=== PATIENT | female | born 1950 | race Caucasian/White ===

== ENCOUNTER → 2016-07-15 | Outpatient (CLI) | payer OTHER ==
[~2016-07-15] MED LIST: ATV1 PO; AZIT250T PO; BMX1 PO; CALCTAB7 PO; CRD200 PO; DLTCD/240 PO; FLUT1INH INH; IPRA1AER2 INH; IPRASOL4 INH; LEVO150T9 PO; LVQ500 PO; METO50TA17 PO; MOME200A INH; NTRSLP4 SL; OXGN; POTA20TA13 PO; PRED10TA PO; SPIR25TA PO; SPR25 PO; VTMD1000 PO; XRL20 PO
--- NOTE | 2016-07-15 15:50 | DIAGNOSTIC IMAGING REPORT ---
CHEST 2 VIEWS ROUTINE CLINICAL HISTORY: SOB COMPARISON STUDY: 06/19/2016 FINDINGS: The chest has an emphysematous configuration. There is no focal pulmonary consolidation. There is no failure. There are no pleural effusions.[ IMPRESSION: No active disease in the chest. Electronically signed by: Yimi Robins M.D. 07/15/2016 3:48 PM Dictated Date/Time: 07/15/2016 3:48 PM
== END | disposition home or self-care (01) ==
LOC: C.RAD1850 15:18
PROVIDERS: ATTEND Allergy & Immunology Allergy
DX: R06.02 Shortness of breath (principal)

== ENCOUNTER → 2016-07-18 | Outpatient (CLI) | payer OTHER ==
[2016-07-18 16:55] LABS: BLOOD UREA NITROGEN 13 mg/dl (7-18); CALCIUM 9.3 mg/dl (8.5-10.1); CARBON DIOXIDE 30 mmol/L (21-32); CHLORIDE 98 mmol/L (98-107); CREATININE 0.92 mg/dl (0.60-1.20); GLUCOSE 136 mg/dl (70-99); POTASSIUM 4.2 mmol/L (3.5-5.1); SODIUM 136 mmol/L (136-145)
== END | disposition home or self-care (01) ==
LOC: C.LAB1850 15:37
PROVIDERS: ATTEND Internal Medicine Pulmonary Disease
DX: R60.9 Edema, unspecified (principal)

== ENCOUNTER 2016-07-26 04:34 | Inpatient (IN) | payer OTHER ==
[2016-07-26] VITALS (8 sets, daily range): BP systolic 102–186; BP diastolic 64–99; PULSE 83–110; TEMP 36.4–37.1; O2SAT 91–98; Ht 172.7 cm; Wt 141.3 kg
[~2016-07-26] VITALS: Ht 172.7 cm; Wt 141.3 kg
[~2016-07-26 04:34] MED LIST changes: -AZIT250T PO; -CALCTAB7 PO; -CRD200 PO; -FLUT1INH INH; -METO50TA17 PO; -NTRSLP4 SL; -PRED10TA PO; -SPR25 PO; -VTMD1000 PO
[2016-07-26] MEDS ORDERED: SODIUM CHLORIDE 0.9% 1000ML 1,000 ML IV STA (04:51)
[2016-07-26] MEDS ORDERED: DILTIAZEM HCL 5 MG/ML 5 ML VIAL IV STA (04:51)
--- NOTE | 2016-07-26 04:57 | EMERGENCY ROOM VISIT NOTE ---
History Report prepared by Chicho: Marilyn Dickerson Under the Supervision of: Dr. Omar Rodriguez M.D. First contact with patient: 04:44 Chief Complaint: RAPID HEART RATE Stated Complaint: RAPID HEART RATE History of Present Illness The patient is a 65 year old female who presents to the Emergency Room with complaints of a persistent rapid heart rate that began two days ago. She currently rates her discomfort as a 2/10 in severity. The patient states that she has a history of atrial fibrillation and COPD. She states that she recently had a COPD exacerbation one month ago. The patient states that she is short of breath for several days as well, noting that she feels that she is not getting enough air. She states that she has noticed some central chest discomfort, but states that her pain has subsided since her arrival at the emergency department. The patient denies any fever or loss of consciousness. She states that she has a history of blood clots in the past, and denies being in atrial fibrillation chronically. The patient states that she is on Xarelto, but states that she is also given Cardizem when she goes into atrial fibrillation. She states that she has a history of three different cardioversions in the past. The patient states that she was recently on Prednisone and took her last dose last week. She states that she uses 2 liters of supplemental nasal cannula oxygen chronically at home and uses a C-pap at night. The patient additionally notes that she increases her oxygen usage with exertion. Source of History: patient Onset: two days ago Position: other (global) Symptom Intensity: 2/10 Quality: other (rapid heart rate) Timing: other (persistent) Associated Symptoms: + SOB, + chest pain, No LOC, No fevers Review of Systems See HPI for pertinent positives & negatives. A total of 10 systems reviewed and were otherwise negative. Past Medical & Surgical Medical Problems: (1) Acute and chronic respiratory failure with hypoxia (2) Asthma, Unspecified (3) Atrial Fibrillation (4) CHOLELITH W AC CHOLECYST (5) COPD (chronic obstructive pulmonary disease) (6) Deep venous thrombosis (7) GASTROPARESIS (8) HYPERLIPIDEMIA NEC/NOS (9) Hypothyroidism Nos (10) MORBID OBESITY (11) TYESHA on CPAP (12) Rapid atrial fibrillation Surgical Problems: (1) BARIATRIC SURGERY STATUS (2) Cholecystectomy (3) Tubal ligation status Family History Cancer FH: heart disease FHx: gallbladder disease Social History Smoking Status: Former Smoker Alcohol Use: none Marital Status: Housing Status: lives with family Occupation Status: retired Current/Historical Medications Scheduled Bumetanide (Bumetanide), 1 MG PO DAILY Ipratropium-Albuterol (Combivent Respimat), 1 PUFF INH QID Levothyroxine Sodium (Levothyroxine Sodium), 150 MCG PO DAILY Lorazepam (Lorazepam), 1 MG PO HS Mometasone Furoate-Formoterol (Dulera 200/5 Mcg), 2 PUFFS INH BID Oxygen (Oxygen), 2.5 LITERS NA UD Potassium Chloride Microencaps (Potassium Chloride Er), 20 MEQ PO DAILY Rivaroxaban (Xarelto), 20 MG PO DAILY Scheduled PRN Diltiazem Hcl (Diltiazem Cd), 240 MG PO DAILY PRN for Afib Symptoms Ipratropium-Albuterol (Duoneb), 1 TREATMENT INH QID PRN for SOB/Wheezing Spironolactone (Aldactone), 25 MG PO DAILY PRN for Fluid Retention Allergies Coded Allergies: Hydrocodone (Verified Adverse Reaction, Severe, GI SYMPTOMS, 07/26/16) Tramadol (Verified Adverse Reaction, Severe, GI SYMPTOMS, 07/26/16) Physical Exam Vital Signs Date Time Temp Pulse Resp B/P Pulse Ox O2 Delivery O2 Flow Rate FiO2 07/26/16 06:17 68 18 122/76 96 Nasal Cannula 3.0 07/26/16 04:52 98 Nasal Cannula 3.0 07/26/16 04:39 36.6 128 28 171/96 96 Nasal Cannula Physical Exam GENERAL: Patient is in moderate distress, anxious appearing. HEENT: No acute trauma, normocephalic atraumatic, mucous membranes moist, no nasal congestion, no scleral icterus. NECK: No stridor, no adenopathy, no meningismus, trachea is midline. LUNGS: Mildly dyspneic. Mild diffuse wheezing. No rhonchi. HEART:Irregular tachycardia. No murmurs, rubs, gallops appreciated. ABDOMEN: Soft, nontender, bowel sounds positive, no masses appreciated, no peritonitis. BACK: No midline tenderness, no CVA tenderness EXTREMITIES: Normal motion all extremities, no cyanosis, no edema. NEUROLOGIC: Alert and oriented, no acute motor or sensory deficits, no focal weakness, cranial nerves grossly intact. SKIN: No rash, no jaundice, no diaphoresis. Medical Decision & Procedures ER Provider Diagnostic Interpretation: X ray results are stated below per my interpretation: Chest: 1 view: No infiltrate, no effusion, normal cardiac border. Similar to recent chest x-ray. Laboratory Results 07/26/16 04:55 Red Blood Count 4.63, Mean Corpuscular Volume 87.9, Mean Corpuscular Hemoglobin 30.0, Mean Corpuscular Hemoglobin Concent 34.2, Mean Platelet Volume 10.2, Neutrophils (%) (Auto) 67.2, Lymphocytes (%) (Auto) 24.4, Monocytes (%) (Auto) 6.5, Eosinophils (%) (Auto) 1.2, Basophils (%) (Auto) 0.3, Neutrophils # (Auto) 8.70, Lymphocytes # (Auto) 3.16, Monocytes # (Auto) 0.84, Eosinophils # (Auto) 0.16, Basophils # (Auto) 0.04 07/26/16 04:55 Test 07/26/16 04:55 White Blood Count 12.95 K/uL (4.8-10.8) Red Blood Count 4.63 M/uL (4.2-5.4) Hemoglobin 13.9 g/dL (12.0-16.0) Hematocrit 40.7 % (37-47) Mean Corpuscular Volume 87.9 fL (80-100) Mean Corpuscular Hemoglobin 30.0 pg (25-34) Mean Corpuscular Hemoglobin Concent 34.2 g/dl (32-36) Platelet Count 218 K/uL (130-400) Mean Platelet Volume 10.2 fL (7.4-10.4) Neutrophils (%) (Auto) 67.2 % Lymphocytes (%) (Auto) 24.4 % Monocytes (%) (Auto) 6.5 % Eosinophils (%) (Auto) 1.2 % Basophils (%) (Auto) 0.3 % Neutrophils # (Auto) 8.70 K/uL (1.4-6.5) Lymphocytes # (Auto) 3.16 K/uL (1.2-3.4) Monocytes # (Auto) 0.84 K/uL (0.11-0.59) Eosinophils # (Auto) 0.16 K/uL (0-0.5) Basophils # (Auto) 0.04 K/uL (0-0.2) RDW Standard Deviation 43.3 fL (36.4-46.3) RDW Coefficient of Variation 13.6 % (11.5-14.5) Immature Granulocyte % (Auto) 0.4 % Immature Granulocyte # (Auto) 0.05 K/uL (0.00-0.02) Anion Gap 11.0 mmol/L (3-11) Est Creatinine Clear Calc Drug Dose 82.5 ml/min Estimated GFR () 68.3 Estimated GFR (Non- 59.0 BUN/Creatinine Ratio 13.1 (10-20) Calcium Level 8.6 mg/dl (8.5-10.1) Magnesium Level 1.9 mg/dl (1.8-2.4) Total Creatine Kinase 210 U/L (26-192) Creatine Kinase MB 3.9 ng/ml (0.5-3.6) Creatine Kinase MB Ratio 1.9 (0-3.0) Troponin I 0.023 ng/ml (0-0.045) Chemistry Specimen Hemolysis Laboratory results as reviewed by me. Medications Administered Medications (Trade) Dose Ordered Sig/Keri Route Start Time Stop Time Status Last Admin Dose Admin Diltiazem HCl 20 mg 20 mg NOW STAT IV 07/26/16 04:51 07/26/16 04:52 DC 07/26/16 04:58 20 MG Sodium Chloride (Nss 1000ml) 1,000 ml @ 75 mls/hr [id number] STAT IV 07/26/16 04:51 07/26/16 18:10 07/26/16 05:07 75 MLS/HR ECG Indication: tachycardia Rate (beats per minute): 117 Rhythm: atrial flutter Findings: nonspecific-ST abn (throuhgout), other (variable rate) Change: Repeat EKG: Atrial flutter with variable AV block 71 beats per minute. No acute ischemia. When compared to previous, rate his improved, but still in Atrial flutter. ED Course 0445: The patient was evaluated in room B2. A complete history and physical exam was performed. 0451: Ordered Sodium Chloride 1000 ml @ 75 mls/hr IV, Cardizem Inj 20 mg IV. 0457: I reevaluated the patient and she states that this feels like her previous rapid heart rate episodes. She does note that the shortness of breath does not feel like her COPD. She states that she has been short of breath with exertion for the past day and denies any shortness of breath at rest. The patient denies any fever or chills. She denies any history of heart failure. The patient notes intermittent edema in her legs. The patient states that she took 1 Cardizem prior to arrival. 0526: I reevaluated the patient and her heart rate is now in the 80s, but still in atrial flutter with a variable rate. 0600: I reevaluated the patient and she is feeling okay, but feels short of breath with sitting up. 0625: I discussed the patients case with Dr. Beck, Cardiology. He is going to call the patients music library assistant and will get back to us with the plan. 0638: I reevaluated the patient and she is feeling better. She notes taht she cannot sit up without becoming short of breath. She states that she is okay with waiting for Dr. Crowley, Cardiology's input. 0730: The patient was signed out to Dr. Agosto at change of shift. Medical Decision Differential: NSR, SVT, PACs, PVCs, Cardiac Dysrhythmia, Endocrine Dysfunction, Eletrolyte/Metabolic Abnormality, Pulmonary Embolism, Infectious, GI, amonst other pathologies entertained. 65 yr old female with history of paroxysmal aflutter resulting in symptomatic issues to point of multiple previous cardioversions. She is too symptomatic to head home. She has RVR on arrival though after single dose Cardizem doing well but after sitting up already gets SHOB. States this is not her normal COPD SOB and she has essentially clear lungs here. She is already on Xarelto thus unlikely to be PE. She notes this is identical to previous Aflutter issues. She has unremarkable labs with WBC mildly elevated likely secondary to recent steroid use. She has no fevers, no chills, and no productive cough thus I feel not infectious. Trop wnl. EKG much improved though still aflutter after cardizem. Discussed with Cards who will discuss with her primary music library assistant for further evaluation. Signed out to Dr Agosto awaiting music library assistant input/ plan. Consults Time Called: [phone] Consulting Physician: Dr. Beck, Cardiology Returned Call: [phone] I discussed the patients case with Dr. Beck, Cardiology. He is going to call the patients music library assistant and will get back to us with the plan. Impression Primary Impression: Atrial flutter with rapid ventricular response Additional Impressions: Symptomatic atrial flutter Shortness of breath on exertion Scribe Attestation The scribe's documentation has been prepared under my direction and personally reviewed by me in its entirety. I confirm that the note above accurately reflects all work, treatment, procedures, and medical decision making performed by me. Departure Information Dispostion Still a Patient Referrals Kiel Garcia M.D. (PCP) Problem Qualifiers
[2016-07-26 05:29] LABS: BASO % 0.3 %; BASO ABS # 0.04 K/uL (0-0.2); COMPLETE YES; EOS % 1.2 %; HEMATOCRIT 40.7 % (37-47); IG% 0.4 %; LYMPH % 24.4 %; LYMPH ABS # 3.16 K/uL (1.2-3.4); MEAN CELL VOLUME 87.9 fL (80-100); MEAN CORPUSCULAR HGB CONC 34.2 g/dl (32-36); MEAN PLATELET VOLUME 10.2 fL (7.4-10.4); MONO % 6.5 %; NEUT % 67.2 %; PLATELET COUNT 218 K/uL (130-400); RED BLOOD COUNT 4.63 M/uL (4.2-5.4); WHITE BLOOD COUNT 12.95 K/uL (4.8-10.8)
[2016-07-26 06:15] LABS: BUN/CREATININE RATIO 13.1 (10-20); CALCIUM 8.6 mg/dl (8.5-10.1); CKMB/CK RATIO 1.9 (0-3.0); CREATININE 0.99 mg/dl (0.60-1.20); MAGNESIUM 1.9 mg/dl (1.8-2.4); POTASSIUM 3.6 mmol/L (3.5-5.1)
--- NOTE | 2016-07-26 06:54 | DIAGNOSTIC IMAGING REPORT ---
CHEST ONE VIEW PORTABLE CLINICAL HISTORY: Atypical chest pain, shortness of breath. COMPARISON STUDY: 07/15/2016, 06/19/2016 FINDINGS: The cardiac and mediastinal contours are normal. There is no evidence of focal pulmonary consolidation. There is no evidence of failure. No pleural effusions are visualized.[ IMPRESSION: No active disease in the chest. Electronically signed by: Yimi Robins M.D. 07/26/2016 6:52 AM Dictated Date/Time: 07/26/2016 6:52 AM
[2016-07-26] MEDS ORDERED: METHYLPREDNISOLONE 125 MG VIAL IV STA (08:50)
[2016-07-26] MEDS ORDERED: ALBUT/IPRATROP 3MG/0.5MG NEB 3 ML VIAL INH STA (08:50)
[2016-07-26] MEDS ORDERED: ALUMINUM/MAGNESIUM/SIMETH (MAALOX MAX) 30 ML UDC PO PRN (10:15)
[2016-07-26] MEDS ORDERED: NITROGLYCERIN 0.4 MG SL PER TAB CHARGE SL PRN (10:15)
[2016-07-26] MEDS ORDERED: DILTIAZEM HCL 240 MG CAPCR PO PRN (10:15)
[2016-07-26] MEDS ORDERED: MAGNESIUM HYDROXIDE SUSP 30 ML UDC PO PRN (10:15)
[2016-07-26] MEDS ORDERED: ACETAMINOPHEN 325 MG TAB PO PRN (10:15)
[2016-07-26] MEDS ORDERED: ONDANSETRON INJ 2 MG/ML 2 ML VIAL IV PRN (10:15)
[2016-07-26] MEDS ORDERED: SPIRONOLACTONE 25 MG TAB PO PRN (10:15)
--- NOTE | 2016-07-26 10:45 | History and Physical ---
History & Physical Date & Time of Service: Jul 26, 2016 at 10:17 Chief Complaint: Rapid Heart Rate Primary Care Physician: Kiel Garcia M.D. History of Present Illness Source: patient, family Patient is a pleasant 65 y/o female, with PMHx of COPD, a.fib, CHF, TYESHA, HTN, hypothyroidism, GERD, who presented to the ED because of tachycardia and SOB. Patient was admitted approximately ~5 weeks ago for COPD exacerbation. Since that time, patient has been battling with SOB. She finished a Prednisone fabian ~1 week ago. She was placed on IV Levaquin during her last admission, but was not discharge/given any antibiotics since that time. She follows closely with Dr. Francis. Since that time, she has been getting progressively worsening SOB. On 07/25, her SOB worsening terribly. She was unable to ambulation. She took her pulse ox at home and noticed her pulse was in the 140s. She took her Diltiazem and went to sleep. Around 0330 she woke her daughter up because of severe SOB and tachycardia. At arrival to ED, patient noticed chest pressure that has since subsided. Patient wears 2-3L O2 supplement at home. +SOB, wheezing, cough - nonproductive. +chronic lower extremity edema. Patient denies any fever, chills, sweats, lightheadedness, dizziness, vision changes, palpitations, abdominal pain, nausea, vomiting, diarrhea, urinary symptoms, melena, numbness/ tingling, weakness, muscle/joint pain, anxiety/depression, active bleeding, or new skin discoloration/changes. Past Medical/Surgical History Medical Problems: 1. A.fib 2. Diastolic CHF 3. TYESHA 4. COPD 5. GERD 6. Hypothyroidism Surgical: 1. Tubal ligation 2. Cholecystectomy 3. Laparoscopic band surgery Family History Cancer FH: heart disease FHx: gallbladder disease Social History Smoking Status: Former Smoker Marital Status: Occupational Status: retired Immunizations History of Influenza Vaccine: Yes Influenza Vaccine Date: Apr 08, 2012 History of Tetanus Vaccine?: Yes Tetanus Immunization Date: Jun 08, 2005 History of Pneumococcal: Yes Pneumococcal Date: Apr 08, 2012 History of Hepatitis B Vaccine: No Multi-Drug Resistant Organisms History of MDRO: No Allergies Coded Allergies: Hydrocodone (Verified Adverse Reaction, Severe, GI SYMPTOMS, 07/26/16) Tramadol (Verified Adverse Reaction, Severe, GI SYMPTOMS, 07/26/16) Home Medications Scheduled Bumetanide (Bumetanide), 1 MG PO DAILY Ipratropium-Albuterol (Combivent Respimat), 1 PUFF INH QID Levothyroxine Sodium (Levothyroxine Sodium), 150 MCG PO DAILY Lorazepam (Lorazepam), 1 MG PO HS Mometasone Furoate-Formoterol (Dulera 200/5 Mcg), 2 PUFFS INH BID Oxygen (Oxygen), 2.5 LITERS NA UD Potassium Chloride Microencaps (Potassium Chloride Er), 20 MEQ PO DAILY Rivaroxaban (Xarelto), 20 MG PO DAILY Scheduled PRN Diltiazem Hcl (Diltiazem Cd), 240 MG PO DAILY PRN for Afib Symptoms Ipratropium-Albuterol (Duoneb), 1 TREATMENT INH QID PRN for SOB/Wheezing Spironolactone (Aldactone), 25 MG PO DAILY PRN for Fluid Retention Physical Exam Vital Signs Date Time Temp Pulse Resp B/P Pulse Ox O2 Delivery O2 Flow Rate FiO2 07/26/16 08:49 87 07/26/16 08:02 72 106/69 94 07/26/16 06:17 68 18 122/76 96 Nasal Cannula 3.0 07/26/16 04:52 98 Nasal Cannula 3.0 07/26/16 04:39 36.6 128 28 171/96 96 Nasal Cannula General Appearance: no apparent distress, + obese, + pertinent finding (O2 supplement on- mild SOB with speaking sentences ) Head: normocephalic, atraumatic Eyes: normal inspection, PERRL ENT: hearing grossly normal Neck: supple Respiratory/Chest: no respiratory distress, no accessory muscle use, + decreased breath sounds, + wheezing (throughout all lung suero ) Cardiovascular: regular rate, rhythm Abdomen/GI: normal bowel sounds, non tender, soft Back: normal inspection Extremities/Musculoskelatal: no calf tenderness, + swelling (+1 pitting edema of bilateral lower extremities starting at distal elizabeth region ) Neurologic/Psych: alert, normal mood/affect, oriented x 3 Skin: normal color, warm/dry, no rash Diagnostics Laboratory Results Results Past 24 Hours Test 07/26/16 04:55 Range/Units White Blood Count 12.95 4.8-10.8 K/uL Red Blood Count 4.63 4.2-5.4 M/uL Hemoglobin 13.9 12.0-16.0 g/dL Hematocrit 40.7 37-47 % Mean Corpuscular Volume 87.9 80-100 fL Mean Corpuscular Hemoglobin 30.0 25-34 pg Mean Corpuscular Hemoglobin Concent 34.2 32-36 g/dl Platelet Count 218 130-400 K/uL Mean Platelet Volume 10.2 7.4-10.4 fL Neutrophils (%) (Auto) 67.2 % Lymphocytes (%) (Auto) 24.4 % Monocytes (%) (Auto) 6.5 % Eosinophils (%) (Auto) 1.2 % Basophils (%) (Auto) 0.3 % Neutrophils # (Auto) 8.70 1.4-6.5 K/uL Lymphocytes # (Auto) 3.16 1.2-3.4 K/uL Monocytes # (Auto) 0.84 0.11-0.59 K/uL Eosinophils # (Auto) 0.16 0-0.5 K/uL Basophils # (Auto) 0.04 0-0.2 K/uL RDW Standard Deviation 43.3 36.4-46.3 fL RDW Coefficient of Variation 13.6 11.5-14.5 % Immature Granulocyte % (Auto) 0.4 % Immature Granulocyte # (Auto) 0.05 0.00-0.02 K/uL Sodium Level 139 136-145 mmol/L Potassium Level 3.6 3.5-5.1 mmol/L Chloride Level 101 98-107 mmol/L Carbon Dioxide Level 27 21-32 mmol/L Anion Gap 11.0 3-11 mmol/L Blood Urea Nitrogen 13 7-18 mg/dl Creatinine 0.99 0.60-1.20 mg/dl Est Creatinine Clear Calc Drug Dose 82.5 ml/min Estimated GFR () 68.3 Estimated GFR (Non- 59.0 BUN/Creatinine Ratio 13.1 10-20 Random Glucose 187 70-99 mg/dl Calcium Level 8.6 8.5-10.1 mg/dl Magnesium Level 1.9 1.8-2.4 mg/dl Total Creatine Kinase 210 26-192 U/L Creatine Kinase MB 3.9 0.5-3.6 ng/ml Creatine Kinase MB Ratio 1.9 0-3.0 Troponin I 0.023 0-0.045 ng/ml Chemistry Specimen Hemolysis Diagnostic Radiology CHEST ONE VIEW PORTABLE CLINICAL HISTORY: Atypical chest pain, shortness of breath. COMPARISON STUDY: 07/15/2016, 06/19/2016 FINDINGS: The cardiac and mediastinal contours are normal. There is no evidence of focal pulmonary consolidation. There is no evidence of failure. No pleural effusions are visualized.[ IMPRESSION: No active disease in the chest. Electronically signed by: Yimi Robins M.D. 07/26/2016 6:52 AM Dictated Date/Time: 07/26/2016 6:52 AM The status of this report is Signed. Draft = Not yet reviewed or approved by Radiologist. Signed = Reviewed and approved by Radiologist. 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 25mm/s 10mm/mV 150Hz 8.0 SP2 12SL 241 KRISTEN: 9 Referred by: Referred Self Confirmed By: IGOR Ledesma. 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 25mm/s 10mm/mV 150Hz 8.0 SP2 12SL 241 KRISTEN: 9 Referred by: Referred Self Confirmed By: IGOR ANA Vent. rate 117 BPM DE interval * ms QRS duration 74 ms QT/QTc 300/418 ms P-R-T axes 180 -70 86 1950 (65 yr) Female 1lb Room:B2 Loc:15 Taper And Floater:ENOCH Velazquez ind: Impression Assessment and Plan 65 y/o female, with PMHx of COPD, a.fib, CHF, TYESHA, HTN, hypothyroidism, GERD, who presented to the ED because of tachycardia and SOB. 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 Follows with Dr. Penny Sharma with RVR: - Patient given IV Diltiazem 20 mg in ED with rate improvement- at admission rate of 87bpm - Continue Xarelto 20 mg PO daily - Continue Diltiazem 240 mg PO daily PRN - Consult cardiology, appreciate recommendations. Patient follows with Dr. Crolwey. Has been converted x3 in past. Diastolic CHF/bilateral lower extremity edema: - Continue Bumex 1 mg PO daily, Spironolactone 25 mg PO PRN, and potassium supplement - ECHO in Jun 2015- EF 60-65%. No regional wall abnormalities. Diastolic dysfunction. Left ventricular size, thickness, and function normal - Daily weights and I&Os. Patient takes weight daily, baseline 311lbs. Hypothyroidism: - Continue Synthroid 150 mcg PO daily - Check TSH TYESHA: - CPAP GERD: - Pantoprazole 40 mg GI Prophylaxis: - Maalox PRN - IV Zofran PRN - Colace and/or Milk of Mag PRN DVT prophylaxis: - Xarelto - KOBY and SCDs Code Status: - LEVEL I, FULL Dispo: - From home, lives with daughter and grandson Level of Care Telemetry Resuscitation Status FULL RESUSCITATION VTE Prophylaxis VTE Risk Assessment Done? Y/N: Yes Risk Level: High Given or contraindicated: Other Anticoagulation, T.E.D. Stockings, SCD's
--- NOTE | 2016-07-26 12:33 | CARDIOLOGY CONSULTATION ---
DATE OF CONSULTATION: 07/26/2016 PRIMARY PHYSICIAN: Kiel Garcia MD ATTENDING AND REFERRING PHYSICIAN: Shruti Tam MD CONSULTATION: Yossi Crowley MD HISTORY OF PRESENT ILLNESS: The patient is a 65-year-old female with a history of pulmonary and heart disease. Longstanding history of chronic obstructive lung disease as well as sleep apnea. She uses CPAP at night. She is on nasal cannula oxygen throughout the rest of the day. Flow rate 2-1/2 liters per minute. She does increase the flow rate when she has increased dyspnea with exertion. She also has a history of atrial arrhythmias. On admission in May 2014, she was noted to have atrial flutter. Echocardiogram at that time revealed normal biventricular systolic function. Her TSH, magnesium, and potassium levels were normal. She was started on antiarrhythmic therapy. She was given medications for ventricular rate control. She underwent successful cardioversion on 07/22/2014 for atrial flutter. Since then, she has undergone 2 further cardioversion procedures. These were in February of 2016 and in September of 2015. The rhythm was atrial fibrillation. The cardioversion procedures were successful in converting the rhythm to sinus rhythm. She has been maintained on anticoagulation therapy since May of 2014. The patient was admitted on 06/19/2016 to [facility] with acute on chronic respiratory insufficiency. It was felt that she had an acute bronchitis. During the admission, she was in sinus rhythm. She was discharged home on 06/22/2016. During admission, she received intravenous steroids. Since discharge, she has had at least 3 followup visits to pulmonary clinic at [facility]. These were on 07/05/2016, 07/15/2016, and 07/18/2016. During that timeframe, she was treated with 2 courses of oral steroids. She also had complained of weight gain and fluid retention. She had an increase in her Bumex dose from 1 mg daily to 1 mg b.i.d. for 3 days. Between her July 15 and July 18 appointments, she reported a weight loss of 5 pounds. She also complained of decreased dyspnea and coughing. None of the visits were she noted to have an elevated heart rate. The patient presented to the Emergency Department early this morning with a 3-day history of worsening dyspnea. This has been accompanied by a nonproductive cough and increased wheezing. She does use a nebulizer at home. She denies any palpitations. No lightheadedness or syncope. Last night, she did have a sensation of tightness in her chest lasting approximately 1 hour. This has since resolved. She normally sleeps at approximately 45-degree angle. Over the past few days, she feels that she needs to sit more upright to sleep. She complains of mild edema of her legs. No pain in her legs. She denies any bleeding complaints. No symptoms suggestive of thromboembolic event. Over the past few days, she has dyspnea with minimal activity. This is after walking only a few steps. Normally, she can walk approximately 30 feet with only mild dyspnea. She is complaining of dyspnea at rest on my evaluation of her in the Emergency Department. She denies any fevers or chills. No GI complaints other than 3 episodes of loose stools earlier today. No symptoms of GI bleeding. She denies any urinary complaints. PAST MEDICAL HISTORY: 1. Chronic obstructive pulmonary disease. 2. Chronic respiratory failure. 3. Paroxysmal atrial arrhythmias. These include both atrial fibrillation and atrial flutter. 4. Hyperglycemia. 5. Hypothyroidism. 6. Obstructive sleep apnea. 7. Pulmonary nodules. 8. Polyneuropathy. 9. Gastroesophageal reflux disease. 10. History of mediastinal lymphadenopathy. 11. History of thrombophlebitis of the upper extremities. 12. History of iron deficiency anemia. 13. History of bronchitis. 14. History of depression. 15. History of vaginal candidiasis. 16. No history of CVA. 17. Prior to the development of her atrial arrhythmias in 2013, she had no prior history of heart disease. 18. Morbid obesity. 19. Status post bariatric surgery with placement of a lap band. 20. Status post cholecystectomy. 21. Status post tubal ligation. 22. History of gastroparesis. SOCIAL HISTORY: The patient smoked cigarettes from age 13 through age 55. She is a . Her daughter lives with her. No significant use of alcohol. FAMILY HISTORY: History of atrial fibrillation in both her mother and her sister. MEDICATIONS: At the time of admission were Bumex 1 mg daily, Combivent 1 puff q.i.d., diltiazem 240 mg daily as needed, Dulera 2 puffs b.i.d., ipratropium/albuterol nebulizer q.i.d., levothyroxine 150 mcg daily, lorazepam 1 mg at bedtime, potassium chloride 20 mEq daily, spironolactone 25 mg daily, and Xarelto 20 mg daily. ALLERGIES AND ADVERSE DRUG REACTIONS: CODEINE, TRAMADOL, AND FLECAINIDE. REVIEW OF SYSTEMS: 1. As above. 2. No cerebrovascular complaints suggestive of a thromboembolic event. 3. No current bleeding complaints. 4. No cerebrovascular or peripheral vascular complaints. 5. No urinary complaints. PHYSICAL EXAMINATION: GENERAL: The patient is sitting up in her bed in the Emergency Department. She was evaluated by me in the Emergency Department this morning. She had audible wheezing just standing at her bedside. She appears to be in mild respiratory distress. She is using accessory muscles. HEAD: Normal. EYES: Pupils equal and round. Anicteric. NECK: Thick neck. Unable to evaluate jugular venous pressure. Carotids 2/2 bilaterally. Normal upstroke. No bruits. LUNGS: Diminished breath sounds and air movement in all lung suero. No rales. Scattered inspiratory and expiratory wheezes. Rhonchi are also present. HEART: Distant heart sounds. PMI not palpable. No lifts or heaves. Irregular rhythm. No murmur, gallop, or rub heard. ABDOMEN: Obese. Soft. Nontender. No palpable masses or organomegaly. No bruits. Normal bowel sounds. EXTREMITIES: 2+ pretibial edema bilaterally. No calf tenderness. No erythema or increased warmth of the legs. No cyanosis or clubbing. PULSES: Distal pulses in all extremities palpable. NEUROLOGICAL: Alert and oriented x3. Motor grossly intact. PSYCHIATRIC: Affect is normal. DATA: Electrocardiogram today and reviewed by me shows atrial flutter. Variable AV block. 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 Compared to prior electrocardiograms since at least 2013, she has had poor R-wave progression. The poor R-wave progression has been noted since at least 2002. Chest x-ray performed this morning and reviewed by me shows no evidence of congestive heart failure. No infiltrate. Her most recent echocardiogram was on 07/17/2015. It revealed normal left ventricular size, wall thickness, and systolic function. Grade-2 LV diastolic dysfunction. No regional wall motion abnormalities of the left ventricle. LV ejection fraction 65%-70%. Mild right ventricular dilatation with intact systolic function. No significant valvular regurgitation was noted. LABORATORY DATA: Today with WBC 12.95, hemoglobin 13.9, hematocrit 40.7, and platelet count 218. Sodium 139, potassium 3.6, chloride 101, carbon dioxide 27, BUN 13, creatinine 0.99, random glucose 187, and magnesium 1.9. Troponin I is 0.023. CK total 210 with MB of 3.9. CK-MB ratio normal at 1.9. ASSESSMENT: 1. Acute on chronic respiratory failure. At the time of my exam, she was complaining of dyspnea. She had audible wheezing standing at her bedside. Diminished breath sounds in all lung suero. Poor air movement in all lung suero. Despite this, her oxygen saturation was in the 90s. She is on supplemental nasal cannula oxygen. 2. Recurrent atrial arrhythmias. Overnight, she noted when she checked her pulse ox that she had heart rates in the 140s. In the Emergency Department, she received intravenous diltiazem, which helped decrease her ventricular response. At the time of my exam, her ventricular response was controlled. She remained in atrial flutter. 3. Chronic anticoagulation with Xarelto. 4. Status post 3 electrical cardioversions since 2014. These were all for atrial fibrillation or flutter. 5. Complaint of 1 hour of chest tightness last night. Cardiac enzymes negative for evidence of myocardial injury. Electrocardiogram without any acute changes. The poor R-wave progression from V1-V3 on electrocardiogram has been present for at least 13 years. It is likely secondary to her body habitus and lead placement. On echocardiography, she has normal LV wall motion. There is no evidence of any anterior myocardial infarction on her echo. The chest tightness last night could have been secondary to her bronchospasm. Certainly, cannot exclude myocardial ischemia as an etiology. 6. She is hemodynamically stable with her atrial arrhythmia. RECOMMENDATIONS: 1. It was recommended to the Emergency Department physician that the patient be admitted to the medical service for treatment of her acute on chronic respiratory failure. Nebulizer treatments and intravenous steroids would be indicated. 2. Continue Xarelto. 3. We will start her on amiodarone 400 mg b.i.d. After she is as loaded with amiodarone, we will decrease the dose to 200 mg once daily. 4. If she remains in atrial flutter despite initiation of amiodarone therapy, we will then proceed to elective electrical cardioversion. This will not be performed until her respiratory status is at baseline. She would be at extremely high risk for deep sedation at this time. This is in light of her respiratory insufficiency and active bronchospasm. 5. Serial cardiac enzymes. 6. Repeat echocardiogram. Reassess right and left ventricular function and assess intracardiac pressures. 7. Check a ProBNP. 8. Do not suspect congestive heart failure is an etiology for dyspnea. No evidence of heart failure on her chest x-ray. She does have chronic peripheral edema, which may be related to primary venous insufficiency. This can be exacerbated by diltiazem therapy. Thank you for asking me to see this patient in cardiology consultation. FLORENCIA
[2016-07-26] MEDS ORDERED: IPRATROPIUM BROMIDE INH SCH (13:00)
[2016-07-26] MEDS ORDERED: ALBUTEROL INH SCH (13:00)
[2016-07-26] MEDS: IPRATROPIUM BROMIDE NEB SOLN 0.02% 2.5 ML VIAL INH SCH ×2 (15:00→19:17)
[2016-07-26] MEDS: LEVALBUTEROL 1.25MG/0.5ML NEB INH SCH ×2 (15:00→19:18)
[2016-07-26] MEDS ORDERED: LEVALBUTEROL/IPRATROPIUM NEB INH SCH (15:00)
[2016-07-26] MEDS ORDERED: PERFLUTREN LIPID MICROSPHERE (DEFINITY) IV ONE (15:12)
--- NOTE | 2016-07-26 15:38 | EMERGENCY ROOM VISIT NOTE ---
ED Visit Note This patient was signed out to me by Dr. Rodriguez at shift change. At that point ,the patient was awaiting doctors noted to see her for possible cardioversion. She does have paroxysmal A. fib and had rapid A. fib and was initially seen by Dr. Rodriguez who did extensive workup. She was given Cardizem and this helped the A. fib. Drs. Crowley saw her and her rate was controlled. He was concerned that this is more respiratory failure issue at she 's wheezing. She appears comfortable at rest but with any exertion. She is very short of breath. I did give her Solu-Medrol 125 mg IV and a DuoNeb. I do think she needs to be admitted to internal medicine which Dr. Crowley who feels as well. At this point, he does not feel that she is stable for cardioversion and it does not need to be done emergently. I have consulted the [facility] hospitalist group and they saw her for these measures.
[2016-07-26] MEDS: RIVAROXABAN 20 MG TAB PO SCH (16:48)
[2016-07-26] MEDS: METHYLPREDNISOLONE IV 80 MG in SYRINGE 0 ML IV SCH (16:48)
--- NOTE | 2016-07-26 18:05 | ECHOCARDIOGRAM REPORT ---
*NOTICE TO RECEIVING REPUBLICAN AGENCY This information is strictly Confidential and protected under [place] law. [place] law prohibits you from making any further disclosure of this information unless further disclosure is expressly permitted by the written consent of the person to whom it pertains or is authorized by law. A general authorization for the release of medical or other information is not sufficient for this purpose. Hospital accepts no responsibility if the information is made available to any other person, INCLUDING THE PATIENT. Interpretation Summary * Name: YOVANY CARTAGENA Study Date: 07/26/2016 02:43 PM BP: 127/79 mmHg * Patient Location: C.2T\S\S229\S\2 HR: 110 * : 1950 (M/d/yyy) Gender: Female Height: 67 in * Age: 65 yrs Ethnicity: [place] Weight: 310 lb * Ordering Physician: Yossi Crowley * Referring Physician: Self, Referred * Performed By: Vanessa Leavitt RCS * * Reason For Study: A-Flutter * BSA: 2.4 m2 * Hyperdynamic biventricular systolic function. * Normal chamber dimensions. * Mild aortic stenosis. * No evidence of significant valvular regurgitation. * No evidence of elevated right heart or central venous pressures. * The study was technically difficult. Procedure Details * A complete two-dimensional transthoracic echocardiogram was performed (2D, M-mode, Doppler and color flow Doppler). * The study was technically difficult. * The study was technically limited. * There were technical limitations due to patient'sPoor acoustic windows secondary to severe lung disease. * A contrast injection of Definity was performed to improve assessment of LV function. * One vial of Definity ultrasound contrast was diluted in normal saline to a total volume of 10 ml. A total of '2' ml of solution was administered during imaging. * Lot # [id number] of Definity utilized for procedure. * Expiration date . * The attending nurse who injected the contrast agent was PARIS Alexander. Left Ventricle * The left ventricle is normal in size. * There is mild concentric left ventricular hypertrophy. * Ejection Fraction = >70 %. * The left ventricle is hyperdynamic. * No regional wall motion abnormalities noted. Right Ventricle * The right ventricle is normal size. * The right ventricle is hyperdynamic. Atria * The left atrial size is normal. * Right atrial size is normal. Mitral Valve * The mitral valve is grossly normal. * There is no mitral valve stenosis. * Significant mitral regurgitation is absent. Tricuspid Valve * The tricuspid valve is not well visualized. * Significant tricuspid regurgitation is absent. Aortic Valve * The aortic valve is not well visualized. * Mild valvular aortic stenosis. * Aortic valve area was calculated at 1.5 cm\S\2 using the continuity equation. * There is no significant aortic regurgitation. Pulmonic Valve * The pulmonic valve is not well visualized. * There is no significant pulmonary regurgitation. Great Vessels * The aortic root is normal size. Pericardium/Pleural * There is no pericardial effusion. Great Vessels * Normal inferior vena cava diameter and respiratory variation suggests normal central venous pressure. MMode 2D Measurements and Calculations IVSd 1.2 cm IVSs 1.6 cm LVIDd 3.8 cm LVIDs 2.7 cm LVPWd 1.2 cm LVPWs 1.4 cm IVS/LVPW 1.0 FS 30.6 % EDV(Teich) 63.6 ml ESV(Teich) 26.2 ml EF(Teich) 58.9 % EDV(cubed) 56.7 ml ESV(cubed) 18.9 ml EF(cubed) 66.6 % % IVS thick 37.1 % % LVPW thick 20.4 % LV mass(C)d 150.4 grams LV mass(C)dI 61.7 grams/m\S\2 LV mass(C)s 137.6 grams LV mass(C)sI 56.5 grams/m\S\2 CO(Teich) 3.4 l/min CI(Teich) 1.4 l/min/m\S\2 SV(Teich) 37.4 ml SI(Teich) 15.4 ml/m\S\2 CO(cubed) 3.4 l/min CI(cubed) 1.4 l/min/m\S\2 SV(cubed) 37.8 ml SI(cubed) 15.5 ml/m\S\2 Ao root diam 2.7 cm Ao root area 5.8 cm\S\2 ACS 1.4 cm LA dimension 3.6 cm LA/Ao 1.3 LVOT diam 2.0 cm LVOT area 3.0 cm\S\2 LVAd ap4 39.8 cm\S\2 LVLd ap4 9.3 cm EDV(MOD-sp4) 139.0 ml LVAs ap4 21.4 cm\S\2 LVLs ap4 7.5 cm ESV(MOD-sp4) 50.0 ml EF(MOD-sp4) 64.0 % LVAd ap2 25.1 cm\S\2 LVLd ap2 8.5 cm EDV(MOD-sp2) 61.0 ml LVAs ap2 16.5 cm\S\2 LVLs ap2 7.5 cm ESV(MOD-sp2) 29.0 ml EF(MOD-sp2) 52.5 % CO(MOD-sp4) 8.1 l/min CI(MOD-sp4) 3.3 l/min/m\S\2 SV(MOD-sp4) 89.0 ml SI(MOD-sp4) 36.5 ml/m\S\2 CO(MOD-sp2) 2.9 l/min CI(MOD-sp2) 1.2 l/min/m\S\2 SV(MOD-sp2) 32.0 ml SI(MOD-sp2) 13.1 ml/m\S\2 Doppler Measurements and Calculations MV E max marc 151.8 cm/sec MV A max marc 98.1 cm/sec MV E/A 1.5 MV P1/2t max marc 156.8 cm/sec MV P1/2t 63.8 msec MVA(P1/2t) 3.4 cm\S\2 MV dec slope 719.6 cm/sec\S\2 MV dec time 0.14 sec Ao V2 max 203.4 cm/sec Ao max PG 16.6 mmHg Ao max PG (full) 12.2 mmHg Ao V2 mean 141.0 cm/sec Ao mean PG 9.2 mmHg Ao V2 VTI 40.2 cm KSENIA(V,A) 1.5 cm\S\2 KSENIA(V,D) 1.5 cm\S\2 LV V1 max PG 4.5 mmHg LV V1 max 104.9 cm/sec SV(Ao) 232.5 ml SI(Ao) 95.4 ml/m\S\2 PA V2 max 101.4 cm/sec PA max PG 4.1 mmHg
[2016-07-26] MEDS: LEVOTHYROXINE 150 MCG TAB PO SCH (18:24)
[2016-07-26] MEDS: MOMETASONE FUROATE FORMOTEROL INH SCH (19:41)
[2016-07-26] MEDS: AMIODARONE 200 MG TAB PO SCH (21:49)
[2016-07-26] MEDS: LORAZEPAM 1 MG TAB PO SCH (23:10)
[2016-07-27] VITALS (16 sets, daily range): BP systolic 123–173; BP diastolic 64–98; PULSE 74–122; TEMP 36.4–36.7; O2SAT 94–98
[2016-07-27] MEDS: METHYLPREDNISOLONE IV 80 MG in SYRINGE 0 ML IV SCH ×2 (02:00→08:41)
[2016-07-27] MEDS: LEVALBUTEROL 1.25MG/0.5ML NEB INH SCH ×4 (02:12→19:00)
[2016-07-27] MEDS: IPRATROPIUM BROMIDE NEB SOLN 0.02% 2.5 ML VIAL INH SCH ×4 (02:12→19:00)
[2016-07-27] MEDS ORDERED: LEVOTHYROXINE 150 MCG TAB PO SCH (06:00)
[2016-07-27 06:11] LABS: HEMATOCRIT 40.2 % (37-47); MEAN CELL VOLUME 85.5 fL (80-100); MEAN CORPUSCULAR HEMOGLOBIN 29.1 pg (25-34); MEAN CORPUSCULAR HGB CONC 34.1 g/dl (32-36); PLATELET COUNT 229 K/uL (130-400); WHITE BLOOD COUNT 9.41 K/uL (4.8-10.8)
[2016-07-27 06:40] LABS: BUN/CREATININE RATIO 15.5 (10-20); CALCIUM 9.2 mg/dl (8.5-10.1); CREATININE 0.77 mg/dl (0.60-1.20); MAGNESIUM 2.2 mg/dl (1.8-2.4); POTASSIUM 3.9 mmol/L (3.5-5.1)
[2016-07-27 06:48] LABS: THYROID STIMULATING HORMONE 0.408 uIu/ml (0.300-4.500)
[2016-07-27] MEDS: BUMETANIDE 1 MG TAB PO SCH (08:40)
[2016-07-27] MEDS: POTASSIUM CHLORIDE 20 MEQ TABCR PO SCH (08:42)
[2016-07-27] MEDS: PANTOprazole SOD 40 MG TAB PO SCH (08:42)
[2016-07-27] MEDS: AMIODARONE 200 MG TAB PO SCH ×2 (08:43→20:59)
[2016-07-27] MEDS ORDERED: NURSING VERBAL MED ORDER ONE (08:45)
[2016-07-27] MEDS: MOMETASONE FUROATE FORMOTEROL INH SCH ×2 (08:46→20:59)
--- NOTE | 2016-07-27 08:52 | Pulmonary Consultation ---
History General Date of Service: Jul 27, 2016. Stated Complaint: Acute And Chronic Respiratory Failure With Hypoxia HPI The patient is a 65 year old female who presents to [facility] with complaints of Acute And Chronic Respiratory Failure With Hypoxia. The patient's primary care provider is Kiel Garcia M.D.. 65 y/o female, with PMHx of Sever COPD(FEV1: 48), A-fib with RVR (s/p multiple- cardioversions), CHF, TYESHA, HTN, hypothyroidism, GERD, who presented to the ED because of tachycardia and 5 weeks of SOB/MANZANARES since her previous admission for a COPD exacerbation. She has being seeing Jeffrey Francis as an outpatient. During their last visit the patient had finished a course of prednisone with minimal relief. It was noted she had gained 3Lbs but her PE and CXR() showed no acute changes. She also noted choking during that interview and a swallow evaluation was ordered but not yet performed. 24 hours prior to admission the patients SOB became unbearable with her home Pulse Ox showing a HR in the 140 s. In the ED the patient initially noted chest pressure which subsided with treatment. Over the last year the patient is described increasing dyspnea on exertion/ fatigue where this has progressed greatly over the last 5 weeks. She is also noted tremendous waking last 5 years as should also note intermittent GERD especially over the last 5 weeks. Denies: Chest pain, pleurisy, productive cough, hemoptysis, lightheadedness, dizziness, palpitations, rhinorrhea Work-up: 1)CXR: hilar fullness, cephalization, kristopher-brocnhial cuffing but no acute changes from 07/15/16 2)EKG: A-flutter, A-V block with PVC 3)Cardiac Echo: a.LV: LVH, EF=70%, b.RV: WNL 4)WBC: 13K-9K 5)Pro-BNP: 2133 (normal range: 0-900) 6)BUN/Cr: 11.0/0.99 Treatment: 1)Diltiazem 2)Amiodarone 3)Dulera puffs BID (need 200/5) 4)Methylprednisolone 80mg Q8 ---drop dose 5)Xopenex/Atrovent Nebs Q6 Historian: patient, EMS Review of Systems Constitutional: reports: weakness Eyes: reports: no symptoms ENT: reports: no symptoms Cardiovascular: reports: chest tightness Respiratory: reports: MANZANARES, orthopnea, other (thoracic ultrasound shows B-lines associated apices but greatest at the bases bilaterally with auscultation noted to have crackles at the bases) Gastrointestinal: reports: as stated in HPI Genitourinary - Female: reports: no symptoms Musculoskeletal: reports: no symptoms Integumentary: reports: no symptoms Neurologic: reports: no symptoms Psychiatric: reports: no symptoms Endocrine: no symptoms Hematologic / Lymphatic: no symptoms Allergic / Immunologic: no symptoms Past Medical History Past Medical History: (1) Acute and chronic respiratory failure with hypoxia (2) Asthma, Unspecified (3) Atrial Fibrillation (4) CHOLELITH W AC CHOLECYST (5) Sever COPD (FEV1: 48%---DLCO:48%--DLCO/VA:68%) (6) Deep venous thrombosis (7) GASTROPARESIS/GERD (8) HYPERLIPIDEMIA NEC/NOS (9) Hypothyroidism (10) MORBID OBESITY (11) TYESHA on CPAP (15mmHg: Optimal [id number]: The patient intolerant) (12) Rapid atrial fibrillation/Flutter a. Multiple Cardioversion x3 since 2015 (13) Diastolic CHF: (14) O2 Dependent Past Surgical History: 1. Tubal ligation 2. Cholecystectomy 3. Laparoscopic band surgery/Bariatric Family History Cancer FH: heart disease FHx: gallbladder disease Social History Hx Tobacco Use In Past Year?: No Smoking Status: Former Smoker Marital status: Occupational Status: retired Immunizations History of Influenza Vaccine: Yes Influenza Vaccine Date: Apr 08, 2012 History of Tetanus Vaccine?: Yes Tetanus Immunization Date: Jun 08, 2005 History of Pneumococcal: Yes Pneumococcal Date: Apr 08, 2012 History of Hepatitis B Vaccine: No History of MDRO History of MDRO: No Allergies Coded Allergies: Hydrocodone (Verified Adverse Reaction, Severe, GI SYMPTOMS, 07/26/16) Tramadol (Verified Adverse Reaction, Severe, GI SYMPTOMS, 07/26/16) Current Medications Reported Home Medications Medications Dose Route/Sig Max Daily Dose Days Date Category Dose Instructions Duoneb (Ipratropium-Albuterol) 3 Ml Nebu 1 Treatment INH QID PRN 30 06/22/16 Rx Oxygen Gas 2.5 Liters NA UD 06/19/16 Reported ADMINISTER THROUGH CPAP DURING HOURS OF SLEEP AND THROUGHOUT THE DAY WHEN SHORT OF BREATH Bumetanide 1 Mg Tab 1 Mg PO DAILY 06/19/16 Reported Diltiazem Cd (Diltiazem Hcl) 240 Mg Capcr 240 Mg PO DAILY PRN 06/19/16 Reported Lorazepam 1 Mg Tab 1 Mg PO HS 06/19/16 Reported Xarelto (Rivaroxaban) 20 Mg Tab 20 Mg PO DAILY 06/19/16 Reported TAKE THIS MEDICATION ONCE DAILY WITH EVENING MEAL Potassium Chloride Er (Potassium Chloride Microencaps) 20 Meq Tab 20 Meq PO DAILY 06/19/16 Reported Levothyroxine Sodium 150 Mcg Tab 150 Mcg PO DAILY 03/12/16 Reported Dulera 200/5 Mcg (Mometasone Furoate-Formoterol) 1 Aer Aer 2 Puffs INH BID 01/30/16 Reported Aldactone (Spironolactone) 25 Mg Tab 25 Mg PO DAILY PRN 09/21/15 Reported Combivent Respimat (Ipratropium-Albuterol) 1 Aer Aer 1 Puff INH QID 06/09/14 Reported SKIP SCHEDULED DOSE IF DUONEB IS ADMINISTER Physical Physical Exam Vital Signs: Date Time Temp Pulse Resp B/P Pulse Ox O2 Delivery O2 Flow Rate FiO2 07/27/16 07:17 36.4 122 22 123/74 96 Nasal Cannula 2.0 07/27/16 07:04 116 16 98 Nasal Cannula 2.0 07/27/16 04:09 36.7 105 20 158/83 94 CPAP 07/27/16 04:00 94 CPAP 2.0 07/27/16 02:12 74 16 98 Nasal Cannula 2.0 07/27/16 00:00 96 Nasal Cannula 2.0 07/26/16 23:43 36.6 96 20 165/92 96 Nasal Cannula 2.0 07/26/16 20:00 91 Nasal Cannula 2.0 07/26/16 19:23 37.1 103 20 102/64 91 Room Air 07/26/16 19:18 102 18 95 Nasal Cannula 2.0 07/26/16 16:00 Nasal Cannula 2.0 07/26/16 15:49 110 20 98 Nasal Cannula 2.0 07/26/16 15:33 36.5 86 22 127/79 94 Nasal Cannula 4.0 07/26/16 13:59 36.4 83 20 186/99 Nasal Cannula 3.0 2/3/17 11:48 36.4 83 20 186/99 93 Nasal Cannula 3.0 07/26/16 09:31 90 128/83 92 Nasal Cannula 2.0 07/26/16 08:49 87 Diagnostics Labs Results Past 24 Hours Test 07/26/16 12:48 07/26/16 21:00 07/26/16 21:23 07/27/16 05:31 Range/Units Creatine Kinase MB 4.2 3.6 0.5-3.6 ng/ml Creatine Kinase MB Ratio 0-3.0 Troponin I < 0.015 < 0.015 0-0.045 ng/ml White Blood Count 9.41 4.8-10.8 K/uL Red Blood Count 4.70 4.2-5.4 M/uL Hemoglobin 13.7 12.0-16.0 g/dL Hematocrit 40.2 37-47 % Mean Corpuscular Volume 85.5 80-100 fL Mean Corpuscular Hemoglobin 29.1 25-34 pg Mean Corpuscular Hemoglobin Concent 34.1 32-36 g/dl RDW Standard Deviation 41.3 36.4-46.3 fL RDW Coefficient of Variation 13.2 11.5-14.5 % Platelet Count 229 130-400 K/uL Mean Platelet Volume 10.0 7.4-10.4 fL Sodium Level 137 136-145 mmol/L Potassium Level 3.9 3.5-5.1 mmol/L Chloride Level 101 98-107 mmol/L Carbon Dioxide Level 24 21-32 mmol/L Anion Gap 12.0 3-11 mmol/L Blood Urea Nitrogen 12 7-18 mg/dl Creatinine 0.77 0.60-1.20 mg/dl Est Creatinine Clear Calc Drug Dose 106.7 ml/min Estimated GFR () 92.6 Estimated GFR (Non- 79.9 BUN/Creatinine Ratio 15.5 10-20 Random Glucose 228 70-99 mg/dl Calcium Level 9.2 8.5-10.1 mg/dl Magnesium Level 2.2 1.8-2.4 mg/dl 25-Hydroxy Vitamin D Total 9.2 30-100 ng/ml Thyroid Stimulating Hormone (TSH) 0.408 0.300-4.500 uIu/ml Diagnostic Radiology CXR: hilar fullness, cephalization, kristopher-brocnhial cuffing but no acute changes from 07/15/16 EKG EKG: A-flutter, A-V block with PVC Impression Assessment and Plan 65-year-old female admitted for acute on chronic respiratory insufficiency: #1 COPD: Patient is noted to have severe COPD with an FEV1 of 48%. - Currently treated: Dulera 100 over 5 per patient and Combivent MDI as well as duo nebs when necessary - Gold standard patient should be on Inhaled Corticosteroids/LABA, LAMA - IV steroids: We will decrease to 60 mg 3 times a day at this time as they will increased fluid retention #2 diastolic heart failure: - Thoracic ultrasound and physical exam as well as admission with A. fib with RVR suggest patient does have a component of diastolic heart failure and proper diuresis with proper INR monitoring should be very beneficial to her patient. #3 TYESHA: -Patient is gained a tremendous amount of weight over the last 5 years. We should continue her CPAP at this time but as an outpatient should be titrated for evaluation of possible BiPAP necessity #4 A. fib/DVT -Patient currently on Xarelto secondary to atrial fibrillation as well as history of DVT
--- NOTE | 2016-07-27 08:52 | Cardiology Follow-Up ---
Subjective Date of Service: Jul 27, 2016. Pt evaluation today including: conversation w/ patient, physical exam, lab review, review of studies, review of inpatient medication list History of Present Illness 65-year-old woman who presented with shortness of breath and tachycardia. She has a history of COPD, atrial fibrillation, congestive heart failure, hypertension as well. She was observed to be in congestive heart failure in atrial flutter with a rapid ventricular response in the emergency room. She was administered intravenous diltiazem with improvement in her heart rate, she has been anticoagulated with Xarelto. She was started on oral amiodarone for her arrhythmia and Xarelto was continued. An echocardiogram shows normal left ventricular function. Today she is still very short of breath, but she was just in the bathroom. She notes that her heart rate is fast but she did not have much of an awareness that she was in her arrhythmia. Social History Smoking Status: Former Smoker History of Alcohol Use: No Review of Systems Respiratory: No shortness of breath Cardiac: No chest pain Objective Vital Signs Past 12 Hours Date Time Temp Pulse Resp B/P Pulse Ox O2 Delivery O2 Flow Rate FiO2 07/27/16 07:17 36.4 122 22 123/74 96 Nasal Cannula 2.0 07/27/16 07:04 116 16 98 Nasal Cannula 2.0 07/27/16 04:09 36.7 105 20 158/83 94 CPAP 07/27/16 04:00 94 CPAP 2.0 07/27/16 02:12 74 16 98 Nasal Cannula 2.0 07/27/16 00:00 96 Nasal Cannula 2.0 07/26/16 23:43 36.6 96 20 165/92 96 Nasal Cannula 2.0 Last Recorded Weight-Kilograms: 142.600 Intake & Output 8-Hour Column 07/26/16 07/27/16 07/27/16 16:00 00:00 08:00 Intake Total 120 ml 800 ml 300 ml Balance 120 ml 800 ml 300 ml 24-Hour Column 07/27/16 08:00 Intake Total 1220 ml Balance 1220 ml Physical Exam Constitutional: Level of Distress: moderate distress Lungs: Auscultation: breath sounds normal, no wheezing Cardiovascular: Heart Auscultation: tachycardia, irregular rate rhythm Data Laboratory Results: Last 24 Hours Test 07/26/16 12:48 07/26/16 21:00 07/26/16 21:23 07/27/16 05:31 Creatine Kinase MB 4.2 ng/ml 3.6 ng/ml Creatine Kinase MB Ratio Troponin I < 0.015 ng/ml < 0.015 ng/ml White Blood Count 9.41 K/uL Red Blood Count 4.70 M/uL Hemoglobin 13.7 g/dL Hematocrit 40.2 % Mean Corpuscular Volume 85.5 fL Mean Corpuscular Hemoglobin 29.1 pg Mean Corpuscular Hemoglobin Concent 34.1 g/dl RDW Standard Deviation 41.3 fL RDW Coefficient of Variation 13.2 % Platelet Count 229 K/uL Mean Platelet Volume 10.0 fL Sodium Level 137 mmol/L Potassium Level 3.9 mmol/L Chloride Level 101 mmol/L Carbon Dioxide Level 24 mmol/L Anion Gap 12.0 mmol/L Blood Urea Nitrogen 12 mg/dl Creatinine 0.77 mg/dl Est Creatinine Clear Calc Drug Dose 106.7 ml/min Estimated GFR () 92.6 Estimated GFR (Non- 79.9 BUN/Creatinine Ratio 15.5 Random Glucose 228 mg/dl Calcium Level 9.2 mg/dl Magnesium Level 2.2 mg/dl 25-Hydroxy Vitamin D Total 9.2 ng/ml Thyroid Stimulating Hormone (TSH) 0.408 uIu/ml EKG: Atrial flutter with a heart rate of 92 bpm Telemetry reviewed: During the night her heart rate was reasonably well controlled, this morning he was very elevated, especially when she is walking. Assessment and Plan #1. Shortness of breath: I'm not sure exactly why she short of breath, she is complaining of shortness of breath today, he is wearing oxygen and is sitting in bed but was just the bathroom. Her lungs are clear and she is moving air normally as near as I can tell and has no wheezing. Perhaps she has more of a component of diastolic dysfunction from her rapid heart rate and we realized. #2. Atrial flutter with a rapid heart rate: I think we need to get her heart rate under control. She feels that diltiazem causes fluid retention and gets her in trouble with her breathing. She evidently has not been on a beta tino from her recollection, perhaps because of her lung disease. Very often people with lung disease can't tolerate at least lower doses of a cardioselective beta tino and I think we should try that, that would be best for her cardiac situation. I would like to try her on a short acting beta tino this morning ( metoprolol tartrate 50 mg). If her lung situation worsens we can discontinue it and I doubt we will have much difficulty, I would rather try here than at home. If that doesn't work we will have to use diltiazem and probably a diuretic to control her fluid retention. I will continue her amiodarone, however that will take some time to be effective due to its very long half-life.. Thank you for allowing me to participate in her care.
[2016-07-27] MEDS ORDERED: METOPROLOL TARTRATE 50 MG TAB PO ONE (09:30)
[2016-07-27] MEDS: LEVOTHYROXINE 150 MCG TAB PO SCH (11:34)
[2016-07-27] MEDS: POLYETHYLENE (MIRALAX) 17 GM PACK PO PRN (12:15)
--- NOTE | 2016-07-27 13:07 | Progress Note ---
Subjective Date of Service: Jul 27, 2016. Subjective Pt evaluation today including: conversation w/ patient, physical exam, chart review, lab review, review of studies, conversation w/ proposal consultant, review of inpatient medication list Sitting up in chair, eating lunch, feeling better, heart rate is better controlled Problem List Medical Problems: (1) Atrial Fibrillation Status: Chronic (2) Atrial flutter with rapid ventricular response Status: Acute (3) COPD exacerbation Status: Acute (4) Hypothyroidism Nos Status: Chronic (5) Neck pain on right side Status: Acute (6) TYESHA on CPAP Status: Chronic (7) Shortness of breath on exertion Status: Acute Review of Systems Constitutional: + fatigue, + weakness Eyes: No diplopia, No discharge, No eye pain, No redness, No worsening of vision ENT: No dental problems, No hearing loss, No nasal symptoms, No sore throat, No tinnitus, No trouble swallowing, No unusual epistaxis Respiratory: + shortness of breath Cardiac: No PND, No chest pain, No claudication, No edema, No orthopnea, No palpitations Abdomen: No constipation, No diarrhea, No nausea, No pain, No vomiting Musculoskeletal: + swelling Female : No abnormal vaginal bleeding, No dysuria, No hematuria, No incontinence, No urinary frequency, No vaginal discharge Neurologic: No balance problems, No memory loss, No numbness/tingling, No paralysis, No vertigo, No weakness Psychiatric: No anhedonism, No anxiety, No depression symptoms, No insomnia, No substance abuse Heme: No abnormal bleeding/bruising, No clotting problems, No night sweats, No swollen lymph nodes Endo: No excessive thirst, No excessive urination, No fatigue Skin: No bleeding, No color change, No itch, No new/changing skin lesions, No rash Objective Vital Signs Date Time Temp Pulse Resp B/P Pulse Ox O2 Delivery O2 Flow Rate FiO2 07/27/16 12:00 36.4 83 17 142/84 98 Room Air 07/27/16 07:17 36.4 122 22 123/74 96 Nasal Cannula 2.0 07/27/16 07:04 116 16 98 Nasal Cannula 2.0 07/27/16 04:09 36.7 105 20 158/83 94 CPAP 07/27/16 04:00 94 CPAP 2.0 07/27/16 02:12 74 16 98 Nasal Cannula 2.0 07/27/16 00:00 96 Nasal Cannula 2.0 07/26/16 23:43 36.6 96 20 165/92 96 Nasal Cannula 2.0 07/26/16 20:00 91 Nasal Cannula 2.0 07/26/16 19:23 37.1 103 20 102/64 91 Room Air 07/26/16 19:18 102 18 95 Nasal Cannula 2.0 07/26/16 16:00 Nasal Cannula 2.0 07/26/16 15:49 110 20 98 Nasal Cannula 2.0 07/26/16 15:33 36.5 86 22 127/79 94 Nasal Cannula 4.0 07/26/16 13:59 36.4 83 20 186/99 Nasal Cannula 3.0 Physical Exam General Appearance: WD/WN, no apparent distress, + obese Eyes: normal inspection, PERRL, EOMI, sclerae normal ENT: normal ENT inspection, hearing grossly normal, pharynx normal Neck: supple, no adenopathy, thyroid normal, no JVD, no carotid bruits, trachea midline Respiratory/Chest: chest non-tender, normal breath sounds, no respiratory distress, no accessory muscle use, + decreased breath sounds Cardiovascular: no edema, no gallop, no JVD, no murmur, + irregularly irregular Abdomen: normal bowel sounds, non tender, soft, no organomegaly, no pulsatile mass Extremities: normal range of motion, non-tender, normal inspection, no pedal edema, no calf tenderness, normal capillary refill, pelvis stable, + swelling (1 + bilateral lower extremity) Neurologic/Psychiatric: roll bucker II-XII nml as tested, no motor/sensory deficits, alert, normal mood/affect, oriented x 3 Skin: normal color, warm/dry, no rash Lymphatic: no adenopathy Laboratory Results Last 24 Hours Test 07/26/16 21:00 07/26/16 21:23 07/27/16 05:31 Creatine Kinase MB Ratio Creatine Kinase MB 3.6 ng/ml Troponin I < 0.015 ng/ml White Blood Count 9.41 K/uL Red Blood Count 4.70 M/uL Hemoglobin 13.7 g/dL Hematocrit 40.2 % Mean Corpuscular Volume 85.5 fL Mean Corpuscular Hemoglobin 29.1 pg Mean Corpuscular Hemoglobin Concent 34.1 g/dl RDW Standard Deviation 41.3 fL RDW Coefficient of Variation 13.2 % Platelet Count 229 K/uL Mean Platelet Volume 10.0 fL Sodium Level 137 mmol/L Potassium Level 3.9 mmol/L Chloride Level 101 mmol/L Carbon Dioxide Level 24 mmol/L Anion Gap 12.0 mmol/L Blood Urea Nitrogen 12 mg/dl Creatinine 0.77 mg/dl Est Creatinine Clear Calc Drug Dose 106.7 ml/min Estimated GFR () 92.6 Estimated GFR (Non- 79.9 BUN/Creatinine Ratio 15.5 Random Glucose 228 mg/dl Calcium Level 9.2 mg/dl Magnesium Level 2.2 mg/dl 25-Hydroxy Vitamin D Total 9.2 ng/ml Thyroid Stimulating Hormone (TSH) 0.408 uIu/ml Assessment and Plan 65 y/o female, mid on 07/26/2016 because of tachycardia, SOB, A. fib with rapid responds PMHx of COPD, a.fib, CHF, TYESHA, HTN, hypothyroidism, GERD, who presented to the ED because of tachycardia and SOB. Acute on chronic COPD exacerbation, stable improving Continue IV Solu-Medrol 80 mg q8 hrs, DuoNebs , Continue home inhalers [employer] input appreciated A.fib with RVR: Stable improving Was on on Xarelto 20 mg PO daily prior to admission Was on on Diltiazem 240 mg PO daily PRN prior to admission Consulted cardiology, appreciate recommendations, continue amiodarone, add metoprolol Diastolic CHF/bilateral lower extremity edema, continue Bumex and Aldactone, stable and improving, follow-up lytes Hypothyroidism TYESHA: GERD: Stable Vitamin D deficiency, with the 25-hydroxy vitamin D level is 9.2 started replacement of vitamin D 6000 units by mouth daily for 8 weeks Discussed with patient about the risks and benefits of the beta tino when she has COPD exacerbation, in the physical exam today she sounds okay for now, we will watch very closely DVT prophylaxis is covered because she is on Xarelto Continued [facility] stay due to: home environment unsafe for pt Discharge planning: home
[2016-07-27] MEDS ORDERED: GLUCOSE 10 TABS/TUBE PO PRN (16:45)
[2016-07-27] MEDS ORDERED: DEXTROSE 50% 50 ML SYR IV PRN (16:45)
[2016-07-27] MEDS ORDERED: GLUCOSE 40% GEL 15 GM TUBE PO PRN (16:45)
[2016-07-27] MEDS ORDERED: GLUCAGON FOR INJ 1 MG VIAL SQ PRN (16:45)
[2016-07-27] MEDS: METHYLPREDNISOLONE IV 60 MG in SYRINGE 0 ML IV SCH ×2 (16:47→23:58)
[2016-07-27] MEDS: RIVAROXABAN 20 MG TAB PO SCH (16:48)
[2016-07-27] MEDS: CALCIUM 600MG + VIT D 400 IU TAB PO SCH (20:59)
[2016-07-27] MEDS: LORAZEPAM 1 MG TAB PO SCH (20:59)
[2016-07-27] MEDS: METOPROLOL TARTRATE 50 MG TAB PO SCH (21:00)
[2016-07-27] MEDS: INSULIN ASPART 100 UNITS/ML 3 ML PEN SC SCH (22:00)
[2016-07-28] VITALS (15 sets, daily range): BP systolic 121–165; BP diastolic 65–89; PULSE 78–127; TEMP 36.3–36.4; O2SAT 93–98
[2016-07-28] MEDS: IPRATROPIUM BROMIDE NEB SOLN 0.02% 2.5 ML VIAL INH SCH ×3 (02:05→12:53)
[2016-07-28] MEDS: LEVALBUTEROL 1.25MG/0.5ML NEB INH SCH ×3 (02:05→12:53)
[2016-07-28 05:39] LABS: HEMATOCRIT 39.5 % (37-47); MEAN CELL VOLUME 87.8 fL (80-100); MEAN CORPUSCULAR HEMOGLOBIN 29.8 pg (25-34); MEAN CORPUSCULAR HGB CONC 33.9 g/dl (32-36); MEAN PLATELET VOLUME 10.4 fL (7.4-10.4); PLATELET COUNT 235 K/uL (130-400)
[2016-07-28 06:12] LABS: BUN/CREATININE RATIO 18.8 (10-20); CALCIUM 9.4 mg/dl (8.5-10.1); CREATININE 0.85 mg/dl (0.60-1.20); MAGNESIUM 2.4 mg/dl (1.8-2.4); POTASSIUM 4.3 mmol/L (3.5-5.1)
[2016-07-28] MEDS: METHYLPREDNISOLONE IV 60 MG in SYRINGE 0 ML IV SCH ×3 (07:56→23:28)
[2016-07-28] MEDS: INSULIN ASPART 100 UNITS/ML 3 ML PEN SC SCH ×4 (07:56→21:01)
[2016-07-28] MEDS: MOMETASONE FUROATE FORMOTEROL INH SCH ×2 (07:57→20:59)
[2016-07-28] MEDS: BUMETANIDE 1 MG TAB PO SCH (07:58)
[2016-07-28] MEDS: CALCIUM 600MG + VIT D 400 IU TAB PO SCH ×2 (07:58→20:59)
[2016-07-28] MEDS: AMIODARONE 200 MG TAB PO SCH ×2 (08:00→20:59)
[2016-07-28] MEDS: PANTOprazole SOD 40 MG TAB PO SCH (08:01)
[2016-07-28] MEDS: POTASSIUM CHLORIDE 20 MEQ TABCR PO SCH (08:01)
[2016-07-28] MEDS: CHOLECALCIFEROL 1000 INTER.UNIT TAB PO SCH (08:02)
[2016-07-28] MEDS: METOPROLOL TARTRATE 50 MG TAB PO SCH (08:03)
--- NOTE | 2016-07-28 08:56 | Cardiology Follow-Up ---
Subjective Date of Service: Jul 28, 2016. Pt evaluation today including: conversation w/ patient, physical exam, chart review, review of studies, review of inpatient medication list History of Present Illness 65-year-old woman who presented with shortness of breath and tachycardia. She has a history of COPD, atrial fibrillation, congestive heart failure, hypertension as well. She was observed to be in congestive heart failure in atrial flutter with a rapid ventricular response in the emergency room. She was administered intravenous diltiazem with improvement in her heart rate, she has been anticoagulated with Xarelto. She was started on oral amiodarone for her arrhythmia and Xarelto was continued. An echocardiogram shows normal left ventricular function. She is very reluctant to start diltiazem due to her peripheral edema which she feels it worsens (attic certainly can do that), I therefore started her on a cardioselective beta tino (metoprolol tartrate) yesterday. Today she is still very short of breath, but she was just in the bathroom. It is not clear whether her situation is worsened by the beta tino or not based on her symptoms. She notes that her heart rate is fast but she did not have much of an awareness that she was in her arrhythmia. Social History Smoking Status: Former Smoker History of Alcohol Use: No Review of Systems Respiratory: + shortness of breath Cardiac: No PND, No chest pain, No claudication, No edema, No orthopnea, No palpitations Medications Cardiovascular: Item Value Date Time Metoprolol 50 mg 07/27/16 2100 Tartrate BID/PO 07/28/16 0803 (Lopressor Tab) Potassium Chloride 20 meq 07/27/16 0900 (Klor-Con Tab) DAILY/PO 07/28/16 0801 Amiodarone HCl 400 mg 07/26/16 2100 (Cordarone Tab) BID/PO 07/28/16 0800 Rivaroxaban 20 mg 07/26/16 1645 (Xarelto Tab) QDD/PO 07/27/16 1648 Diltiazem HCl 240 mg 07/26/16 1015 (Cardizem Cd Cap) DAILY PRN/PO Objective Vital Signs Past 12 Hours Date Time Temp Pulse Resp B/P Pulse Ox O2 Delivery O2 Flow Rate FiO2 07/28/16 07:16 36.4 86 16 138/81 97 2.0 07/28/16 07:04 78 18 98 Nasal Cannula 2.0 07/28/16 04:09 36.3 91 16 121/71 93 CPAP 2.0 07/28/16 04:09 CPAP 2.0 07/28/16 02:05 86 18 93 BiPAP/CPAP 2.0 07/28/16 01:08 136/83 07/28/16 00:02 Nasal Cannula 2.0 07/27/16 23:54 36.5 89 20 160/64 95 Nasal Cannula 2.0 Last Recorded Weight-Kilograms: 143.400 Intake & Output 8-Hour Column 07/27/16 07/28/16 07/28/16 16:00 00:00 08:00 Intake Total 720 ml 400 ml 400 ml Output Total 600 ml Balance 720 ml 400 ml -200 ml 24-Hour Column 07/28/16 08:00 Intake Total 1520 ml Output Total 600 ml Balance 920 ml Physical Exam Constitutional: Level of Distress: moderate distress Lungs: Respiratory effort: good air movement, dyspneic Auscultation: expiratory wheezing (today she has end expiratory wheezing) Cardiovascular: Heart Auscultation: tachycardia, irregular rate rhythm Extremities: edema (+2 bilateral) Data Laboratory Results: Last 24 Hours Test 07/27/16 16:33 07/27/16 21:55 07/28/16 05:07 07/28/16 06:42 Bedside Glucose 220 mg/dl 228 mg/dl 203 mg/dl White Blood Count 15.40 K/uL Red Blood Count 4.50 M/uL Hemoglobin 13.4 g/dL Hematocrit 39.5 % Mean Corpuscular Volume 87.8 fL Mean Corpuscular Hemoglobin 29.8 pg Mean Corpuscular Hemoglobin Concent 33.9 g/dl RDW Standard Deviation 43.3 fL RDW Coefficient of Variation 13.5 % Platelet Count 235 K/uL Mean Platelet Volume 10.4 fL Sodium Level 137 mmol/L Potassium Level 4.3 mmol/L Chloride Level 101 mmol/L Carbon Dioxide Level 27 mmol/L Anion Gap 9.0 mmol/L Blood Urea Nitrogen 16 mg/dl Creatinine 0.85 mg/dl Est Creatinine Clear Calc Drug Dose 97.0 ml/min Estimated GFR () 82.2 Estimated GFR (Non- 70.9 BUN/Creatinine Ratio 18.8 Random Glucose 214 mg/dl Calcium Level 9.4 mg/dl Magnesium Level 2.4 mg/dl Electrocardiogram: This morning atrial flutter with variable AV conduction and a ventricular response of 95 bpm. Telemetry reviewed: For the most part she remains in a well-controlled atrial flutter, when she is active (such as going to the bathroom this morning) the heart rate increases. Assessment and Plan #1. Shortness of breath: She remains very short of breath today, but she was just in the bathroom. Minimal activity exacerbates her shortness of breath. She does have some end expiratory wheezing but seems to moving air quite well today. I don't know if the wheezing is a component of the beta tino but has controlled her heart rate better. Perhaps she has more of a component of diastolic dysfunction from her rapid heart rate, which still increases significantly with activity. I will defer to pulmonary as to whether they feel the beta tino is contraindicated, if so we can discontinue it. #2. Atrial flutter with a rapid heart rate: I think we need to get her heart rate under control. She feels that diltiazem causes fluid retention and gets her in trouble with her breathing. She evidently has not been on a beta tino from her recollection, perhaps because of her lung disease. Very often people with lung disease can tolerate at least lower doses of a cardioselective beta tino. Metoprolol tartrate 50 mg twice a day has helped control her heart rate , except with activity when it still goes fast and that is when she has most of her symptoms. If we can't use beta blockade (and I would defer to pulmonary on that) then our only options are cardioversion with hopes that amiodarone will maintain the rhythm in sinus or going back to diltiazem which she does not want to do. We could try digoxin, that might be reasonable option as well. I will add that to her regimen today. Thank you for allowing me to participate in her care.
[2016-07-28] MEDS ORDERED: DIGOXIN 0.25 MG TAB PO ONE ×3 (09:00→13:30)
[2016-07-28] MEDS: POLYETHYLENE (MIRALAX) 17 GM PACK PO PRN (10:55)
[2016-07-28] MEDS: LEVOTHYROXINE 150 MCG TAB PO SCH (10:55)
[2016-07-28] MEDS ORDERED: BUMETANIDE 1 MG TAB PO ONE (14:00)
[2016-07-28] MEDS ORDERED: SPIRONOLACTONE 25 MG TAB PO ONE (14:00)
--- NOTE | 2016-07-28 16:01 | Progress Note ---
Subjective Date of Service: Jul 28, 2016. Subjective Pt evaluation today including: conversation w/ patient, conversation w/ family , physical exam, chart review, lab review, review of studies, conversation w/ senior solutions workflow consultant, review of inpatient medication list Reported lower extremity most warning, chest tight, generalized fatigue, and some wheezing heart rate still at high 90 with a flutter Problem List Medical Problems: (1) Atrial Fibrillation Status: Chronic (2) Atrial flutter with rapid ventricular response Status: Acute (3) COPD exacerbation Status: Acute (4) Hypothyroidism Nos Status: Chronic (5) Neck pain on right side Status: Acute (6) TYESHA on CPAP Status: Chronic (7) Shortness of breath on exertion Status: Acute Review of Systems Constitutional: + fatigue, + weakness Eyes: No diplopia, No discharge, No eye pain, No redness, No worsening of vision ENT: No dental problems, No hearing loss, No nasal symptoms, No sore throat, No tinnitus, No trouble swallowing, No unusual epistaxis Respiratory: + cough, + shortness of breath, + wheezing Cardiac: + edema Abdomen: No constipation, No diarrhea, No nausea, No pain, No vomiting Musculoskeletal: No calf pain, No joint pain, No muscle pain, No swelling Female : No abnormal vaginal bleeding, No dysuria, No hematuria, No incontinence, No urinary frequency, No vaginal discharge Neurologic: No balance problems, No memory loss, No numbness/tingling, No paralysis, No vertigo, No weakness Psychiatric: No anhedonism, No anxiety, No depression symptoms, No insomnia, No substance abuse Heme: No abnormal bleeding/bruising, No clotting problems, No night sweats, No swollen lymph nodes Endo: No excessive thirst, No excessive urination, No fatigue Skin: No bleeding, No color change, No itch, No new/changing skin lesions, No rash Objective Vital Signs Date Time Temp Pulse Resp B/P Pulse Ox O2 Delivery O2 Flow Rate FiO2 07/28/16 12:57 99 07/28/16 12:53 94 18 98 Nasal Cannula 3.0 07/28/16 12:00 95 Nasal Cannula 2.0 07/28/16 11:27 36.4 80 18 136/77 94 3.0 07/28/16 09:56 98 07/28/16 08:00 97 Nasal Cannula 2.0 07/28/16 07:16 36.4 86 16 138/81 97 2.0 07/28/16 07:04 78 18 98 Nasal Cannula 2.0 07/28/16 04:09 36.3 91 16 121/71 93 CPAP 2.0 07/28/16 04:09 CPAP 2.0 07/28/16 02:05 86 18 93 BiPAP/CPAP 2.0 07/28/16 01:08 136/83 07/28/16 00:02 Nasal Cannula 2.0 07/27/16 23:54 36.5 89 20 160/64 95 Nasal Cannula 2.0 07/27/16 20:00 Nasal Cannula 2.0 07/27/16 19:32 36.7 90 20 135/78 95 07/27/16 19:00 100 16 98 Nasal Cannula 2.0 07/27/16 16:39 139/78 07/27/16 16:00 96 Nasal Cannula 2.0 Physical Exam General Appearance: WD/WN, no apparent distress, + obese Eyes: normal inspection, PERRL, EOMI, sclerae normal ENT: normal ENT inspection, hearing grossly normal, pharynx normal Neck: supple, no adenopathy, thyroid normal, no JVD, no carotid bruits, trachea midline Respiratory/Chest: chest non-tender, normal breath sounds, no respiratory distress, no accessory muscle use, + decreased breath sounds, + wheezing Cardiovascular: no gallop, no JVD, no murmur, + irregularly irregular Abdomen: normal bowel sounds, non tender, soft, no organomegaly, no pulsatile mass Extremities: normal range of motion, non-tender, normal inspection, no pedal edema, no calf tenderness, normal capillary refill, pelvis stable, + swelling (1 -2+) Neurologic/Psychiatric: 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 II-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 nml as tested, no motor/sensory deficits, alert, normal mood/affect, oriented x 3 Skin: normal color, warm/dry, no rash Lymphatic: no adenopathy Laboratory Results Last 24 Hours Test 07/27/16 16:33 07/27/16 21:55 07/28/16 05:07 07/28/16 06:42 Bedside Glucose 220 mg/dl 228 mg/dl 203 mg/dl White Blood Count 15.40 K/uL Red Blood Count 4.50 M/uL Hemoglobin 13.4 g/dL Hematocrit 39.5 % Mean Corpuscular Volume 87.8 fL Mean Corpuscular Hemoglobin 29.8 pg Mean Corpuscular Hemoglobin Concent 33.9 g/dl RDW Standard Deviation 43.3 fL RDW Coefficient of Variation 13.5 % Platelet Count 235 K/uL Mean Platelet Volume 10.4 fL Sodium Level 137 mmol/L Potassium Level 4.3 mmol/L Chloride Level 101 mmol/L Carbon Dioxide Level 27 mmol/L Anion Gap 9.0 mmol/L Blood Urea Nitrogen 16 mg/dl Creatinine 0.85 mg/dl Est Creatinine Clear Calc Drug Dose 97.0 ml/min Estimated GFR () 82.2 Estimated GFR (Non- 70.9 BUN/Creatinine Ratio 18.8 Random Glucose 214 mg/dl Calcium Level 9.4 mg/dl Magnesium Level 2.4 mg/dl Test 07/28/16 11:07 Bedside Glucose 316 mg/dl Assessment and Plan 65 y/o female, mid on 07/26/2016 because of tachycardia, SOB, A. fib with rapid responds PMHx of COPD, a.fib, CHF, TYESHA, HTN, hypothyroidism, GERD, who presented to the ED because of tachycardia and SOB. Acute on chronic COPD exacerbation, possible not getting better yet Continue IV Solu-Medrol dose change from 80 q8 to 60 q 8, DuoNebs will be every 6 scheduled and q2 to as needed Sales Administration Specialist input appreciated, discontinue beta tino A.fib with RVR: Stable improving Was on on Xarelto 20 mg PO daily prior to admission Was on on Diltiazem 240 mg PO daily PRN prior to admission Consulted cardiology, appreciate recommendations, continue amiodarone, after discussing, discontinue metoprolol which have caused the worsening COPD exacerbation. Cardiology on the case, If we can't use beta blockade (and I would defer to pulmonary on that) then our only options are cardioversion with hopes that amiodarone will maintain the rhythm in sinus or going back to diltiazem which patient does not want to do. We are using digoxin by mouth daily Diastolic CHF/bilateral lower extremity edema, possible getting worse Doppler dose of Bumex to 2 mg by mouth every Doppler dose of Aldactone 50mg po qdaily Hypothyroidism TYESHA: GERD: Stable Vitamin D deficiency, with the 25-hydroxy vitamin D level is 9.2 started replacement of vitamin D 6000 units by mouth daily for 8 weeks Discussed with patient and family, answered on questions DVT prophylaxis is covered because she is on Xarelto Continued [facility] stay due to: home environment unsafe for pt Discharge planning: home
[2016-07-28] MEDS ORDERED: IPRATROPIUM BROMIDE/ALBUTEROL respimat INH INH PRN (17:00)
[2016-07-28] MEDS: RIVAROXABAN 20 MG TAB PO SCH (17:47)
[2016-07-28] MEDS: ALBUT/IPRATROP 3MG/0.5MG NEB 3 ML VIAL INH PRN ×2 (19:05→22:22)
[2016-07-28] MEDS: LORAZEPAM 1 MG TAB PO SCH (22:28)
[2016-07-29] VITALS (13 sets, daily range): BP systolic 136–185; BP diastolic 79–114; PULSE 74–130; TEMP 36.2–36.7; O2SAT 95–98
[2016-07-29 05:43] LABS: HEMATOCRIT 39.2 % (37-47); MEAN CELL VOLUME 87.7 fL (80-100); MEAN CORPUSCULAR HEMOGLOBIN 30.4 pg (25-34); MEAN CORPUSCULAR HGB CONC 34.7 g/dl (32-36); MEAN PLATELET VOLUME 10.2 fL (7.4-10.4); PLATELET COUNT 224 K/uL (130-400); RED BLOOD COUNT 4.47 M/uL (4.2-5.4); WHITE BLOOD COUNT 12.46 K/uL (4.8-10.8)
[2016-07-29 06:11] LABS: BUN/CREATININE RATIO 21.6 (10-20); MAGNESIUM 2.4 mg/dl (1.8-2.4); POTASSIUM 4.2 mmol/L (3.5-5.1)
[2016-07-29] MEDS: ALBUT/IPRATROP 3MG/0.5MG NEB 3 ML VIAL INH PRN ×4 (07:15→18:32)
[2016-07-29] MEDS: METHYLPREDNISOLONE IV 60 MG in SYRINGE 0 ML IV SCH ×2 (08:22→17:05)
[2016-07-29] MEDS: MOMETASONE FUROATE FORMOTEROL INH SCH ×2 (08:23→20:57)
[2016-07-29] MEDS: CALCIUM 600MG + VIT D 400 IU TAB PO SCH ×2 (08:23→20:57)
[2016-07-29] MEDS: AMIODARONE 200 MG TAB PO SCH ×2 (08:23→20:56)
[2016-07-29] MEDS: SPIRONOLACTONE 25 MG TAB PO SCH (08:25)
[2016-07-29] MEDS: BUMETANIDE 1 MG TAB PO SCH (08:25)
[2016-07-29] MEDS: PANTOprazole SOD 40 MG TAB PO SCH (08:26)
[2016-07-29] MEDS: POTASSIUM CHLORIDE 20 MEQ TABCR PO SCH (08:26)
[2016-07-29] MEDS: CHOLECALCIFEROL 1000 INTER.UNIT TAB PO SCH (08:27)
[2016-07-29] MEDS: INSULIN ASPART 100 UNITS/ML 3 ML PEN SC SCH ×4 (08:31→21:05)
--- NOTE | 2016-07-29 08:43 | PROGRESS NOTE ---
DATE: 07/29/2016 The patient is comfortable, eating breakfast this morning. She states she is slowly getting better. She had been on Dulera at home 200/5 two puffs b.i.d. Since her insurance company will not cover that, we will be transitioning over to Breo 100 dose 1 inhalation every morning. We discussed the use that medication at great length. She continues to have high heart rate at 130 beats per minute when I examined her today, although at 0718, it appeared to be 82. She denies fevers or night sweats or cough. The atrial flutter has persisted. PHYSICAL EXAMINATION: VITAL SIGNS: Her oxygen saturation is 96% on 2 liters. Her weight is 142.5 kilograms. According to nurses' notes, she had a fairly good night last night and had a bit of rib pain from coughing. The atrial fibrillation flutter persists. HEENT: Unremarkable. No thrush noted. NECK: There is no neck vein distention or HJR. HEART: Has a regular rate and rhythm at about 140 beats per minute. No gallops or murmurs auscultated. LUNGS: With decreased breath sounds, otherwise are clear. ABDOMEN: Soft and massively obese. EXTREMITIES: She has +2 edema in the pretibial area. LABORATORY DATA: White count is 12.46, hematocrit 39.2%, platelet count 224,000. PRP is unremarkable. CO2 of 26. TSH was normal. Vitamin D level was low. BNP was 2133. Chest x-ray was unremarkable. IMPRESSION: 1. Chronic obstructive lung disease with respiratory failure, improved. 2. Chronic obstructive pulmonary disease with exacerbation. 3. Obstructive sleep apnea, on CPAP. 4. Atrial fibrillation flutter, generally followed by Dr. Crowley. She was seen by Dr. Hyde over the weekend. I believe the diastolic heart failure and arrhythmia could be the etiology for her respiratory insufficiency at this point. RECOMMENDATIONS: 1. Continue with her present anticoagulants. She has not missed any doses of Xarelto at home. 2. Continue with her present medications for chronic obstructive pulmonary disease. I think the methylprednisolone could be decreased to 60 mg IV q. 12 hours or 30 mg IV q. 8 hours. She should be continued on Dulera 200/5 two puffs b.i.d. and sent home with that inhaler and I would use Xopenex 4 times a day p.r.n. She is having replacement with vitamin D as well. 1500 mg sodium diet would be helpful and perhaps further diuresis with Lasix would be helpful since her BUN and creatinine were normal at 13 and 0.9 at the time of admission, now are 22 and 1.0. Overall, from a pulmonary standpoint, she is stable. [facility]
[2016-07-29] MEDS ORDERED: SPIRONOLACTONE 25 MG TAB PO SCH (09:00)
--- NOTE | 2016-07-29 09:55 | PROGRESS NOTE ---
DATE: 07/29/2016 SUBJECTIVE: The patient was seen by me in her room on the telemetry unit this morning. This was at approximately 08:20 a.m. She states that earlier in the morning, she was breathing better. When she was seen by Dr. Francis, she states she was not having any wheezing. After his visit, she began to feel chest tightness and associated wheezing. At the time of my exam, she complains of dyspnea at rest. However, her respiratory effort is normal. She is not using any accessory muscles. Overall, she does feel better than she did at the time of admission. She has occasional nonproductive cough. No fevers or chills. No anginal type chest discomfort. Her chest tightness is with deep inspiration. No palpitations. Mild postural lightheadedness when she first arises from bed. This lasted only several seconds. No syncope. No abdominal pain or nausea. No leg pain. She does complain of swelling of her lower legs. No urinary complaints. No bleeding complaints. No symptoms suggestive of a thromboembolic event. CURRENT MEDICATIONS: Digoxin 0.125 mg daily, Bumex 2 mg p.o. daily, spironolactone 50 mg daily, DuoNeb 3 mL q. 2 hours as needed while awake, vitamin D 6000 units q.a.m., calcium with vitamin D 1 tab b.i.d., NovoLog sliding scale insulin, methylprednisolone 60 mg IV q. 8 hours, potassium 20 mEq every day, pantoprazole 40 mg daily, lorazepam 1 mg at bedtime, amiodarone 400 mg p.o. b.i.d., Dulera inhaler b.i.d., levothyroxine 150 mcg daily, Xarelto 20 mg daily, and several p.r.n. medications. ALLERGIES AND ADVERSE DRUG REACTIONS: HYDROCODONE AND TRAMADOL. Monitor history reviewed by me. Currently in atrial flutter with 2:1 AV conduction. When she is sleeping or at rest, she has ventricular rates in the 50s-70s. PHYSICAL EXAMINATION: VITAL SIGNS: At 07:18 a.m. this morning with pulse 82, blood pressure 158/89, and pulse oximetry on 2 liters per minute nasal cannula oxygen 96%. Axillary temperature earlier this morning was 36.2. Current heart rate 130 beats per minute. GENERAL APPEARANCE: Shows her to be in no distress. She is breathing ____ at the time of admission. No accessory muscle use. NECK: Thick neck. Difficult to evaluate jugular venous pressure. LUNGS: At the time of my exam, she had an end-expiratory wheezing in all lung suero. She is moving more air today than compared to my exam at the time of admission. No rales or rhonchi heard. HEART: Distant heart sounds. Increased rate. Regular rhythm. No murmur, S3, or rub heard. ABDOMEN: Obese. Soft. Nontender. No palpable masses or organomegaly. No bruits. EXTREMITIES: 1+ pretibial edema bilaterally. No calf tenderness. NEUROLOGIC: Alert and oriented x3. Motor grossly intact. PSYCHIATRIC: Affect is normal. LABORATORY DATA: Labs today with WBC 12.46, hemoglobin 13.6, hematocrit 39.2, and platelet count 224. Metabolic profile -- sodium 138, potassium 4.2, chloride 99, carbon dioxide 26, BUN 22, creatinine 1.0, random glucose 266, and magnesium 2.4. Troponin I's on this admission were 0.033, less than 0.015, and less than 0.015. Pro-B natriuretic peptide was 2133. Echocardiogram on July 26 with hyperdynamic biventricular systolic function. Normal chamber dimensions. Mild aortic stenosis. Calculated aortic valve area of 1.5 square cm. No significant valvular regurgitation. Normal estimated central venous pressure. No evidence of elevated right heart pressures. ASSESSMENT: 1. Severe chronic obstructive pulmonary disease. Acute on chronic respiratory failure. Earlier this morning, she had no significant wheezing on exam by Dr. Francis. At the time of my exam, she has had reoccurrence of wheezing. She herself noted change in her condition. 2. Paroxysmal atrial fibrillation and flutter. She has been in atrial flutter since at least the time of admission on July 26. Ventricular rate difficult control when she goes into 2:1 atrioventricular conduction. When she is at rest, she does have a controlled rate. She declines to receive diltiazem. Diltiazem in the past has helped to control her rate. Her case was discussed with Dr. Francis. He feels that it is safe for her to receive oral beta tino. 3. Hyperdynamic biventricular systolic function on echocardiogram. 4. Cardiac enzymes negative for myocardial injury. PLAN: 1. Restart metoprolol tartrate 50 mg b.i.d. 2. Continue amiodarone. 3. She was started on digoxin over the weekend. We will check level in a.m. 4. N.p.o. after 12:00 midnight. Elective cardioversion on 07/30/2016. Tentatively scheduled for 07:30 a.m. 5. Continue Xarelto. 6. If she is successfully cardioverted, we will continue her on amiodarone. The beta tino and digoxin could then be discontinued.
[2016-07-29] MEDS ORDERED: METOPROLOL TARTRATE 50 MG TAB PO ONE (10:00)
[2016-07-29] MEDS: LEVOTHYROXINE 150 MCG TAB PO SCH (10:49)
[2016-07-29] MEDS ORDERED: COUGH DROP (SUGAR FREE) LOZ 24 LOZ/1 BOX PO PRN (11:45)
[2016-07-29] MEDS ORDERED: NURSING VERBAL MED ORDER ONE (14:00)
[2016-07-29] MEDS ORDERED: DIGOXIN 0.125 MG TAB PO SCH (16:00)
[2016-07-29] MEDS: RIVAROXABAN 20 MG TAB PO SCH (17:05)
--- NOTE | 2016-07-29 18:47 | Progress Note ---
Subjective Date of Service: Jul 29, 2016. Subjective Pt evaluation today including: conversation w/ patient, physical exam, chart review, lab review, review of inpatient medication list feeling better now, notes sob is up and down - seems to relate mostly with HR. discussed cardiology planning, discussed cardioversion, discussed meds. notes that she's willing to try metoprolol again - understands rationale - but wonders if it will make her wheeze more Problem List Medical Problems: (1) Atrial Fibrillation Status: Chronic (2) Atrial flutter with rapid ventricular response Status: Acute (3) COPD exacerbation Status: Acute (4) Hypothyroidism Nos Status: Chronic (5) Neck pain on right side Status: Acute (6) TYESHA on CPAP Status: Chronic (7) Shortness of breath on exertion Status: Acute Review of Systems Respiratory: + see HPI, + shortness of breath ros otherwise negative except for as above Objective Vital Signs Date Time Temp Pulse Resp B/P Pulse Ox O2 Delivery O2 Flow Rate FiO2 07/29/16 18:20 90 16 98 Nasal Cannula 2.0 07/29/16 16:00 96 Nasal Cannula 2.0 07/29/16 15:41 36.6 82 22 145/83 96 Nasal Cannula 2.0 07/29/16 15:04 90 16 98 Nasal Cannula 2.0 07/29/16 12:00 95 Nasal Cannula 2.0 07/29/16 11:35 36.7 94 20 185/97 97 Nasal Cannula 2.0 07/29/16 11:08 94 16 97 Nasal Cannula 2.0 07/29/16 08:00 96 Nasal Cannula 2.0 07/29/16 07:18 82 20 158/89 96 Nasal Cannula 2.0 07/29/16 07:15 90 16 98 Nasal Cannula 2.0 07/29/16 04:00 CPAP 2.0 07/29/16 03:05 36.2 130 20 169/114 96 CPAP 07/29/16 00:15 CPAP 2.0 07/28/16 23:01 36.3 127 18 165/89 97 Nasal Cannula 2.0 07/28/16 22:22 114 16 96 Nasal Cannula 2.0 07/28/16 20:00 Nasal Cannula 2.0 07/28/16 19:19 36.4 91 18 153/89 95 Nasal Cannula 2.0 07/28/16 19:06 95 16 97 Nasal Cannula 2.0 Physical Exam General Appearance: no apparent distress Eyes: EOMI ENT: hearing grossly normal Neck: trachea midline Respiratory/Chest: no respiratory distress, no accessory muscle use, + decreased breath sounds Cardiovascular: + irregularly irregular (rate currently controlled) Extremities: normal range of motion Neurologic/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: 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-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 as tested, alert, normal mood/affect Skin: normal color, warm/dry Laboratory Results Last 24 Hours Test 07/28/16 20:07 07/29/16 05:08 07/29/16 07:14 07/29/16 16:03 Bedside Glucose 190 mg/dl 251 mg/dl 198 mg/dl White Blood Count 12.46 K/uL Red Blood Count 4.47 M/uL Hemoglobin 13.6 g/dL Hematocrit 39.2 % Mean Corpuscular Volume 87.7 fL Mean Corpuscular Hemoglobin 30.4 pg Mean Corpuscular Hemoglobin Concent 34.7 g/dl RDW Standard Deviation 43.1 fL RDW Coefficient of Variation 13.5 % Platelet Count 224 K/uL Mean Platelet Volume 10.2 fL Sodium Level 138 mmol/L Potassium Level 4.2 mmol/L Chloride Level 99 mmol/L Carbon Dioxide Level 26 mmol/L Anion Gap 13.0 mmol/L Blood Urea Nitrogen 22 mg/dl Creatinine 1.00 mg/dl Est Creatinine Clear Calc Drug Dose 82.2 ml/min Estimated GFR () 67.5 Estimated GFR (Non- 58.3 BUN/Creatinine Ratio 21.6 Random Glucose 266 mg/dl Calcium Level 9.0 mg/dl Magnesium Level 2.4 mg/dl Assessment and Plan PMHx of COPD, a.fib, CHF, TYESHA, HTN, hypothyroidism, GERD, who presented to the ED because of tachycardia and SOB. Acute on chronic COPD exacerbation, seems improving - most of dyspnea now seems rate related from poor forward flow and diastolic CHF Continue IV Solu-Medrol dose change from 80 q8 to 60 q 8, DuoNebs will be every 6 scheduled and q2 to as needed follow closely w resumption of metoprolol A.fib with RVR: erratic - plan is for cardioversion for better rate control Was on on Xarelto 20 mg PO daily prior to admission Was on on Diltiazem 240 mg PO daily PRN prior to admission but notes that this caused edema that was intolerable on amio, digoxin. metoprolol resumed - pt understands risks/benefits and rationale. if doesn't tolerate metoprolol, possibly verapamil (even after cardioversion - as brittle as she's been i harbor concerns that she will be tough to control on amio and dig alone) Diastolic CHF/bilateral lower extremity edema, likely mostly rate related Bumex, aldactone Hypothyroidism - continue current dosing TYESHA - ongoing current treatment GERD: Stable Vitamin D deficiency, with the 25-hydroxy vitamin D level is 9.2 replacement w vitamin D 6000 units by mouth daily for 8 weeks DVT prophylaxis is covered because she is on Xarelto Continued [facility] stay due to: home environment unsafe for pt Discharge planning: home
[2016-07-29] MEDS: METOPROLOL TARTRATE 50 MG TAB PO SCH (20:56)
[2016-07-29] MEDS: LORAZEPAM 1 MG TAB PO SCH (21:01)
[2016-07-30] VITALS (10 sets, daily range): BP systolic 125–151; BP diastolic 71–83; PULSE 65–83; TEMP 36.2–36.6; O2SAT 91–98
[2016-07-30] MEDS: METHYLPREDNISOLONE IV 60 MG in SYRINGE 0 ML IV SCH ×4 (00:01→23:52)
[2016-07-30] MEDS: ALBUT/IPRATROP 3MG/0.5MG NEB 3 ML VIAL INH PRN ×3 (07:30→15:16)
[2016-07-30] MEDS: MOMETASONE FUROATE FORMOTEROL INH SCH ×2 (08:00→21:15)
[2016-07-30] MEDS: CALCIUM 600MG + VIT D 400 IU TAB PO SCH ×2 (08:00→21:15)
[2016-07-30] MEDS: AMIODARONE 200 MG TAB PO SCH ×2 (08:01→21:16)
[2016-07-30] MEDS: CHOLECALCIFEROL 1000 INTER.UNIT TAB PO SCH (08:01)
[2016-07-30] MEDS: BUMETANIDE 1 MG TAB PO SCH (08:01)
[2016-07-30] MEDS: SPIRONOLACTONE 25 MG TAB PO SCH (08:02)
[2016-07-30] MEDS: PANTOprazole SOD 40 MG TAB PO SCH (08:02)
[2016-07-30] MEDS: METOPROLOL TARTRATE 50 MG TAB PO SCH ×2 (08:03→21:18)
[2016-07-30] MEDS: POTASSIUM CHLORIDE 20 MEQ TABCR PO SCH (08:03)
[2016-07-30] MEDS: INSULIN ASPART 100 UNITS/ML 3 ML PEN SC SCH ×4 (08:06→21:19)
[2016-07-30] MEDS: LEVOTHYROXINE 150 MCG TAB PO SCH (11:23)
--- NOTE | 2016-07-30 12:14 | PULMONARY PROGRESS NOTE ---
DATE: 07/30/2016 The patient is comfortable right now. She is eating lunch and is comfortable. Her rhythm has converted. I spoke with Dr. Crowley and Dr. Lindsey in the hallway. I discussed the medications with the patient as well today. She is tolerating the Lopressor well without difficulty. She uses DuoNeb at home and I think she should be sent home when she is ready to go home on DuoNeb 1 treatment 4 times a day, and then q. 4 hours p.r.n. or Combivent Respimat 2 puffs daily in the morning. The steroids could be tapered to prednisone, perhaps 15 mg daily, with a taper over about 2 weeks. I do not believe she needs Spiriva at this point. She should also be on Brio 100, one inhalation every morning. PHYSICAL EXAMINATION: VITAL SIGNS: Stable. Presently she feels great. Oxygen saturation 93% on room air, blood pressure 138/80, pulse is 70 and regular. According to nurses' note she had a fairly good night last night with sinus rhythm with first degree AV block on the monitor. HEENT: Unremarkable. NECK: No neck vein distention or HJR. HEART: Regular rate and rhythm. No murmurs are heard. LUNGS: Reveal very minimal wheezing right at the end of expiration in the mid lung suero. ABDOMEN: Soft, nontender. She is obese. EXTREMITIES: She has no cyanosis, clubbing or edema. Sugars have been in the 196 to 258 range. CO2 is 26 on the electrolytes. Chest film from the 3rd looked good. IMPRESSION: 1. Chronic obstructive pulmonary disease. 2. Obstructive sleep apnea on CPAP. 3. Atrial fibrillation, converted. RECOMMENDATIONS: 1. Follow the instructions as noted in the first paragraph for her medications. 2. Follow up with me in about 3-4 weeks as an outpatient. She could probably see Dr. Crowley at the same time.
--- NOTE | 2016-07-30 12:57 | CARDIOLOGY PROGRESS NOTE ---
DATE: 07/30/2016 DATE OF CONSULTATION: 07/30/2016. HISTORY OF PRESENT ILLNESS: The patient was seen by me this morning in her telemetry unit room. She converted to sinus rhythm early yesterday afternoon. Since then she has maintained sinus rhythm. She states that she feels better than yesterday. She feels like she is moving more air today than yesterday. She still has wheezing although she feels it has improved since yesterday. No cough today. No fevers or chills. No chest pain. No palpitations. She does have postural lightheadedness. This resolves within several seconds. No abdominal pain or nausea. Her leg edema has improved. She states it is greater in the left leg compared to the right. Monitor history reviewed by me. Yesterday afternoon 07/05/2016 p.m. she was noted to be in sinus rhythm. Sinus rhythm since then. PHYSICAL EXAMINATION: VITAL SIGNS: 11:53 a.m. today with oral temperature 36.4, pulse 73, blood pressure 147/83, pulse oximetry on supplemental nasal cannula oxygen at slow rate 2 liters per minute is 95%. GENERAL APPEARANCE: Shows her to be in no distress. HEAD: Normal. NECK: No obvious jugular venous distention. Difficult to evaluate jugular venous pressure secondary to neck size. LUNGS: She is moving more air today compared to yesterday. She is able to take a deeper breath. Slight end expiratory wheezing in the mid and lower lung suero. HEART: Distant heart sounds. Regular rate and rhythm. S1, S2 normal. No S3 or S4. ABDOMEN: Obese. Soft. Nontender. No palpable masses or organomegaly. No bruits. EXTREMITIES: Trace right pretibial and 1+ left pretibial edema. NEUROLOGIC: Alert and oriented x3. Motor grossly intact. PSYCHIATRIC: Affect is normal. CURRENT MEDICATIONS: Metoprolol tartrate 50 mg b.i.d., Bumex 2 mg daily, spironolactone 50 mg daily, DuoNeb 3 mL q. 2 hours while awake as needed, vitamin D 6000 units daily p.o., calcium with vitamin D 1 tab b.i.d., NovoLog sliding scale insulin, methylprednisolone 60 mg IV q. 8 hours, potassium 20 mEq daily, pantoprazole 40 mg daily, lorazepam 1 mg at bedtime, amiodarone 400 mg b.i.d., Dulera inhaler b.i.d., levothyroxine 150 mcg daily, Xarelto 20 mg daily, and several p.r.n. medications. ALLERGIES AND ADVERSE DRUG REACTIONS: HYDROCODONE AND TRAMADOL. ASSESSMENT: 1. Paroxysmal atrial fibrillation and flutter. She converted to sinus rhythm yesterday afternoon. She has maintained sinus rhythm since then. In the past, she never converted to sinus rhythm from her atrial fibrillation or flutter without an electrical shock. This current conversion is consistent with chemical cardioversion from the amiodarone. 2. Acute on chronic respiratory failure. Severe chronic obstructive pulmonary disease. She is moving more air today. She feels more comfortable breathing. Her wheezing has improved compared to yesterday. 3. Mild systolic hypertension. 4. Postural lightheadedness. Cannot exclude that this is an effect of the amiodarone. 5. No bleeding complaints. Anticoagulation therapy with Xarelto. 6. No symptoms suggestive of thromboembolic event. PLAN: 1. The digoxin was discontinued yesterday. 2. Continue metoprolol and amiodarone. At the time of discharge, we will decrease the amiodarone to a maintenance dose of 200 mg daily. Will continue current dose of 400 mg b.i.d. to continue loading her. 3. Continue Xarelto. 4. Continue Bumex and spironolactone. 5. Increase activity as tolerated.
[2016-07-30] MEDS: RIVAROXABAN 20 MG TAB PO SCH (16:24)
--- NOTE | 2016-07-30 20:00 | Progress Note ---
Subjective Date of Service: Jul 30, 2016. Subjective Pt evaluation today including: conversation w/ patient, physical exam, chart review, lab review, review of inpatient medication list feeling better - breathing still not great but definitely improving. notes wheezing persists - but going away quickly with nebs - notes normally when she wheezes it's not that quick to respond to breathing treatments later asked to revisit due to facial flushing - came on suddenly - no other rash no itching no trunk rash not right after a med administration Problem List Medical Problems: (1) Atrial Fibrillation Status: Chronic (2) Atrial flutter with rapid ventricular response Status: Acute (3) COPD exacerbation Status: Acute (4) Hypothyroidism Nos Status: Chronic (5) Neck pain on right side Status: Acute (6) TYESHA on CPAP Status: Chronic (7) Shortness of breath on exertion Status: Acute Review of Systems Respiratory: + dyspnea on exertion, + see HPI, + shortness of breath, + wheezing Skin: + see HPI ros otherwise negative except for as above Objective Vital Signs Date Time Temp Pulse Resp B/P Pulse Ox O2 Delivery O2 Flow Rate FiO2 07/30/16 16:24 36.4 78 18 125/71 91 Nasal Cannula 2.0 07/30/16 16:00 Nasal Cannula 2.0 07/30/16 15:15 83 18 96 Nasal Cannula 2.0 07/30/16 12:00 Nasal Cannula 2.0 07/30/16 11:53 36.4 73 18 147/83 95 Nasal Cannula 2.0 07/30/16 11:31 75 16 93 Nasal Cannula 2.0 07/30/16 11:24 73 94 07/30/16 08:00 Nasal Cannula 2.0 07/30/16 07:54 36.4 77 18 138/80 93 Nasal Cannula 07/30/16 07:30 74 16 96 BiPAP/CPAP 2.0 07/30/16 04:00 Nasal Cannula 2.0 07/30/16 03:35 36.2 73 19 149/75 97 CPAP 2.0 07/30/16 00:01 Nasal Cannula 2.0 07/29/16 23:12 36.4 74 20 141/96 96 Nasal Cannula 2.0 07/29/16 20:05 Nasal Cannula 2.0 Physical Exam General Appearance: no apparent distress Eyes: EOMI ENT: hearing grossly normal Neck: trachea midline Respiratory/Chest: no respiratory distress, no accessory muscle use, + wheezing (faint diffuse - but good air entry) Extremities: normal range of motion Neurologic/Psychiatric: thoracic surgeon II-XII nml as tested, alert, normal mood/affect Skin: normal color, warm/dry Laboratory Results Last 24 Hours Test 07/30/16 05:30 07/30/16 07:02 07/30/16 11:04 07/30/16 16:07 Digoxin Level 1.0 ng/ml Bedside Glucose 196 mg/dl 172 mg/dl 206 mg/dl Assessment and Plan PMHx of COPD, a.fib, CHF, TYESHA, HTN, hypothyroidism, GERD, who presented to the ED because of tachycardia and SOB. Acute on chronic COPD exacerbation, seems improving - most of dyspnea now seems rate related from poor forward flow and diastolic CHF Continue IV Solu-Medrol, DuoNebs will be every 6 scheduled and q2 to as needed follow closely w resumption of metoprolol - but while wheezing she notes that actually it's easier to control than when she normally wheezes - so continue beta tino and follow day to day A.fib with RVR: erratic - but before cardioversion needed she converted- now rate controlled (and breathing a good deal better) Was on on Xarelto 20 mg PO daily prior to admission Was on on Diltiazem 240 mg PO daily PRN prior to admission but notes that this caused edema that was intolerable on amio, digoxin. metoprolol as above - seems to be tolerating well overall Diastolic CHF/bilateral lower extremity edema, likely mostly rate related Bumex, aldactone Hypothyroidism - continue current dosing TYESHA - ongoing current treatment GERD: Stable Vitamin D deficiency, with the 25-hydroxy vitamin D level is 9.2 replacement w vitamin D 6000 units by mouth daily for 8 weeks DVT prophylaxis is covered because she is on Xarelto Continued [facility] stay due to: home environment unsafe for pt Discharge planning: home
[2016-07-30] MEDS: LORAZEPAM 1 MG TAB PO SCH (21:15)
[2016-07-31] VITALS (10 sets, daily range): BP systolic 154–184; BP diastolic 67–98; PULSE 62–82; TEMP 36.5–36.7; O2SAT 93–98
[2016-07-31] MEDS: ALBUT/IPRATROP 3MG/0.5MG NEB 3 ML VIAL INH PRN ×3 (07:01→16:06)
[2016-07-31] MEDS: METOPROLOL TARTRATE 50 MG TAB PO SCH ×2 (07:55→20:37)
[2016-07-31] MEDS: AMIODARONE 200 MG TAB PO SCH (07:56)
[2016-07-31] MEDS: CHOLECALCIFEROL 1000 INTER.UNIT TAB PO SCH (07:56)
[2016-07-31] MEDS: PANTOprazole SOD 40 MG TAB PO SCH (07:56)
[2016-07-31] MEDS: CALCIUM 600MG + VIT D 400 IU TAB PO SCH ×2 (07:57→20:37)
[2016-07-31] MEDS: BUMETANIDE 1 MG TAB PO SCH (07:57)
[2016-07-31] MEDS: SPIRONOLACTONE 25 MG TAB PO SCH (07:57)
[2016-07-31] MEDS: POTASSIUM CHLORIDE 20 MEQ TABCR PO SCH (07:58)
[2016-07-31] MEDS: METHYLPREDNISOLONE IV 60 MG in SYRINGE 0 ML IV SCH ×3 (07:58→23:23)
[2016-07-31] MEDS: MOMETASONE FUROATE FORMOTEROL INH SCH ×2 (07:58→20:37)
[2016-07-31] MEDS: INSULIN ASPART 100 UNITS/ML 3 ML PEN SC SCH ×4 (08:00→20:39)
[2016-07-31] MEDS: LEVOTHYROXINE 150 MCG TAB PO SCH (11:46)
[2016-07-31] MEDS: RIVAROXABAN 20 MG TAB PO SCH (17:07)
--- NOTE | 2016-07-31 18:40 | Progress Note ---
Subjective Date of Service: Jul 31, 2016. Subjective Pt evaluation today including: conversation w/ patient, physical exam, chart review, lab review, review of inpatient medication list feeling better - weak and tired and MANZANARES - but improving from before wheezing less overall improved Problem List Medical Problems: (1) Atrial Fibrillation Status: Chronic (2) Atrial flutter with rapid ventricular response Status: Acute (3) COPD exacerbation Status: Acute (4) Hypothyroidism Nos Status: Chronic (5) Neck pain on right side Status: Acute (6) TYESHA on CPAP Status: Chronic (7) Shortness of breath on exertion Status: Acute Review of Systems Constitutional: + fatigue Respiratory: + dyspnea on exertion (improving), + shortness of breath ( improving), + wheezing (improving) ros otherwise negative except for as above Objective Vital Signs Date Time Temp Pulse Resp B/P Pulse Ox O2 Delivery O2 Flow Rate FiO2 07/31/16 16:06 70 18 98 Nasal Cannula 2.0 07/31/16 15:38 36.5 66 16 165/85 98 Nasal Cannula 2.0 07/31/16 12:00 36.7 71 18 154/67 94 Room Air 07/31/16 12:00 95 Nasal Cannula 2.0 07/31/16 10:42 62 18 97 Nasal Cannula 2.0 07/31/16 08:00 95 Nasal Cannula 2.0 07/31/16 08:00 36.6 68 20 167/98 96 2.0 07/31/16 07:01 68 18 95 Nasal Cannula 2.0 07/31/16 04:10 36.5 68 20 159/85 93 Nasal Cannula 2.0 07/31/16 04:00 Nasal Cannula 2.0 07/31/16 00:05 Nasal Cannula 2.0 07/30/16 22:55 36.6 65 20 144/82 98 Nasal Cannula 2.0 07/30/16 20:05 Nasal Cannula 2.0 07/30/16 19:26 36.6 79 20 151/73 93 Nasal Cannula 2.0 Physical Exam General Appearance: no apparent distress Eyes: EOMI ENT: hearing grossly normal Neck: trachea midline Respiratory/Chest: no respiratory distress, no accessory muscle use, + pertinent finding (coarse BS no r/r/w but coarse expiratory sounding most like a clearing wheeze) Extremities: normal range of motion Neurologic/Psychiatric: stone belt sander II-XII nml as tested, alert, normal mood/affect Skin: normal color, warm/dry Laboratory Results Last 24 Hours Test 07/30/16 20:22 07/31/16 10:39 07/31/16 16:08 Bedside Glucose 210 mg/dl 203 mg/dl 205 mg/dl Assessment and Plan PMHx of COPD, a.fib, CHF, TYESHA, HTN, hypothyroidism, GERD, who presented to the ED because of tachycardia and SOB. Acute on chronic COPD exacerbation, seems improving - most of dyspnea now seems rate related from poor forward flow and diastolic CHF Continue IV Solu-Medrol -- transition to PO tomorrow, DuoNebs will be every 6 scheduled and q2 to as needed follow closely w resumption of metoprolol - but while wheezing she notes that actually it's easier to control than when she normally wheezes - so continue beta tino and follow day to day A.fib with RVR: erratic - but before cardioversion needed she converted- now rate controlled (and breathing a good deal better) Was on on Xarelto 20 mg PO daily prior to admission Was on on Diltiazem 240 mg PO daily PRN prior to admission but notes that this caused edema that was intolerable on amio, digoxin. metoprolol as above - seems to be tolerating well overall Diastolic CHF/bilateral lower extremity edema, likely mostly rate related Bumex, aldactone Hypothyroidism - continue current dosing TYESHA - ongoing current treatment GERD: Stable Vitamin D deficiency, with the 25-hydroxy vitamin D level is 9.2 replacement w vitamin D 6000 units by mouth daily for 8 weeks DVT prophylaxis is covered because she is on Xarelto Continued [facility] stay due to: home environment unsafe for pt Discharge planning: home
--- NOTE | 2016-07-31 20:18 | PROGRESS NOTE ---
DATE: 07/31/2016 The patient was seen by me this evening in her telemetry unit room. She is feeling better than yesterday. She has less dyspnea at rest. She states that many times during the day she has no dyspnea. She was able to walk in the neil this evening. This was limited by dyspnea. However, she was able to walk further today than in previous days. She does have postural lightheadedness. She also complained of lightheadedness when she was walking in the neil. No palpitations. No chest pain. She states her cough is becoming productive. She feels that she is moving more air compared to the past few days. No abdominal pain or nausea. She still complains of leg edema, left greater than right. However, that has decreased from yesterday. No bleeding complaints. No cerebrovascular complaints suggestive of a thromboembolic event. CURRENT MEDICATIONS: Metoprolol tartrate 50 mg b.i.d., Bumex 2 mg p.o. daily, spironolactone 50 mg daily, DuoNeb 3 mL q. 2 hours while awake p.r.n., vitamin D 6000 units daily, calcium with vitamin D 1 tab b.i.d., NovoLog sliding scale insulin, methylprednisolone 60 mg IV q. 8 hours, potassium 20 mEq daily, pantoprazole 40 mg daily, lorazepam 1 mg at bedtime, amiodarone 400 mg p.o. b.i.d., Dulera inhaler b.i.d., levothyroxine 150 mcg daily, Xarelto 20 mg daily, and several p.r.n. medications. ALLERGIES AND ADVERSE DRUG REACTIONS: HYDROCODONE, TRAMADOL. Monitor shows sinus rhythm. PHYSICAL EXAMINATION: VITAL SIGNS: Late this afternoon with oral temperature of 36.5, pulse 66, blood pressure 165/85, pulse oximetry on supplemental nasal cannula oxygen at 2 liters per minute is 98%. GENERAL APPEARANCE: Shows her to be in no distress, sitting at her bedside. NECK: Difficult to evaluate jugular venous pressure secondary to neck size. LUNGS: Decreased breath sounds in all lung suero. No rales or wheezes heard. No rhonchi. HEART: Distant heart sounds. Regular rate and rhythm. S1, S2 normal. No S3 or S4. ABDOMEN: Soft. Nontender. No palpable masses or organomegaly. EXTREMITIES: Trace right pretibial edema. Trace to 1+ left pretibial edema. NEUROLOGIC: Alert and oriented x3. Motor grossly intact. PSYCHIATRIC: Affect is normal. ASSESSMENT: 1. She remains in sinus rhythm. 2. Improving respiratory status. No wheezing heard on exam today by me. This is the first day during this admission that I did not hear her wheezing. 3. Episodes of lightheadedness. Cannot exclude that this is a side affect from the amiodarone. 4. Mild peripheral edema. The patient states that her legs are more dependent in the hospital than they are usually at home. She usually keeps them elevated during the day when she is sitting. In the hospital, she is either sitting in a chair by her bedside or on the side of her bed with her legs dependent. 5. Mild hypertension. PLAN: 1. We will decrease amiodarone to 200 mg b.i.d. At the time of discharge, we will likely decrease the dose to 200 mg once daily. 2. Continue metoprolol. 3. I would be hesitant to increase antihypertensive medications in light of her complaints of lightheadedness. 4. Continue long-term anticoagulation with Xarelto. 5. Continue to increase activity as tolerated. 6. No further cardiac testing at this time. MTDD
[2016-07-31] MEDS: LORAZEPAM 1 MG TAB PO SCH (20:37)
[2016-07-31] MEDS ORDERED: AMIODARONE 200 MG TAB PO SCH (21:00)
[2016-08-01 04:00] VITALS: BP 153/78; PULSE 70; TEMP 36.4; O2SAT 92
[2016-08-01 07:10] VITALS: PULSE 69; O2SAT 97
[2016-08-01] MEDS: ALBUT/IPRATROP 3MG/0.5MG NEB 3 ML VIAL INH PRN ×2 (07:10→11:07)
[2016-08-01 08:33] VITALS: BP 168/72; PULSE 77; TEMP 36.6; O2SAT 97
[2016-08-01] MEDS: CALCIUM 600MG + VIT D 400 IU TAB PO SCH (08:53)
[2016-08-01] MEDS: CHOLECALCIFEROL 1000 INTER.UNIT TAB PO SCH (08:53)
[2016-08-01] MEDS: SPIRONOLACTONE 25 MG TAB PO SCH (08:54)
[2016-08-01] MEDS: BUMETANIDE 1 MG TAB PO SCH (08:54)
[2016-08-01] MEDS: METOPROLOL TARTRATE 50 MG TAB PO SCH (08:54)
[2016-08-01] MEDS: POTASSIUM CHLORIDE 20 MEQ TABCR PO SCH (08:55)
[2016-08-01] MEDS: PANTOprazole SOD 40 MG TAB PO SCH (08:55)
[2016-08-01] MEDS: MOMETASONE FUROATE FORMOTEROL INH SCH (09:20)
[2016-08-01] MEDS: INSULIN ASPART 100 UNITS/ML 3 ML PEN SC SCH (09:22)
[2016-08-01] MEDS: METHYLPREDNISOLONE IV 60 MG in SYRINGE 0 ML IV SCH (09:41)
[2016-08-01 10:47] VITALS: BP 168/72; PULSE 77; TEMP 36.6; O2SAT 97
[2016-08-01] MEDS ORDERED: AZIT250T PO (11:16)
[2016-08-01] MEDS ORDERED: PRED10TA PO (11:16)
[2016-08-01] MEDS ORDERED: IPRASOL4 INH (11:16)
[2016-08-01] MEDS ORDERED: CRD200 PO (11:16)
[2016-08-01] MEDS ORDERED: NTRSLP4 SL (11:16)
[2016-08-01] MEDS ORDERED: CALCTAB7 PO (11:16)
[2016-08-01] MEDS ORDERED: IPRA1AER2 INH ×2 (11:16)
[2016-08-01] MEDS ORDERED: BMX1 PO (11:16)
[2016-08-01] MEDS ORDERED: METO50TA17 PO (11:16)
[2016-08-01] MEDS ORDERED: VTMD1000 PO (11:16)
[2016-08-01] MEDS ORDERED: FLUT1INH INH (11:16)
[2016-08-01] MEDS ORDERED: SPR25 PO (11:16)
[2016-08-01] MEDS: LEVOTHYROXINE 150 MCG TAB PO SCH (11:30)
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
[2016-08-01 12:05] VITALS: BP 168/72; PULSE 77; TEMP 36.6; O2SAT 97
[2016-08-01] MEDS ORDERED: AZITHROMYCIN 250 MG TAB PO ONE (13:00)
[2016-08-02] MEDS ORDERED: AMIODARONE 200 MG TAB PO SCH (09:00)
--- NOTE | 2016-08-05 09:40 | Discharge Summary ---
Discharge Summary Admission Date: Jul 26, 2016 at 10:16 Discharge Date: Aug 01, 2016 Discharge Disposition: Home with services Principal Diagnosis: COPD exacerbatin, acute on chronic CHF due to afib Problems/Secondary Diagnoses: (1) Atrial Fibrillation Status: Chronic (2) Hypothyroidism Nos Status: Chronic (3) TYESHA on CPAP Status: Chronic Immunizations: Have You Had Influenza Vaccine: Yes Influenza Vaccine Date: Apr 08, 2012 History of Tetanus Vaccine?: Yes Tetanus Immunization Date: Jun 08, 2005 History of Pneumococcal: Yes Pneumococcal Date: Apr 08, 2012 History of Hepatitis B Vaccine: No Procedures: Last Resulted CBC 07/29/16 05:08 Last Resulted BMP 07/29/16 05:08 Consultations: cardiology, pulmonary Medication Reconciliation New Medications: Azithromycin (Zithromax) 250 Mg Tab 250 MG PO DAILY, #4 TAB Fluticasone Furoate-Vilanterol (Breo Ellipta) 1 Inh Inh 1 PUFF INH DAILY, #1 INHA breo 100/25 Ipratropium-Albuterol (Combivent Respimat) 1 Aer Aer 2 PUFFS INH DAILY, #1 INH Prednisone Tab (Prednisone) 10 Mg Tab 10 MG PO UD, #42 TAB 6 po x 2 days then 5 po x 2 days then 4 po x 2 days then 3 po x 2 days then 2 po x 2 days then 1 po x 2 days Amiodarone HCl (Amiodarone HCl) 200 Mg Tab 200 MG PO DAILY, #30 TAB Bumetanide (Bumetanide) 1 Mg Tab 2 MG PO DAILY, #30 TAB Calcium Carbonate-Vitamin D W/ (Caltrate 600 Plus) 1 Tab Tab 1 TAB PO BID, #60 TAB Cholecalciferol (Vitamin D3) 1,000 Inter.unit Tab 6000 INTER.UNIT PO QAM, #30 TAB Metoprolol Tartrate (Metoprolol Tartrate) 50 Mg Tab 50 MG PO BID, #60 TAB Nitroglycerin (Nitrostat) 0.4 Mg/1 Tab Subl 0.4 MG SL UD PRN for Chest Pain, #30 TAB Spironolactone (Spironolactone) 25 Mg Tab 50 MG PO DAILY, #30 TAB Changed Medications: Ipratropium-Albuterol (Combivent Respimat) 1 Aer Aer 1 PUFF INH Q4 PRN for SOB/Wheezing, #100 INH (Changed from: QID; Removed Instructions) Continued Medications: Ipratropium-Albuterol (Duoneb) 3 Ml Nebu 1 TREATMENT INH QID for 30 Days, #120 INHA 2 Refills (This prescription has been renewed) Levothyroxine Sodium (Levothyroxine Sodium) 150 Mcg Tab 150 MCG PO DAILY, TAB Lorazepam (Lorazepam) 1 Mg Tab 1 MG PO HS Oxygen (Oxygen) Gas 2.5 LITERS NA UD ADMINISTER THROUGH CPAP DURING HOURS OF SLEEP AND THROUGHOUT THE DAY WHEN SHORT OF BREATH Potassium Chloride Microencaps (Potassium Chloride Er) 20 Meq Tab 20 MEQ PO DAILY Rivaroxaban (Xarelto) 20 Mg Tab 20 MG PO DAILY TAKE THIS MEDICATION ONCE DAILY WITH EVENING MEAL Discontinued Medications: Bumetanide (Bumetanide) 1 Mg Tab 1 MG PO DAILY Diltiazem Hcl (Diltiazem Cd) 240 Mg Capcr 240 MG PO DAILY PRN for Afib Symptoms Mometasone Furoate-Formoterol (Dulera 200/5 Mcg) 1 Aer Aer 2 PUFFS INH BID, GM Spironolactone (Aldactone) 25 Mg Tab 25 MG PO DAILY PRN for Fluid Retention, TAB Discharge Exam Physical Exam: General Appearance: no apparent distress Eyes: EOMI ENT: hearing grossly normal Neck: trachea midline Respiratory/Chest: no respiratory distress, no accessory muscle use, + decreased breath sounds (but clear overall no r/r/w good effort) Neurologic/Psychiatric: direct sales representative II-XII nml as tested, alert, normal mood/affect Skin: normal color, warm/dry Hospital Course PMHx of COPD, a.fib, CHF, TYESHA, HTN, hypothyroidism, GERD, who presented to the ED because of tachycardia and SOB. Acute on chronic COPD exacerbation, seems improving - most of dyspnea now seems rate related from poor forward flow and diastolic CHF -improved enough to be safe to go home - really wants to go home, extensive discusssions -treat COPD exacerbation w zithromax, steroids as above -close f/u A.fib with RVR: erratic - but before cardioversion needed (was planned) she converted- now rate controlled (and breathing a good deal better) Was on on Xarelto 20 mg PO daily prior to admission -doing well on meds above - COPD exac flared afib flared diastolic CHF -- all slowly improving Diastolic CHF/bilateral lower extremity edema, likely mostly rate related -meds as above, close outpt f/u, serial BMP Hypothyroidism - continue current dosing TYESHA - ongoing current treatment GERD: Stable Vitamin D deficiency, with the 25-hydroxy vitamin D level is 9.2 replacement w vitamin D 6000 units by mouth daily for 8 weeks DVT prophylaxis Xarelto weakness/deconditioning - anticipate slow improvement extensive discussions w pt on expected recovery, "red flags' what to watch for etc - she felt comfortable going home and appeared stable to do so. when daughter came later, they apparently were debating about her ability to go home , case management informed me of this -- but also informed me that patient did not want me to come back to discuss further -- and in respecting her wishes and HIPAA - i did not revisit. did spend ~45mins face to face reviewing dx, expected course, treatment, and possible pitfalls Total Time Spent: Greater than 30 minutes This includes examination of the patient, discharge planning, medication reconciliation, and communication with other providers. Discharge Instructions Please refer to the electronic Patient Visit Report (Discharge Instructions) for additional information.
== END 2016-08-01 17:08 | disposition home health service (06) | DRG 190 ==
LOC: ENRESERVTM → ENRESERVDT → C.EDB 04:35 → C.2T 10:16
PROVIDERS: ADMIT Hospitalist; ATTEND Family Medicine
DX: J44.1 Chronic obstructive pulmonary disease with (acute) exacerbation (principal); J96.21 Acute and chronic respiratory failure with hypoxia; I50.33 Acute on chronic diastolic (congestive) heart failure; I48.92 Unspecified atrial flutter; I50.1 Left ventricular failure, unspecified; Z68.42 Body mass index [BMI] 45.0-49.9, adult; I48.0 Paroxysmal atrial fibrillation; G47.33 Obstructive sleep apnea (adult) (pediatric); E03.9 Hypothyroidism, unspecified; K21.9 Gastro-esophageal reflux disease without esophagitis; E78.5 Hyperlipidemia, unspecified; E55.9 Vitamin D deficiency, unspecified; G62.9 Polyneuropathy, unspecified; R42 Dizziness and giddiness; R00.0 Tachycardia, unspecified; J98.01 Acute bronchospasm; I11.0 Hypertensive heart disease with heart failure; E66.01 Morbid (severe) obesity due to excess calories; R60.9 Edema, unspecified; T46.2X5A Adverse effect of other antidysrhythmic drugs, initial encounter; Z87.19 Personal history of other diseases of the digestive system; Y92.230 Patient room in hospital as the place of occurrence of the external cause; Z98.84 Bariatric surgery status; Z86.718 Personal history of other venous thrombosis and embolism; Z87.891 Personal history of nicotine dependence; Z99.89 Dependence on other enabling machines and devices; Z99.81 Dependence on supplemental oxygen; Z79.51 Long term (current) use of inhaled steroids; Z79.01 Long term (current) use of anticoagulants; Z79.899 Other long term (current) drug therapy

== ENCOUNTER → 2016-08-02 | Outpatient (CLI) | payer OTHER ==
[~2016-08-02] MED LIST changes: +AZIT250T PO; +CALCTAB7 PO; +CRD200 PO; -DLTCD/240 PO; +FLUT1INH INH; -LVQ500 PO; +METO50TA17 PO; -MOME200A INH; +NTRSLP4 SL; +PRED10TA PO; -SPIR25TA PO; +SPR25 PO; +VTMD1000 PO
[2016-08-02 17:16] LABS: ALT/SGPT 30 U/L (12-78); BLOOD UREA NITROGEN 26 mg/dl (7-18); CALCIUM 8.9 mg/dl (8.5-10.1); CARBON DIOXIDE 32 mmol/L (21-32); CHLORIDE 90 mmol/L (98-107); GLUCOSE 172 mg/dl (70-99); POTASSIUM 3.8 mmol/L (3.5-5.1); SODIUM 133 mmol/L (136-145)
[2016-08-02 17:19] LABS: ALB/GLOB RATIO 0.9 (0.9-2); ALKALINE PHOSPHATASE 81 U/L (45-117); AST/SGOT 12 U/L (15-37)
== END | disposition home or self-care (01) ==
LOC: C.LABBC 14:24
PROVIDERS: ATTEND Internal Medicine
DX: J44.1 Chronic obstructive pulmonary disease with (acute) exacerbation (principal); K21.9 Gastro-esophageal reflux disease without esophagitis

== ENCOUNTER → 2016-08-08 | Outpatient (CLI) | payer OTHER | END | disposition home or self-care (01) | LOC: C.LABSPEC 17:43 | PROVIDERS: ATTEND Internal Medicine | DX: R19.7 Diarrhea, unspecified (principal) ==

== ENCOUNTER → 2016-08-08 | Outpatient (CLI) | payer OTHER ==
[2016-08-08 13:44] LABS: BLOOD UREA NITROGEN 24 mg/dl (7-18); BUN/CREATININE RATIO 21.7 (10-20); CALCIUM 9.2 mg/dl (8.5-10.1); CARBON DIOXIDE 27 mmol/L (21-32); CHLORIDE 95 mmol/L (98-107); GLUCOSE 114 mg/dl (70-99); POTASSIUM 3.7 mmol/L (3.5-5.1); SODIUM 134 mmol/L (136-145)
== END | disposition home or self-care (01) ==
LOC: C.LABSPEC 12:15
PROVIDERS: ATTEND Internal Medicine
DX: Z00.00 Encounter for general adult medical examination without abnormal findings (principal); Z87.09 Personal history of other diseases of the respiratory system; I10 Essential (primary) hypertension

== ENCOUNTER → 2016-08-13 | Outpatient (CLI) | payer OTHER ==
[2016-08-13 12:47] LABS: BLOOD UREA NITROGEN 16 mg/dl (7-18); BUN/CREATININE RATIO 16.8 (10-20); CALCIUM 9.2 mg/dl (8.5-10.1); CARBON DIOXIDE 27 mmol/L (21-32); CHLORIDE 99 mmol/L (98-107); CREATININE 0.94 mg/dl (0.60-1.20); GLUCOSE 124 mg/dl (70-99); MAGNESIUM 1.9 mg/dl (1.8-2.4); POTASSIUM 3.8 mmol/L (3.5-5.1); SODIUM 138 mmol/L (136-145)
== END | disposition home or self-care (01) ==
LOC: C.LABSPEC 11:50
PROVIDERS: ATTEND Internal Medicine
DX: Z00.00 Encounter for general adult medical examination without abnormal findings (principal); R25.2 Cramp and spasm

== ENCOUNTER → 2016-08-21 | Outpatient (CLI) | payer OTHER ==
[2016-08-21 13:02] LABS: ESTIMATED AVERAGE GLUCOSE 157 mg/dl; HA1C FLAG Normal (Normal)
== END | disposition home or self-care (01) ==
LOC: C.LABBFT 10:41
PROVIDERS: ATTEND Internal Medicine
DX: G62.9 Polyneuropathy, unspecified (principal); R73.9 Hyperglycemia, unspecified

== ENCOUNTER → 2016-10-30 | Outpatient (CLI) | payer OTHER ==
--- NOTE | 2016-10-31 08:16 | MAMMOGRAPHY REPORT ---
BILATERAL DIGITAL SCREENING MAMMOGRAM WITH CAD: 10/30/2016 CLINICAL HISTORY: Routine screening. Patient has no complaints. TECHNIQUE: Current study was also evaluated with a Computer Aided Detection (CAD) system. Bilatera l CC and MLO and X CCL and right cleavage views were obtained. COMPARISON: Comparison is made to exams dated: 10/11/2015 mammogram, 09/21/2014 mammogram, 09/20/2013 m ammogram, 09/18/2012 mammogram, 09/18/2011 mammogram, and 09/11/2010 mammogram - [facility]. BREAST COMPOSITION: There are scattered areas of fibroglandular density in both breasts. FINDINGS: No suspicious masses, calcifications, or areas of architectural distortion are noted in e ither breast. There has been no significant interval change compared to prior exams. Bilateral albaro gn-appearing calcifications and bilateral asymmetries are stable compared to prior exams. Nodular a symmetry in the right medial posterior breast is stable dating back to at least the 2007 and 2010 ex ams, and considered benign given long-term stability. IMPRESSION: ACR BI-RADS CATEGORY 2: BENIGN There is no mammographic evidence of malignancy. A 1 year screening mammogram is recommended. The p atient will receive written notification of the results. Approximately 10% of breast cancers are not detected with mammography. A negative mammographic repor t should not delay biopsy if a clinically suggestive mass is present. Bea Bender M.D. /:10/30/2016 15:23:42 Medical Equipment Technician: Kesha Faye RT(R)(M), [facility] letter sent: Normal 1/2 BI-RADS Code: ACR BI-RADS Category 2: Benign
== END | disposition home or self-care (01) ==
LOC: C.MAMM 14:24
PROVIDERS: ATTEND Obstetrics & Gynecology
DX: Z12.31 Encounter for screening mammogram for malignant neoplasm of breast (principal)

== ENCOUNTER → 2016-12-30 | Outpatient (CLI) | payer OTHER ==
[2016-12-30 17:40] LABS: HEMATOCRIT 41.7 % (37-47); MEAN CELL VOLUME 87.2 fL (80-100); MEAN CORPUSCULAR HEMOGLOBIN 29.1 pg (25-34); MEAN CORPUSCULAR HGB CONC 33.3 g/dl (32-36); MEAN PLATELET VOLUME 10.1 fL (7.4-10.4); PLATELET COUNT 236 K/uL (130-400); RED BLOOD COUNT 4.78 M/uL (4.2-5.4); WHITE BLOOD COUNT 9.62 K/uL (4.8-10.8)
[2016-12-30 17:48] LABS: ALT/SGPT 23 U/L (12-78); BLOOD UREA NITROGEN 16 mg/dl (7-18); BUN/CREATININE RATIO 16.2 (10-20); CALCIUM 9.7 mg/dl (8.5-10.1); CARBON DIOXIDE 27 mmol/L (21-32); CHLORIDE 99 mmol/L (98-107); GLUCOSE 94 mg/dl (70-99); MAGNESIUM 2.1 mg/dl (1.8-2.4); POTASSIUM 4.1 mmol/L (3.5-5.1); SODIUM 136 mmol/L (136-145)
[2016-12-30 17:59] LABS: ALB/GLOB RATIO 0.9 (0.9-2); ALKALINE PHOSPHATASE 92 U/L (45-117); AST/SGOT 18 U/L (15-37); THYROID STIMULATING HORMONE 0.312 uIu/ml (0.300-4.500)
== END | disposition home or self-care (01) ==
LOC: C.LABBFT 17:49
PROVIDERS: ATTEND Internal Medicine Cardiovascular Disease
DX: I48.0 Paroxysmal atrial fibrillation (principal)

== ENCOUNTER → 2017-06-25 | Outpatient (CLI) | payer OTHER ==
[~2017-06-25] MED LIST changes: -AZIT250T PO; +IPRA-64 INH; -IPRASOL4 INH; -PRED10TA PO; +SPIR25TA6 PO; -SPR25 PO
--- NOTE | 2017-06-25 11:26 | DIAGNOSTIC IMAGING REPORT ---
CHEST 2 VIEWS ROUTINE CLINICAL HISTORY: R06.02 Shortness of [id number] dyspnea COMPARISON STUDY: 07/26/2016 FINDINGS: Moderate cardiomegaly. Findings of mild components of congestive failure. Diaphragms are smooth. Slight plantar left lateral costophrenic angle. IMPRESSION: Moderate cardiomegaly with findings of mild congestive failure The above report was generated using voice recognition software. It may contain grammatical, syntax or spelling errors. Electronically signed by: Kit Crespo M.D. 06/25/2017 11:25 AM Dictated Date/Time: 06/25/2017 11:24 AM
== END | disposition home or self-care (01) ==
LOC: C.RAD1850 10:55
PROVIDERS: ATTEND Physician Assistant
DX: R06.02 Shortness of breath (principal); R05 Cough

== ENCOUNTER → 2017-07-02 | Outpatient (CLI) | payer OTHER ==
[~2017-07-02] MED LIST changes: -IPRA-64 INH; +IPRASOL4 INH; -SPIR25TA6 PO; +SPR25 PO
[2017-07-02 14:43] LABS: HEMOGLOBIN 14.3 g/dL (12.0-16.0); MEAN CELL VOLUME 90.3 fL (80-100); MEAN CORPUSCULAR HEMOGLOBIN 30.8 pg (25-34); MEAN PLATELET VOLUME 9.5 fL (7.4-10.4); PLATELET COUNT 307 K/uL (130-400); RED CELL DISTRIBUTION WIDTH CV 13.4 % (11.5-14.5); WHITE BLOOD COUNT 19.72 K/uL (4.8-10.8)
[2017-07-02 15:06] LABS: BASO % 0.2 %; BASO ABS # 0.03 K/uL (0-0.2); EOS ABS # 0.19 K/uL (0-0.5); IG# 0.36 K/uL (0.00-0.02); LYMPH % 27.6 %; LYMPH ABS # 5.44 K/uL (1.2-3.4); MONO % 5.6 %; NEUT % 63.8 %
[2017-07-02 15:56] LABS: BLOOD UREA NITROGEN 22 mg/dl (7-18); CALCIUM 9.1 mg/dl (8.5-10.1); CARBON DIOXIDE 32 mmol/L (21-32); CREATININE 1.08 mg/dl (0.60-1.20); GLUCOSE 108 mg/dl (70-99); POTASSIUM 4.2 mmol/L (3.5-5.1); SODIUM 135 mmol/L (136-145)
== END | disposition home or self-care (01) ==
LOC: C.LAB1850 12:41
PROVIDERS: ATTEND Physician Assistant
DX: R05 Cough (principal)

== ENCOUNTER → 2017-08-19 | Outpatient (CLI) | payer OTHER ==
[2017-08-19 17:48] LABS: BASO ABS # 0.08 K/uL (0-0.2); EOS ABS # 0.33 K/uL (0-0.5); HEMOGLOBIN 12.9 g/dL (12.0-16.0); IG# 0.04 K/uL (0.00-0.02); LYMPH % 32.9 %; LYMPH ABS # 2.69 K/uL (1.2-3.4); MEAN CELL VOLUME 90.5 fL (80-100); MEAN CORPUSCULAR HEMOGLOBIN 29.9 pg (25-34); MEAN CORPUSCULAR HGB CONC 33.1 g/dl (32-36); MEAN PLATELET VOLUME 10.3 fL (7.4-10.4); MONO % 7.3 %; NEUT % 54.3 %; NEUT ABS # 4.44 K/uL (1.4-6.5); PLATELET COUNT 190 K/uL (130-400); RED CELL DISTRIBUTION WIDTH CV 13.9 % (11.5-14.5); RED CELL DISTRIBUTION WIDTH SD 45.8 fL (36.4-46.3); WHITE BLOOD COUNT 8.18 K/uL (4.8-10.8)
[2017-08-19 18:37] LABS: ALBUMIN 3.3 gm/dl (3.4-5.0); ALKALINE PHOSPHATASE 93 U/L (45-117); ALT/SGPT 20 U/L (12-78); AST/SGOT 15 U/L (15-37); BLOOD UREA NITROGEN 17 mg/dl (7-18); CALCIUM 8.9 mg/dl (8.5-10.1); CARBON DIOXIDE 23 mmol/L (21-32); CREATININE 0.99 mg/dl (0.60-1.20); GLUCOSE 121 mg/dl (70-99); POTASSIUM 3.8 mmol/L (3.5-5.1); SODIUM 138 mmol/L (136-145)
[2017-08-19 18:49] LABS: CHOLESTEROL 192 mg/dl (0-200); LDL CHOLESTEROL CALCULATED 107 mg/dl; TOTAL PROTEIN 7.3 gm/dl (6.4-8.2)
== END | disposition home or self-care (01) ==
LOC: C.LABBFT 11:45
PROVIDERS: ATTEND Physician Assistant
DX: I10 Essential (primary) hypertension (principal); I48.0 Paroxysmal atrial fibrillation; R73.9 Hyperglycemia, unspecified

== ENCOUNTER → 2017-09-01 | Outpatient (CLI) | payer OTHER ==
--- NOTE | 2017-09-02 06:03 | PAP/PSG TECHNICIAN REPORT ---
[facility] Computer Programmer Chief Polysomnogram Report Study name: None Report date: 09/02/2017 Study date: 09/01/2017 Referring Physician: Lior Costa MD Name: YOVANY TAYLOR Interpreting Physician: Reagan Ignacio M.D. Date of : 1950 Computer Programmer Chief: Pop Martins RPSGT. Sex: Female Age: 66 StudyType: PSG PAP Weight: 303 lbs Height: 66 years, Height 5' 7.5" BMI: 46.75 Medications: BREO ELLIPTA 200-25 MCG, LEVALBUTEROL HCL 1.25 MG/3ML, IPRATROPIUM BROMIDE 0.02%, BUMETANIDE 2 MG, POTASSIUM CHLORIDE ER 20 MEQ, SPIRONOLACTONE 50 MG, LORAZEPAM 1 MG, LEVOTHYROXINE SODIUM 150 MCG, AMIODARONE HCL 100 MG, XARELTO 20 MG, BUDESONIDE 0.25 MG, IPRATROPIUM-ALNUTEROL 0.5-2.5 MG/ML, NITROGLYVERIN 0.6 MG, OXYGEN 25L/MIN Patient History PATIENT HAS HISTORY OF COPD, CHRONIC HYPOXIA AND TYESHA. SHE HAS HAD MANY SLEEP STUDIES DONE IN THE PAST. SHE CURRENTLY WEARS CPAP AT 15CWP AND 2L/MIN OF SUPPLEMENTAL OXYGEN. SHE WAS GIVEN A NEW MASK AND HAS BEEN HAVING TROUBLE WITH THE FIT. SHE IS HERE TODAY FOR AN UPDATE ON HER PRESSURE. ESS = 4 RM 6 Parameters Monitored NPSG: E1-M2, E2-M1, Fp1-M2, Fp2-M1, F3-M2, F4-M2, F4-M1, C3-M2, C4-M2, C4-M1, O1-M2, O2-M2, O2-M1, T3-M2, T4-M1, P3-M2, P4-M1, CHIN1, CHIN2, HR, EKG, Legs, PFLOW, SNOR, FLOW, CFLOW, Tidal Volume, THOR, ABDO, SpO2, PLTH, CPRESS, ETCO2 Wave, ETCO2, pH Sleep Architecture Sleep Stages Time at Lights Off 10:41:02 PM STAGES Time (min.) TST (%) Time at Lights On 5:36:32 AM Wake 153.0 -- Total Recording Time (TRT) 416.00 min. N1 22.0 8 Total Sleep Period (TSP) 393.0 min. N2 141.0 54 Total Sleep Time (TST) 262.5min. N3 53.0 20 Awake Time 153.5 min. REM 46.5 18 Wake after Sleep Onset 133.5 min. Sleep Efficiency (SE) 63 % Sleep Onset Latency (CLAUS) 19.5 min. Number of Stage 1 Shifts None Awakenings 35 Stage Changes 108 Number of REM periods 2 REM 46.5 18 REM Latency 241.5 min. NREM 216.0 82 Body Position Analysis Supine Right Left Side Prone Vertical Total Sleep Time (min.) 415.5 0.0 0.0 0.00 0.0 0.0 Total Sleep Time (%) 100% 0% 0% 0 0% N/A% Total Sleep Time REM (min.) 46.5 0.0 0.0 None 0.0 0.0 Total Sleep Time NREM (min.) 216.0 0.0 0.0 None 0.0 0.0 Intermittent Wake (min.) 153.0 0.0 0.0 None 0.0 0.0 Total Sleep Period (%) 100% None None None None None Arousals Myoclonus (PLM) * Events Count Index Events Count Index Spontaneous 43 10 Events Awake (PLMW) 73 28.6 Respiratory 10 2.5 Events Asleep w/ Arousal (PLMA) 2 0.5 PLM 2 0 Events Asleep w/o Arousal (PLMS) 32 7.3 Snoring 2 0 Total Asleep 34 7.8 Total 57 13 Total 107 15 Respiratory Analysis * CA OA MA CH H RERA Total Count 0 1 0 0 19 13 20 Index 0.0 0.2 0.0 0 4.3 3 7.5 Mean Duration 0.0 15.1 0.0 0.00 19.4 15.0 17.5 Longest Duration 0.0 15.1 0.0 0.00 0.0 19.9 31.3 Respiratory Event Summary Total Supine ~Supine Right Left Prone REM NREM Apneas Count 1 1 N/A N/A N/A N/A 0 1 Index 0.2 0 N/A N/A N/A N/A 0 0 Hypopneas (4% Desat) Count 19 19 N/A N/A N/A N/A 3 16 Index 4.3 4.3 N/A N/A N/A N/A 3.9 4.4 Apneas & All Hypopneas Count 20 20 N/A N/A N/A N/A 3 17 Index 4.6 5 N/A N/A N/A N/A 3.9 4.7 Respiratory Events (Commercial Manager+All Hyp+RERA) Count 20 33 N/A N/A N/A N/A 3 17 Index 7.5 8 N/A N/A N/A N/A 6.5 7.8 Respiratory Related Arousal Count 10 33 N/A N/A N/A N/A 3 8 Index 2.5 3 N/A N/A N/A N/A 4 2 Snoring Analysis Supine Right Left Prone REM NREM Total Snore duration 1.4 min Snores count 45 N/A N/A N/A 1 44 45 Snore mean duration 1.8 Sec Snores index 10 N/A N/A N/A 1.3 12.2 10.3 TST with snoring (%) 0.5% Desaturation Event Summary: Minimum %SpO2 Event Count Mean/Min/Max Duration(sec.) Desaturation Index % Time In Bed > 90 19 48.7 / 24.0 / 85.1 8.1 33.7 86 - 90 17 37.7 / 8.0 / 59.8 3.7 65.9 81 - 85 0 N/A 0.0 0.4 76 - 80 0 N/A 0.0 0.0 71 - 75 0 N/A 0.0 0.0 66 - 70 0 N/A 0.0 0.0 61 - 65 0 N/A 0.0 0.0 56 - 60 0 N/A 0.0 0.0 51 - 55 0 N/A 0.0 0.0 < 50 0 N/A 0.0 0.0 Total REM NREM Awake <50% 0.0 min. 0.0 min. 0.0 min. 0.0 min. 51 - 60% 0.0 min. 0.0 min. 0.0 min. 0.0 min. 61 - 70% 0.0 min. 0.0 min. 0.0 min. 0.0 min. 71 - 80% 0.0 min. 0.0 min. 0.0 min. 0.0 min. 81 - 90% 275.3 min. 37.0 min. 154.5 min. 83.9 min. 91 - 100% 140.1 min. 9.5 min. 61.6 min. 69.1 min. Average 90 89 90 91 Minimum SpO2 83 84 83 83 Desaturation Event Index 4.2 3.9 5.6 2.7 # Desat. Events below 89% 23 3 19 1 Time(%) with Saturation below 89% 14.7 3.1 9.0 2.7 Time(min.) with Saturation below 89% 61.2 12.7 37.3 11.2 Time (mins) REM (mins) NREM (mins) % of TST SpO2 Below 90% 22 3 N19 38.1 SpO2 Below 88% 14 0 0 6 Heart Rate Analysis Min (bpm) Max (bpm) Average (bpm) Awake 63 89 73 NREM 65 77 72 REM 66 77 71 Overall 65 77 72 Supplemental O2 Values Minimum O2 level: None Value Start Time End Time Computer Programmer Chief Comments Ms. Taylor slept in the supine positions. No cardiac arrhythmia noted. Leg movements noted. No bruxism noted. CPAP was initiated at +12 CMH2O and up-titrated to an optimal level of +19 CMH2O, which nearly eliminated all respiratory events and snoring. A [employer] and GI Track size large Simplus full face mask was used during titration Ms. Taylor awoke to use the restroom 0 times during the night. Ms. Taylor stated I slept as well as I do when I am in my own bed. At 2:37 am, Ms. Taylor qualified for supplemental oxygen. I started at 1l/min and increased to 2l/min. The patient brought in her own mask to use but during the study I discovered that the mask was too small and caused a mouth leak. She brought in a medium size full face mask and I gave her large. The large mask seemed to work better. I started on 12cwp due to patient feeling like she was suffocating at lower pressures. The final report will be interpreted and signed by a sleep physician. The completed physician report will then be placed in the patient medical record. Therapy Event: Therapy (cm H20) 12 13 15 17 18 19 Total Time at Pressure (min.) 60.2 13.8 33.9 141.1 49.4 117.1 TST at Pressure (min.) 10.7 11.8 32.9 62.6 46.9 97.6 # Periods 1 1 1 1 1 1 Sleep Onset (min.) 19.5 0.0 0.0 0.0 0.0 0.0 REM Onset (min.) N/A N/A N/A N/A 12.0 99.6 Sleep Efficiency % 17 85 97 44 94 83 Wakefulness (%) 82.2 14.5 3.0 55.6 5.1 16.6 Wakefulness (min.) 49.5 2.0 1.0 78.5 2.5 19.5 NREM 1 (%) 7.5 14.5 10.3 6.0 3.0 1.7 NREM 1 (min.) 4.5 2.0 3.5 8.5 1.5 2.0 NREM 2 (%) 10.3 71.1 78.2 29.4 27.1 37.3 NREM 2 (min.) 6.2 9.8 26.5 41.5 13.4 43.6 NREM 3 (%) 0.0 0.0 8.5 8.9 0.0 32.0 NREM 3 (min.) 0.0 0.0 2.9 12.6 0.0 37.5 REM (%) 0.0 0.0 0.0 0.0 64.8 12.4 REM (min.) 0.0 0.0 0.0 0.0 32.0 14.5 # Arousals 7 2 15 20 8 5 Arousal Index 39.3 10.1 27.4 19.2 10.2 3.1 # Snore 0 5 2 29 2 7 Snore Index 0.0 25.4 3.7 27.8 2.6 4.3 AHI 11.2 20.3 14.6 1.9 3.8 0.6 AHI Supine 11.2 20.3 14.6 1.9 3.8 0.6 AHI Non-Supine N/A N/A N/A N/A N/A N/A NREM AHI 11.2 20.3 14.6 1.9 0.0 0.7 REM AHI N/A N/A N/A N/A 5.6 0.0 RDI 16.8 20.3 21.9 6.7 6.4 1.2 # Obstructive 0 1 0 0 0 0 # Central Ap 0 0 0 0 0 0 # Mixed 0 0 0 0 0 0 # Hypopneas 2 3 8 2 3 1 RERAS 1 0 4 5 2 1 Total Respiratory Events 3 4 12 7 5 2 Time Below SpO2 89.00% (min.) 5.9 3.1 7.4 20.5 10.0 3.2 Mean NREM SpO2 (%) 89 89 90 89 91 90 Mean REM SpO2 (%) N/A N/A N/A N/A 89 89 Mean Sleep SpO2 (%) 89 89 90 89 90 90 Min NREM SpO2 (%) 86 84 83 85 89 87 Min REM SpO2 (%) N/A N/A N/A N/A 84 87 Position Supine (min.) 10.7 11.8 32.9 62.6 46.9 97.6 Position Non-supine (min.) 0.0 0.0 0.0 0.0 0.0 0.0 LM Index Sleep 5.6 5.1 0.0 13.4 6.4 8.0 LM Index NREM 5.6 5.1 0.0 13.4 0.0 7.2 LM Index REM N/A N/A N/A N/A 9.4 12.4 Mean Heart Rate (bpm) 73 72 71 71 72 73 Min Heart Rate (bpm) 70 70 68 65 66 68
--- NOTE | 2017-09-05 14:52 | POLYSOMNOGRAPH REPORT ---
CLINICAL DATA: A 66-year-old female with BMI of 46.[address] Costa with COPD, chronic hypoxia and sleep apnea. She currently has CPAP at 15 cm water pressure with 2 liters of oxygen. She is sent for an update on her pressure. SLEEP ARCHITECTURE: Total sleep period was 393 minutes. Total sleep time was 262.5 minutes divided between 216 minutes of non-REM sleep and 46.5 minutes of REM sleep. Sleep onset latency was 19.5 minutes. REM latency was 241.5 minutes. Sleep efficiency was 63%. Wake after sleep onset was elevated at 133.5 minutes. Sleep consisted of stage N1 8%, stage N2 54%, stage N3 20%, and REM 18%. AROUSAL DATA: 57 arousals were recorded for an index of 13 per hour; 43 were spontaneous. PERIODIC LIMB MOVEMENTS DATA: 34 limb movements during sleep were noted for an index of 7.8 per hour with an arousal index of 0.5 per hour. RESPIRATORY DATA: The AHI was 4.6. The RDI was 7.5. There was 1 obstructive apneic episode, 15 seconds in duration. There were 19 hypopneic episodes with a mean duration of 19.4 seconds. There were 13 RERAs. The longest RERA was 20 seconds. OXIMETRY DATA: Nocturnal hypoxemia was seen. Oxygen jillian was 83%. Mean saturation was 90%. ELECTROCARDIOGRAM: Heart rates ranged from 65-77 beats per minute. No arrhythmias were noted. CHILD CARE ASSISTANT'S COMMENTS AND TREATMENT SUMMARY: The patient slept supine. CPAP was initiated at 12 cm of water pressure and titrated up to a final pressure setting of 19 cm of water pressure. At the final pressure setting, patient had an AHI of 0.6 and slept at that pressure for 97.6 minutes. She used a [employer] large Simplus full face mask. At 2:37 a.m., she qualified for supplemental oxygen and initially 1 liter and then 2 liters per minute. IMPRESSION: Obstructive sleep apnea and nocturnal hypoxemia, corrected with CPAP at 19 cm of water pressure, oxygen 2 liters per minute using a large [employer] Simplus full face mask. RECOMMENDATIONS: The patient's CPAP should be increased to 19 cm water pressure. She should be prescribed a new face mask. Follow up in 90 days is recommended with compliance and effectiveness data. [facility]IROND[facility] MEDICAL CENTERLuzma
== END | disposition home or self-care (01) ==
LOC: C.NEUR 20:00
PROVIDERS: ATTEND Internal Medicine Critical Care Medicine
DX: I51.9 Heart disease, unspecified (principal); G47.33 Obstructive sleep apnea (adult) (pediatric)

== ENCOUNTER → 2017-10-31 | Outpatient (CLI) | payer OTHER | END | disposition home or self-care (01) | LOC: C.MAMM 15:39 | PROVIDERS: ATTEND Obstetrics & Gynecology | DX: Z12.31 Encounter for screening mammogram for malignant neoplasm of breast (principal) ==

== ENCOUNTER → 2018-02-02 | Outpatient (CLI) | payer OTHER ==
[~2018-02-02] MED LIST changes: +IPRA-64 INH; -IPRASOL4 INH; +SPIR25TA6 PO; -SPR25 PO
[2018-02-02 14:40] LABS: BASO % 0.3 %; BASO ABS # 0.03 K/uL (0-0.2); EOS % 2.2 %; HEMATOCRIT 40.2 % (37-47); HEMOGLOBIN 13.5 g/dL (12.0-16.0); IG# 0.04 K/uL (0.00-0.02); LYMPH % 26.7 %; LYMPH ABS # 2.45 K/uL (1.2-3.4); MEAN CELL VOLUME 90.1 fL (80-100); MEAN CORPUSCULAR HEMOGLOBIN 30.3 pg (25-34); MEAN CORPUSCULAR HGB CONC 33.6 g/dl (32-36); MEAN PLATELET VOLUME 10.5 fL (7.4-10.4); MONO % 7.7 %; MONO ABS # 0.71 K/uL (0.11-0.59); NEUT % 62.7 %; NEUT ABS # 5.76 K/uL (1.4-6.5); PLATELET COUNT 221 K/uL (130-400); RED CELL DISTRIBUTION WIDTH CV 13.4 % (11.5-14.5); RED CELL DISTRIBUTION WIDTH SD 44.3 fL (36.4-46.3); WHITE BLOOD COUNT 9.19 K/uL (4.8-10.8)
[2018-02-02 15:14] LABS: ALBUMIN 3.6 gm/dl (3.4-5.0); ALKALINE PHOSPHATASE 102 U/L (45-117); ALT/SGPT 25 U/L (12-78); AST/SGOT 17 U/L (15-37); BLOOD UREA NITROGEN 14 mg/dl (7-18); CALCIUM 8.8 mg/dl (8.5-10.1); CARBON DIOXIDE 26 mmol/L (21-32); CHOLESTEROL 196 mg/dl (0-200); CREATININE 1.13 mg/dl (0.60-1.20); GLUCOSE 130 mg/dl (70-99); LDL CHOLESTEROL CALCULATED 111 mg/dl; POTASSIUM 3.7 mmol/L (3.5-5.1); SODIUM 134 mmol/L (136-145); TOTAL PROTEIN 7.8 gm/dl (6.4-8.2)
== END | disposition home or self-care (01) ==
LOC: C.LAB1850 12:29
PROVIDERS: ATTEND Internal Medicine
DX: R73.9 Hyperglycemia, unspecified (principal); I10 Essential (primary) hypertension; E03.9 Hypothyroidism, unspecified

== ENCOUNTER 2018-10-15 18:24 | Inpatient (IN) ==
[2018-10-15] MEDS ORDERED: SODIUM CHLORIDE 0.9% 500 ML IV SCH (19:00)
[2018-10-15 19:25] LABS: Basophils # (auto) 0.03 K/uL (0-0.2); Basophils % (auto) 0.3 %; Eosinophils # (auto) 0.29 K/uL (0-0.5); Eosinophils % (auto) 2.9 %; Hematocrit (blood only) 37.6 % (37-47); Hemoglobin 12.9 g/dL (12.0-16.0); Immature Granulocytes # (auto) 0.05 K/uL (0.00-0.02); Immature Granulocytes % (auto) 0.5 %; Lymphocytes # (auto) 1.98 K/uL (1.2-3.4); Lymphocytes % (auto) 19.7 %; Mean Corpuscular Hgb Conc 34.3 g/dL (32-36); Mean Corpuscular Volume 89.7 fL (80-100); Mean Platelet Volume 9.9 fL (7.4-10.4); Monocytes # (auto) 0.72 K/uL (0.11-0.59); Monocytes % (auto) 7.2 %; Neutrophils # (auto) 6.98 K/uL (1.4-6.5); Neutrophils % (auto) 69.4 %; Platelet Count 200 K/uL (130-400); RDW Coefficient of Variation 13.2 % (11.5-14.5); RDW Standard Deviation 43.3 fL (36.4-46.3); Red Blood Count 4.19 M/uL (4.2-5.4); White Blood Count 10.05 K/uL (4.8-10.8)
[2018-10-15 19:36] LABS: INR 1.2 (0.9-1.1); Partial Thromboplastin Ratio 1.5; Partial Thromboplastin Time 40.4 Seconds (21.0-31.0); Prothrombin Time 12.3 Seconds (9.0-12.0)
[2018-10-15 19:41] LABS: Albumin Level 3.4 gm/dl (3.4-5.0); BUN Creatinine Ratio 9.8 (10-20); Calcium 9.5 mg/dl (8.5-10.1); Creatinine Clr Calc Pharmacy 84.1 ml/min; Est GFR (African American) 72.2; Est GFR (Non-African American) 62.3; Potassium 3.6 mmol/L (3.5-5.1)
[2018-10-15 19:44] LABS: Albumin Globulin Ratio 0.8 (0.9-2); Bilirubin,Total 0.5 mg/dl (0.2-1); Globulin 4.1 gm/dl (2.5-4.0); Total Protein 7.5 gm/dl (6.4-8.2)
--- NOTE | 2018-10-15 19:46 | XRay Report ---
XR chest 1V portable CLINICAL HISTORY: eval for chf chest pain. Dyspnea. COMPARISON STUDY: 01/01/2018 FINDINGS: Mild cardiomegaly. Prominent pulmonary vasculature. Diaphragms are smooth. IMPRESSION: Developing congestive heart failure The above report was generated using voice recognition software. It may contain grammatical, syntax or spelling errors. Electronically signed by: Kit Crespo M.D. 10/15/2018 7:44 PM
--- NOTE | 2018-10-15 20:51 | CT Scan Report ---
CT abd pelvis wo con CT DOSE: 1592.80 mGy.cm HISTORY: Pain. Nausea. eval for colitis TECHNIQUE: Multiaxial CT images of the abdomen and pelvis were performed without contrast. A dose lo wering technique was utilized adhering to the principles of ALARA. COMPARISON STUDY: 09/29/2008 FINDINGS: Right lung bases clear. Minimal atelectasis left base. Small hiatal hernia. Gastric sleeve is present. Overall configuration of liver spleen and pancreas ar e unremarkable. Kidneys negative for calcification or hydronephrosis. Bowel pattern is nonobstructive. Uterus is anteflexed. Findings of moderate chronic sigmoid diverticulosis. No evidence for acute diverticulitis. IMPRESSION: 1. Moderate chronic sigmoid diverticulosis. 2. No evidence for diverticulitis. 3. Minimal atelectasis left base. 4. Study is otherwise negative The above report was generated using voice recognition software. It may contain grammatical, syntax or spelling errors. Electronically signed by: Kit Crespo M.D. 10/15/2018 8:50 PM
--- NOTE | 2018-10-15 21:07 | History & Physical Report ---
Date of Service October 15, 2018 Assessment & Plan (1) Diarrhea: 68 y/o F Hx of COPD, PAF, CHF, TYESHA, hypothyroidism, GERD - presents 5 days of diarrhea and melena x 3 days. She is on Xarelto for AF. She denies SOB above baseline, denies CP or lightheadedness, denies fevers. She does have some lower abdominal pain. The pt was on a course of Amoxicillin for a dental infection one week prior and her diarrhea began a few days after. Initial labs are unremarkable with no significant drop in her hemoglobin. A CT of the abdomen is negative for acute abnormalities. A C-diff study was sent while she was in the ER, the results of which are pending and will take a while as it had to be sent to [facility] for further analysis. 1) Diarrhea and GI bleed - no significant colitic seen on CT. C diff is a concern as she was recently on antibiotics. As the results may take a few days, we will start her on PO Vanc. Otherwise, will hold Xarelto tomorrow, trend her Hb, plac her on clears and call GI if bleeding persists and C diff is negative. 2) PAF - cont Amio, Xarelto held 3) Diastolic CHF - cont Aldactone if she is taking clears 4) COPD - no evidence of exacerbation - cont prescribed inhalers, 02 protocol 5) TYESHA - she has brought her CPAP - states it is set to 19 6) Hypothyroid - cont Synthroid Full code - DVT prophylaxis held due to GI bleed although she did take her Xarelto prior to arrival Total time for this admit including review of labs, meds, imaging, records - discussion with pt and ER attending - 38 min Present on Admission?: Yes (2) Rectal bleed: History of Present Illness Chief Complaint: diarrhea and melena Primary Care Provider: Kiel Garcia MD 68 y/o F Hx of COPD, PAF, CHF, TYESHA, hypothyroidism, GERD - presents 5 days of diarrhea and melena x 3 days. She is on Xarelto for AF. She denies SOB above baseline, denies CP or lightheadedness, denies fevers. She does have some lower abdominal pain. The pt was on a course of Amoxicillin for a dental infection one week prior and her diarrhea began a few days after. Initial labs are unremarkable with no significant drop in her hemoglobin. A CT of the abdomen is negative for acute abnormalities. A C-diff study was sent while she was in the ER, the results of which are pending and will take a while as they had to be sent to [facility] for further analysis. PMH: 1) Paroxysmal AF 2) Diastolic CHF 3) TYESHA 4) COPD - 2-3L 02 continuous at home 5) GERD 6) Hypothyroidism 7) Morbid obesity Surgical: 1. Tubal ligation 2. Cholecystectomy 3. Laparoscopic band surgery Social: Quit smoking 2004 Family: Mother - breast CA Father - prostate CA Allergies Allergy/AdvReac Type Severity Reaction Status Date / Time hydrocodone AdvReac Severe GI SYMPTOMS Verified 10/15/18 19:50 tramadol AdvReac Severe GI SYMPTOMS Verified 10/15/18 19:50 Home Medications Home Medications Medication Instructions Recorded Confirmed Type amiodarone 100 mg PO DAILY 10/15/18 10/15/18 History budesonide 0.25 mg INHALATION BID 10/15/18 10/15/18 History bumetanide 2 mg PO DAILY 10/15/18 10/15/18 History calcium carbonate-vitamin D3 2 tab PO DAILY 10/15/18 10/15/18 History [Calcium 600 + D(3)] fluticasone furoate-vilanterol 1 puff INHALATION QAM 10/15/18 10/15/18 History [Breo Ellipta] ipratropium bromide 1 unit INHALATION Q4H PRN 10/15/18 10/15/18 History levalbuterol tartrate 1 unit INHALATION Q4H 10/15/18 10/15/18 History levothyroxine 137 mg PO DAILY 10/15/18 10/15/18 History lorazepam 1 mg PO HS 10/15/18 10/15/18 History nitroglycerin 0.4 mg SUBLINGUAL DIRECTED 10/15/18 10/15/18 History potassium chloride 2 tabs PO DAILY 10/15/18 10/15/18 History rivaroxaban [Xarelto] 20 mg PO DAILY 10/15/18 10/15/18 History spironolactone 50 mg PO DAILY 10/15/18 10/15/18 History umeclidinium [Incruse Ellipta] 1 inh INHALATION DAILY 10/15/18 10/15/18 History umeclidinium [Incruse Ellipta] 1 puff INHALATION DAILY 10/15/18 10/15/18 History Past Med/Surg History Medical History A-fib COPD (chronic obstructive pulmonary disease) (Chronic) Social History Current Living Situation: Family Feels Safe at Home: Yes Smoking Status: Former smoker Review of Systems Review of Systems: Gen: Denies fevers, night sweats, rigors, fatigue, malaise, weight loss/gain ENT: Denies congestion, throat pain, hearing loss Eyes: Denies acute visual changes CV: Denies CP, palpitations Pulmonary: Denies SOB, cough, wheezing GI: Diarrhea, melena, abdominal pain as above Neuro: Denies acute or unilateral weakness, acute gait impairment, headache or acute visual changes Musculoskeletal: Denies joint pain, inflammation Endocrine: Denies polydipsia, polyuria Skin: Denies acute rashes or ulcers Physical Exam Physical Exam: General: Obese, elderly F, AAO x 3, no distress ENT: No erythema or exudates, no thrush Eyes: LISSETTE, EOMI Head and neck: Normocephalic, atraumatic, No JVD, neck is supple. Chest/heart: Nontender, S1,2, RRR, no murmurs, no gallops Lungs: CTAB, no wheezing or crackles Abdomen: Minimal LQ tenderness Neuro: AAO x 3, speech is clear, no unilateral weakness or loss of sensation, coordination intact Musculoskeletal: No joint inflammation, muscle tenderness, FROM Skin: No acute rashes or ulcers Extremities: No clubbing, cyanosis, + mild edema Results & Data Vital Signs (Past 12 Hours) Vital Signs Temp Pulse Pulse Resp BP BP Pulse Ox 10/15/18 20:26 65 20 155/85 H 99 10/15/18 18:30 97.7 F 70 20 162/82 H 95 (1) Diarrhea Diarrhea type: unspecified type Qualified Code(s): R19.7 - Diarrhea, unspecified
[2018-10-15] MEDS ORDERED: ACETAMINOPHEN 325 MG TAB PO STA ×2 (21:16→21:20)
[2018-10-15] MEDS ORDERED: IPRATROPIUM BROMIDE NEB SOLN 0.02% 2.5 ML VIAL INH PRN (22:28)
--- NOTE | 2018-10-16 00:15 | Emergency Department Note ---
Entered by Laila Celestin acting as a scribe for Jovon Agosto MD History of Present Illness General Chief complaint: Rectal Pain Stated complaint: rectal bleeding, diarrhea, fluid retention Time Seen by Provider: 10/15/18 18:48 Source: patient Mode of arrival: ambulatory Limitations: no limitations History of Present Illness Provider complaint: diarrhea Onset (ago): day(s) 6 Location: abdomen Pain Consistency: + other (persistent) Maximum Pain Intensity: 7 Quality: + other (diarrhea) Exacerbated By: + eating Associated symptoms: + headaches and + other (abd pain, hematochezia); no fever/chills and no nausea/vomiting The patient is a 68 year old female who presents to the ER with complaints of a persistent diarrhea that began on Friday. The patient reports that she was evaluated by her PCP prior to arrival and was referred to the ER secondary to he r C. Diff test being inconclusive. She states that she has been unable to eat or drink because it just goes right through me. She denies any episodes of nausea or vomiting. The patient notes that she was recently on a course of Amoxicillin secondary to a bladder infection and reports this course ended the day her symptoms began. The patient states that she has had abdominal pain and episode of hematochezia as well. She also notes that she is currently on Xarelto for her history of a-fib. She denies any GI bleeds or history of intestinal surgery. She also denies any fevers but notes she has had a headache. Home Medications Home Medications Medication Instructions Recorded Confirmed Type amiodarone 100 mg PO DAILY 10/15/18 10/15/18 History budesonide 0.25 mg INHALATION BID 10/15/18 10/15/18 History bumetanide 2 mg PO DAILY 10/15/18 10/15/18 History calcium carbonate-vitamin D3 2 tab PO DAILY 10/15/18 10/15/18 History [Calcium 600 + D(3)] fluticasone furoate-vilanterol 1 puff INHALATION QAM 10/15/18 10/15/18 History [Breo Ellipta] ipratropium bromide 1 unit INHALATION Q4H PRN 10/15/18 10/15/18 History levalbuterol tartrate 1 unit INHALATION Q4H 10/15/18 10/15/18 History levothyroxine 137 mg PO DAILY 10/15/18 10/15/18 History lorazepam 1 mg PO HS 10/15/18 10/15/18 History nitroglycerin 0.4 mg SUBLINGUAL DIRECTED 10/15/18 10/15/18 History potassium chloride 2 tabs PO DAILY 10/15/18 10/15/18 History rivaroxaban [Xarelto] 20 mg PO DAILY 10/15/18 10/15/18 History spironolactone 50 mg PO DAILY 10/15/18 10/15/18 History umeclidinium [Incruse Ellipta] 1 inh INHALATION DAILY 10/15/18 10/15/18 History umeclidinium [Incruse Ellipta] 1 puff INHALATION DAILY 10/15/18 10/15/18 History Allergies Allergy/AdvReac Type Severity Reaction Status Date / Time hydrocodone AdvReac Severe GI SYMPTOMS Verified 10/15/18 19:50 tramadol AdvReac Severe GI SYMPTOMS Verified 10/15/18 19:50 adhesive AdvReac Unknown Verified 10/15/18 22:55 latex AdvReac Unknown Verified 10/15/18 22:55 nickel AdvReac Hives Verified 10/15/18 22:55 Past Med/Surg History Medical History A-fib COPD (chronic obstructive pulmonary disease) (Chronic) Social History Preferred Language: Georgian Communication Ability: Effective [employer] Required: No Beliefs That Will Affect Care: None Current Living Situation: Family Feels Safe at Home: Yes Safety Concerns: Feels Safe At This Time Smoking Status: Former smoker Hx Alcohol Use: Yes Alcohol type: wine Hx Substance Use: No Review of Systems See HPI for pertinent positives & negatives. and A total of 10 systems reviewed and were otherwise negative Physical Exam Vital Signs Vital Signs - 24 hr 10/15/18 18:30 10/15/18 20:26 10/15/18 22:22 Temperature 36.5 C Temperature Source Oral Sepsis Recent Fever Within 48 Hours No Sepsis Action Taken by Nursing No Action Required Pulse Rate 70 Pulse Rate [Apical] 65 70 Pulse Rate [Finger] Respiratory Rate 20 20 18 Respiratory Effort / Characteristics Respiratory Depth Respiratory Pattern Blood Pressure 162/82 H Blood Pressure [Left Arm] 155/85 H 145/74 H Blood Pressure Mean 108 Blood Pressure Mean [Left Arm] 108 97 Blood Pressure Position Sitting Blood Pressure Position [Left Arm] Pulse Oximetry 95 99 100 Oxygen Delivery Method Nasal Cannula Nasal Cannula Nasal Cannula Oxygen Flow Rate 2.5 3 3 10/15/18 22:36 Temperature 36.5 C Temperature Source Oral Sepsis Recent Fever Within 48 Hours Sepsis Action Taken by Nursing Pulse Rate Pulse Rate [Apical] Pulse Rate [Finger] 65 Respiratory Rate 20 Respiratory Effort / Characteristics Non-Labored Spontaneous Respiratory Depth Normal Respiratory Pattern Regular Blood Pressure Blood Pressure [Left Arm] 143/84 H Blood Pressure Mean Blood Pressure Mean [Left Arm] 103 Blood Pressure Position Blood Pressure Position [Left Arm] Lying Pulse Oximetry 96 Oxygen Delivery Method Nasal Cannula Oxygen Flow Rate 2.5 General: Mildly-ill appearing older female in no acute distress. HEENT: Normal cephalic atraumatic. Pupils are equal round and reactive to light. Extraocular movements are intact. Oropharynx is pink with moist mucous membranes. No swelling of the mouth lips or tongue. Neck: Supple with a midline trachea. No meningeal signs or stiffness, no JVD or bruits. No Stridor. Chest: Clear to auscultation bilaterally. No wheezes or rhonchi. No increased work of breathing. No respiratory distress. Heart: regular rate and rhythm. Abdomen: Soft nontender, nondistended without rebound guarding or rigidity. Extremities: No cyanosis or clubbing. Trace to 1+ bilateral lower extremity edema. No calf tenderness or asymmetry Spine/Back. Non tender to palpation. No CVA tenderness Skin: Good turgor without rashes. Neurologic exam: Cranial nerves two through 12 are intact. Motor and sensation are intact and symmetrical throughout. Course 1853: The patient was evaluated in room C7 and a complete history and physical examination were performed. 2046: I discussed the patient's case with Dr. Hare - [facility] Hospitalist. He will evaluate the patient for further management. Administered Medications Discontinued Medications Acetaminophen (Tylenol) 650 mg PO NOW STA Stop: 10/15/18 21:17 Last Admin: 10/15/18 21:21 Dose: Not Given Documented by: [id number] Acetaminophen (Tylenol) 650 mg PO ONCE STA Stop: 10/15/18 21:21 Last Admin: 10/15/18 21:21 Dose: 650 mg Documented by: [id number] Sodium Chloride (Nss) 500 mls @ 999 mls/hr IV .Q31M [facility] Stop: 10/15/18 19:30 Last Infusion: 10/15/18 20:30 Dose: 0 mls/hr Documented by: [id number] Admin: 10/15/18 19:22 Dose: 999 mls/hr Documented by: [id number] Medical Decision Making Differential Diagnosis Differential diagnosis includes: C. Diff., dehydration, GI bleed, colitis, ischemic colitis, elecotrolyte and metabolic abnormality. Medical Records Attestation: I reviewed the patient's medical records. Home Medications Current Medication List: was personally reviewed by me Laboratory Data Attestation: I reviewed the patient's lab results. Result diagrams: 10/15/18 23:09 10/15/18 19:14 Lab Results 10/15/18 10/15/18 10/15/18 Range/Units 19:14 19:14 19:14 WBC 10.05 (4.8-10.8) K/uL RBC 4.19 L (4.2-5.4) M/uL Hgb 12.9 (12.0-16.0) g/dL Hct 37.6 (37-47) % MCV 89.7 (80-100) fL MCH 30.8 (25-34) pg MCHC 34.3 (32-36) g/dL RDW Std Deviation 43.3 (36.4-46.3) fL RDW Coeff of Susannah 13.2 (11.5-14.5) % Plt Count 200 (130-400) K/uL MPV 9.9 (7.4-10.4) fL Immature Gran % (Auto) 0.5 % Neut % (Auto) 69.4 % Lymph % (Auto) 19.7 % Stone % (Auto) 7.2 % Eos % (Auto) 2.9 % Baso % (Auto) 0.3 % Immature Gran # (Auto) 0.05 H (0.00-0.02) K/uL Neut # (Auto) 6.98 H (1.4-6.5) K/uL Lymph # (Auto) 1.98 (1.2-3.4) K/uL Stone # (Auto) 0.72 H (0.11-0.59) K/uL Eos # (Auto) 0.29 (0-0.5) K/uL Baso # (Auto) 0.03 (0-0.2) K/uL PT 12.3 H (9.0-12.0) Seconds INR 1.2 H (0.9-1.1) APTT 40.4 H (21.0-31.0) Seconds PTT Ratio 1.5 Sodium 139 (136-145) mmol/L Potassium 3.6 (3.5-5.1) mmol/L Chloride 103 (98-107) mmol/L Carbon Dioxide 29 (21-32) mmol/L Anion Gap 7.0 (3-11) BUN 9 (7-18) mg/dl Creatinine 0.93 (0.6-1.2) mg/dl Est Cr Clr Drug Dosing 84.1 ml/min Est GFR ( Amer) 72.2 Est GFR (Non-Af Amer) 62.3 BUN/Creatinine Ratio 9.8 L (10-20) Glucose 113 H (70-99) mg/dl POC Lactic Acid Konstantin (0.90-1.70) mmol/L Calcium 9.5 (8.5-10.1) mg/dl Total Bilirubin 0.5 (0.2-1) mg/dl AST 16 (15-37) U/L ALT 22 (12-78) U/L Alkaline Phosphatase 109 (45-117) U/L Total Protein 7.5 (6.4-8.2) gm/dl Albumin 3.4 (3.4-5.0) gm/dl Globulin 4.1 H (2.5-4.0) gm/dl Albumin/Globulin Ratio 0.8 L (0.9-2) Lipase 110 (73-393) U/L Blood Type Antibody Screen 10/15/18 10/15/18 10/15/18 Range/Units 19:19 19:20 23:09 WBC (4.8-10.8) K/uL RBC (4.2-5.4) M/uL Hgb 13.0 (12.0-16.0) g/dL Hct (37-47) % MCV (80-100) fL MCH (25-34) pg MCHC (32-36) g/dL RDW Std Deviation (36.4-46.3) fL RDW Coeff of Susannah (11.5-14.5) % Plt Count (130-400) K/uL MPV (7.4-10.4) fL Immature Gran % (Auto) % Neut % (Auto) % Lymph % (Auto) % Stone % (Auto) % Eos % (Auto) % Baso % (Auto) % Immature Gran # (Auto) (0.00-0.02) K/uL Neut # (Auto) (1.4-6.5) K/uL Lymph # (Auto) (1.2-3.4) K/uL Stone # (Auto) (0.11-0.59) K/uL Eos # (Auto) (0-0.5) K/uL Baso # (Auto) (0-0.2) K/uL PT (9.0-12.0) Seconds INR (0.9-1.1) APTT (21.0-31.0) Seconds PTT Ratio Sodium (136-145) mmol/L Potassium (3.5-5.1) mmol/L Chloride (98-107) mmol/L Carbon Dioxide (21-32) mmol/L Anion Gap (3-11) BUN (7-18) mg/dl Creatinine (0.6-1.2) mg/dl Est Cr Clr Drug Dosing ml/min Est GFR ( Amer) Est GFR (Non-Af Amer) BUN/Creatinine Ratio (10-20) Glucose (70-99) mg/dl POC Lactic Acid Konstantin 1.34 (0.90-1.70) mmol/L Calcium (8.5-10.1) mg/dl Total Bilirubin (0.2-1) mg/dl AST (15-37) U/L ALT (12-78) U/L Alkaline Phosphatase (45-117) U/L Total Protein (6.4-8.2) gm/dl Albumin (3.4-5.0) gm/dl Globulin (2.5-4.0) gm/dl Albumin/Globulin Ratio (0.9-2) Lipase (73-393) U/L Blood Type A Positive Antibody Screen NEGATIVE Blood Pressure Blood Pressure Findings: Elevated blood pressure Blood Pressure Disposition: further management by hospitalist [facility] Narrative This patient comes in as described above she had diarrhea for several days that her doctor was concerned about C. difficile however her C. difficile test here was equivocal and was sent out due to interfering substance. I did order repeat C. difficile here she has not been able to take her medications she says and is starting to retain fluid in her legs. She does wear oxygen at home. She also is on a blood thinner and has had some blood in her stool intermittently. IV access established was gently given a 500 cc IV NS bolus. chest x-ray shows some congestive heart failure type changes. Her hemoglobin is within normal limits. she has no significant electrolyte or metabolic abnormalities. CAT scan of her abdomen shows no acute findings. Her lactic acid was within normal limi ts and therefore sepsis and ischemic colitis are less likely. Given her dehydration as well as CHF and bloody stool and the fact that she is on a blood thinner, I do think she needs to be admitted/observed. I have consulted the [facility] hospitalist for this. Impression & Plan Rectal bleed, Diarrhea, CHF (congestive heart failure), Dehydration Discharge Plan Visit Data *Final* Discharge Date/Time: 10/15/18 22:22 Chief Complaint: Rectal Pain Stated Complaint: rectal bleeding, diarrhea, fluid retention ED Provider: Jovon Agosto Discharge Problem: Rectal bleed, Diarrhea, CHF (congestive heart failure), Dehydration Patient Disposition: Admitted As Inpatient Discharge Instructions Interventions: ED Discharge Assessment Last Done: 10/15/18 22:22 Discharge Problem: Diarrhea Qualifiers: Diarrhea type: unspecified type Qualified Code(s): R19.7 - Diarrhea, unspecified CHF (congestive heart failure) Qualifiers: Heart failure type: unspecified Heart failure chronicity: chronic Qualified Code(s): I50.9 - Heart failure, unspecified The scribe's documentation has been prepared under my direction and personally reviewed by me in its entirety. I confirm that the note above accurately reflects all work, treatment, procedures, and medical decision making performed by me.
[2018-10-16] MEDS: LEVALBUTEROL TARTRATE 15 GM HFA.AER.AD INH SCH ×6 (01:17→21:03)
[2018-10-16] MEDS ORDERED: LORazepam 1 MG TAB PO ONE (01:30)
[2018-10-16] MEDS: VANCOMYCIN HCL 125 MG/2.5ML SOLN PO SCH ×2 (05:41→11:53)
[2018-10-16] MEDS: RASPBERRY SYRUP 5 ML UDP PO SCH ×2 (05:41→11:53)
[2018-10-16] MEDS: LEVOTHYROXINE SODIUM 137 MCG TABLET PO SCH (05:41)
[2018-10-16] MEDS ORDERED: BUDESONIDE 0.25 MG/2 ML VIAL (PULMICORT) INH SCH (08:00)
[2018-10-16] MEDS: ACETAMINOPHEN 325 MG TAB PO PRN ×2 (08:42→23:23)
[2018-10-16] MEDS: BREO ELLIPTA INH SCH (08:43)
[2018-10-16] MEDS: INCRUSE ELLIPTA INH SCH (08:44)
[2018-10-16] MEDS ORDERED: Nursing to Pharmacy Communication ONE (08:50)
[2018-10-16] MEDS ORDERED: AMIODARONE 200 MG TAB PO SCH (09:00)
[2018-10-16] MEDS: BUMETANIDE 1 MG TAB PO SCH (09:24)
[2018-10-16] MEDS: POTASSIUM CHLORIDE 10 MEQ TABCR PO SCH (09:25)
[2018-10-16] MEDS: SPIRONOLACTONE 25 MG TAB PO SCH (09:25)
[2018-10-16 10:24] LABS: Basophils # (auto) 0.04 K/uL (0-0.2); Basophils % (auto) 0.4 %; Eosinophils # (auto) 0.36 K/uL (0-0.5); Hematocrit (blood only) 35.9 % (37-47); Hemoglobin 12.3 g/dL (12.0-16.0); Immature Granulocytes # (auto) 0.06 K/uL (0.00-0.02); Immature Granulocytes % (auto) 0.7 %; Lymphocytes # (auto) 2.26 K/uL (1.2-3.4); Lymphocytes % (auto) 24.9 %; Mean Corpuscular Hgb Conc 34.3 g/dL (32-36); Mean Corpuscular Volume 90.4 fL (80-100); Mean Platelet Volume 9.9 fL (7.4-10.4); Monocytes # (auto) 0.65 K/uL (0.11-0.59); Monocytes % (auto) 7.2 %; Neutrophils # (auto) 5.69 K/uL (1.4-6.5); Neutrophils % (auto) 62.8 %; Platelet Count 186 K/uL (130-400); RDW Coefficient of Variation 13.3 % (11.5-14.5); RDW Standard Deviation 44.1 fL (36.4-46.3); Red Blood Count 3.97 M/uL (4.2-5.4); White Blood Count 9.06 K/uL (4.8-10.8)
[2018-10-16 11:07] LABS: BUN Creatinine Ratio 9.5 (10-20); Calcium 8.5 mg/dl (8.5-10.1); Creatinine Clr Calc Pharmacy 81.3 ml/min; Est GFR (African American) 69.4; Est GFR (Non-African American) 59.9; Magnesium 1.8 mg/dl (1.8-2.4); Potassium 3.4 mmol/L (3.5-5.1)
[2018-10-16] MEDS: AMIODARONE 200 MG TAB PO SCH (11:53)
[2018-10-16] MEDS ORDERED: LOPERAMIDE HCL 2 MG CAP PO PRN (13:19)
[2018-10-16] MEDS ORDERED: POTASSIUM CHLORIDE 20 MEQ TABCR PO ONE (13:45)
[2018-10-16 13:51] LABS: Hematocrit (blood only) 36.9 % (37-47); Hemoglobin 12.9 g/dL (12.0-16.0); Mean Corpuscular Volume 89.6 fL (80-100); Mean Platelet Volume 9.8 fL (7.4-10.4); Platelet Count 204 K/uL (130-400); RDW Coefficient of Variation 13.3 % (11.5-14.5); RDW Standard Deviation 43.3 fL (36.4-46.3); Red Blood Count 4.12 M/uL (4.2-5.4); White Blood Count 8.76 K/uL (4.8-10.8)
[2018-10-16] MEDS: RIVAROXABAN 20 MG TAB PO SCH (16:55)
--- NOTE | 2018-10-16 16:58 | Hospitalist Progress Note ---
Date of Service October 16, 2018 Assessment & Plan (1) Diarrhea: This patient is a 68 y/o F Hx of COPD, PAF, CHF, TYESHA, hypothyroidism, GERD who presented with 1 week of copious watery diarrhea that had some dark red blood streaks in it but was not black.. She is on Xarelto for AF. Also with so me lower abdominal pain. The pt was on a course of Amoxicillin for a dental infection one week prior and her diarrhea began a few days after. A CT of the abdomen is negative for acute abnormalities. A C-diff study was sent while she was in the ER, the results of which are pending and will take a while as it had to be sent to [facility] for further analysis. Diarrhea - no significant colitis seen on CT. C diff is now resulted and is negative. Can discontinue empiric p.o. vancomycin Likely antibiotic associated diarrhea from recent amoxicillin -Start Florastor probiotic twice daily -Start loperamide as needed -No need for IV fluids at this point Continue to encourage p.o. fluid intake and observe for improvement of diarrhea Bleeding is likely from internal hemorrhoids although if persists, consider GI consultation for colonoscopy Hemoglobin remains fairly stable -Okay to restart Xarelto tomorrow unless develops major bleeding -Check stool culture (2) Rectal bleed: Hemoglobin with only minor drop since admission, no gross bleeding except some pink tinge in the watery stool today -Follow CBC again in the morning (3) A-fib: Currently in a regular rhythm on examination - cont Amio, Xarelto to restart tomorrow as above -Not on any other rate control medications (4) COPD (chronic obstructive pulmonary disease): Stable -Continue home O2, inhalers/nebulizers (5) Chronic respiratory failure with hypoxia: Continue home supplemental O2 (6) TYESHA (obstructive sleep apnea): Continue home CPAP set at 19 cm H2O (7) Hypothyroidism: Continue home levothyroxine (8) GERD (gastroesophageal reflux disease): Is not on any medication for this, does have a history of gastric sleeve surgery (9) Obesity: BMI 49.7 -Needs to encourage weight loss (10) CHF (congestive heart failure): Chronic diastolic CHF-not volume overloaded at this time although does have trace pitting edema of the lower extremities as she reports not taking her diuretics at home because of the profuse watery diarrhea -Watch volume status -Okay to continue bumetanide 2 mg daily and spironolactone 50 mg daily Continue potassium as well With extra replacement today of potassium (11) Knee pain: New in the last day, no trauma or injury, no effusion or erythema on examination -Continue to follow -Apply Voltaren gel (12) DVT prophylaxis: Restarting Xarelto tomorrow, SCDs for now Disposition-remain overnight and possibly discharged home tomorrow if diarrhea improved Subjective Patient still having watery diarrhea today that possibly had some pink tinge blood in it. C. difficile was negative. She has some lower abdominal pain but thinks it is muscular from straining from all her bowel movements. Her pain is worse when she uses her abdominal muscles to sit up. She is also complaining of left medial knee pain that started yesterday that is throbbing and achy in nature. No recent injury to the knee. No chest pain or shortness of breath. Reports her last colonoscopy was perhaps in 2011 or 2012 and was told she had some polyps. Denies any recent travel. No recent sick contacts with diarrhea. She did eat out to dinner at [employer] the week before her diarrhea started. She is having bowel movements multiple times daily at home for the last week Review of Systems Review of Systems: All systems reviewed & are unremarkable except as noted in HPI & below Physical Exam Constitutional: WD/WN, vitals as above + morbidly obese Eyes: PERRL, conjunctivae normal, anicteric sclerae ENMT: external ear and nose normal, oropharynx normal Neck: trachea midline, no thyromegaly Respiratory: normal respiratory effort, lungs clear to auscultation Cardiovascular: Rate/Rhythm: regular rate and regular rhythm Heart Sounds: no murmur Extremities: + edema (Trace pitting edema in the legs bilaterally) Gastrointestinal (Abdomen): Inspection/Auscultation: abdomen normal to inspection and normal bowel sounds; abdomen not distended Percussion/Palpation: + abdomen tender (Minimally tender in the lower abdominal region without guarding or rebound) and abdomen soft Musculoskeletal: Extremities: extremities normal to inspection; no cyanosis and no clubbing Knee: + joint line tenderness (Positive tenderness to palpation of the medial joint line, range of motion is 0 to 100 degrees, no laxity); knee normal to inspection, no effusion and no skin erythema Skin: no rashes, warm and dry Neurologic: moves all extremities and awake; no focal motor deficits Psychiatric: A+Ox3, euthymic affect Results & Data Vital Signs (Past 12 Hours) Vital Signs Temp Pulse Pulse Resp BP Pulse Ox 10/16/18 15:13 36.7 C 70 17 139/71 95 10/16/18 12:00 64 157/84 H 10/16/18 07:52 36.6 C 62 14 126/84 97 Laboratory Results 10/16/18 10/16/18 10/16/18 Range/Units 13:34 12:00 10:00 WBC 8.76 (4.8-10.8) K/uL RBC 4.12 L (4.2-5.4) M/uL Hgb 12.9 (12.0-16.0) g/dL Hct 36.9 L (37-47) % MCV 89.6 (80-100) fL MCH 31.3 (25-34) pg MCHC 35.0 (32-36) g/dL RDW Std Deviation 43.3 (36.4-46.3) fL RDW Coeff of Susannah 13.3 (11.5-14.5) % Plt Count 204 (130-400) K/uL MPV 9.8 (7.4-10.4) fL Immature Gran % (Auto) % Neut % (Auto) % Lymph % (Auto) % Dickenson % (Auto) % Eos % (Auto) % Baso % (Auto) % Immature Gran # (Auto) (0.00-0.02) K/uL Neut # (Auto) (1.4-6.5) K/uL Lymph # (Auto) (1.2-3.4) K/uL Dickenson # (Auto) (0.11-0.59) K/uL Eos # (Auto) (0-0.5) K/uL Baso # (Auto) (0-0.2) K/uL Sodium 136 (136-145) mmol/L Potassium 3.4 L (3.5-5.1) mmol/L Chloride 102 (98-107) mmol/L Carbon Dioxide 28 (21-32) mmol/L Anion Gap 6.0 (3-11) BUN 9 (7-18) mg/dl Creatinine 0.96 (0.6-1.2) mg/dl Est Cr Clr Drug Dosing 81.3 ml/min Est GFR ( Amer) 69.4 Est GFR (Non-Af Amer) 59.9 BUN/Creatinine Ratio 9.5 L (10-20) Glucose 166 H (70-99) mg/dl Calcium 8.5 (8.5-10.1) mg/dl Magnesium 1.8 (1.8-2.4) mg/dl Stl C. diff Tox B Gene Negative Cdiff Gene 10/16/18 10/16/18 Range/Units 10:00 06:00 WBC 9.06 (4.8-10.8) K/uL RBC 3.97 L (4.2-5.4) M/uL Hgb 12.3 (12.0-16.0) g/dL Hct 35.9 L (37-47) % MCV 90.4 (80-100) fL MCH 31.0 (25-34) pg MCHC 34.3 (32-36) g/dL RDW Std Deviation 44.1 (36.4-46.3) fL RDW Coeff of Susannah 13.3 (11.5-14.5) % Plt Count 186 (130-400) K/uL MPV 9.9 (7.4-10.4) fL Immature Gran % (Auto) 0.7 % Neut % (Auto) 62.8 % Lymph % (Auto) 24.9 % Dickenson % (Auto) 7.2 % Eos % (Auto) 4.0 % Baso % (Auto) 0.4 % Immature Gran # (Auto) 0.06 H (0.00-0.02) K/uL Neut # (Auto) 5.69 (1.4-6.5) K/uL Lymph # (Auto) 2.26 (1.2-3.4) K/uL Dickenson # (Auto) 0.65 H (0.11-0.59) K/uL Eos # (Auto) 0.36 (0-0.5) K/uL Baso # (Auto) 0.04 (0-0.2) K/uL Sodium (136-145) mmol/L Potassium (3.5-5.1) mmol/L Chloride (98-107) mmol/L Carbon Dioxide (21-32) mmol/L Anion Gap (3-11) BUN (7-18) mg/dl Creatinine (0.6-1.2) mg/dl Est Cr Clr Drug Dosing ml/min Est GFR ( Amer) Est GFR (Non-Af Amer) BUN/Creatinine Ratio (10-20) Glucose (70-99) mg/dl Calcium (8.5-10.1) mg/dl Magnesium (1.8-2.4) mg/dl Stl C. diff Tox B Gene TNP (1) Diarrhea Diarrhea type: unspecified type Qualified Code(s): R19.7 - Diarrhea, unspecified (2) CHF (congestive heart failure) Heart failure chronicity: chronic Heart failure type: unspecified Qualified Code(s): I50.9 - Heart failure, unspecified
[2018-10-16] MEDS ORDERED: LIDOCAINE 5% 1 PATCH TD SCH (17:00)
[2018-10-16] MEDS: DICLOFENAC SOD 1% GEL 100 GM TUBE EXT SCH (18:55)
[2018-10-16] MEDS ORDERED: LORazepam 1 MG TAB PO SCH (21:00)
[2018-10-16] MEDS: SACCHAROMYCES BOULARDII 250 MG CAP PO SCH (21:10)
[2018-10-17] MEDS: LEVALBUTEROL TARTRATE 15 GM HFA.AER.AD INH SCH ×5 (00:34→15:33)
[2018-10-17] MEDS ORDERED: DICLOFENAC SOD 1% GEL 100 GM TUBE EXT ONE (01:00)
[2018-10-17] MEDS: LEVOTHYROXINE SODIUM 137 MCG TABLET PO SCH (06:06)
[2018-10-17 07:25] LABS: Basophils # (auto) 0.03 K/uL (0-0.2); Basophils % (auto) 0.3 %; Eosinophils # (auto) 0.34 K/uL (0-0.5); Eosinophils % (auto) 3.7 %; Hematocrit (blood only) 36.3 % (37-47); Hemoglobin 12.7 g/dL (12.0-16.0); Immature Granulocytes # (auto) 0.07 K/uL (0.00-0.02); Immature Granulocytes % (auto) 0.8 %; Lymphocytes # (auto) 2.35 K/uL (1.2-3.4); Lymphocytes % (auto) 25.9 %; Mean Corpuscular Volume 89.2 fL (80-100); Mean Platelet Volume 9.8 fL (7.4-10.4); Monocytes # (auto) 0.82 K/uL (0.11-0.59); Neutrophils # (auto) 5.46 K/uL (1.4-6.5); Neutrophils % (auto) 60.3 %; Platelet Count 202 K/uL (130-400); RDW Coefficient of Variation 13.2 % (11.5-14.5); RDW Standard Deviation 43.3 fL (36.4-46.3); Red Blood Count 4.07 M/uL (4.2-5.4); White Blood Count 9.07 K/uL (4.8-10.8)
[2018-10-17] MEDS: DICLOFENAC SOD 1% GEL 100 GM TUBE EXT SCH ×3 (07:36→16:42)
[2018-10-17 08:04] LABS: BUN Creatinine Ratio 13.4 (10-20); Creatinine Clr Calc Pharmacy 82.2 ml/min; Est GFR (African American) 70.3; Est GFR (Non-African American) 60.7; Magnesium 1.9 mg/dl (1.8-2.4); Potassium 3.5 mmol/L (3.5-5.1)
[2018-10-17] MEDS: BREO ELLIPTA INH SCH (08:30)
[2018-10-17] MEDS: SPIRONOLACTONE 25 MG TAB PO SCH (08:31)
[2018-10-17] MEDS: BUMETANIDE 1 MG TAB PO SCH (08:31)
[2018-10-17] MEDS: SACCHAROMYCES BOULARDII 250 MG CAP PO SCH (08:31)
[2018-10-17] MEDS: INCRUSE ELLIPTA INH SCH (08:32)
[2018-10-17] MEDS: POTASSIUM CHLORIDE 10 MEQ TABCR PO SCH (08:32)
[2018-10-17] MEDS: AMIODARONE 200 MG TAB PO SCH (11:59)
--- NOTE | 2018-10-17 14:20 | Discharge Summary ---
Date of Service October 17, 2018 Admission HPI Per Admitting Provider 68 y/o F Hx of COPD, PAF, CHF, TYESHA, hypothyroidism, GERD - presents 5 days of diarrhea and melena x 3 days. She is on Xarelto for AF. She denies SOB above baseline, denies CP or lightheadedness, denies fevers. She does have some lower abdominal pain. The pt was on a course of Amoxicillin for a dental infection one week prior and her diarrhea began a few days after. Initial labs are unremarkable with no significant drop in her hemoglobin. A CT of the abdomen is negative for acute abnormalities. A C-diff study was sent while she was in the ER, the results of which are pending and will take a while as they had to be sent to [facility] for further analysis. PMH: 1) Paroxysmal AF 2) Diastolic CHF 3) TYESHA 4) COPD - 2-3L 02 continuous at home 5) GERD 6) Hypothyroidism 7) Morbid obesity Surgical: 1. Tubal ligation 2. Cholecystectomy 3. Laparoscopic band surgery Social: Quit smoking 2004 Family: Mother - breast CA Father - prostate CA Principal Diagnosis Diarrhea, GI Bleeding Discharge Exam Constitutional WD/WN, vitals as above + morbidly obese Eyes PERRL, conjunctivae normal, anicteric sclerae Neck trachea midline, no thyromegaly Respiratory normal respiratory effort, lungs clear to auscultation Cardiovascular RRR, no murmur, no edema Rate/Rhythm: regular rate and regular rhythm Heart Sounds: no murmur Extremities: + edema (Trace pitting edema in the legs bilaterally) Gastrointestinal (Abdomen) Inspection/Auscultation: abdomen normal to inspection and normal bowel sounds; abdomen not distended Percussion/Palpation: + abdomen tender (Minimally tender in the lower abdominal region without guarding or rebound) and abdomen soft Musculoskeletal Extremities: extremities normal to inspection; no cyanosis and no clubbing Knee: knee normal to inspection, no effusion and no skin erythema Skin no rashes, warm and dry Neurologic moves all extremities and awake; no focal motor deficits Psychiatric A+Ox3, euthymic affect Discharge Data Allergies Allergy/AdvReac Type Severity Reaction Status Date / Time hydrocodone AdvReac Severe GI SYMPTOMS Verified 10/15/18 19:50 tramadol AdvReac Severe GI SYMPTOMS Verified 10/15/18 19:50 adhesive AdvReac Unknown Verified 10/15/18 22:55 latex AdvReac Unknown Verified 10/15/18 22:55 nickel AdvReac Hives Verified 10/15/18 22:55 Consultations None Ordered Studies 10/15/18 20:25 CT abd pelvis wo con Stat CXR Hospital Course (1) Diarrhea: This patient is a 68 y/o F Hx of COPD, PAF, CHF, TYESHA, hypothyroidism, GERD who presented with 1 week of copious watery diarrhea that had some dark red blood streaks in it but was not black.. She is on Xarelto for AF. Also with some lower abdominal pain. The pt was on a course of Amoxicillin for a dental infection one week prior and her diarrhea began a few days after. A CT of the abdomen is negative for acute abnormalities. Diarrhea - no significant colitis seen on CT. C diff is negative. She was started on empiric p.o. vancomycin on admission which was then discontinued after result was negative Likely antibiotic associated diarrhea from recent amoxicillin Diarrhea was resolved after one dose of loperamide and starting probiotic -continue Florastor probiotic twice daily -cont loperamide as needed Bleeding is resolved and was likely from internal hemorrhoids although if persists, consider GI consultation for colonoscopy as an outpt Hemoglobin remains stable -Okay to restart Xarelto upon discharge - stool culture was pending at time of discharge--> PCP should follow up on this (2) Rectal bleed: Hemoglobin with only minor drop since admission, no gross bleeding during admission (3) A-fib: Currently in a regular rhythm on examination - cont Amio, Xarelto -Not on any other rate control medications (4) COPD (chronic obstructive pulmonary disease): Stable -Continue home O2, inhalers/nebulizers (5) Chronic respiratory failure with hypoxia: Continue home supplemental O2 (6) TYESHA (obstructive sleep apnea): Continue home CPAP set at 19 cm H2O (7) Hypothyroidism: Continue home levothyroxine (8) GERD (gastroesophageal reflux disease): Is not on any medication for this, does have a history of gastric sleeve surgery (9) Obesity: BMI 49.7 -Needs weight loss (10) CHF (congestive heart failure): Chronic diastolic CHF-not volume overloaded at this time although does have trace pitting edema of the lower extremities as she reports not taking her diuretics at home because of the profuse watery diarrhea -Okay to continue bumetanide 2 mg daily and spironolactone 50 mg daily Continue potassium as well -she will elevate legs at home (11) Knee pain: New in the last 1-2 days, no trauma or injury, no effusion or erythema on examination improved with Voltaren gel -Continue to follow -continue Voltaren gel -follow up with PCP or Ortho as outpt if persists (12) DVT prophylaxis: SCDs were provided Disposition-stable for dc to home Total Time Total Time Spent Total Time Spent (In Minutes): >30 min Total Time Includes: Examination of the Patient, Discharge Planning and Medication Reconciliation Discharge Plan Discharge Items Patient Disposition: Home - Self-Care Reason For Visit: GI BLEED,DIARRHEA Discharge Diagnosis: Diarrhea, GI bleeding Condition: Good Discharge Goals: Decrease discomfort, Diagnostic testing, Improve disease control, Learn about illness and Therapeutic intervention Activity: As commented below Lifting: Gradually increase as tolerated Bathing: No limitations Exercise/Sports: Gradually increase as tolerated Non-emergency contact: Primary Care Provider Call non-emergency contact if: you have any medication questions and your symptoms worsen Follow-up/Referrals: Kiel Garcia MD [Primary Care Provider] - (Call for follow up appointment within 1 week ) Diet: Heart Healthy Addtl Provider Instructions: You were admitted with diarrhea with blood in it. Your test for Clostridium difficile diarrhea came back as NEGATIVE. You were treated with Imodium and probiotics and can continue this after discharge. Your diarrhea resolved while here. Your blood count did not drop significantly and it is likely that the blood in your stool was from internal hemorrhoids. Please follow up with your PCP within 1 week after discharge. If you have continued bleeding, please let your doctor know as you may need a referral to a Hearing Consultant. It is safe for you to restart your Xarelto at home. You can continue to use the Voltaren gel as needed for knee pain and follow up with your Orthopedist or PCP if knee pain persists. Prescriptions: New diclofenac sodium [Voltaren] 1 % Gel 1 % EXT QID Qty: 100 RF: 0 loperamide 2 mg Capsule 2 mg PO Q3H PRN (Reason: loose stool) Qty: 10 RF: 0 Florastor 250 mg Capsule 250 mg PO BID Qty: 60 RF: 0 Continued Xarelto 20 mg tablet 20 mg PO DAILY RF: 0 Breo Ellipta 200-25 mcg/dose blister with device 1 puff inhalation QAM RF: 0 levothyroxine 137 mcg tablet 137 mg PO DAILY RF: 0 bumetanide 2 mg Tablet 2 mg PO DAILY RF: 0 amiodarone 200 mg tablet 100 mg PO DAILY RF: 0 potassium chloride 10 mEq tablet extended release 2 tabs PO DAILY RF: 0 nitroglycerin 0.4 mg Tablet, Sublingual 0.4 mg sublingual DIRECTED RF: 0 lorazepam 1 mg tablet 1 mg PO HS RF: 0 ipratropium bromide 0.02 % Solution 1 unit INHALATION Q4H PRN (Reason: Shortness Of Breath) RF: 0 spironolactone 50 mg tablet 50 mg PO DAILY RF: 0 levalbuterol tartrate 45 mcg/actuation HFA aerosol inhaler 1 unit inhalation Q4H RF: 0 calcium carbonate-vitamin D3 [Calcium 600 + D(3)] 600 mg(1,500mg) -400 unit Tablet 2 tab PO DAILY RF: 0 Incruse Ellipta 62.5 mcg/actuation blister with device 1 puff inhalation DAILY RF: 0 Discontinued Incruse Ellipta 62.5 mcg/actuation Blister With Device 1 inh INHALATION DAILY RF: 0 Stand-Alone Forms: [facility] Orders: Discharge Order (Routine); Ordered 10/17/18 Ordered By: Shruti Tam Admission Data Admit Date/Time: 10/15/18 21:50 Attending Provider: Shruti Tam Admit Provider: Jonas Hare Primary Care Provider: Kiel Garcia Other Providers: Jonas Hare Service: Surgical Services Other Pending Studies at Discharge: Yes Studies:: Stool culture
[2018-10-17] MEDS: RIVAROXABAN 20 MG TAB PO SCH (16:41)
--- OUTSIDE RECORDS SUMMARY | 2018-10-19 21:46 | External Medical Summary | Continuity of Care Document ---
:1950 Author Name Trung Chahal, Provider Address Unavailable Unavailable , Care Team Providers Name Role Phone Radha Chahal, Kiel Unavailable [email or web address] Yossi Crowley M.D. Unavailable [email or web address] MISTRY Unavailable [email or web address] Radha COLEY Unavailable [email or web address] Radha Chahal Unavailable Unavailable Julissa Chahal Unavailable [email or web address] ASHLEE MISTRY, Eloy Unavailable Unavailable Dami MISTRY Unavailable [email or web address] Unavailable Unavailable Unavailable Problems Gout (274.9) (M10.9) Low back pain (724.2) (M54.5) Polyneuropathy (356.9) (G62.9) Fatigue (780.79) (R53.83) GERD without esophagitis (530.81) (K21.9) Hiatal hernia (553.3) (K44.9) Pain of left thumb (729.5) (M79.645) Pulmonary nodules (793.19) (R91.8) Dyspnea on exertion (786.09) (R06.09) Cervicalgia (723.1) (M54.2) Muscle cramps (729.82) (R25.2) Cough (786.2) (R05) Acute on chronic diastolic congestive heart failure (428.33) (I50.33) Obstructive sleep apnea (327.23) (G47.33) Left leg swelling (729.81) (M79.89) Acute pain of left lower extremity (729.5) (M79.605) COPD exacerbation (491.21) (J44.1) Shortness of breath (786.05) (R06.02) Hypothyroidism (244.9) (E03.9) Paroxysmal atrial fibrillation (427.31) (I48.0) Diastolic dysfunction (429.9) (I51.89) (HFpEF) heart failure with preserved ejection fraction (428. 9) (I50.30) Anticoagulant long-term use (V58.61) (Z79.01) BMI 45.0-49.9, adult (V85.42) (Z68.42) Chronic obstructive pulmonary disease (496) (J44.9) Chronic respiratory failure (518.83) (J96.10) Edema (782.3) (R60.9) Hypertension (401.9) (I10) Hyperglycemia (790.29) (R73.9) Diarrhea (787.91) (R19.7) Allergies and Adverse Reactions Codeine Derivatives (Allergy) Reaction: Nausea, Vomiting traMADol HCl TABS (Allergy) Reaction: Na usea, Vomiting Medications Breo Ellipta 200-25 MCG/INH Inhalation A erosol Powder Breath Activated; INHALE ONE PUFF EVERY MORNING Tirso Garcia Start: 14-Sep-2018 Quantity: 1 28 Inhaler Pack Refills: 5 Levothyroxine Sodium 137 MCG Oral Tablet; TAKE 1 TABLE T DAILY DIRECTED. Tirso Crowley Start: 01-Oct-2012 Quantity: 90 Refills: 3 Xarelto 20 MG Oral Tablet; Take 1 tablet daily Tirso Crowley Start: 20-Jun-2014 Quantity: 90 Refills: 3 Potassium Chloride ER 10 MEQ Oral Tablet Extended Release; TAKE 2 TABLETS TWICE DAILY BRIJESH Garcia Quantity: 180 Refills: 0 Nitroglycerin 0.6 MG Sublingual Tablet S ublingual; TAKE DIRECTED FOR CHEST PAIN. Tirso Crowley Start: 02-Aug-2016 Quantity: 15 Refills: 0 Calcium 600/Vitamin D 600-400 MG-UNIT Or al Tablet Chewable; Take 1 tablet twice daily Start: 22-Aug-2016 Refills: 0 Oxygen; 2.5 liters nasally, as directed administer through cpap during hours of sleep and throughout the day when short of breath. Sta rt: 02-Aug-2016 Refills: 0 Incruse Ellipta 62.5 MCG/INH Inhalation Aerosol Powder Breath Activated; USE 1 INHALATION ONCE DAILY. FEDE Goff Start: 04-May-2018 Quantity: 1 30 Inhaler Pack Refills: 5 Budesonide 0.25 MG/2ML Inhalation Suspen gallito; USE 1 UNIT DOSE VIA NEBULIZER TWO TIMES A DAY FEDE Goff Start: 02-Jul-2017 Quantity: 1 30 x 2 ML Plas Cont Refills: 3 Spironolactone 50 MG Oral Tablet; Take 1 tablet daily Tirso Motta rd Start: 26-Mar-2018 Quantity: 90 Refills: 3 Ipratropium [place] 0.02 % Inhalation So lution; 1 unit dose in nebulizer mixed with levalbuterol inhaled every 4-hours as needed for shortness of breath FEDE Goff Start: 25-Jun-2017 Quantity: 1 25 x 2.5 ML Plas Con t Refills: 3 Levalbuterol HCl - 1.25 MG/3ML Inhalatio n Nebulization Solution; Inhale 1 unit does mixed with ipratropium every 4-hours as needed for shortness of breath or wheeze FEDE Goff Start: 25-Jun-2017 Quantity: 1 25 x 3 ML Box Refills: 6 Bumetanide 2 MG Oral Tablet; TAKE 2 TABLETS DAILY. Tirso Garcia Start: 09-Aug-2016 Quantity: 90 Refills: 3 Vitamin D3 1000 UNIT Oral Capsule; TAKE 4000 UNIT Daily Start: 02-Aug-2016 Refills: 0 Probiotic 250 MG Oral Capsule; TAKE 1 CAPSULE TWICE DAILY. Start: 19-Oct-2018 Refills: 0 Loperamide HCl - 2 MG Oral Tablet; TAKE 1 TABLET Every 3 rom rs PRN Start: 19-Oct-2018 Refills: 0 Voltaren 1 % Transdermal Gel; apply 4 times daily as needed to affected joints Start: 19-Oct-2018 Quantity: 1 100 GM Tube Refills: 0 LORazepam 1 MG Oral Tablet; TAKE ONE TABLET BY MOUTH A T BEDTIME Tirso Garcia Start: 23-Sep-2018 Quantity: 30 Refills: 0 Amiodarone HCl - 100 MG Oral Tablet; TAKE 1 TABLET CHAVA LY DIRECTED. Tirso Crowley Start: 02-Aug-2016 Quantity: 90 Refills: 3 Procedures Hemoglobin A1C Date: 22-Sep-2018 Ultra TSH Date: 21-Sep-2018 C Diff Complete - 2YR OR GRTR Date: 13-Oct-2018 History of Tubal Ligation Status: Comple lv History of Complete Colonoscopy Status: Completed History of Cholecystectomy Laparoscopic Status: Completed Immunizations Fluzone INJ On: 13-Apr-2012 12:07 Lot #: [id number], [employer] Tdap (Adacel) On: 13-Apr-2012 12:07 Lot #: [id number], [employer] Influenza On: 02-Jun-2013 Lot #: [id number], [employer] Pneumococcal polysaccharide vaccine, 23 valent On: 02-Jun-20 13 Lot #: [id number], [employer] Influenza On: 08-Apr-2016 Influenza On: 26-Mar-2017 Prevnar 13 Intramuscular Suspension On: 12-Aug-2017 12:01 Lot #: [id number], [employer] [place] Fluarix Quadrivalent 0.5 ML Intramuscular Suspension P refilled Syringe On: 24-Mar-2018 Family History Mother Family history of malignant neoplasm of breast (V16.3) (Z80. 3) Status: Active Family history of myocardial infarction (V17.3) (Z82.49) Sta tus: Active Father Family history of malignant neoplasm of prostate (V16. 42) (Z80.42) Status: Active Social History - Smoking Status Former smoker Plan of Treatment Planned Encounters Appointment; Kiel Garcia M.D. Start: 27-Jan-2019 13:00 Re [facility] Planned Observations Planned Goals not documented Results Cdiff Toxin B Gene Laboratory: [facility] Laboratory 1800 Commen ts: PATIENT AWARE OF (2yr or >) Jeremy Marrero Ada PA STAT STATU S;WANTS TO DROP OFF [id number] tel: AT [facility] urce of Specimen: Stool 14-Oct-2018 12:45 Cdiff Toxin B Gene (2yr or >) Range: Ne g Uninterpretable Comments: Unable to process sample using current method. Specimenbeing sent to [facility] for testing.--- 10/14/182033 ---Cdif Tox B PCR* previously reported as: Uninterpretable X-Ray Chest 1 View Laboratory: [facility] Diagnostic Portable (Pending) Imaging [address] Piper [place] 15-Oct-2018 19:43 X-Ray Chest 1 VW Portable (CXR1P) [facility], [place] [phone] XRay Report Patient: YOVANY CARTAGENA Admit Date: 9 MR#: [id number] Address1: [address] [facility] Acct ID:[id number] Address2: [address] Date: 1950 [facility] Zip: [place] [address] Age: 68 Location: ED Sex: F Room/Bed: Att Phy: Diagnosis: rectal bleeding, diarrh ea, fluid retention Radha Phy: Kiel Garcia MD Service Date: Fam Phy: Interpreting Phy: Kit Crespo MD Admit Phy: Ordering Phy: Jovon Agosto M.D. cc: XR chest 1V portable CLINICAL HISTORY: eval for chf chest pain. Dyspnea. COMPARISON STUDY: 01/01/2018 FINDINGS: Mild cardiomegaly. Prominent pulmonary vasculature. Diaphragms are smooth. IMPRESSION: Developing congestive heart failure The above report was generated using voice recognition software. It may contain grammatical, syntax or spelling errors. Electronically signed by: Kit Crespo M.D. 10/15/2018 7:44 PM Dictated: 10/15/181942 Transcribed: 10/15/181942 CT Abd/Pelvis w/o Laboratory: [facility] Diagnostic Contrast (No IV, No Imaging [address] [facility] Oral) (Pending) [facility] 15-Oct-2018 20:46 CT ABD/PELVIS NO IV OR ORAL CN [facility], [place] [phone] CT Scan Report Patient: YOVANY CARTAGENA Admit Date: 9 MR#: [id number] Address1: [address] [facility] Acct ID:[id number] Address2: [address] Date: 1950 [facility] Zip: [place] [address] Age: 68 Location: ED Sex: F Room/Bed: Att Phy: Diagnosis: rectal bleeding, diarrh ea, fluid retention Radha Phy: Kiel Garcia MD Service Date: Fam Phy: Interpreting Phy: Kit Crespo MD Admit Phy: Ordering Phy: Jovon Agosto M.D. cc: CT abd pelvis wo con CT DOSE: 1592.80 mGy.cm HISTORY: Pain. Nausea. eval for colitis TECHNIQUE: Multiaxial CT images of the abdomen and pelvis were performed without contrast. A dose lowering technique was utilized adhering to the principles of ALARA. COMPARISON STUDY: 09/29/2008 FINDINGS: Right lung bases clear. Minimal atelectasis left base. Small hiatal hernia. Gastric sleeve is present. Overall configuration of liver spleen and pancreas are unremarkable. Kidneys negative for calcification or hydronephrosis. Bowel pattern is nonobstructive. Uterus is anteflexed. Findings of moderate chronic sigmoid diverticulosis. No evidence for acute diverticulitis. IMPRESSION: 1. Moderate chronic sigmoid diverticulosis. 2. No evidence for diverticulitis. 3. Minimal atelectasis left base. 4. Study is otherwise negative The above report was generated using voice recognition software. It may contain grammatical, syntax or spelling errors. Electronically signed by: Kit Crespo M.D. 10/15/2018 8:50 PM Dictated: 10/15/182045 Transcribed: 10/15/182045 CDiff Toxin B Gene Laboratory: [facility], Comments : [facility] ACCESSION Less than 2 YRS (No INC NUMBER: [id number] Swab) 14-Oct-2018 12:45 C.DIFF TOXIN B QUAL RT-PCR NOT Range: N OT DETECTED DETECTED Comments: This assay was performed by [employer] GeneXpert(R) PCR. Thistest is for use only with liquid or soft stools;performance characteristics of other clinical specimentypes have not been established. Performan cecharacteristics we re not established for patients <2 yearsof age.THIS TEST WAS PERFORMED AT:[facility] [address] [place], [place] [address]DEBBIE SALGUERO MD C.DIFF [id number] DNR Vital Signs 15-Oct-2018 18:00 Systolic 130 mm[Hg] Diastolic 78 mm[Hg] O2 Saturation 98 % Respiration 20 /min Heart Rate 66 /min Temperature 98 f 23-Sep-2018 11:46 Systolic 134 mm[Hg] Comments: Location: LUE; Position: Sitting Diastolic 84 mm[Hg] Comments: Location: LUE; Position: Sitting Heart Rate 70 /min 23-Sep-2018 11:12 O2 Saturation 97 % Comments: Source: Na sam Cannula Respiration 22 /min Heart Rate 70 /min Temperature 98 f Comments: Method: Or al BMI Calculated 50.2 kg/m2 Weight 320.5 lb Height 67 in BSA Calculated 2.47 m2 FiO2 2.5 L/min 21-Sep-2018 13:51 Systolic 146 mm[Hg] Comments: Position: Sitting Diastolic 80 mm[Hg] Comments: Position: Sitting Heart Rate 68 /min BMI Calculated 49.68 kg/m2 Weight 317.2 lb BSA Calculated 2.46 m2 Encounters Appointment; Lexie Powell PA-C 15-Oct-2018 18:00 Encounter Diagnosis: Problem not documented Appointment; Kiel Garcia M.D. 23-Sep-2018 11:15 Encounter Diagnosis: Problem not documented Appointment; Yossi Crowley M.D. 21-Sep-2018 13:45 Encounter Diagnosis: Problem not documented Appointment; Yossi Crowley M.D. 21-Aug-2018 15:30 Encounter Diagnosis: Problem not documented Appointment; Fina Garcia CRNP 02-Jul-2018 13:00 Encounter Diagnosis: Problem not documented Appointment; Amari Parrish PA-C 02-Jun-2018 11:00 Encounter Diagnosis: Problem not documented Appointment; Margoth Goff PA-C 28-May-2018 11:15 Encounter Diagnosis: Problem not documented Appointment; Amari Parrish PA-C 19-May-2018 13:30 Encounter Diagnosis: Problem not documented Appointment; Margoth Goff PA-C 04-May-2018 11:15 Encounter Diagnosis: Problem not documented Appointment; Kiel Garcia M.D. 18-Feb-2018 11:30 Encounter Diagnosis: Problem not documented Appointment; Yossi Crowley M.D. 02-Feb-2018 11:30 Encounter Diagnosis: Problem not documented Appointment; Lior Costa M.D. 24-Oct-2017 10:45 Encounter Diagnosis: Problem not documented Appointment; Kiel Garcia M.D. 12-Aug-2017 11:00 Encounter Diagnosis: Problem not documented Appointment; Fina Lomax PA-C 04-Aug-2017 13:00 Encounter Diagnosis: Problem not documented Appointment; Lior Costa M.D. 21-Jul-2017 13:00 Encounter Diagnosis: Problem not documented Appointment; Margoth Goff PA-C 02-Jul-2017 11:45 Encounter Diagnosis: Problem not documented Appointment; Margoth Goff PA-C 25-Jun-2017 10:00 Encounter Diagnosis: Problem not documented Appointment; Lior Costa M.D. 21-May-2017 13:00 Encounter Diagnosis: Problem not documented Appointment; Lior Costa M.D. 04-Feb-2017 15:00 Encounter Diagnosis: Problem not documented Appointment; Kiel Garcia M.D. 09-Jan-2017 14:30 Encounter Diagnosis: Problem not documented Appointment; Fina Lomax PA-C 01-Jan-2017 13:30 Encounter Diagnosis: Problem not documented Appointment; Margoth Taylor PA-C 04-Dec-2016 13:00 Encounter Diagnosis: Problem not documented Appointment; Kiel Garcia M.D. 27-Jan-2019 13:00 Encounter Diagnosis: Problem not documented
== END 2018-10-17 17:18 | disposition home or self-care (01) | DRG 394 ==
LOC: ED 18:24 → SUATTDRO 21:50 → 3W 21:50

== ENCOUNTER 2021-01-20 13:35 | Inpatient (IN) ==
--- NOTE | 2021-01-20 14:02 | Emergency Department Note ---
History of Present Illness General Chief complaint: Shortness of Breath/Dyspnea Stated complaint: COPD FLARE,PULSE OX LOW Time Seen by Provider: 01/20/21 13:48 History of Present Illness Maximum Pain Intensity: 0 This 70-year-old female presents today to the ED, for increased shortness of breath since yesterday. She has a history of COPD and diabetes. Patient states she was doing well with her COPD earlier this month. 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 She states yesterday she began having increased shortness of breath. She has been using her nebulizer treatment every 4 hours without improvement. She does wear oxygen at 3 L by nasal cannula. She also uses CPAP at night. She states when she is sitting, her saturations are in the 90s. As soon as she begins to ambulate, her sats drop significantly. She states they were in the high 60s this morning. She could not get it above 88 when ambulating. Patient denies any fevers, sweats, or chills. She has had chronic postnasal drip since the spring. She has been using a nasal spray over the past few days, but believes it may have exacerbated her COPD by drying her lungs out too much. Patient states she usually requires nebulizer treatments as well as prednisone when her symptoms become this bad. She has required hospitalization for her symptoms several years ago. Her daughter accompanies her today. Patient denies any known Covid exposure. She has been vaccinated. No nausea or vomiting. She does have pets. Home Medications Medication Instructions Recorded Confirmed Type cholecalciferol (vitamin D3) 25 4,000 units PO DAILY cap 01/16/19 01/20/21 History mcg (1,000 unit) capsule calcium carbonate 600 mg (1,500 2 tab PO DAILY 01/21/19 01/20/21 History mg)-vitamin D3 400 unit tablet (Calcium 600 + D(3)) nitroglycerin 0.4 mg sublingual 0.4 mg SUBLINGUAL DIRECTED 01/21/19 01/20/21 History tablet diclofenac sodium 1 % topical gel 1 % EXT QID PRN gm 02/08/19 01/20/21 History (Voltaren) lancets (OneTouch UltraSoft #100 ea 12/16/19 01/05/21 Rx Lancets) potassium chloride 10 mEq 20 meq PO DAILY tab 12/16/19 01/20/21 History tablet,extended release Saccharomyces boulardii 250 mg 250 mg PO DAILY cap 12/20/19 01/20/21 History capsule (Florastor) ipratropium bromide 0.02 % 2.5 ml INHALATION Q6H PRN #300 ml 09/01/20 01/20/21 Rx solution for inhalation bumetanide 2 mg tablet 2 - 4 mg PO DAILY #60 tab 10/30/20 01/20/21 Rx fluticasone furoate 200 1 inh INHALATION QAM #60 ea 10/30/20 01/20/21 Rx mcg-vilanterol 25 mcg/dose inhalation powder (Breo Ellipta) blood sugar diagnostic (OneTouch #100 ea 11/06/20 01/05/21 Rx Verio test strips) dulaglutide 0.75 mg/0.5 mL 0.75 mg SQ WEEKLY #2 ml 12/18/20 01/20/21 Rx subcutaneous pen injector (Trulicity) spironolactone 50 mg tablet 50 mg PO DAILY #90 tab 12/26/20 01/20/21 Rx acetaminophen 500 mg tablet 1,000 mg PO Q6H PRN 01/20/21 01/20/21 History (Tylenol Extra Strength) amiodarone 200 mg tablet 200 mg PO QAM 01/20/21 01/20/21 History levalbuterol HCl 1.25 mg/3 mL 1.25 mg INHALATION Q6H PRN 01/20/21 01/20/21 History solution for nebulization levalbuterol tartrate 45 2 puff INHALATION Q6H PRN 01/20/21 01/20/21 History mcg/actuation aerosol inhaler levothyroxine 137 mcg tablet 137 mcg PO QAM 01/20/21 01/20/21 History lorazepam 1 mg tablet 1 mg PO PM PRN 01/20/21 01/20/21 History rivaroxaban 20 mg tablet (Xarelto) 20 mg PO QDD 01/20/21 01/20/21 History umeclidinium 62.5 mcg/actuation 1 inh INHALATION QAM 01/20/21 01/20/21 History blister powder for inhalation (Incruse Ellipta) Allergies Allergy/AdvReac Type Severity Reaction Status Date / Time codeine Allergy nausea, Verified 01/20/21 14:52 vomiting hydrocodone AdvReac Severe GI SYMPTOMS Verified 01/20/21 14:52 tramadol AdvReac Severe GI SYMPTOMS Verified 01/20/21 14:52 metformin AdvReac Intermediate back pain Verified 01/20/21 14:52 adhesive AdvReac Unknown Verified 01/20/21 14:52 latex AdvReac Unknown Verified 01/20/21 14:52 nickel AdvReac Hives Verified 01/20/21 14:52 Past Med/Surg History Medical History (HFpEF) heart failure with preserved ejection fraction A-fib cardioverted x 4 Anticoagulant long-term use Arthritis BMI 45.0-49.9, adult Cervicalgia Chronic respiratory failure COPD (chronic obstructive pulmonary disease) Diarrhea DVT (deep venous thrombosis) R arm Dyspnea on exertion Edema Fatigue GERD without esophagitis Gout Hiatal hernia Hyperglycemia Hypothyroidism Low back pain TYESHA (obstructive sleep apnea) Polyneuropathy Pulmonary nodules Shortness of breath Type 2 diabetes mellitus Surgical History H/O colonoscopy H/O tubal ligation History of cholecystectomy Hx of laparoscopic gastric banding S/P breast biopsy 03/2020 Tubal ligation status Family History Mother Breast cancer, Onset Age: 67 Myocardial infarction Father Prostate cancer Denies family history of Ovarian cancer Colorectal cancer Uterine cancer Social History Smoking Status: Former smoker Tobacco Type: Cigarettes Age Started Using Tobacco: 15; Age Quit Using Tobacco: 58; packs per day: 0.5; Cigarettes Per Day: UP TO 15; Second Hand Exposure: No; Hx Alcohol Use: No Hx Substance Use: Yes Last Used Substance: Days (ago) Substance Use Type Other:: Ativan Preferred Language: Danish Communication Ability: Effective Visual Impairment: No Limitations Hearing Ability: Normal [place] Required: No Beliefs That Will Affect Care: None marital status: / Current Living Situation: Family current occupational status: retired Other Information That Helps Us Care for You: No Feels Safe at Home: Yes Safety Concerns: Feels Safe At This Time Childhood Exposure to Second-Hand Smoke: Yes caffeine: Yes Dental Care, Regularly: Yes Assistive Devices: Oxygen - Continuous Review of Systems A total of 10 systems reviewed and were otherwise negative Physical Exam Vital Signs Vital Signs - 24 hr 01/21/21 08:59 01/21/21 09:00 01/21/21 11:12 Temperature 36.7 C Temperature Source Oral Pulse Rate [Apical] Pulse Rate [Finger] 84 83 Respiratory Rate 22 18 Respiratory Effort / Characteristics SOB on Exertion Spontaneous Short of Breath Respiratory Depth Blood Pressure [Left Arm] 110/65 Blood Pressure Mean [Left Arm] 80 Blood Pressure Position [Left Arm] Sitting Pulse Oximetry 94 94 Pulse Oximetry [Right Middle Finger] 94 Oxygen Delivery Method Nasal Cannula Nasal Cannula Nasal Cannula Oxygen Delivery Method [Right Middle Finger] Nasal Cannula Oxygen Flow Rate 3 3 3 Oxygen Flow Rate [Right Middle Finger] 3 01/21/21 14:34 01/21/21 14:39 01/21/21 15:23 Temperature 36.5 C Temperature Source Oral Pulse Rate [Apical] 80 Pulse Rate [Finger] 95 H Respiratory Rate 26 H 20 Respiratory Effort / Characteristics Non-Labored Labored Non-Labored Spontaneous Respiratory Depth Normal Blood Pressure [Left Arm] 125/85 Blood Pressure Mean [Left Arm] 98 Blood Pressure Position [Left Arm] Pulse Oximetry 96 Pulse Oximetry [Right Middle Finger] 97 Oxygen Delivery Method Nasal Cannula Nasal Cannula Nasal Cannula Oxygen Delivery Method [Right Middle Finger] Nasal Cannula Oxygen Flow Rate 4 4 3 Oxygen Flow Rate [Right Middle Finger] 4 General: Well-developed, well-nourished, obese elderly white female, having obvious difficulty breathing. She exhibits retractions and accessory muscle use. Sitting on the bed. Alert and oriented. Conversive. Skin: Warm and dry with good turgor. No rashes or lesions. No ecchymosis or erythema. The patient is not diaphoretic. No abrasions. HEENT: Normocephalic atraumatic. Eyes PERRLA, EOMI. No conjunctiva or scleral injection. Ears TMs intact bilaterally with good light reflexes. No erythema or bulging. No hemotympanum. Canals are patent. Nares patent bilaterally without turbinate enlargement. No significant drainage. No epistaxis. Oropharynx without erythema or exudate. Uvula midline, oral mucosa moist. No lesions present. Lymphatics are palpated without anterior or posterior chain enlargement or tenderness. Heart: Heart RRR. No MGR. Peripheral pulses are 2+. Lungs: Lungs have prolonged exhalation. Wheezing present in the left lobes. No crackles or rhonchi. Fair air movement. The patient is unable to take a deep breath. Abdomen: Abdomen was inspected, auscultated, and palpated. Obese. Bowel sounds present x 4. Soft, nontender to palpation. No hepato-splenomegaly. No masses noted. No rebound. Musculoskeletal: Gross motor function of the upper and lower extremities is intact and unremarkable. Trace edema present in both lower extremities. Neurologic: Gross sensation is intact across the upper and lower extremities by soft touch. Peripheral pulses are 1+. Course Administered Medications Acetaminophen (Acetaminophen 325 Mg Tab) 650 mg PO Q6H PRN PRN Reason: Pain Stop: 02/20/21 03:27 Last Admin: 01/22/21 01:15 Dose: 650 mg Documented by: [id number] Admin: 01/21/21 16:05 Dose: 650 mg Documented by: [id number] Admin: 01/21/21 03:42 Dose: 650 mg Documented by: [id number] Amiodarone HCl ([facility] 200 Mg Tab) [facility] Stop: 02/20/21 08:59 Last Admin: 01/21/21 09:08 Dose: 200 mg Documented by: [id number] Budesonide (Budesonide 0.5 Mg/2 Ml Vial (Pulmicort)) 0.5 mg NEB BIDR [facility] Stop: 02/20/21 18:59 Last Admin: 01/22/21 06:57 Dose: 0.5 mg Documented by: [id number] Admin: 01/21/21 19:24 Dose: 0.5 mg Documented by: [id number] Bumetanide (Bumetanide 1 Mg Tab) 2 mg PO QAM [facility] Stop: 02/20/21 08:59 Last Admin: 01/21/21 09:08 Dose: 2 mg Documented by: [id number] Formoterol Fumarate (Formoterol 20 Mcg/2 Ml Vial) 20 mcg INH BIDR [facility] Stop: 02/20/21 18:59 Last Admin: 01/22/21 06:57 Dose: 20 mcg Documented by: [id number] Admin: 01/21/21 19:24 Dose: 20 mcg Documented by: [id number] Methylprednisolone 60 mg/ (Syringe) 0.96 mls @ 1.5 mls/min IV Q8H [facility] Stop: 02/20/21 19:59 Last Admin: 01/22/21 04:13 Dose: 1.5 mls/min Documented by: [id number] Admin: 01/21/21 20:26 Dose: 1.5 mls/min Documented by: [id number] Insulin Glargine (Insulin Glargine Solostar 100 Units/Ml 3 Ml Pen) 10 units SC BID [facility] Stop: 02/20/21 20:59 Last Admin: 01/21/21 20:24 Dose: 10 units Documented by: [id number] Cosigned by: [id number] Levalbuterol HCl (Levalbuterol Hcl 1.25 Mg/3 Ml Neb) 1.25 mg NEB Q6R [facility] Stop: 02/20/21 18:59 Last Admin: 01/22/21 06:57 Dose: Not Given Documented by: [id number] Admin: 01/22/21 00:02 Dose: Not Given Documented by: [id number] Admin: 01/21/21 19:24 Dose: Not Given Documented by: [id number] Levothyroxine Sodium (Levothyroxine Sodium 137 Mcg Tablet) 137 mcg PO DAILYBB [facility] Stop: 02/20/21 06:29 Last Admin: 01/22/21 06:41 Dose: 137 mcg Documented by: [id number] Admin: 01/21/21 05:37 Dose: 137 mcg Documented by: [id number] Lorazepam (Lorazepam 1 Mg Tab) 1 mg PO PM PRN PRN Reason: Anxiety Stop: 02/19/21 21:16 Last Admin: 01/21/21 23:44 Dose: 1 mg Documented by: [id number] Admin: 01/20/21 22:42 Dose: 1 mg Documented by: [id number] Multivitamins/Minerals (Calcium 600mg + Vit D 400 Iu Tab) 2 tab PO DAILY [facility] Stop: 02/20/21 08:59 Last Admin: 01/21/21 09:08 Dose: 2 tab Documented by: [id number] Trulicity~Non- Formulary Patient's Own Med 1 ea SQ Sa@0900 [facility] Stop: 02/19/21 21:29 Last Admin: 01/20/21 22:20 Dose: Not Given Documented by: [id number] Potassium Chloride (Potassium Chloride Crtab 20 Meq Tabcr) 20 meq PO DAILY [facility] Stop: 02/20/21 08:59 Last Admin: 01/21/21 09:09 Dose: 20 meq Documented by: [id number] Rivaroxaban (Rivaroxaban 20 Mg Tab) 20 mg PO QDD [facility] Stop: 02/20/21 16:29 Last Admin: 01/21/21 18:12 Dose: 20 mg Documented by: [id number] Saccharomyces Boulardii (Saccharomyces Boulardii 250 Mg Cap) 250 mg PO DAILY [facility] Stop: 02/20/21 08:59 Last Admin: 01/21/21 09:09 Dose: 250 mg Documented by: [id number] Spironolactone (Spironolactone 25 Mg Tab) 50 mg PO DAILY [facility] Stop: 02/20/21 08:59 Last Admin: 01/21/21 09:09 Dose: 50 mg Documented by: [id number] Umeclidinium [place] (Umeclidinium [place] 62.5mcg/Blister 7 Puffs/Inhaler) 1 puffs INH QAM [facility] Stop: 02/20/21 08:59 Last Admin: 01/21/21 09:09 Dose: 1 puffs Documented by: [id number] Vitamin D (Cholecalciferol 1,000 Units 25 Mcg Tab) 4,000 units PO DAILY [facility] Stop: 02/20/21 08:59 Last Admin: 01/21/21 09:09 Dose: 4,000 units Documented by: [id number] Discontinued Medications Albuterol (Albut/Ipratrop 3mg/0.5mg Neb 3 Ml Vial) 3 ml INH NOW STA Stop: 01/20/21 14:04 Last Admin: 01/20/21 14:15 Dose: 3 ml Documented by: [id number] Albuterol (Albut/Ipratrop 3mg/0.5mg Neb 3 Ml Vial) 3 ml NEB Q4R [facility] Stop: 02/19/21 21:01 Last Admin: 01/21/21 15:21 Dose: 3 ml Documented by: [id number] Admin: 01/21/21 11:11 Dose: 3 ml Documented by: [id number] Admin: 01/21/21 07:33 Dose: 3 ml Documented by: [id number] Admin: 01/21/21 03:02 Dose: 3 ml Documented by: [id number] Admin: 01/20/21 22:21 Dose: Not Given Documented by: [id number] Admin: 01/20/21 21:51 Dose: 3 ml Documented by: [id number] Azithromycin (Azithromycin 250 Mg Tab) 500 mg PO NOW ONE Stop: 01/21/21 10:08 Last Admin: 01/21/21 13:14 Dose: 500 mg Documented by: [id number] Bumetanide (Bumetanide 1 Mg Tab) 2 mg PO ONE STA Stop: 01/20/21 18:37 Last Admin: 01/20/21 19:14 Dose: 2 mg Documented by: [id number] Fluticasone/Vilanterol (Fluticasone/Vilanterol 200/25mcg 14 Puffs/Inhaler) 1 puffs INH QAM [facility] Stop: 02/20/21 08:59 Last Admin: 01/21/21 09:10 Dose: 1 puffs Documented by: [id number] Hydralazine HCl (Hydralazine Hcl 20 Mg/Ml Vial) 10 mg IV NOW STA Stop: 01/20/21 16:25 Last Admin: 01/20/21 16:45 Dose: 10 mg Documented by: [id number] Methylprednisolone 40 mg/ (Syringe) 0.64 mls @ 1.5 mls/min IV Q12H [facility] Stop: 02/19/21 21:59 Last Admin: 01/20/21 22:19 Dose: 1.5 mls/min Documented by: [id number] Methylprednisolone 40 mg/ (Syringe) 0.64 mls @ 1.5 mls/min IV Q8H [facility] Stop: 02/20/21 05:59 Last Admin: 01/21/21 15:03 Dose: 1.5 mls/min Documented by: [id number] Admin: 01/21/21 05:37 Dose: 1.5 mls/min Documented by: [id number] Insulin Aspart (Insulin Aspart 100 Units/Ml 3 Ml Pen) 0 units SC ACHS [facility] Stop: 02/19/21 21:01 Last Admin: 01/21/21 20:25 Dose: 5 units Documented by: [id number] Cosigned by: [id number] Admin: 01/21/21 17:23 Dose: 2 units Documented by: [id number] Cosigned by: [id number] Admin: 01/21/21 13:03 Dose: 4 units Documented by: [id number] Cosigned by: [id number] Admin: 01/21/21 09:16 Dose: 3 units Documented by: [id number] Cosigned by: [id number] Admin: 01/20/21 22:20 Dose: 4 units Documented by: [id number] Cosigned by: [id number] Methylprednisolone (Methylprednisolone 125 Mg/2 Ml Vial) 125 mg IV NOW ONE Stop: 01/20/21 14:10 Last Admin: 01/20/21 14:24 Dose: 125 mg Documented by: [id number] Methylprednisolone (Methylprednisolone 40 Mg/Ml Vial) 40 mg IV BID STA Stop: 01/20/21 17:54 Last Admin: 01/20/21 21:13 Dose: Not Given Documented by: [id number] Miscellaneous Information (Pharmacy Glycemic Mgmt Consult) 1 ea N/A NOW STA Stop: 01/20/21 17:54 Last Admin: 01/20/21 21:14 Dose: Not Given Documented by: [id number] Medical Decision Making Differential Diagnosis COPD exacerbation, asthma flare, pneumonia, PE, bronchitis Medical Records Attestation: I reviewed the patient's medical records. Home Medications Current Medication List: was personally reviewed by me Laboratory Data CBC, complete metabolic panel, troponin, BNP, UA, and Covid test were obtained today. CBC is unremarkable. Metabolic panel shows a sodium of 135, normal BUN and creatinine, calcium of 8.4, normal LFTs, normal troponin at less than 0.015, BNP of 298. Covid is negative. UA is unremarkable. Result diagrams: 01/22/21 05:30 01/22/21 05:30 Lab Results 01/20/21 01/20/21 01/20/21 Range/Units 13:55 13:55 13:55 WBC 7.47 (4.8-10.8) K/uL RBC 4.29 (4.2-5.4) M/uL Hgb 13.2 (12.0-16.0) g/dL Hct 39.7 (37-47) % MCV 92.5 (80-100) fL MCH 30.8 (25-34) pg MCHC 33.2 (32-36) g/dL RDW Std Deviation 46.4 H (36.4-46.3) fL RDW Coeff of [place] 13.7 (11.5-14.5) % Plt Count 212 (130-400) K/uL MPV 9.9 (7.4-10.4) fL Immature Gran % (Auto) 0.5 % Neut % (Auto) 73.7 % Lymph % (Auto) 14.7 % [place] % (Auto) 9.4 % Eos % (Auto) 1.2 % Baso % (Auto) 0.5 % Neut # (Auto) 5.50 (1.4-6.5) K/uL Lymph # (Auto) 1.10 L (1.2-3.4) K/uL [place] # (Auto) 0.70 H (0.11-0.59) K/uL Eos # (Auto) 0.09 (0-0.5) K/uL Baso # (Auto) 0.04 (0-0.2) K/uL Immature Gran # (Auto) 0.04 H (0.00-0.02) K/uL PT 11.1 (9.0-12.0) Seconds INR 1.1 (0.9-1.1) Sodium 135 L (136-145) mmol/L Potassium 4.0 (3.5-5.1) mmol/L Chloride 100 (98-107) mmol/L Carbon Dioxide 31 (21-32) mmol/L Anion Gap 4.0 (3-11) BUN 11 (7-18) mg/dl Creatinine 0.97 (0.6-1.2) mg/dl Est Cr Clr Drug Dosing Not Reportable Est GFR ( Amer) 67.6 ml/min Est GFR (Non-Af Amer) 58.3 ml/min BUN/Creatinine Ratio 11.7 (10-20) Glucose 123 H (70-99) mg/dl POC Glucose (70-99) mg/dl Calcium 8.4 L (8.5-10.1) mg/dl Total Bilirubin 0.4 (0.2-1) mg/dl AST 17 (15-37) U/L ALT 24 (12-78) U/L Alkaline Phosphatase 104 (45-117) U/L Troponin I < 0.015 (0-0.045) ng/ml NT-Pro-B Natriuret Pep 298 (0-900) pg/ml Total Protein 7.3 (6.4-8.2) gm/dl Albumin 3.3 L (3.4-5.0) gm/dl Globulin 4.0 (2.5-4.0) gm/dl Albumin/Globulin Ratio 0.8 L (0.9-2) Procalcitonin (0-0.5) ng/ml Specimen Hemolysis Urine Color Urine Appearance (Clear) Urine pH (4.5-7.5) Ur Specific [place] (1.000-1.030) Urine Protein (Negative) Urine Glucose (UA) (Negative) Urine Ketones (Negative) Urine Blood (Negative) Urine Nitrite (Negative) Urine Bilirubin (Negative) Urine Urobilinogen (Negative) Ur Leukocyte Esterase (Negative) COVID-19 Eval Order SARS-CoV-2 (PCR) (Negative) 01/20/21 01/20/21 01/20/21 Range/Units 13:55 16:45 16:45 WBC (4.8-10.8) K/uL RBC (4.2-5.4) M/uL Hgb (12.0-16.0) g/dL Hct (37-47) % MCV (80-100) fL MCH (25-34) pg MCHC (32-36) g/dL RDW Std Deviation (36.4-46.3) fL RDW Coeff of [place] (11.5-14.5) % Plt Count (130-400) K/uL MPV (7.4-10.4) fL Immature Gran % (Auto) % Neut % (Auto) % Lymph % (Auto) % [place] % (Auto) % Eos % (Auto) % Baso % (Auto) % Neut # (Auto) (1.4-6.5) K/uL Lymph # (Auto) (1.2-3.4) K/uL [place] # (Auto) (0.11-0.59) K/uL Eos # (Auto) (0-0.5) K/uL Baso # (Auto) (0-0.2) K/uL Immature Gran # (Auto) (0.00-0.02) K/uL PT (9.0-12.0) Seconds INR (0.9-1.1) Sodium (136-145) mmol/L Potassium (3.5-5.1) mmol/L Chloride (98-107) mmol/L Carbon Dioxide (21-32) mmol/L Anion Gap (3-11) BUN (7-18) mg/dl Creatinine (0.6-1.2) mg/dl Est Cr Clr Drug Dosing Est GFR ( Amer) ml/min Est GFR (Non-Af Amer) ml/min BUN/Creatinine Ratio (10-20) Glucose (70-99) mg/dl POC Glucose (70-99) mg/dl Calcium (8.5-10.1) mg/dl Total Bilirubin (0.2-1) mg/dl AST (15-37) U/L ALT (12-78) U/L Alkaline Phosphatase (45-117) U/L Troponin I (0-0.045) ng/ml NT-Pro-B Natriuret Pep (0-900) pg/ml Total Protein (6.4-8.2) gm/dl Albumin (3.4-5.0) gm/dl Globulin (2.5-4.0) gm/dl Albumin/Globulin Ratio (0.9-2) Procalcitonin < 0.05 (0-0.5) ng/ml Specimen Hemolysis Urine Color Urine Appearance (Clear) Urine pH (4.5-7.5) Ur Specific [place] (1.000-1.030) Urine Protein (Negative) Urine Glucose (UA) (Negative) Urine Ketones (Negative) Urine Blood (Negative) Urine Nitrite (Negative) Urine Bilirubin (Negative) Urine Urobilinogen (Negative) Ur Leukocyte Esterase (Negative) COVID-19 Eval Order Covid19 at [facility] SARS-CoV-2 (PCR) NEGATIVE (Negative) 01/20/21 01/20/21 01/21/21 Range/Units 22:06 Unknown 08:53 WBC (4.8-10.8) K/uL RBC (4.2-5.4) M/uL Hgb (12.0-16.0) g/dL Hct (37-47) % MCV (80-100) fL MCH (25-34) pg MCHC (32-36) g/dL RDW Std Deviation (36.4-46.3) fL RDW Coeff of [place] (11.5-14.5) % Plt Count (130-400) K/uL MPV (7.4-10.4) fL Immature Gran % (Auto) % Neut % (Auto) % Lymph % (Auto) % [place] % (Auto) % Eos % (Auto) % Baso % (Auto) % Neut # (Auto) (1.4-6.5) K/uL Lymph # (Auto) (1.2-3.4) K/uL [place] # (Auto) (0.11-0.59) K/uL Eos # (Auto) (0-0.5) K/uL Baso # (Auto) (0-0.2) K/uL Immature Gran # (Auto) (0.00-0.02) K/uL PT (9.0-12.0) Seconds INR (0.9-1.1) Sodium (136-145) mmol/L Potassium (3.5-5.1) mmol/L Chloride (98-107) mmol/L Carbon Dioxide (21-32) mmol/L Anion Gap (3-11) BUN (7-18) mg/dl Creatinine (0.6-1.2) mg/dl Est Cr Clr Drug Dosing Est GFR ( Amer) ml/min Est GFR (Non-Af Amer) ml/min BUN/Creatinine Ratio (10-20) Glucose (70-99) mg/dl POC Glucose 237 H 208 H (70-99) mg/dl Calcium (8.5-10.1) mg/dl Total Bilirubin (0.2-1) mg/dl AST (15-37) U/L ALT (12-78) U/L Alkaline Phosphatase (45-117) U/L Troponin I (0-0.045) ng/ml NT-Pro-B Natriuret Pep (0-900) pg/ml Total Protein (6.4-8.2) gm/dl Albumin (3.4-5.0) gm/dl Globulin (2.5-4.0) gm/dl Albumin/Globulin Ratio (0.9-2) Procalcitonin (0-0.5) ng/ml Specimen Hemolysis Urine Color Yellow Urine Appearance Clear (Clear) Urine pH 6.0 (4.5-7.5) Ur Specific [place] 1.004 (1.000-1.030) Urine Protein Negative (Negative) Urine Glucose (UA) Negative (Negative) Urine Ketones Negative (Negative) Urine Blood Negative (Negative) Urine Nitrite Negative (Negative) Urine Bilirubin Negative (Negative) Urine Urobilinogen Negative (Negative) Ur Leukocyte Esterase Negative (Negative) COVID-19 Eval Order SARS-CoV-2 (PCR) (Negative) 01/21/21 01/21/21 01/21/21 Range/Units 12:16 12:30 12:30 WBC 7.67 (4.8-10.8) K/uL RBC 4.59 (4.2-5.4) M/uL Hgb 14.2 (12.0-16.0) g/dL Hct 41.7 (37-47) % MCV 90.8 (80-100) fL MCH 30.9 (25-34) pg MCHC 34.1 (32-36) g/dL RDW Std Deviation 44.5 (36.4-46.3) fL RDW Coeff of [place] 13.4 (11.5-14.5) % Plt Count 237 (130-400) K/uL MPV 9.9 (7.4-10.4) fL Immature Gran % (Auto) 0.5 % Neut % (Auto) 86.2 % Lymph % (Auto) 7.2 % [place] % (Auto) 6.1 % Eos % (Auto) 0.0 % Baso % (Auto) 0.0 % Neut # (Auto) 6.61 H (1.4-6.5) K/uL Lymph # (Auto) 0.55 L (1.2-3.4) K/uL [place] # (Auto) 0.47 (0.11-0.59) K/uL Eos # (Auto) 0.00 (0-0.5) K/uL Baso # (Auto) 0.00 (0-0.2) K/uL Immature Gran # (Auto) 0.04 H (0.00-0.02) K/uL PT (9.0-12.0) Seconds INR (0.9-1.1) Sodium 133 L (136-145) mmol/L Potassium 4.1 (3.5-5.1) mmol/L Chloride 98 (98-107) mmol/L Carbon Dioxide 27 (21-32) mmol/L Anion Gap 8.0 (3-11) BUN 22 H D (7-18) mg/dl Creatinine 1.09 (0.6-1.2) mg/dl Est Cr Clr Drug Dosing 66.1 Est GFR ( Amer) 58.7 ml/min Est GFR (Non-Af Amer) 50.7 ml/min BUN/Creatinine Ratio 20.3 H (10-20) Glucose 231 H (70-99) mg/dl POC Glucose 249 H (70-99) mg/dl Calcium 9.4 (8.5-10.1) mg/dl Total Bilirubin (0.2-1) mg/dl AST (15-37) U/L ALT (12-78) U/L Alkaline Phosphatase (45-117) U/L Troponin I < 0.015 (0-0.045) ng/ml NT-Pro-B Natriuret Pep (0-900) pg/ml Total Protein (6.4-8.2) gm/dl Albumin (3.4-5.0) gm/dl Globulin (2.5-4.0) gm/dl Albumin/Globulin Ratio (0.9-2) Procalcitonin (0-0.5) ng/ml Specimen Hemolysis Urine Color Urine Appearance (Clear) Urine pH (4.5-7.5) Ur Specific [place] (1.000-1.030) Urine Protein (Negative) Urine Glucose (UA) (Negative) Urine Ketones (Negative) Urine Blood (Negative) Urine Nitrite (Negative) Urine Bilirubin (Negative) Urine Urobilinogen (Negative) Ur Leukocyte Esterase (Negative) COVID-19 Eval Order SARS-CoV-2 (PCR) (Negative) 01/21/21 Range/Units 16:44 WBC (4.8-10.8) K/uL RBC (4.2-5.4) M/uL Hgb (12.0-16.0) g/dL Hct (37-47) % MCV (80-100) fL MCH (25-34) pg MCHC (32-36) g/dL RDW Std Deviation (36.4-46.3) fL RDW Coeff of [place] (11.5-14.5) % Plt Count (130-400) K/uL MPV (7.4-10.4) fL Immature Gran % (Auto) % Neut % (Auto) % Lymph % (Auto) % [place] % (Auto) % Eos % (Auto) % Baso % (Auto) % Neut # (Auto) (1.4-6.5) K/uL Lymph # (Auto) (1.2-3.4) K/uL [place] # (Auto) (0.11-0.59) K/uL Eos # (Auto) (0-0.5) K/uL Baso # (Auto) (0-0.2) K/uL Immature Gran # (Auto) (0.00-0.02) K/uL PT (9.0-12.0) Seconds INR (0.9-1.1) Sodium (136-145) mmol/L Potassium (3.5-5.1) mmol/L Chloride (98-107) mmol/L Carbon Dioxide (21-32) mmol/L Anion Gap (3-11) BUN (7-18) mg/dl Creatinine (0.6-1.2) mg/dl Est Cr Clr Drug Dosing Est GFR ( Amer) ml/min Est GFR (Non-Af Amer) ml/min BUN/Creatinine Ratio (10-20) Glucose (70-99) mg/dl POC Glucose 190 H (70-99) mg/dl Calcium (8.5-10.1) mg/dl Total Bilirubin (0.2-1) mg/dl AST (15-37) U/L ALT (12-78) U/L Alkaline Phosphatase (45-117) U/L Troponin I (0-0.045) ng/ml NT-Pro-B Natriuret Pep (0-900) pg/ml Total Protein (6.4-8.2) gm/dl Albumin (3.4-5.0) gm/dl Globulin (2.5-4.0) gm/dl Albumin/Globulin Ratio (0.9-2) Procalcitonin (0-0.5) ng/ml Specimen Hemolysis Urine Color Urine Appearance (Clear) Urine pH (4.5-7.5) Ur Specific [place] (1.000-1.030) Urine Protein (Negative) Urine Glucose (UA) (Negative) Urine Ketones (Negative) Urine Blood (Negative) Urine Nitrite (Negative) Urine Bilirubin (Negative) Urine Urobilinogen (Negative) Ur Leukocyte Esterase (Negative) COVID-19 Eval Order SARS-CoV-2 (PCR) (Negative) Imaging Data My Impression: Chest x-ray obtained today shows emphysema without evidence of pneumonia. No acute changes. There is hyperinflation. No significant pulmonary edema. No pneumothorax. Films were read by radiology and reviewed by me. ECG Data Additional Comments: EKG obtained today was reviewed with Dr. Gallegos. No acute ST or T wave changes. Rate of 90. Blood Pressure Blood Pressure Findings: Elevated blood pressure MDM Narrative Patient was evaluated in room B5. IV was established. Labs were obtained. Patient was placed on a monitor and remained stable while in the ED. Initially her saturations were in the lower 90s. EKG and chest x-ray were both obtained. Patient was visibly having difficulty with respirations. She was using pursed lip breathing while sitting upright and forward. She was given a DuoNeb treatment as well as Solu-Medrol 125 mg IV. Reexamination showed the patient to be much more comfortable and breathing easier. Wheezing in the left lobe is improved. Patient saturations remained in the mid 90s. Upon ambulation to the bathroom, sats dropped into the 70s. Covid swab obtained today was negative. Due to the patient's respiratory difficulty, and possibility of rebound disease, I did recommend observation overnight. Patient and her daughter are both in agreement. Her daughter states they are attempting to go to the [facility] at the end of this week. The patient would like her respiratory status to be as good as it can be before departure. Dr. Arndt was consulted from the hospitalist team, for admission. Please see his dictation for final management. Patient was seen in conjunction with Dr. Gallegos, who also evaluated the patient and concurred with today's diagnosis and treatment plan. Impression & Plan Dyspnea on exertion, COPD exacerbation Patient will be admitted for her COPD exacerbation. She improved while in the ED. She did remain hypertensive. She was given 5 mg hydralazine IV with reduction in her pressure. This was discussed with the hospitalist service. Please see the hospitalist note for final management. Discharge Plan Visit Data Chief Complaint: Shortness of Breath/Dyspnea Stated Complaint: COPD FLARE,PULSE OX LOW ED Midlevel Provider: Davin Sidhu Discharge Problem: Dyspnea on exertion, COPD exacerbation Patient Disposition: Admitted As Inpatient Discharge Instructions Interventions: ED Discharge Assessment Last Done: 01/20/21 20:15
[2021-01-20] MEDS ORDERED: ALBUT/IPRATROP 3MG/0.5MG NEB 3 ML VIAL INH STA (14:03)
[2021-01-20] MEDS ORDERED: methylPREDNISolone 125 MG/2 ML VIAL IV ONE (14:09)
--- NOTE | 2021-01-20 14:13 | Emergency Department Note ---
ED Visit Note Patient was seen by our PA/DIRECTOR OUTPATIENT SERVICES. I was involved in the patient's care and did evaluate the patient myself. I was involved in the care throughout the ER stay. The patient presents with dyspnea and some tightness/heaviness across her chest. Her O2 saturation was recorded quite low at home in the 60 to 70s. The patient has a history of COPD and is on chronic O2. The patient is short of breath with any type of exertion. On exam, she seemed dyspneic even to talk. She is going to require a hospital stay and respiratory work-up. .
[2021-01-20 14:14] LABS: Basophils # (auto) 0.04 K/uL (0-0.2); Basophils % (auto) 0.5 %; Eosinophils # (auto) 0.09 K/uL (0-0.5); Eosinophils % (auto) 1.2 %; Hematocrit (blood only) 39.7 % (37-47); Hemoglobin 13.2 g/dL (12.0-16.0); Immature Granulocytes # (auto) 0.04 K/uL (0.00-0.02); Immature Granulocytes % (auto) 0.5 %; Lymphocytes % (auto) 14.7 %; Mean Corpuscular Hemoglobin 30.8 pg (25-34); Mean Corpuscular Hgb Conc 33.2 g/dL (32-36); Mean Corpuscular Volume 92.5 fL (80-100); Mean Platelet Volume 9.9 fL (7.4-10.4); Monocytes % (auto) 9.4 %; Neutrophils % (auto) 73.7 %; Platelet Count 212 K/uL (130-400); RDW Coefficient of Variation 13.7 % (11.5-14.5); RDW Standard Deviation 46.4 fL (36.4-46.3); Red Blood Count 4.29 M/uL (4.2-5.4); White Blood Count 7.47 K/uL (4.8-10.8)
[2021-01-20 14:25] LABS: INR 1.1 (0.9-1.1); Prothrombin Time 11.1 Seconds (9.0-12.0)
--- NOTE | 2021-01-20 14:27 | XRay Report ---
SINGLE VIEW CHEST CLINICAL HISTORY: Dyspnea. FINDINGS: 2 AP, portable, upright chest radiographs are compared to study dated 10/15/2018 and correla lv with chest CT dated 01/12/2021. The heart is enlarged noting atherosclerotic calcification of the thoracic aorta. The pulmonary vasculature is noncongested. Emphysema and chronic interstitial thicken ing is similar to previous. There is bibasilar scarring/atelectasis. No airspace consolidation or lar ge pleural effusion is identified. No pneumothorax is seen. The skeletal structures are osteopenic. T he bony thorax is grossly intact. IMPRESSION: Cardiomegaly and emphysema with no active disease in the chest. ACT 112: Negative or not required by law. Electronically signed by: Kwasi Rosenbaum M.D. 01/20/2021 2:26 PM
[2021-01-20 14:30] LABS: Alanine Aminotransferase 24 U/L (12-78); Albumin Level 3.3 gm/dl (3.4-5.0); Aspartate Aminotransferase 17 U/L (15-37); BUN Creatinine Ratio 11.7 (10-20); Blood Urea Nitrogen 11 mg/dl (7-18); Calcium 8.4 mg/dl (8.5-10.1); Carbon Dioxide 31 mmol/L (21-32); Chloride 100 mmol/L (98-107); Est GFR (African American) 67.6 ml/min; Est GFR (Non-African American) 58.3 ml/min; Glucose 123 mg/dl (70-99); Sodium 135 mmol/L (136-145)
[2021-01-20 14:37] LABS: Albumin Globulin Ratio 0.8 (0.9-2); Alkaline Phosphatase 104 U/L (45-117); Bilirubin,Total 0.4 mg/dl (0.2-1); NT Pro B Type Natriuretic Pept 298 pg/ml (0-900); Total Protein 7.3 gm/dl (6.4-8.2); Troponin I < 0.015 ng/ml (0-0.045)
[2021-01-20] MEDS ORDERED: hydrALAZINE HCL 20 MG/ML VIAL IV STA (16:24)
[2021-01-20] MEDS ORDERED: PHARMACY GLYCEMIC MGMT CONSULT STA (17:53)
--- NOTE | 2021-01-20 17:55 | History & Physical Report ---
Date of Service January 20, 2021 Assessment & Plan (1) COPD exacerbation: Plan: Continue solu-medrol 40mg TID Duonebs Q4R + Q2H PRN Suspect will need 48 hours of IV steroids then switch to prednisone but will re- evaluate tomorrow Continue her usual maintenance inhalers Given improvement out of her house I suspect exacerbations caused by her dogs or dust mites etc... Consider allergy testing as outpatient. Encourage dogs not to sleep in same bed. Better air purifiers. (2) TYESHA (obstructive sleep apnea): Plan: May use her own CPAP (3) Hypothyroidism: Plan: TSH WNL in November Continue levothyroxine (4) Type 2 diabetes mellitus: Plan: HbA1C 7.1 in November Continue her usual Trulicity - due dose today and her daughter will bring this in Novolog sliding scale to cover additional hyperglycemia secondary to steroid use (5) (HFpEF) heart failure with preserved ejection fraction: Plan: No acute exacerbation. Continue on her regular Bumex 2mg PO daily, since she missed her dose this morning will give 2mg in ER. Continue spironolactone 25mg PO daily (6) GERD (gastroesophageal reflux disease): Plan: On no routine medication for this. Monitor for now. (7) Chronic respiratory failure with hypoxia: Plan: Baseline 3LPM O2. Only slightly worse than this at rest but much worse on exertion than her basline. (8) Paroxysmal atrial fibrillation: Plan: Continue amiodarone 200mg PO daily Anticoagulation with rivaroxaban. Plan: VTE prophylaxis - Xarelto Disposition - observation on med/surg Admission and Anticipated Discharge Date Admission Date: January 20, 2021 History of Present Illness Chief Complaint: Shortness of breath Primary Care Provider: Kiel Garcia MD Sun Taylor is a 70 year old female who presents to the ER with shortness of breath and cough. She has a significant history of COPD and this feels similar to prior exacerbations. She has not yet taken any steroids prior to arriving in the ER. This exacerbation started yesterday around 5pm with chest tightness. She took a nebulizer treatment but by 11pm felt she was getting worse again and took another breathing treatment. By this morning she was much more short of breath and struggling to cough. No sinus pain, post nasal drip, palpitations, productive cough. She usually takes 3LPM O2 and uses CPAP at night but this morning went to the bathroom without wearing her oxygen as it was still hooked up to her CPAP and her O2 sats dipped down into the 60s. She reports compliance with her maintenance inhalers. She is followed by pulmonology. Only new medication is her Flonase which she started on Friday for post nasal drip and wonders whether this dried her up too much. She has not had allergy testing but has noticed her breathing is much better out of her house. She has two dogs (one new in the last month) who sleep on her bed at night. She is yet to take bumex today. In the ER CXR did not show any pneumonia, procalcitonin negative. She had significant wheezing on exam and was diagnosed with COPD exacerbation treated with duoneb and methylprednisone 125mg IV with significant improvement. However on any ambulation she significantly desaturated to the 70s therefore was referred to medicine for admission. Allergies Allergy/AdvReac Type Severity Reaction Status Date / Time codeine Allergy nausea, Verified 01/20/21 14:52 vomiting hydrocodone AdvReac Severe GI SYMPTOMS Verified 01/20/21 14:52 tramadol AdvReac Severe GI SYMPTOMS Verified 01/20/21 14:52 metformin AdvReac Intermediate back pain Verified 01/20/21 14:52 adhesive AdvReac Unknown Verified 01/20/21 14:52 latex AdvReac Unknown Verified 01/20/21 14:52 nickel AdvReac Hives Verified 01/20/21 14:52 Home Medications Medication Instructions Recorded Confirmed Type cholecalciferol (vitamin D3) 25 4,000 units PO DAILY cap 01/16/19 01/20/21 History mcg (1,000 unit) capsule calcium carbonate 600 mg (1,500 2 tab PO DAILY 01/21/19 01/20/21 History mg)-vitamin D3 400 unit tablet (Calcium 600 + D(3)) nitroglycerin 0.4 mg sublingual 0.4 mg SUBLINGUAL DIRECTED 01/21/19 01/20/21 History tablet diclofenac sodium 1 % topical gel 1 % EXT QID PRN gm 02/08/19 01/20/21 History (Voltaren) lancets (OneTouch UltraSoft #100 ea 12/16/19 01/05/21 Rx Lancets) potassium chloride 10 mEq 20 meq PO DAILY tab 12/16/19 01/20/21 History tablet,extended release Saccharomyces boulardii 250 mg 250 mg PO DAILY cap 12/20/19 01/20/21 History capsule (Florastor) ipratropium bromide 0.02 % 2.5 ml INHALATION Q6H PRN #300 ml 09/01/20 01/20/21 Rx solution for inhalation bumetanide 2 mg tablet 2 - 4 mg PO DAILY #60 tab 10/30/20 01/20/21 Rx fluticasone furoate 200 1 inh INHALATION QAM #60 ea 10/30/20 01/20/21 Rx mcg-vilanterol 25 mcg/dose inhalation powder (Breo Ellipta) blood sugar diagnostic (OneTouch #100 ea 11/06/20 01/05/21 Rx Verio test strips) dulaglutide 0.75 mg/0.5 mL 0.75 mg SQ WEEKLY #2 ml 12/18/20 01/20/21 Rx subcutaneous pen injector (Trulicity) spironolactone 50 mg tablet 50 mg PO DAILY #90 tab 12/26/20 01/20/21 Rx acetaminophen 500 mg tablet 1,000 mg PO Q6H PRN 01/20/21 01/20/21 History (Tylenol Extra Strength) amiodarone 200 mg tablet 200 mg PO QAM 01/20/21 01/20/21 History levalbuterol HCl 1.25 mg/3 mL 1.25 mg INHALATION Q6H PRN 01/20/21 01/20/21 History solution for nebulization levalbuterol tartrate 45 2 puff INHALATION Q6H PRN 01/20/21 01/20/21 History mcg/actuation aerosol inhaler levothyroxine 137 mcg tablet 137 mcg PO QAM 01/20/21 01/20/21 History lorazepam 1 mg tablet 1 mg PO PM PRN 01/20/21 01/20/21 History rivaroxaban 20 mg tablet (Xarelto) 20 mg PO QDD 01/20/21 01/20/21 History umeclidinium 62.5 mcg/actuation 1 inh INHALATION QAM 01/20/21 01/20/21 History blister powder for inhalation (Incruse Ellipta) Past Med/Surg History Medical History (HFpEF) heart failure with preserved ejection fraction A-fib cardioverted x 4 Anticoagulant long-term use Arthritis BMI 45.0-49.9, adult Cervicalgia Chronic respiratory failure COPD (chronic obstructive pulmonary disease) Diarrhea DVT (deep venous thrombosis) R arm Dyspnea on exertion Edema Fatigue GERD without esophagitis Gout Hiatal hernia Hyperglycemia Hypothyroidism Low back pain TYESHA (obstructive sleep apnea) Polyneuropathy Pulmonary nodules Shortness of breath Type 2 diabetes mellitus Surgical History H/O colonoscopy H/O tubal ligation History of cholecystectomy Hx of laparoscopic gastric banding S/P breast biopsy 03/2020 Tubal ligation status Family History Mother Breast cancer, Onset Age: 67 Myocardial infarction Father Prostate cancer Denies family history of Ovarian cancer Colorectal cancer Uterine cancer Social History Smoking Status: Former smoker Tobacco Type: Cigarettes Age Started Using Tobacco: 15; Age Quit Using Tobacco: 58; packs per day: 0.5; Cigarettes Per Day: UP TO 15; Second Hand Exposure: No; Hx Alcohol Use: No Hx Substance Use: Yes Last Used Substance: Days (ago) Substance Use Type Other:: Ativan Preferred Language: Yakut Communication Ability: Effective Visual Impairment: No Limitations Hearing Ability: Normal Deputy Program Manager Required: No Beliefs That Will Affect Care: None marital status: / Current Living Situation: Family current occupational status: retired Other Information That Helps Us Care for You: No Feels Safe at Home: Yes Safety Concerns: Feels Safe At This Time Childhood Exposure to Second-Hand Smoke: Yes caffeine: Yes Dental Care, Regularly: Yes Assistive Devices: Glasses Review of Systems Review of Systems: All systems reviewed & are unremarkable except as noted in HPI & below Physical Exam Constitutional: well developed, + acute distress (respiratory) and + morbidly obese; + not well nourished Eyes: + anicteric sclerae; normal pupil size ENMT: external ear and nose normal, oropharynx normal Neck: trachea midline, no thyromegaly Respiratory: normal respiratory effort, + retractions, + uses accessory muscles, + cough, able to speak in complete sentences and + prolonged expiratory phase; not tachypneic Auscultation: + wheezes (expiratory throughout) Cardiovascular: Rate/Rhythm: regular rate and regular rhythm Heart Sounds: no murmur Extremities: normal capillary refill and + pedal edema (trace b/l pre-tibial); no calf tenderness Gastrointestinal (Abdomen): normal bowel sounds, soft, nontender, no hepa tosplenomegaly Musculoskeletal: no cyanosis or clubbing, extremities motor strength 5/5 Skin: no rashes, warm and dry Neurologic: moves all extremities and awake; not confused Psychiatric: A+Ox3, euthymic affect Results & Data Results & Data ([facility]) Vital Signs (Past 12 Hours) Vital Signs Temp Pulse Pulse Resp BP BP Pulse Ox 01/20/21 17:30 70 19 160/81 H 98 01/20/21 17:00 69 16 155/72 H 99 01/20/21 16:42 67 16 153/75 H 100 01/20/21 16:30 67 16 100 01/20/21 16:00 93 01/20/21 15:30 66 14 100 01/20/21 15:00 67 15 99 01/20/21 14:30 73 18 100 01/20/21 14:17 20 94 01/20/21 14:01 74 17 99 01/20/21 13:50 74 21 186/97 H 100 01/20/21 13:39 36.4 C L 74 24 157/79 H 96 Diagnostic Findings SINGLE VIEW CHEST IMPRESSION: Cardiomegaly and emphysema with no active disease in the chest. Medications Administered ER Medications Given: Methylprednisolone 125mg IV Hydralazine 10mg IV Duoneb 3ml ECG Rate (beats per minute): 73 Rhythm: atrial flutter (possible vs. junctional) and junctional Findings: no acute ischemic change Comparison ECG Date: from (Jul 28, 2016) Change: the following changes noted (loss of R wave voltage) Code Status & VTE Plan Code Status Full VTE Prophylaxis Plan VTE Prophylaxis will be ordered: Yes PG Care Time/CCT Total # of Minutes Spent Total Time Spent with Patient: Total time spent is greater than 50% in coordination of care (as documented) at patient's floor/unit and/or counseling patient: Coding Level of Care Code INT OBSERVATION CARE 50M LVL 2 Diagnoses COPD exacerbation J44.1 TYESHA (obstructive sleep apnea) G47.33 Hypothyroidism E03.9 Type 2 diabetes mellitus E11.9 Diabetes mellitus complication status: without complication Diabetes mellitus intermediate manager insulin use: without intermediate manager use (HFpEF) heart failure with preserved ejection fraction I50.30 GERD (gastroesophageal reflux disease) K21.9 Chronic respiratory failure with hypoxia J96.11 Paroxysmal atrial fibrillation I48.0 (1) Type 2 diabetes mellitus Diabetes mellitus complication status: without complication Diabetes mellitus intermediate manager insulin use: without senior living use Qualified Code(s): E11.9 - Type 2 diabetes mellitus without complications
[2021-01-20] MEDS ORDERED: BUMETANIDE 1 MG TAB PO STA (18:36)
[2021-01-20] MEDS ORDERED: DEXTROSE 50% 50 ML SYRINGE IV PRN (21:02)
[2021-01-20] MEDS ORDERED: CARBOHYDRATES FOR HYPOGLYCEMIA PO PRN (21:02)
[2021-01-20] MEDS ORDERED: GLUCOSE 10 TABS/TUBE PO PRN (21:02)
[2021-01-20] MEDS ORDERED: GLUCAGON FOR INJ 1 MG VIAL SQ PRN (21:02)
[2021-01-20] MEDS ORDERED: GLUCOSE 40% GEL 15 GM TUBE PO PRN (21:02)
[2021-01-20] MEDS ORDERED: TRULICITY SQ SCH (21:30)
[2021-01-20 21:48] LABS: Appearance Urine Clear (Clear); Bilirubin Urine Negative (Negative); Blood Urine Negative (Negative); Color Urine Yellow; Glucose Urine UA Negative (Negative); Ketones Urine Negative (Negative); Leukocyte Esterase Urine Negative (Negative); Nitrite Urine Negative (Negative); Protein Urine Negative (Negative); Specific Gravity Urine 1.004 (1.000-1.030); Urobilinogen Urine Negative (Negative)
[2021-01-20] MEDS: ALBUT/IPRATROP 3MG/0.5MG NEB 3 ML VIAL NEB SCH ×2 (21:51→22:21)
[2021-01-20] MEDS ORDERED: methylPREDNISolone 40 MG in SYRINGE 0 ML IV SCH (22:00)
[2021-01-20] MEDS: INSULIN ASPART 100 UNITS/ML 3 ML PEN SC SCH (22:20)
[2021-01-20] MEDS: LORazepam 1 MG TAB PO PRN (22:42)
[2021-01-21] MEDS: ALBUT/IPRATROP 3MG/0.5MG NEB 3 ML VIAL NEB SCH ×4 (03:02→15:21)
[2021-01-21] MEDS: ACETAMINOPHEN 325 MG TAB PO PRN ×2 (03:42→16:05)
[2021-01-21] MEDS: LEVOTHYROXINE SODIUM 137 MCG TABLET PO SCH (05:37)
[2021-01-21] MEDS: methylPREDNISolone 40 MG in SYRINGE 0 ML IV SCH ×2 (05:37→15:03)
[2021-01-21] MEDS ORDERED: methylPREDNISolone 40 MG in SYRINGE 0 ML IV SCH (06:00)
[2021-01-21] MEDS ORDERED: FLUTICASONE/VILANTEROL 200/25MCG 14 PUFFS/INHALER INH SCH (09:00)
[2021-01-21] MEDS: CALCIUM 600MG + VIT D 400 IU TAB PO SCH (09:08)
[2021-01-21] MEDS: BUMETANIDE 1 MG TAB PO SCH (09:08)
[2021-01-21] MEDS: AMIODARONE 200 MG TAB PO SCH (09:08)
[2021-01-21] MEDS: SPIRONOLACTONE 25 MG TAB PO SCH (09:09)
[2021-01-21] MEDS: SACCHAROMYCES BOULARDII 250 MG CAP PO SCH (09:09)
[2021-01-21] MEDS: CHOLECALCIFEROL 1,000 UNITS 25 MCG TAB PO SCH (09:09)
[2021-01-21] MEDS: UMECLIDINIUM BROMIDE 62.5MCG/BLISTER 7 PUFFS/INHALER INH SCH (09:09)
[2021-01-21] MEDS: POTASSIUM CHLORIDE CRTAB 20 MEQ TABCR PO SCH (09:09)
[2021-01-21] MEDS: INSULIN ASPART 100 UNITS/ML 3 ML PEN SC SCH ×4 (09:16→20:25)
--- NOTE | 2021-01-21 09:31 | Electrocardiogram Report ---
Test Reason : Blood Pressure : / mmHG Vent. 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
[2021-01-21] MEDS ORDERED: AZITHROMYCIN 250 MG TAB PO ONE (10:07)
--- NOTE | 2021-01-21 10:17 | Hospitalist Progress Note ---
Date of Service January 21, 2021 Assessment & Plan (1) COPD exacerbation: Plan: Since she is acutely worsening will transfer to PCU to telemetry monitoring Continue solu-medrol -> increase from 40 ->60mg TID Duonebs -> switch to levalbuterol given palpitations/fluttering feeling possibly making tachycardia worse Q6R + Q2H PRN Switch Breo Ellipta to Brovana/Pulmicort nebs If no improvement overnight or getting worse will consult her engine watchman Other etiologies considered but given improvement on nebulizers (although short lived) her presentation is still consistent with COPD exacerbation. Troponins serially have been negative. No concern for neurological muscle weakness. Consider allergy testing as outpatient. Encourage dogs not to sleep in same bed. Better air purifiers. (2) TYESHA (obstructive sleep apnea): Plan: May use her own CPAP HS and PRN (3) Hypothyroidism: Plan: TSH WNL in November Continue levothyroxine (4) Type 2 diabetes mellitus: Plan: HbA1C 7.1 in November Continue her usual Trulicity Will tighten her Novolog correction factor and add Lantus 10 units BID (5) (HFpEF) heart failure with preserved ejection fraction: Plan: Appears euvolemic Continue Bumex 2 mg p.o. daily Continue spironolactone 25mg PO daily (6) GERD (gastroesophageal reflux disease): Plan: On no routine medication for this. Monitor for now. (7) Chronic respiratory failure with hypoxia: Plan: Baseline 3LPM O2. Only slightly worse than this at rest but much worse on exertion than her baseline. (8) Paroxysmal atrial fibrillation: Plan: Continue amiodarone 200mg PO daily Anticoagulation with rivaroxaban. Plan: VTE prophylaxis - rivaroxaban Disposition - change to full admission Admission and Anticipated Discharge Date Admission Date: January 20, 2021 Subjective Patient feels worse today than yesterday after Solu-Medrol 125mg IV given in ER. Better during the nebulizer treatments but only takes around 5 minutes off the treatment. She struggles to take a deep breath in at this time and has had sign ificant improvement when placed on CPAP. She felt some "fluttering" of her heart rate this morning and wonders whether her heart is an abnormal rhythm. No worsening cough, fever or chills. Still at her baseline oxygen requirement of 3 L/min. Review of Systems Review of Systems: All systems reviewed & are unremarkable except as noted in HPI & below Physical Exam Constitutional: well developed, + acute distress (respiratory) and + morbidly obese; + not well nourished Eyes: + anicteric sclerae; normal pupil size ENMT: external ear and nose normal, oropharynx normal Neck: trachea midline, no thyromegaly Respiratory: normal respiratory effort, + retractions, + uses accessory muscles, + cough, able to speak in complete sentences and + prolonged expiratory phase; not tachypneic Auscultation: + wheezes (expiratory throughout) Cardiovascular: Rate/Rhythm: regular rate and regular rhythm Heart Sounds: no murmur Extremities: normal capillary refill and + pedal edema (trace b/l pre-tibial); no calf tenderness Gastrointestinal (Abdomen): normal bowel sounds, soft, nontender, no hepatosplenomegaly Musculoskeletal: no cyanosis or clubbing, extremities motor strength 5/5 Skin: no rashes, warm and dry Neurologic: moves all extremities and awake; not confused Psychiatric: A+Ox3, euthymic affect Results & Data Results & Data ([facility]) Vital Signs (Past 12 Hours) Vital Signs Temp Pulse Resp BP Pulse Ox 01/21/21 08:59 36.7 C 84 22 110/65 94 01/21/21 07:33 81 20 94 01/21/21 03:03 75 20 94 PG Care Time/CCT Total # of Minutes Spent Total Time Spent with Patient: Total time spent is greater than 50% in coor dination of care (as documented) at patient's floor/unit and/or counseling patient: Coding Level of Care Code 93503 Subseq Hosp Care Lvl 3 Diagnoses COPD exacerbation J44.1 TYESHA (obstructive sleep apnea) G47.33 Hypothyroidism E03.9 Type 2 diabetes mellitus E11.9 Diabetes mellitus complication status: without complication Diabetes mellitus director long term care insulin use: without director long term care use (HFpEF) heart failure with preserved ejection fraction I50.30 GERD (gastroesophageal reflux disease) K21.9 Chronic respiratory failure with hypoxia J96.11 Paroxysmal atrial fibrillation I48.0 (1) Type 2 diabetes mellitus Diabetes mellitus complication status: without complication Diabetes mellitus longterm insulin use: without longterm use Qualified Code(s): E11.9 - Type 2 diabetes mellitus without complications
--- NOTE | 2021-01-21 12:41 | XRay Report ---
XR chest 1V portable HISTORY: 70 years-old Female shortness of breath acute shortness of breath COMPARISON: Chest radiograph 01/20/2021, chest CT 01/12/2021 TECHNIQUE: Portable AP view of the chest FINDINGS: Cardiac silhouette is upper limits of normal in size. Mild emphysema with hyperinflation. There is no pneumothorax, pleural effusion, airspace consolidation or overt pulmonary edema. Unchanged blunting of the costophrenic angles. Degenerative changes of the shoulders and spine. IMPRESSION: Emphysema without acute process. ACT 112: Negative or not required by law. The above report was generated using voice recognition software. It may contain grammatical, syntax o r spelling errors. Electronically signed by: Beck Moran M.D. 01/21/2021 12:39 PM
[2021-01-21 12:44] LABS: Hematocrit (blood only) 41.7 % (37-47); Hemoglobin 14.2 g/dL (12.0-16.0); Immature Granulocytes # (auto) 0.04 K/uL (0.00-0.02); Immature Granulocytes % (auto) 0.5 %; Lymphocytes # (auto) 0.55 K/uL (1.2-3.4); Lymphocytes % (auto) 7.2 %; Mean Corpuscular Hemoglobin 30.9 pg (25-34); Mean Corpuscular Hgb Conc 34.1 g/dL (32-36); Mean Corpuscular Volume 90.8 fL (80-100); Mean Platelet Volume 9.9 fL (7.4-10.4); Monocytes # (auto) 0.47 K/uL (0.11-0.59); Monocytes % (auto) 6.1 %; Neutrophils # (auto) 6.61 K/uL (1.4-6.5); Neutrophils % (auto) 86.2 %; Platelet Count 237 K/uL (130-400); RDW Coefficient of Variation 13.4 % (11.5-14.5); RDW Standard Deviation 44.5 fL (36.4-46.3); Red Blood Count 4.59 M/uL (4.2-5.4); White Blood Count 7.67 K/uL (4.8-10.8)
[2021-01-21 13:13] LABS: BUN Creatinine Ratio 20.3 (10-20); Blood Urea Nitrogen 22 mg/dl (7-18); Calcium 9.4 mg/dl (8.5-10.1); Carbon Dioxide 27 mmol/L (21-32); Chloride 98 mmol/L (98-107); Creatinine Clr Calc Pharmacy 66.1 ml/min; Est GFR (African American) 58.7 ml/min; Est GFR (Non-African American) 50.7 ml/min; Glucose 231 mg/dl (70-99); Potassium 4.1 mmol/L (3.5-5.1); Sodium 133 mmol/L (136-145); Troponin I < 0.015 ng/ml (0-0.045)
[2021-01-21] MEDS: RIVAROXABAN 20 MG TAB PO SCH (18:12)
[2021-01-21] MEDS ORDERED: ARFORMOTEROL TART 15MCG/2ML VIAL INH SCH (19:00)
[2021-01-21] MEDS: FORMOTEROL 20 MCG/2 ML VIAL INH SCH (19:24)
[2021-01-21] MEDS: BUDESONIDE 0.5 MG/2 ML VIAL (PULMICORT) NEB SCH (19:24)
[2021-01-21] MEDS: LEVALBUTEROL HCL 1.25 MG/3 ML NEB NEB SCH (19:24)
[2021-01-21] MEDS: INSULIN GLARGINE SOLOSTAR 100 UNITS/ML 3 ML PEN SC SCH (20:24)
[2021-01-21] MEDS: methylPREDNISolone 60 MG in SYRINGE 0 ML IV SCH (20:26)
[2021-01-21] MEDS: LORazepam 1 MG TAB PO PRN (23:44)
[2021-01-22] MEDS: LEVALBUTEROL HCL 1.25 MG/3 ML NEB NEB SCH ×4 (00:02→20:22)
[2021-01-22] MEDS: ACETAMINOPHEN 325 MG TAB PO PRN ×2 (01:15→17:10)
[2021-01-22] MEDS: methylPREDNISolone 60 MG in SYRINGE 0 ML IV SCH ×3 (04:13→20:33)
[2021-01-22 06:08] LABS: Hematocrit (blood only) 41.4 % (37-47); Hemoglobin 13.8 g/dL (12.0-16.0); Immature Granulocytes # (auto) 0.07 K/uL (0.00-0.02); Immature Granulocytes % (auto) 0.6 %; Lymphocytes # (auto) 0.65 K/uL (1.2-3.4); Lymphocytes % (auto) 5.3 %; Mean Corpuscular Hemoglobin 30.9 pg (25-34); Mean Corpuscular Hgb Conc 33.3 g/dL (32-36); Mean Corpuscular Volume 92.8 fL (80-100); Mean Platelet Volume 9.9 fL (7.4-10.4); Monocytes # (auto) 0.57 K/uL (0.11-0.59); Monocytes % (auto) 4.6 %; Neutrophils # (auto) 11.07 K/uL (1.4-6.5); Neutrophils % (auto) 89.5 %; Platelet Count 257 K/uL (130-400); RDW Coefficient of Variation 13.4 % (11.5-14.5); RDW Standard Deviation 45.5 fL (36.4-46.3); Red Blood Count 4.46 M/uL (4.2-5.4); White Blood Count 12.36 K/uL (4.8-10.8)
[2021-01-22 06:35] LABS: BUN Creatinine Ratio 24.9 (10-20); Calcium 9.4 mg/dl (8.5-10.1); Creatinine Clr Calc Pharmacy 66.7 ml/min; Est GFR (African American) 59.4 ml/min; Est GFR (Non-African American) 51.2 ml/min; Potassium 4.3 mmol/L (3.5-5.1)
[2021-01-22] MEDS: LEVOTHYROXINE SODIUM 137 MCG TABLET PO SCH (06:41)
[2021-01-22] MEDS: FORMOTEROL 20 MCG/2 ML VIAL INH SCH ×2 (06:57→20:21)
[2021-01-22] MEDS: BUDESONIDE 0.5 MG/2 ML VIAL (PULMICORT) NEB SCH ×2 (06:57→20:21)
--- NOTE | 2021-01-22 07:45 | Hospitalist Progress Note ---
Date of Service January 22, 2021 Assessment & Plan (1) COPD exacerbation: Plan: Continue on PCU, given lack of improvement with standard care and continued poor air entry will consult pulmonology Continue increased dose of Solu-Medro 60mg TID Continue levalbuterol/ipratropium Continue Brovana/Pulmicort nebs (switched from Breo Ellipta yesterday) Other etiologies considered but given improvement on nebulizers (although short lived) her presentation is still consistent with COPD exacerbation. Troponins serially have been negative. No concern for neurological muscle weakness. Consider allergy testing as outpatient. Encourage dogs not to sleep in same bed. Better air purifiers. (2) TYESHA (obstructive sleep apnea): Plan: May use her own CPAP HS and PRN (3) Hypothyroidism: Plan: TSH WNL in November Continue levothyroxine (4) Type 2 diabetes mellitus: Plan: HbA1C 7.1 in November Continue her usual Trulicity Continue on Lantus 10 units BID, add carb coverage to Novolog (5) (HFpEF) heart failure with preserved ejection fraction: Plan: Appears euvolemic Continue Bumex 2 mg p.o. daily Continue spironolactone 25mg PO daily (6) GERD (gastroesophageal reflux disease): Plan: On no routine medication for this. Monitor for now. (7) Chronic respiratory failure with hypoxia: Plan: Baseline 3LPM O2. Only slightly worse than this at rest but much worse on exertion than her baseline. (8) Paroxysmal atrial fibrillation: Plan: Continue amiodarone 200mg PO daily Anticoagulation with rivaroxaban. Plan: VTE prophylaxis - rivaroxaban Disposition - continue on PCU pending improvement in respiratory status Admission and Anticipated Discharge Date Admission Date: January 21, 2021 Subjective Mild improvement with changing to Xopenex and increasing steroid dose yesterday. Still not moving a lot of air. Not significantly hypoxic but she feels very short of breath. No further palpitations. Continued chest tightness especially after using Telemetry - no abnormal rhythms. Remains in NSR. Review of Systems Review of Systems: All systems reviewed & are unremarkable except as noted in HPI & below Physical Exam Constitutional: well developed, + acute distress (respiratory) and + morbidly obese; + not well nourished Eyes: + anicteric sclerae; normal pupil size ENMT: external ear and nose normal, oropharynx normal Neck: trachea midline, no thyromegaly Respiratory: normal respiratory effort, + retractions, + uses accessory muscles and able to speak in complete sentences; no cough, not tachypneic and expiratory phase not prolonged Auscultation: + diminished lung sounds (throughout, little air entry to bases) and + wheezes (mild expiratory); no crackles Cardiovascular: Rate/Rhythm: regular rate and regular rhythm Heart Sounds: no murmur Extremities: normal capillary refill and + pedal edema (trace b/l pre-tibial); no calf tenderness Gastrointestinal (Abdomen): normal bowel sounds, soft, nontender, no hepatosplenomegaly Musculoskeletal: no cyanosis or clubbing, extremities motor strength 5/5 Skin: no rashes, warm and dry Neurologic: moves all extremities and awake; not confused Psychiatric: A+Ox3, euthymic affect Results & Data Results & Data ([facility]) Vital Signs (Past 12 Hours) Vital Signs Temp Pulse Resp BP Pulse Ox 01/22/21 07:00 73 22 90 01/22/21 04:10 36.9 C 68 18 168/74 H 91 01/21/21 23:48 36.7 C 80 20 165/104 H 94 01/21/21 20:00 36.7 C 76 24 164/79 H 94 PG Care Time/CCT Total # of Minutes Spent Total Time Spent with Patient: Total time spent is greater than 50% in coordination of care (as documented) at patient's floor/unit and/or counseling patient: Coding Level of Care Code 38069 Subseq Hosp Care Lvl 3 Diagnoses COPD exacerbation J44.1 TYESHA (obstructive sleep apnea) G47.33 Hypothyroidism E03.9 Type 2 diabetes mellitus E11.9 Diabetes mellitus snf insulin use: without snf use Diabetes mellitus complication status: without complication (HFpEF) heart failure with preserved ejection fraction I50.30 GERD (gastroesophageal reflux disease) K21.9 Chronic respiratory failure with hypoxia J96.11 Paroxysmal atrial fibrillation I48.0 (1) Type 2 diabetes mellitus Diabetes mellitus snf insulin use: without snf use Diabetes mellitus complication status: without complication Qualified Code(s): E11.9 - Type 2 diabetes mellitus without complications
--- NOTE | 2021-01-22 09:13 | Pulmonary Consultation ---
Date of Consultation January 22, 2021 Assessment & Plan (1) COPD exacerbation: (2) TYESHA (obstructive sleep apnea): (3) COPD (chronic obstructive pulmonary disease): COPD type: unspecified COPD Qualified Code(s): J44.9 - Chronic obstructive pulmonary disease, unspecified (4) Chronic respiratory failure: Respiratory failure complication: hypercapnia Qualified Code(s): J96.12 - Chronic respiratory failure with hypercapnia Chest x-ray 01/21/2021 personally reviewed: Portable film, hyperinflated, bilateral costophrenic and cardiophrenic angles are clean, no clear lung infiltrate appreciated. PA please 05/28/2018: FVC 83% predicted, FEV1 44% predicted, FEV1/FVC 42%, RV/TLC 124%, DLCO 51% --Acute on chronic hypoxic respiratory failure Secondary to COPD exacerbation with a component of chronic bronchitis Patient is on LABA/LAMA/ICS at home Would continue with the same regimen Continue with IV steroids Consideration of adding azithromycin 250 mg Wnoumd-Ijxuvevfj-Cisbyb could be thought of For chronic bronchitis continue with jlqqy-acz-dtoxw guaifenesin with DM --TYESHA Continue with CPAP --COPD with emphysema Gold class C/D Plan: Add Mucomyst nebulized Guaifenesin-DM every 6 hours [id number] Continue with Solu-Medrol, will titrate down to every 12 hours tomorrow Consideration of adding azithromycin 250 mg Friday could be thought of prior to discharge Please note the above document was generated using voice recognition software. It may contain grammatical, syntax or spelling errors.Any formal questions or concerns about the content, text or information contained within the body of this dictation should be directly addressed to the provider for clarification. History of Present Illness Attending Physician: Leonard Arndt MD History of Present Illness 70-year-old female past medical history of COPD on 3 L oxygen at home, TYESHA on CPAP, morbid obesity resented the hospital with complaints of shortness of breath going on since last week. Pulmonary were consulted for her underlying COPD exacerbation She follows up with Dr. Lowe as an outpatient, he saw the patient last on 01/02/2021 As per the patient shortness of breath is associated with chest tightness. No chest pain Complaining of cough but not bringing up any phlegm. No fever or chills. She does have air conditioning at home and uses it No dysuria, no diarrhea. No recent travel history Patient has never been intubated for COPD Patient had 2 exacerbation so far this year Social history: [id number] smoking history, quit in 2012, has 2 dogs at home. Allergies Allergy/AdvReac Type Severity Reaction Status Date / Time codeine Allergy nausea, Verified 01/20/21 14:52 vomiting hydrocodone AdvReac Severe GI SYMPTOMS Verified 01/20/21 14:52 tramadol AdvReac Severe GI SYMPTOMS Verified 01/20/21 14:52 metformin AdvReac Intermediate back pain Verified 01/20/21 14:52 adhesive AdvReac Unknown Verified 01/20/21 14:52 latex AdvReac Unknown Verified 01/20/21 14:52 nickel AdvReac Hives Verified 01/20/21 14:52 Home Medications Medication Instructions Recorded Confirmed Type cholecalciferol (vitamin D3) 25 4,000 units PO DAILY cap 01/16/19 01/20/21 History mcg (1,000 unit) capsule calcium carbonate 600 mg (1,500 2 tab PO DAILY 01/21/19 01/20/21 History mg)-vitamin D3 400 unit tablet (Calcium 600 + D(3)) nitroglycerin 0.4 mg sublingual 0.4 mg SUBLINGUAL DIRECTED 01/21/19 01/20/21 History tablet diclofenac sodium 1 % topical gel 1 % EXT QID PRN gm 02/08/19 01/20/21 History (Voltaren) lancets (OneTouch UltraSoft #100 ea 12/16/19 01/05/21 Rx Lancets) potassium chloride 10 mEq 20 meq PO DAILY tab 12/16/19 01/20/21 History tablet,extended release Saccharomyces boulardii 250 mg 250 mg PO DAILY cap 12/20/19 01/20/21 History capsule (Florastor) ipratropium bromide 0.02 % 2.5 ml INHALATION Q6H PRN #300 ml 09/01/20 01/20/21 Rx solution for inhalation bumetanide 2 mg tablet 2 - 4 mg PO DAILY #60 tab 10/30/20 01/20/21 Rx fluticasone furoate 200 1 inh INHALATION QAM #60 ea 10/30/20 01/20/21 Rx mcg-vilanterol 25 mcg/dose inhalation powder (Breo Ellipta) blood sugar diagnostic (OneTouch #100 ea 11/06/20 01/05/21 Rx Verio test strips) dulaglutide 0.75 mg/0.5 mL 0.75 mg SQ WEEKLY #2 ml 12/18/20 01/20/21 Rx subcutaneous pen injector (Trulicity) spironolactone 50 mg tablet 50 mg PO DAILY #90 tab 12/26/20 01/20/21 Rx acetaminophen 500 mg tablet 1,000 mg PO Q6H PRN 01/20/21 01/20/21 History (Tylenol Extra Strength) amiodarone 200 mg tablet 200 mg PO QAM 01/20/21 01/20/21 History levalbuterol HCl 1.25 mg/3 mL 1.25 mg INHALATION Q6H PRN 01/20/21 01/20/21 History solution for nebulization levalbuterol tartrate 45 2 puff INHALATION Q6H PRN 01/20/21 01/20/21 History mcg/actuation aerosol inhaler levothyroxine 137 mcg tablet 137 mcg PO QAM 01/20/21 01/20/21 History lorazepam 1 mg tablet 1 mg PO PM PRN 01/20/21 01/20/21 History rivaroxaban 20 mg tablet (Xarelto) 20 mg PO QDD 01/20/21 01/20/21 History umeclidinium 62.5 mcg/actuation 1 inh INHALATION QAM 01/20/21 01/20/21 History blister powder for inhalation (Incruse Ellipta) Patient History Medical History (HFpEF) heart failure with preserved ejection fraction A-fib cardioverted x 4 Anticoagulant long-term use Arthritis BMI 45.0-49.9, adult Cervicalgia Chronic respiratory failure COPD (chronic obstructive pulmonary disease) Diarrhea DVT (deep venous thrombosis) R arm Dyspnea on exertion Edema Fatigue GERD without esophagitis Gout Hiatal hernia Hyperglycemia Hypothyroidism Low back pain TYESHA (obstructive sleep apnea) Polyneuropathy Pulmonary nodules Shortness of breath Type 2 diabetes mellitus Surgical History H/O colonoscopy H/O tubal ligation History of cholecystectomy Hx of laparoscopic gastric banding S/P breast biopsy 03/2020 Tubal ligation status Family History Mother Breast cancer, Onset Age: 67 Myocardial infarction Father Prostate cancer Denies family history of Ovarian cancer Colorectal cancer Uterine cancer Social History Smoking Status: Former smoker Tobacco Type: Cigarettes Age Started Using Tobacco: 15; Age Quit Using Tobacco: 58; packs per day: 0.5; Cigarettes Per Day: UP TO 15; Second Hand Exposure: No; Hx Alcohol Use: No Hx Substance Use: Yes Last Used Substance: Days (ago) Substance Use Type Other:: Ativan Preferred Language: Wolof Communication Ability: Effective Visual Impairment: No Limitations Hearing Ability: Normal Sign Wirer Required: No Beliefs That Will Affect Care: None marital status: / Current Living Situation: Family current occupational status: retired Other Information That Helps Us Care for You: No Feels Safe at Home: Yes Safety Concerns: Feels Safe At This Time Childhood Exposure to Second-Hand Smoke: Yes caffeine: Yes Dental Care, Regularly: Yes Assistive Devices: Oxygen - Continuous Review of Systems Review of Systems: All systems reviewed & are unremarkable except as noted in HPI & below Physical Exam Physical Exam: Constitutional: No acute distress HEENT: EOMI, PERRLA, thick neck Respiratory system: Decreased air entry bilaterally, no rhonchi, minimal expir atory wheeze bilaterally, no crackles bilateral lower lobes CVS: S1-S2 positive, positive 2 out of 6 systolic murmur appreciated best at the aorta Abdomen: Soft, nontender, nondistended, positive bowel sounds x4, obese Extremities: +2 pulses bilaterally radialis/ dorsalis pedis, no cyanosis, +2 pitting edema bilateral lower extremity Neuro: Awake alert oriented x3 Psych: Normal mood and affect G/U: No Rodriguez Skin: no rashes, warm and dry Lymphatic: no cervical or axillary lymphadenopathy Results & Data Results & Data ([facility]) Vital Signs (Past 12 Hours) Vital Signs Temp Pulse Resp BP Pulse Ox 01/22/21 07:00 73 22 90 01/22/21 04:10 36.9 C 68 18 168/74 H 91 01/21/21 23:48 36.7 C 80 20 165/104 H 94 01/22/21 05:30 01/22/21 05:30 PG Care Time/CCT Total # of Minutes Spent Total Time Spent with Patient: Total time spent is greater than 50% in coordinat ion of care (as documented) at patient's floor/unit and/or counseling patient: Coding Level of Care Code 15149 Initial Inpt Care Lvl 3 Diagnoses COPD exacerbation J44.1 TYESHA (obstructive sleep apnea) G47.33 COPD (chronic obstructive pulmonary disease) J44.9 COPD type: unspecified COPD Chronic respiratory failure J96.12 Respiratory failure complication: hypercapnia
[2021-01-22] MEDS: CHOLECALCIFEROL 1,000 UNITS 25 MCG TAB PO SCH (11:23)
[2021-01-22] MEDS: POTASSIUM CHLORIDE CRTAB 20 MEQ TABCR PO SCH (11:24)
[2021-01-22] MEDS: SPIRONOLACTONE 25 MG TAB PO SCH (11:24)
[2021-01-22] MEDS: AMIODARONE 200 MG TAB PO SCH (11:24)
[2021-01-22] MEDS: CALCIUM 600MG + VIT D 400 IU TAB PO SCH (11:24)
[2021-01-22] MEDS: guaiFENesin/DEXTROM SYRUP 100MG/10MG 5ML UDC PO SCH ×3 (11:25→20:44)
[2021-01-22] MEDS: SACCHAROMYCES BOULARDII 250 MG CAP PO SCH (11:25)
[2021-01-22] MEDS: BUMETANIDE 1 MG TAB PO SCH (11:25)
[2021-01-22] MEDS: AZITHROMYCIN 250 MG TAB PO SCH (11:25)
[2021-01-22] MEDS: UMECLIDINIUM BROMIDE 62.5MCG/BLISTER 7 PUFFS/INHALER INH SCH (11:26)
[2021-01-22] MEDS: INSULIN GLARGINE SOLOSTAR 100 UNITS/ML 3 ML PEN SC SCH (12:49)
[2021-01-22] MEDS: INSULIN ASPART 100 UNITS/ML 3 ML PEN SC SCH ×4 (12:56→20:45)
[2021-01-22] MEDS: ACETYLCYSTEINE 20% INHAL SOLN 4ML ***DISPENSED BY RESP. INH SCH ×2 (13:14→20:21)
[2021-01-22] MEDS: RIVAROXABAN 20 MG TAB PO SCH (16:50)
[2021-01-22] MEDS ORDERED: INSULIN GLARGINE SOLOSTAR 100 UNITS/ML 3 ML PEN SC SCH ×2 (21:00)
[2021-01-23] MEDS: LEVALBUTEROL HCL 1.25 MG/3 ML NEB NEB SCH ×4 (00:39→19:55)
[2021-01-23] MEDS: LORazepam 1 MG TAB PO PRN (00:41)
[2021-01-23] MEDS: guaiFENesin/DEXTROM SYRUP 100MG/10MG 5ML UDC PO SCH ×4 (03:32→20:47)
[2021-01-23] MEDS: methylPREDNISolone 60 MG in SYRINGE 0 ML IV SCH (03:32)
[2021-01-23] MEDS: LEVOTHYROXINE SODIUM 137 MCG TABLET PO SCH (05:14)
[2021-01-23] MEDS: ACETYLCYSTEINE 20% INHAL SOLN 4ML ***DISPENSED BY RESP. INH SCH ×2 (07:03→19:57)
[2021-01-23] MEDS: FORMOTEROL 20 MCG/2 ML VIAL INH SCH ×2 (07:03→19:56)
[2021-01-23] MEDS: BUDESONIDE 0.5 MG/2 ML VIAL (PULMICORT) NEB SCH ×2 (07:03→19:56)
[2021-01-23] MEDS ORDERED: PHARMACY GLYCEMIC MGMT CONSULT PRN (07:59)
[2021-01-23] MEDS: INSULIN ASPART 100 UNITS/ML 3 ML PEN SC SCH ×4 (08:58→20:48)
[2021-01-23] MEDS ORDERED: INSULIN GLARGINE SOLOSTAR 100 UNITS/ML 3 ML PEN SC ONE (09:00)
[2021-01-23] MEDS: AMIODARONE 200 MG TAB PO SCH (09:01)
[2021-01-23] MEDS: AZITHROMYCIN 250 MG TAB PO SCH (09:01)
[2021-01-23] MEDS: CHOLECALCIFEROL 1,000 UNITS 25 MCG TAB PO SCH (09:01)
[2021-01-23] MEDS: BUMETANIDE 1 MG TAB PO SCH (09:02)
[2021-01-23] MEDS: SPIRONOLACTONE 25 MG TAB PO SCH (09:02)
[2021-01-23] MEDS: CALCIUM 600MG + VIT D 400 IU TAB PO SCH (09:02)
[2021-01-23] MEDS: SACCHAROMYCES BOULARDII 250 MG CAP PO SCH (09:02)
[2021-01-23] MEDS: UMECLIDINIUM BROMIDE 62.5MCG/BLISTER 7 PUFFS/INHALER INH SCH (09:03)
--- NOTE | 2021-01-23 10:02 | Pharmacy Report ---
Pharmacy Glycemic Short Note 2 - Date of Service January 23, 2021 - Glycemic Short BSG Results (Last 24 hours): 01/22/21 01/22/21 01/22/21 11:09 16:16 20:10 POC Glucose 233 H 210 H 238 H 01/23/21 07:13 POC Glucose 212 H OUTPATIENT ANTIDIABETIC REGIMEN: * Trulicity 0.75mg SQ weekly * A1c= pending for 01/24/21 ASSESSMENT: * 70yo T2DM female with unknown degree of outpatient control - A1c pending for tomorrow with AM labs * Pt with sustained hyperglycemia secondary to RTC high dose steroids with Solu- medrol 60mg IV Q 8hrs * Will increase SQ basal bolus insulin regimen to high stress/weight (weight & stress of 3 per [facility] calculator) based dosing and titrate based on BSG trends. PLAN FOR INPATIENT GLYCEMIC CONTROL: * OK to continue Trulicity weekly per ADA recommendations. * Basal insulin * Pt received 20 units last night - will give additional 10 units to make up full dose this AM; Lantus 40units SQ x 1 dose this AM then 30 units SQ BID * This will need titrated downwards with each step down in steroid dosing * Bolus insulin * NovoLog per scale ACHS or Q6hrs while NPO * Goal Range: Low 110 mg/dL - High 140 mg/dL * Correction Factor: 15 mg/dL/unit * Nutritional / Prandial insulin per carb ratio of 1 unit per 4 grams CHO consumed PLAN FOR DISCHARGE: * Pending based on A1c
[2021-01-23] MEDS: POTASSIUM CHLORIDE CRTAB 20 MEQ TABCR PO SCH (10:57)
--- NOTE | 2021-01-23 11:21 | Pulmonology Progress Note ---
Date of Service January 23, 2021 Assessment & Plan (1) COPD exacerbation: (2) TYESHA (obstructive sleep apnea): (3) COPD (chronic obstructive pulmonary disease): COPD type: unspecified COPD Qualified Code(s): J44.9 - Chronic obstructive pulmonary disease, unspecified (4) Chronic respiratory failure: Respiratory failure complication: hypercapnia Qualified Code(s): J96.12 - Chronic respiratory failure with hypercapnia Plan: Chest x-ray 01/21/2021 personally reviewed: Portable film, hyperinflated, bilateral costophrenic and cardiophrenic angles are clean, no clear lung infiltrate appreciated. PA please 05/28/2018: FVC 83% predicted, FEV1 44% predicted, FEV1/FVC 42%, RV/TLC 124%, DLCO 51% --Acute on chronic hypoxic respiratory failure Secondary to COPD exacerbation with a component of chronic bronchitis Patient is on LABA/LAMA/ICS at home Would continue with the same regimen COVID-19 PCR negative Procalcitonin negative Continue with IV steroids Consideration of adding azithromycin 250 mg Fwxusc-Kqahtryct-Udyvca could be thought of For chronic bronchitis continue with jwlvt-tiw-btkjt guaifenesin with DM --TYESHA Continue with CPAP --COPD with emphysema Gold class C/D Plan: Continue Guaifenesin-DM every 6 hours oegubv-nuc-jnixb along with Mucomyst nebulized Go down on Solu-Medrol to 40 mg every 12 hours. Possible transition to p.o. prednisone tomorrow Patient's lower extremity edema seems to be getting worse She is on bumetanide 2 mg daily. Can think about giving an extra dose. Will defer to primary team Please note the above document was generated using voice recognition software. It may contain grammatical, syntax or spelling errors.Any formal questions or concerns about the content, text or information contained within the body of this dictation should be directly addressed to the provider for clarification. Admission and Anticipated Discharge Date Admission Date: January 21, 2021 Subjective Patient seen and examined at bedside. No acute distress, no adverse events overnight. Patient says she is feeling better compared to yesterday. She is in having less difficulty in bringing up the phlegm. Denies any chest pain Fair appetite. No nausea. Review of Systems Review of Systems: All systems reviewed & are unremarkable except as noted in Subjective Physical Exam Physical Exam: Constitutional: No acute distress HEENT: EOMI, PERRLA, thick neck Respiratory system: Decreased air entry bilaterally, no rhonchi, positive scraper hand ckles bilateral lower lobes, minimal expiratory wheeze bilaterally CVS: S1-S2 positive, positive 2 out of 6 systolic murmur appreciated best at the aorta Abdomen: Soft, nontender, nondistended, positive bowel sounds x4, obese Extremities: +2 pulses bilaterally radialis/ dorsalis pedis, no cyanosis, +3 pitting edema bilateral lower extremity Neuro: Awake alert oriented x3 Psych: Normal mood and affect G/U: No Rodriguez Skin: no rashes, warm and dry Lymphatic: no cervical or axillary lymphadenopathy Results & Data Results & Data ([facility]) Vital Signs (Past 12 Hours) Vital Signs Temp Pulse Resp BP Pulse Ox 01/23/21 07:07 36.4 C L 61 20 152/92 H 94 01/23/21 07:03 61 20 94 01/23/21 03:02 36.4 C L 64 20 155/83 H 94 01/22/21 05:30 01/22/21 05:30 PG Care Time/CCT Total # of Minutes Spent Total Time Spent with Patient: Total time spent is greater than 50% in coordination of care (as documented) at patient's floor/unit and/or counseling patient: Coding Level of Care Code 07392 Subseq Hosp Care Lvl 3 Diagnoses COPD exacerbation J44.1 TYESHA (obstructive sleep apnea) G47.33 COPD (chronic obstructive pulmonary disease) J44.9 COPD type: unspecified COPD Chronic respiratory failure J96.12 Respiratory failure complication: hypercapnia
--- NOTE | 2021-01-23 13:29 | Hospitalist Progress Note ---
Date of Service January 23, 2021 Assessment & Plan (1) COPD exacerbation: Plan: Continue on PCU, appreciate pulm consult Continue Solu-medrol decreased to 40mg IV BID Continue levalbuterol/ipratropium Continue Brovana/Pulmicort nebs (switched from Breo Ellipta) Other etiologies considered but given improvement on nebulizers (although short lived) her presentation is still consistent with COPD exacerbation. Troponins serially have been negative. No concern for neurological muscle weakness. Consider allergy testing as outpatient. Encourage dogs not to sleep in same bed. Better air purifiers. (2) TYESHA (obstructive sleep apnea): Plan: May use her own CPAP HS and PRN (3) Hypothyroidism: Plan: TSH WNL in November Continue levothyroxine (4) Type 2 diabetes mellitus: Plan: HbA1C 7.1 in November Continue her usual [facility] Consult pharmacy for glycemic control given persistent glucose > 200 (5) (HFpEF) heart failure with preserved ejection fraction: Plan: Appears euvolemic Continue Bumex 2 mg p.o. daily Continue spironolactone 25mg PO daily (6) GERD (gastroesophageal reflux disease): Plan: On no routine medication for this. Monitor for now. (7) Chronic respiratory failure with hypoxia: Plan: Baseline 3LPM O2. Only slightly worse than this at rest but much worse on exertion than her baseline. (8) Paroxysmal atrial fibrillation: Plan: Continue amiodarone 200mg PO daily Anticoagulation with rivaroxaban. Plan: VTE prophylaxis - rivaroxaban Disposition - continue on PCU pending improvement in respiratory status Admission and Anticipated Discharge Date Admission Date: January 21, 2021 Subjective Feeling mildly improved today. Still significantly short of breath on minimal exertion. Main hard time she is having is directly following nebulizer treatments Occasional dry cough. No fever or chills. Weight stable/decreasing. Leg edema improved today after she is keeping her legs up more. Review of Systems Review of Systems: All systems reviewed & are unremarkable except as noted in HPI & below Physical Exam Constitutional: well developed, + acute distress (respiratory) and + morbidly obese; + not well nourished Eyes: + anicteric sclerae; normal pupil size ENMT: external ear and nose normal, oropharynx normal Neck: trachea midline, no thyromegaly Respiratory: normal respiratory effort, + retractions, + uses accessory muscles and able to speak in complete sentences; no cough, not tachypneic and expiratory phase not prolonged Auscultation: + diminished lung sounds (improved, little air entry to bases) and + wheezes (increased expiratory today); no crackles Cardiovascular: Rate/Rhythm: regular rate and regular rhythm Heart Sounds: no murmur Extremities: normal capillary refill and + pedal edema (1+b/l pre- tibial); no calf tenderness Gastrointestinal (Abdomen): normal bowel sounds, soft, nontender, no hepatosplenomegaly Musculoskeletal: no cyanosis or clubbing, extremities motor strength 5/5 Skin: no rashes, warm and dry Neurologic: moves all extremities and awake; not confused Psychiatric: A+Ox3, euthymic affect Results & Data Results & Data ([facility]) Vital Signs (Past 12 Hours) Vital Signs Temp Pulse Resp BP Pulse Ox 01/23/21 12:44 78 20 94 01/23/21 12:02 36.6 C 73 22 132/82 96 01/23/21 07:07 36.4 C L 61 20 152/92 H 94 01/23/21 07:03 61 20 94 01/23/21 03:02 36.4 C L 64 20 155/83 H 94 PG Care Time/CCT Total # of Minutes Spent Total Time Spent with Patient: Total time spent is greater than 50% in coordination of care (as documented) at patient's floor/unit and/or counseling patient: Coding Level of Care Code 23113 Subseq Hosp Care Lvl 2 Diagnoses COPD exacerbation J44.1 TYESHA (obstructive sleep apnea) G47.33 Hypothyroidism E03.9 Type 2 diabetes mellitus E11.9 Diabetes mellitus complication status: without complication Diabetes mellitus alf insulin use: without alf use (HFpEF) heart failure with preserved ejection fraction I50.30 GERD (gastroesophageal reflux disease) K21.9 Chronic respiratory failure with hypoxia J96.11 Paroxysmal atrial fibrillation I48.0 (1) Type 2 diabetes mellitus Diabetes mellitus complication status: without complication 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
[2021-01-23] MEDS: RIVAROXABAN 20 MG TAB PO SCH (17:39)
[2021-01-23] MEDS ORDERED: SENNOSIDES 8.8 MG/5 ML UDC PO PRN (19:43)
[2021-01-23] MEDS: methylPREDNISolone 40 MG in SYRINGE 0 ML IV SCH (20:48)
[2021-01-23] MEDS ORDERED: INSULIN GLARGINE SOLOSTAR 100 UNITS/ML 3 ML PEN SC SCH ×2 (21:00)
[2021-01-24] MEDS: LEVALBUTEROL HCL 1.25 MG/3 ML NEB NEB SCH ×5 (00:08→23:51)
[2021-01-24] MEDS: ACETAMINOPHEN 325 MG TAB PO PRN ×3 (00:25→23:33)
[2021-01-24] MEDS: LORazepam 1 MG TAB PO PRN ×2 (00:25→23:33)
[2021-01-24] MEDS: guaiFENesin/DEXTROM SYRUP 100MG/10MG 5ML UDC PO SCH ×4 (03:25→22:09)
[2021-01-24] MEDS: LEVOTHYROXINE SODIUM 137 MCG TABLET PO SCH (05:54)
[2021-01-24] MEDS: BUDESONIDE 0.5 MG/2 ML VIAL (PULMICORT) NEB SCH (07:08)
[2021-01-24] MEDS: ACETYLCYSTEINE 20% INHAL SOLN 4ML ***DISPENSED BY RESP. INH SCH (07:34)
[2021-01-24] MEDS: FORMOTEROL 20 MCG/2 ML VIAL INH SCH (07:34)
[2021-01-24 08:22] LABS: Basophils # (auto) 0.01 K/uL (0-0.2); Basophils % (auto) 0.1 %; Hematocrit (blood only) 43.4 % (37-47); Hemoglobin 14.5 g/dL (12.0-16.0); Immature Granulocytes # (auto) 0.07 K/uL (0.00-0.02); Immature Granulocytes % (auto) 0.4 %; Mean Corpuscular Hemoglobin 31.1 pg (25-34); Mean Corpuscular Hgb Conc 33.4 g/dL (32-36); Mean Corpuscular Volume 93.1 fL (80-100); Mean Platelet Volume 10.1 fL (7.4-10.4); Monocytes # (auto) 1.46 K/uL (0.11-0.59); Monocytes % (auto) 8.2 %; Neutrophils # (auto) 15.44 K/uL (1.4-6.5); Neutrophils % (auto) 86.3 %; Platelet Count 270 K/uL (130-400); RDW Coefficient of Variation 13.3 % (11.5-14.5); RDW Standard Deviation 45.5 fL (36.4-46.3); Red Blood Count 4.66 M/uL (4.2-5.4); White Blood Count 17.88 K/uL (4.8-10.8)
[2021-01-24] MEDS: BUMETANIDE 1 MG TAB PO SCH (08:22)
[2021-01-24] MEDS: CHOLECALCIFEROL 1,000 UNITS 25 MCG TAB PO SCH (08:22)
[2021-01-24] MEDS: methylPREDNISolone 40 MG in SYRINGE 0 ML IV SCH (08:22)
[2021-01-24] MEDS: SACCHAROMYCES BOULARDII 250 MG CAP PO SCH (08:22)
[2021-01-24] MEDS: SPIRONOLACTONE 25 MG TAB PO SCH (08:22)
[2021-01-24] MEDS: AZITHROMYCIN 250 MG TAB PO SCH (08:22)
[2021-01-24] MEDS: CALCIUM 600MG + VIT D 400 IU TAB PO SCH (08:23)
[2021-01-24] MEDS: AMIODARONE 200 MG TAB PO SCH (08:23)
[2021-01-24] MEDS: INSULIN ASPART 100 UNITS/ML 3 ML PEN SC SCH ×4 (08:23→22:12)
[2021-01-24] MEDS: UMECLIDINIUM BROMIDE 62.5MCG/BLISTER 7 PUFFS/INHALER INH SCH (08:25)
[2021-01-24] MEDS: POTASSIUM CHLORIDE CRTAB 20 MEQ TABCR PO SCH (08:32)
[2021-01-24 08:46] LABS: Estimated Average Glucose 134 mg/dl; Hemoglobin A1C 6.3 % (4.5-5.6)
[2021-01-24 09:11] LABS: BUN Creatinine Ratio 29.5 (10-20); Est GFR (African American) 61.4 ml/min; Potassium 4.1 mmol/L (3.5-5.1)
[2021-01-24] MEDS ORDERED: INSULIN GLARGINE SOLOSTAR 100 UNITS/ML 3 ML PEN SC ONE (09:15)
[2021-01-24] MEDS: FLUTICASONE/VILANTEROL 200/25MCG 14 PUFFS/INHALER INH SCH (10:44)
--- NOTE | 2021-01-24 11:25 | Hospitalist Progress Note ---
Date of Service January 24, 2021 Assessment & Plan (1) COPD exacerbation: Plan: Continue on PCU, appreciate pulm consult Switch to prednisone 40mg PO daily, taper per pulmonology Continue levalbuterol/ipratropium Switch back to Breo Ellipta since she feels better on this. Other etiologies considered but given improvement on nebulizers (although short lived) her presentation is still consistent with COPD exacerbation. Troponins serially have been negative. No concern for neurological muscle weakness. Consider allergy testing as outpatient. Encourage dogs not to sleep in same bed. Better air purifiers. (2) TYESHA (obstructive sleep apnea): Plan: May use her own CPAP HS and PRN (3) Hypothyroidism: Plan: TSH WNL in November Continue levothyroxine (4) Type 2 diabetes mellitus: Plan: HbA1C 7.1 in November Continue her usual Trulicity Appreciate pharmacy for glycemic control. (5) (HFpEF) heart failure with preserved ejection fraction: Plan: Appears euvolemic Continue Bumex 2 mg p.o. daily Continue spironolactone 25mg PO daily (6) GERD (gastroesophageal reflux disease): Plan: On no routine medication for this. Monitor for now. (7) Chronic respiratory failure with hypoxia: Plan: Baseline 3LPM O2. Only slightly worse than this at rest but much worse on exer tion than her baseline. (8) Paroxysmal atrial fibrillation: Plan: Continue amiodarone 200mg PO daily Anticoagulation with rivaroxaban. Plan: VTE prophylaxis - rivaroxaban Disposition - transfer to med/surg, no abnormal rhythms on telemetry Admission and Anticipated Discharge Date Admission Date: January 21, 2021 Subjective Slowly improving shortness of breath. No chest pain. Cough much stronger. At baseline O2. Review of Systems Review of Systems: All systems reviewed & are unremarkable except as noted in HPI & below Physical Exam Constitutional: WD/WN, vitals as above Eyes: + anicteric sclerae; normal pupil size ENMT: external ear and nose normal, oropharynx normal Respiratory: normal respiratory effort, lungs clear to auscultation Cardiovascular: RRR, no murmur, no edema Gastrointestinal (Abdomen): normal bowel sounds, soft, nontender, no hepatosplenomegaly Musculoskeletal: no cyanosis or clubbing, extremities motor strength 5/5 Skin: no rashes, warm and dry Neurologic: moves all extremities and awake; not confused Psychiatric: A+Ox3, euthymic affect Results & Data Results & Data ([facility]) Vital Signs (Past 12 Hours) Vital Signs Temp Pulse Resp BP Pulse Ox 01/24/21 10:26 36.4 C L 71 21 174/66 H 92 01/24/21 07:09 67 19 95 01/24/21 07:05 36.5 C 65 18 171/68 H 93 01/24/21 03:04 36.8 C 62 17 157/76 H 92 01/23/21 23:32 36.7 C 65 20 149/70 H 98 PG Care Time/CCT Total # of Minutes Spent Total Time Spent with Patient: Total time spent is greater than 50% in coordination of care (as documented) at patient's floor/unit and/or counseling patient: Coding Level of Care Code 05068 Subseq Hosp Care Lvl 2 Diagnoses COPD exacerbation J44.1 TYESHA (obstructive sleep apnea) G47.33 Hypothyroidism E03.9 Type 2 diabetes mellitus E11.9 Diabetes mellitus complication status: without complication Diabetes mellitus manager terminal insulin use: without manager terminal use (HFpEF) heart failure with preserved ejection fraction I50.30 GERD (gastroesophageal reflux disease) K21.9 Chronic respiratory failure with hypoxia J96.11 Paroxysmal atrial fibrillation I48.0 (1) Type 2 diabetes mellitus Diabetes mellitus complication status: without complication Diabetes mellitus manager terminal insulin use: without manager terminal use Qualified Code(s): E11.9 - Type 2 diabetes mellitus without complications
--- NOTE | 2021-01-24 14:14 | Pulmonology Progress Note ---
Date of Service January 24, 2021 Assessment & Plan (1) COPD exacerbation: (2) TYESHA (obstructive sleep apnea): (3) COPD (chronic obstructive pulmonary disease): COPD type: unspecified COPD Qualified Code(s): J44.9 - Chronic obstructive pulmonary disease, unspecified (4) Chronic respiratory failure: Respiratory failure complication: hypercapnia Qualified Code(s): J96.12 - Chronic respiratory failure with hypercapnia Plan: Chest x-ray 01/21/2021 personally reviewed: Portable film, hyperinflated, bilateral costophrenic and cardiophrenic angles are clean, no clear lung infiltrate appreciated. PA please 05/28/2018: FVC 83% predicted, FEV1 44% predicted, FEV1/FVC 42%, RV/TLC 124%, DLCO 51% --Acute on chronic hypoxic respiratory failure Secondary to COPD exacerbation with a component of chronic bronchitis Patient is on LABA/LAMA/ICS at home Would continue with the same regimen COVID-19 PCR negative Procalcitonin negative Consideration of adding azithromycin 250 mg Bwcgsc-Vfdsadigr-Jsqzyo could be thought of For chronic bronchitis continue with kdwmr-iuz-exrsj guaifenesin with DM --TYESHA Continue with CPAP --COPD with emphysema Gold class C/D Plan: Continue Guaifenesin-DM every 6 hours [id number] along with Mucomyst nebulized Transition to p.o. prednisone as of tomorrow. Recommend 40 mg for 3 days followed by 20 mg for 3 days and then stop. Add azithromycin 250 mg Aptqod-Hdavzwhtr-Gpbuuf on discharge No further recommendation from pulmonary perspective. Call directly with questions. Please note the above document was generated using voice recognition software. It may contain grammatical, syntax or spelling errors.Any formal questions or concerns about the content, text or information contained within the body of this dictation should be directly addressed to the provider for clarification. Admission and Anticipated Discharge Date Admission Date: January 21, 2021 Subjective Patient seen and examined at bedside. No acute distress, no adverse events overnight. Patient states that she is feeling better. Denies any chest pain, shortness of breath is improved. She is bringing up clear phlegm. Denies any hemoptysis. Has been urinating well. Review of Systems Review of Systems: All systems reviewed & are unremarkable except as noted in Subjective Physical Exam Physical Exam: Constitutional: No acute distress HEENT: EOMI, PERRLA, thick neck Respiratory system: Decreased air entry bilaterally, no rhonchi, positive crac kles bilateral lower lobes, minimal expiratory wheeze bilaterally CVS: S1-S2 positive, positive 2 out of 6 systolic murmur appreciated best at the aorta Abdomen: Soft, nontender, nondistended, positive bowel sounds x4, obese Extremities: +2 pulses bilaterally radialis/ dorsalis pedis, no cyanosis, +3 pitting edema bilateral lower extremity Neuro: Awake alert oriented x3 Psych: Normal mood and affect G/U: No Rodriguez Skin: no rashes, warm and dry Lymphatic: no cervical or axillary lymphadenopathy Results & Data Results & Data ([facility]) Vital Signs (Past 12 Hours) Vital Signs Temp Pulse Resp BP Pulse Ox 01/24/21 13:15 70 18 97 01/24/21 10:26 36.4 C L 71 21 174/66 H 92 01/24/21 07:09 67 19 95 01/24/21 07:05 36.5 C 65 18 171/68 H 93 01/24/21 03:04 36.8 C 62 17 157/76 H 92 01/24/21 07:41 01/24/21 07:41 PG Care Time/CCT Total # of Minutes Spent Total Time Spent with Patient: Total time spent is greater than 50% in coordination of care (as documented) at patient's floor/unit and/or counseling patient: Coding Level of Care Code 01748 Subseq Hosp Care Lvl 2 Diagnoses COPD exacerbation J44.1 TYESHA (obstructive sleep apnea) G47.33 COPD (chronic obstructive pulmonary disease) J44.9 COPD type: unspecified COPD Chronic respiratory failure J96.12 Respiratory failure complication: hypercapnia
--- NOTE | 2021-01-24 14:29 | Pharmacy Report ---
Pharmacy Glycemic Short Note 2 - Date of Service January 24, 2021 - Glycemic Short BSG Results (Last 24 hours): 01/23/21 01/23/21 01/24/21 16:23 20:01 07:32 Glucose POC Glucose 130 H 123 H 196 H 01/24/21 01/24/21 07:41 11:15 Glucose 191 H POC Glucose 203 H OUTPATIENT ANTIDIABETIC REGIMEN: * Trulicity 0.75mg SQ weekly * HbA1c = 6.3% (01/24/21) ASSESSMENT: 01/24: * Isaura received a total of 93 units of insulin yesterday * 40 units basal + 53 units bolus * BSGs were: [phone] mg/dL * Fasting BSG improved to 196 mg/dL today * Will increase basal by 15% today * Steroids have been tapered down to Prednisone 40 mg PO daily starting tomorrow 01/23: * 70yo T2DM female with unknown degree of outpatient control - A1c pending for tomorrow with AM labs * Pt with sustained hyperglycemia secondary to RTC high dose steroids with Solu- medrol 60mg IV Q 8hrs * Will increase SQ basal bolus insulin regimen to high stress/weight (weight & stress of 3 per [facility] calculator) based dosing and titrate based on BSG trends. PLAN FOR INPATIENT GLYCEMIC CONTROL: * OK to continue Trulicity weekly per ADA recommendations. * Basal insulin * Lantus 45 units SC x 1 this AM * Bolus insulin * NovoLog per scale ACHS or Q6hrs while NPO * Goal Range: Low 110 mg/dL - High 140 mg/dL * Correction Factor: 15 mg/dL/unit * Nutritional / Prandial insulin per carb ratio of 1 unit per 4 grams CHO consumed PLAN FOR DISCHARGE: * To be determined
[2021-01-24] MEDS: RIVAROXABAN 20 MG TAB PO SCH (17:38)
[2021-01-25] MEDS: guaiFENesin/DEXTROM SYRUP 100MG/10MG 5ML UDC PO SCH ×2 (03:38→10:33)
[2021-01-25] MEDS: LEVOTHYROXINE SODIUM 137 MCG TABLET PO SCH (05:53)
[2021-01-25] MEDS: LEVALBUTEROL HCL 1.25 MG/3 ML NEB NEB SCH ×3 (06:56→13:13)
[2021-01-25] MEDS: UMECLIDINIUM BROMIDE 62.5MCG/BLISTER 7 PUFFS/INHALER INH SCH (08:35)
[2021-01-25] MEDS: CALCIUM 600MG + VIT D 400 IU TAB PO SCH (08:36)
[2021-01-25] MEDS: AMIODARONE 200 MG TAB PO SCH (08:36)
[2021-01-25] MEDS: SPIRONOLACTONE 25 MG TAB PO SCH (08:36)
[2021-01-25] MEDS: POTASSIUM CHLORIDE CRTAB 20 MEQ TABCR PO SCH (08:36)
[2021-01-25] MEDS: FLUTICASONE/VILANTEROL 200/25MCG 14 PUFFS/INHALER INH SCH (08:36)
[2021-01-25] MEDS: SACCHAROMYCES BOULARDII 250 MG CAP PO SCH (08:36)
[2021-01-25] MEDS: CHOLECALCIFEROL 1,000 UNITS 25 MCG TAB PO SCH (08:36)
[2021-01-25] MEDS: AZITHROMYCIN 250 MG TAB PO SCH (08:36)
[2021-01-25] MEDS: BUMETANIDE 1 MG TAB PO SCH (08:36)
[2021-01-25] MEDS: INSULIN ASPART 100 UNITS/ML 3 ML PEN SC SCH (08:49)
[2021-01-25] MEDS ORDERED: predniSONE 20 MG TAB PO SCH (09:00)
[2021-01-25] MEDS ORDERED: INSULIN GLARGINE SOLOSTAR 100 UNITS/ML 3 ML PEN SC SCH (09:00)
--- NOTE | 2021-01-25 12:04 | Discharge Summary ---
Date of Service January 25, 2021 Admission HPI Per Admitting Provider Sun Taylor is a 70 year old female who presents to the ER with shortness of breath and cough. She has a significant history of COPD and this feels similar to prior exacerbations. She has not yet taken any steroids prior to arriving in the ER. This exacerbation started yesterday around 5pm with chest tightness. She took a nebulizer treatment but by 11pm felt she was getting worse again and took another breathing treatment. By this morning she was much more short of breath and struggling to cough. No sinus pain, post nasal drip, palpitations, productive cough. She usually takes 3LPM O2 and uses CPAP at night but this morning went to the bathroom without wearing her oxygen as it was still hooked up to her CPAP and her O2 sats dipped down into the 60s. She reports compliance with her maintenance inhalers. She is followed by pulmonology. Only new medication is her Flonase which she started on Friday for post nasal drip and wonders whether this dried her up too much. She has not had allergy testing but has noticed her breathing is much better out of her house. She has two dogs (one new in the last month) who sleep on her bed at night. She is yet to take bumex today. In the ER CXR did not show any pneumonia, procalcitonin negative. She had significant wheezing on exam and was diagnosed with COPD exacerbation treated with duoneb and methylprednisone 125mg IV with significant improvement. However on any ambulation she significantly desaturated to the 70s therefore was referred to medicine for admission. Principal Diagnosis COPD exacerbation Discharge Exam Constitutional well developed and + morbidly obese; + not well nourished and no acute distress Eyes + anicteric sclerae; normal pupil size ENMT external ear and nose normal, oropharynx normal Neck trachea midline, no thyromegaly Respiratory normal respiratory effort and able to speak in complete sentences; no retractions, does not use accessory muscles, no cough, not tachypneic and expiratory phase not prolonged Auscultation: + diminished lung sounds (improved, little air entry to bases) and + wheezes (mild expiratory); no crackles Cardiovascular Rate/Rhythm: regular rate and regular rhythm Heart Sounds: no murmur Extremities: normal capillary refill and + pedal edema (1+b/l pre-tibial); no c gadiel tenderness Gastrointestinal (Abdomen) normal bowel sounds, soft, nontender, no hepatosplenomegaly Musculoskeletal no cyanosis or clubbing, extremities motor strength 5/5 Skin no rashes, warm and dry Neurologic moves all extremities and awake; not confused Psychiatric A+Ox3, euthymic affect Discharge Data Allergies Allergy/AdvReac Type Severity Reaction Status Date / Time codeine Allergy nausea, Verified 01/20/21 14:52 vomiting hydrocodone AdvReac Severe GI SYMPTOMS Verified 01/20/21 14:52 tramadol AdvReac Severe GI SYMPTOMS Verified 01/20/21 14:52 metformin AdvReac Intermediate back pain Verified 01/20/21 14:52 adhesive AdvReac Unknown Verified 01/20/21 14:52 latex AdvReac Unknown Verified 01/20/21 14:52 nickel AdvReac Hives Verified 01/20/21 14:52 Consultations 01/20/21 16:24 ED Decision to Admit Stat 01/22/21 07:31 Consult Pulmonology Routine Hospital Course (1) COPD exacerbation: (2) TYESHA (obstructive sleep apnea): (3) Hypothyroidism: (4) Type 2 diabetes mellitus: (5) (HFpEF) heart failure with preserved ejection fraction: (6) GERD (gastroesophageal reflux disease): (7) Chronic respiratory failure with hypoxia: (8) Paroxysmal atrial fibrillation: Lisa Taylor is a 70 year old female admitted to [facility] from January 20 - January 25, 2021 due to shortness of breath. She was diagnosed with COPD exacerbation requiring prolonged hospitalization with IV steroids and duonebs. She slowly improved with these interventions and has been transitioned to prednisone taper on discharge. Given prolonged hospilization pulmonology were consulted and aided in her care. Per pulmonology recommendations will start azithromycin 250mg PO three times a week to avoid future exacerbations. Guaifenesin-DM also prescribed every 6 hours as needed to help with her cough. Consider allergy testing as outpatient. Recommend she no longer sleeps with her dog in her bed as clearly her house is an exacerbating factor for her COPD. Total Time Total Time Spent Total Time Spent (In Minutes): 35 Discharge Plan Discharge Items Patient Disposition: Home - Self-Care Reason For Visit: COPD EXACCERBATION Discharge Diagnosis: COPD exacerbation Activity: Resume your previous activity Non-emergency contact: Primary Care Provider Call non-emergency contact if: you have any medication questions and your symptoms worsen Follow-up/Referrals: Kiel Garcia MD [Primary Care Provider] - 01/31/21 3:30 pm Diet: Carb Consistent or DM2, Heart Healthy and Low Sodium (2gm) Addtl Attending Provider Instructions: You were admitted to [facility] from January 20 - January 25, 2021 due to shortness of breath. You were diagnosed with COPD exacerbation requiring intravenous steroids and nebulizers. You slowly improved with these interventions and will be transitioned to oral prednisone on discharge. Please continue levalbuterol nebulizers regularly (every 6 hours) over the next two days then as needed. Per pulmonology recommendations will start azithromycin 250mg PO three times a week to avoid future exacerbations. Will also prescribed Guaifenesin-DM every 6 hours as needed to help with your cough. Pending Studies at Discharge: No Stand-Alone Forms: My [facility], Smoking Cessation Medications and DC Order Prescriptions: New prednisone 20 mg tablet See Rx Instructions .ROUTE .COMPLEX Qty: 9 RF: 0 azithromycin 250 mg tablet 250 mg PO .MWF Qty: 12 RF: 0 dextromethorphan-guaifenesin 10-200 mg/5 mL liquid 10 ml PO Q8H PRN (Reason: cough) Qty: 473 RF: 0 Continued (DME) lancets [OneTouch UltraSoft Lancets] Misc See Rx Instructions .ROUTE .MEDSUPPLY Qty: 100 RF: 3 ipratropium bromide 0.02 % solution 2.5 ml inhalation Q6H PRN (Reason: shortness of breath or wheezing) Qty: 300 RF: 3 bumetanide 2 mg tablet 2 - 4 mg PO DAILY Qty: 60 RF: 3 (DME) OneTouch Verio test strips Strip See Rx Instructions .ROUTE .MEDSUPPLY Qty: 100 RF: 3 Trulicity 0.75 mg/0.5 mL pen injector 0.75 mg SQ WEEKLY Qty: 2 RF: 5 spironolactone 50 mg tablet 50 mg PO DAILY Qty: 90 RF: 3 cholecalciferol (vitamin D3) 1,000 unit capsule 4,000 units PO DAILY RF: 0 diclofenac sodium [Voltaren] 1 % gel 1 % EXT QID PRN (Reason: Pain) RF: 0 potassium chloride 10 mEq tablet extended release 20 meq PO DAILY RF: 0 Florastor 250 mg capsule 250 mg PO DAILY RF: 0 calcium carbonate-vitamin D3 [Calcium 600 + D(3)] 600 mg(1,500mg) -400 unit tablet 2 tab PO DAILY RF: 0 nitroglycerin 0.4 mg tablet, sublingual 0.4 mg sublingual DIRECTED RF: 0 acetaminophen [Tylenol Extra Strength] 500 mg Tablet 1,000 mg PO Q6H PRN (Reason: Pain) RF: 0 levothyroxine 137 mcg tablet 137 mcg PO QAM RF: 0 amiodarone 200 mg tablet 200 mg PO QAM RF: 0 levalbuterol HCl 1.25 mg/3 mL solution for nebulization 1.25 mg inhalation Q6H PRN (Reason: shortness of breath or wheezing) RF: 0 lorazepam 1 mg tablet 1 mg PO PM PRN (Reason: anxiety) RF: 0 levalbuterol tartrate 45 mcg/actuation HFA aerosol inhaler 2 puff inhalation Q6H PRN (Reason: SOB/ Wheezing) RF: 0 Xarelto 20 mg tablet 20 mg PO QDD RF: 0 Incruse Ellipta 62.5 mcg/actuation blister with device 1 inh inhalation QAM RF: 0 No Action Breo Ellipta 200-25 mcg/dose blister with device 1 inh inhalation QAM Qty: 60 RF: 2 Discharge Orders: Discharge Order (Routine); Ordered 01/25/21 Ordered By: Leonard Desai/Other Patient Handouts: Asthma and COPD Admission Data Admit Date/Time: 01/21/21 18:56 Attending Provider: Leonard Arndt Admit Provider: Leonard Arndt Primary Care Provider: Kiel Garcia Other Providers: Jenni Peralta Other Interventions: Discharge Summary Assessment (RN) Last Done: 01/25/21 12:04 Coding Level of Care Code D/C DAY MANAGEMENT >30 MINS Diagnoses COPD exacerbation J44.1 TYESHA (obstructive sleep apnea) G47.33 Hypothyroidism E03.9 Type 2 diabetes mellitus E11.9 Diabetes mellitus complication status: without complication Diabetes mellitus termination clerk insulin use: without retirement use (HFpEF) heart failure with preserved ejection fraction I50.30 GERD (gastroesophageal reflux disease) K21.9 Chronic respiratory failure with hypoxia J96.11 Paroxysmal atrial fibrillation I48.0
--- NOTE | 2021-02-02 10:30 | Coding Query ---
CODING QUERY To promote full compliance with coding requirements relating to patient care, provider participation is requested in all cases of walnut dehydrator operator uncertainty. Please assist us with the question(s) below: Coding Question(s): Documentation states patient with Chronic Respiratory Failure with Hypoxia but Pulmonology documentation states Acute on Chronic Respiratory Failure with Hypoxia. Please clarify below: ( ) Acute on Chronic Respiratory Failure with Hypoxia (X) Chronic Respiratory Failure with Hypoxia ( ) Other Please Explain: Thank you Sea Cai Principal Diagnosis: "that condition established after study, to be chiefly responsible for occasioning the admission of the patient to the hospital for care." Co-Existing Principal Diagnosis: "when two or more diagnoses equally meet the criteria for principal diagnosis as determined by the circumstances of admission, diagnostic work up, and/or therapy provided, and the Alphabetic Index, Tabular List, or another coding guideline does not provide sequencing direction, any one of the diagnoses may be sequenced first." "When the physician has documented what appears to be a current diagnosis in the body of the record, but has not included the diagnosis in the final diagnostic statement, the physician should be asked whether the diagnosis should be added." (Source Coding [facility] 2 QTR90. p3-4) FLORENCIA
== END 2021-01-25 13:30 | disposition home or self-care (01) | DRG 191 ==
LOC: ED 13:35 → 3N 13:35 → 2S 01-21 12:11 → 3W 01-24 11:23
DX: Z91.048 Other nonmedicinal substance allergy status; E03.9 Hypothyroidism, unspecified; M19.90 Unspecified osteoarthritis, unspecified site; I48.0 Paroxysmal atrial fibrillation; Z91.040 Latex allergy status; Z91.09 Other allergy status, other than to drugs and biological substances; G47.33 Obstructive sleep apnea (adult) (pediatric); Z79.899 Other long term (current) drug therapy; I50.32 Chronic diastolic (congestive) heart failure; Z87.891 Personal history of nicotine dependence; Z79.890 Hormone replacement therapy; J96.11 Chronic respiratory failure with hypoxia; Z86.718 Personal history of other venous thrombosis and embolism; J44.1 Chronic obstructive pulmonary disease with (acute) exacerbation; Z88.5 Allergy status to narcotic agent; Z88.8 Allergy status to other drugs, medicaments and biological substances; E11.42 Type 2 diabetes mellitus with diabetic polyneuropathy; K21.9 Gastro-esophageal reflux disease without esophagitis; Z82.49 Family history of ischemic heart disease and other diseases of the circulatory system; Z99.81 Dependence on supplemental oxygen; Z88.6 Allergy status to analgesic agent; Z79.01 Long term (current) use of anticoagulants

== ENCOUNTER 2022-11-25 06:53 | Inpatient (IN) ==
--- NOTE | 2022-11-11 10:14 | Anesthesiology Consultation ---
Date of Service November 11, 2022 Assessment & Plan (1) Encounter for pre-operative examination: Chart Review Chart Review: Acceptable Risk for Surgery and Patient NOT seen in Pre Admission Testing - Check [facility] AM DOS -COVID screening: Per PAT nursing assessment on 11/08/22. Pt's grandson with strep throat >2 weeks ago (grandson negative for Covid with home test). Pt's daughter with allergy symptoms (congestion, cough and rhinitis- negative for Covid). No known COVID-19 positive contacts or current COVID-19 related symptoms. Travel screen negative. Patient vaccinated for Covid. At surgeon discretion if preop Covid testing being done. Right lumpectomy with helder marker and SN Bx 10/21/22= Done under GA with Grade 1 view with Glidescope #3. ETT #7.5. Atraumatic x 1 Per anesthesia progress note 10/21/22= No issues with anesthesia. "Patient c/o left eye irritation in recovery. No obvious foreign body noted when I examined her. Her left eye was red and irritated and she stated it felt like she "had a scratch." Patient denied any double/blurry vision, described it more as a constant irritation. Most likely had a corneal abrasion either from physical trauma or drying. Either way, she was instructed on treatment plan that consists of TID erythromycin ointment for three days along with ketorolac 0.5% drops (1 drop in affected eye three times a day for two days). She was also instructed to go to ER for worsening s/s to include vision changes, double vision, increased swelling/redness. Her daughter was also made aware of the situation and all questions were answered." Per anesthesia communication note 10/23/22= "Called and spoke with patient this morning. She stated her left eye pain/irritation was greatly improved. Denied vision changes or blurry vision or increased swelling/redness. Instructed to use ketorolac drops today and then discontinue them. Also instructed to use erythromycin ointment today and tomorrow and then she can discontinue this ointment. All questions answered." Patient seen by PCP 10/18/2022 (prior to right lumpectomy 10/21/22)= seen for preop exam.Experienced a syncopal episode on 10/03/2022 during preop testing with anesthesia. Evaluated in ED. Discharged home. No recurrence in symptoms since then.Risk and benefits discussed with patient of operative procedure. Patient is an acceptable risk for pursuing surgical intervention.History of severe COPD/TYESHA. On inhalers, oxygen, azithromycin 3 days a weekfollows with pulmonology. Paroxysmal atrial fib and history of recurrent heart failure with preserved EFon medications. Follows with cardiocleared for upcoming procedure. Diabetes on Trulicity. GERDon Omeprazole. Chronic insomniaon Ativan Patient seen by cardiology 10/16/2022 (prior to right lumpectomy 10/21/22)= seen for cardiology follow-up and preoperative cardiovascular examination. Paroxysmal atrial flutter and fibrillationno symptoms suggestive of recurrence. Recent EKGs reviewedprobable sinus rhythm. On amiodarone. Corrected QT interval on recent EKG normal. No chest pain. Chronic respiratory failuresevere lung disease. Patient feels pulmonary status at baseline. Episode of brief syncope 09/30/22. Episode of postural lightheadedness 10/03/2022. BP taken thereafter was goodsuspect that she had drop in her BP immediately from supine to sitting. Normalization of her blood pressure by the time of this test. Could have diabetic autonomic dysfunction. Seems euvolemic on exam. Complain of cognitive dysfunction since starting statincannot exclude adverse effect from statin. BP today mildly elevated. Chronically abnormal EKGpoor R wave progressionecho showed normal LV wall motion and systolic function. The patient is an acceptable cardiac risk to undergo her planned right breast procedure and no dissection on 10/21/2022 Last dose of Xarelto will be in the evening on 10/18/22. Restart in the evening of 11-12 if okay from bleeding and surgical standpoint.We will trial holding statinreassess whether any effect on her cognitive function and balance. If not would consider amiodarone adverse effects as possible etiology for symptoms. Continue pulmonary regimen.In light of her recent history of positional lightheadedness and syncope would raise or from a supine position very slowly. Of note is that she does not have any complaints of postural lightheadedness at home. However she sleeps with her head elevated approximately 45 degrees. Follow-up in 3 months. Patient last seen by pulmonology 03/25/2022= COPDBreo Ellipta transition to nebulized budesonide and formoterol due to poor inspiratory capacity. Continue azithromycin 3 days weekly. Recent PFTs revealed results that are just above severe obstructive lung disease. Chronic diastolic heart failureon diuretic therapy. Likely has component of pulmonary hypertension. Chronic hypoxic respiratory failurecontinue supplemental oxygen. OSAcontinue CPAP. History of nicotine dependence. Continue low-dose CT lung cancer screenings annually. History Surgery Operation Date: 11/25/22 07:00 Proposed Procedures p Bilateral Mastectomy, Left [place] Lymph Node Biopsy (Inject Only in [place] @ 0800) - Tunde Hamilton MD, FACS Height/Weight Height: 5 ft 8 in Weight: 126.099 kg Allergies Allergy/AdvReac Type Severity Reaction Status Date / Time acetaminophen [From Percocet] Allergy Severe Vomiting Verified 11/08/22 14:48 oxycodone [From Percocet] Allergy Severe Vomiting Verified 11/08/22 14:48 codeine Allergy Unknown nausea, Verified 11/08/22 14:48 vomiting metformin AdvReac Intermediate back pain Verified 11/08/22 14:48 adhesive AdvReac Unknown skin Verified 11/08/22 14:48 tearing hydrocodone AdvReac Unknown GI SYMPTOMS Verified 11/08/22 14:48 latex AdvReac Unknown rash, skin Verified 11/08/22 14:48 irritation nickel AdvReac Unknown Hives Verified 11/08/22 14:48 tramadol AdvReac Unknown GI SYMPTOMS Verified 11/08/22 14:48 Medications Home Medications Medication Instructions Recorded Confirmed Last Taken calcium carbonate 600 mg-vitamin 2 tab PO QAM 01/21/19 11/08/22 10/20/22 11:00 D3 10 mcg (400 unit) tablet (Calcium 600 + D(3)) nitroglycerin 0.4 mg sublingual 0.4 mg sublingual DIRECTED 01/21/19 11/08/22 Unknown tablet diclofenac sodium 1 % topical gel 1 % EXT QID PRN Pain 02/08/19 11/08/22 Unknown (Voltaren) lancets (PsomasFMGTouch UltraSoft #100 ea 12/16/19 11/08/22 Unknown Lancets) Saccharomyces boulardii 250 mg 250 mg PO DAILY PRN Gi Upset 12/20/19 11/08/22 01/19/21 capsule (Florastor) blood sugar diagnostic (PsomasFMGTouch #100 ea 11/06/20 11/08/22 Unknown Verio test strips) acetaminophen 500 mg tablet 1,000 mg PO Q6H PRN Pain 01/20/21 11/08/22 10/19/22 (Tylenol Extra Strength) betamethasone valerate 0.1 % 1 applic topical BID PRN skin 07/16/21 11/08/22 Unknown topical cream irritation #45 grams omeprazole 40 mg capsule,delayed 40 mg PO UD PRN gerd 07/25/21 11/08/22 Unknown release ipratropium bromide 0.02 % 2.5 ml inhalation Q6H PRN 07/29/21 11/08/22 Unknown solution for inhalation shortness of breath or wheezing #62.5 mL cholecalciferol (vitamin D3) 25 2,000 unit PO QAM 08/09/21 11/08/22 10/20/22 11:00 mcg (1,000 unit) capsule levalbuterol HCl 1.25 mg/3 mL 1.25 mg (3 mL) inhalation Q6H PRN 10/23/21 11/08/22 Unknown solution for nebulization shortness of breath or wheezing #72 mL levalbuterol tartrate 45 2 puff inhalation Q6H PRN SOB/ 02/26/22 11/08/22 Unknown mcg/actuation aerosol inhaler Wheezing #15 grams formoterol fumarate 20 mcg/2 mL 2 ml inhalation BID #120 mL 03/25/22 11/08/22 Unknown solution for nebulization CPAP Supplies #1 ea 05/08/22 11/08/22 Unknown azithromycin 250 mg tablet 250 mg PO .MWF #36 tabs 06/18/22 11/08/22 10/20/22 levothyroxine 137 mcg tablet 137 mcg PO QAM #90 tabs 06/25/22 11/08/22 10/20/22 08:00 dulaglutide 0.75 mg/0.5 mL 0.75 mg (0.5 mL) subcut WEEKLY #2 08/06/22 11/08/22 10/19/22 subcutaneous pen injector mL ([facility]) amiodarone 100 mg tablet 100 mg PO QAM 10/01/22 11/08/22 10/20/22 11:00 budesonide 0.5 mg/2 mL suspension 0.5 mg inhalation BID PRN sob 10/01/22 11/08/22 Unknown for nebulization bumetanide 2 mg tablet 2 - 4 mg PO QAM edema 10/01/22 11/08/22 10/20/22 11:00 fluticasone furoate 100 1 inh inhalation QAM 10/01/22 11/08/22 10/20/22 11:00 mcg-vilanterol 25 mcg/dose inhalation powder (Breo Ellipta) potassium chloride 10 mEq 20 meq PO QAM 10/01/22 11/08/22 10/20/22 11:00 tablet,extended release spironolactone 50 mg tablet 50 mg PO QAM 10/01/22 11/08/22 Unknown umeclidinium 62.5 mcg/actuation 1 inh inhalation QAM 10/01/22 11/08/22 Unknown blister powder for inhalation (Incruse Ellipta) lorazepam 1 mg tablet 1 mg PO PM PRN anxiety #60 tabs 10/03/22 11/08/22 10/20/22 23:00 rivaroxaban 20 mg tablet (Xarelto) 20 mg PO QDD 10/18/22 11/08/22 Unknown hydromorphone 2 mg tablet 2 mg PO Q4H PRN pain, for initial 10/21/22 11/08/22 Unknown (Dilaudid) therapy, max 6tabs/day #15 tabs ondansetron 4 mg disintegrating 4 mg PO Q6H PRN nausea and 10/22/22 11/08/22 Unknown tablet vomiting #20 tabs Past Medical History Medical History A-fib follows with Dr. Crowley. on Xarelto. Alternating constipation and diarrhea Presumed IBS- no meds needed at this time Anticoagulant long-term use Breast cancer, right Recently dx'ed - August 2022- DCIS Cardiac murmur Cataracts, bilateral Cervicalgia CHF (congestive heart failure) Stable currently per patient Chronic back pain Chronic respiratory failure 3lpm continuous oxygen COPD (chronic obstructive pulmonary disease) Stable breathing - uses oxygen last flare jul or august 2022. Dyspnea on exertion Chronic and stable GERD without esophagitis Well controlled and stable Gout HX FLARE END OF SEPTEMBER 2022 - triggers unknown - no current issues Hiatal hernia History of anesthesia reaction hard to wake up/ vomiting with most recent procedure may 1 - severe constipation following surgery. History of DVT (deep vein thrombosis) approx 5 years ago. RUE. unk etiology. treated with AC. History of syncope presumed to be due to cholesterol med/has resolved since cholesterol med was d/c'd. HLD (hyperlipidemia) HTN (hypertension) Hypothyroidism Morbid obesity with BMI of 40.0-44.9, adult On home oxygen therapy 3 lpm continuous Orthopnea Sleeps propped up Osteoporosis Polyneuropathy To hands and feet Pulmonary nodules Under observation Sleep apnea CPAP + 3 lpm O2. Slow to wake up after anesthesia Type 2 diabetes mellitus Glucose stable Past Family History Family History Mother Heart disease Myocardial infarction Breast cancer, Onset Age: 67 Hypertension Father Prostate cancer Sister Slow to wake up after anesthesia Denies family history of Ovarian cancer Colorectal cancer Uterine cancer Past Surgical History Surgical History H/O colonoscopy History of cardioversion x 3 History of cholecystectomy History of endoscopy remote hx Hx of laparoscopic gastric banding [id number]? S/P breast biopsy x 3 S/P breast lumpectomy RIGHT OCT 21 2022. Tubal ligation status 1982 Social History Smoking Status: Former smoker tobacco type: cigarettes Do You Dip or Chew Tobacco: No Smoking End Date: 14-15 YR AGO Hx Alcohol Use: No alcohol intake frequency: holidays/special occasions only Hx Substance Use: No substance use type: does not use Substance Use Type Other:: Ativan Lab Results Anesthesia Preop Results Results Anesthesia Widget: WBC 10.69 K/ul (4.8-10.8) 10/03/22 Hgb 14.3 g/dl (12.0-16.0) 10/03/22 Hct 42.0 % (37.0-47.0) 10/03/22 Plt 214 K/uL (130-400) 10/03/22 Na 136 mmol/L (136-145) 10/03/22 K 3.6 mmol/L (3.5-5.1) 10/03/22 Cl 94 mmol/L (98-107) L 10/03/22 CO2 33 mmol/L (21-32) H 10/03/22 BUN 16 mg/dl (6-23) 10/03/22 Creat 1.01 mg/dl (0.6-1.2) 10/03/22 Glucose Level 158 mg/dl (70-99(Fasting)) H 10/03/22 POC Glucose 141 mg/dl (70-99) H 10/21/22 PT 12.1 Seconds (9.0-12.0) H 10/03/22 PTT 38.0 Seconds (21.0-31.0) H 10/03/22 INR 1.1 (0.9-1.1) 10/03/22 HA1c 6.5 % (4.5-5.6) H 10/03/22 Testing Electrocardiogram Date: 10/21/22 Junctional rhythm at 62bpm Left axis deviation Low voltage QRS Inferior infarct, age undetermined Cannot rule out anteroseptal infarct (cited on or before September 10, 2032) When compared to EKG from September- no significant garcia was found Chest X-Ray Date: 10/03/22 Findings: + NAD Echocardiogram Date: 08/18/20 EF: 65-70% LV Function: normal RWMA: + none Other Findings: + LVH (Mild/concentric) and + diastolic dysfunction (Grade II ) Valvular Disease: + no significant valvular disease No evidence of elevated right heart pressures. Compared to echo of 07/17/2015, there has been no significant interval change Other Testing Neck and Head CTA 10/03/22= There is no hemorrhage, mass effect, or evidence of acute territorial ischemia by CT criteria. Unremarkable CT angiogram of the brain. Unremarkable CT angiogram of the neck. CT lung 12/05/21= Mild emphysema. No concerning pulmonary lesion is identified. There is no airspace consolidation or pleural effusion.
[~2022-11-25 06:53] MED LIST changes: -ATV1 PO; -BMX1 PO; -CALCTAB7 PO; -CRD200 PO; -FLUT1INH INH; -IPRA-64 INH; -IPRA1AER2 INH; -LEVO150T9 PO; +LR 15ML/HR IV SCH; -METO50TA17 PO; -NTRSLP4 SL; -OXGN; -POTA20TA13 PO; -SPIR25TA6 PO; -VTMD1000 PO; -XRL20 PO; +ceFAZolin 2000MG 2,000 MG/15 ML SYR IV SCH
[2022-11-25] MEDS ORDERED: MIDAZOLAM HCL 1 MG/ML 2ML VIAL ONE (07:03)
[2022-11-25] MEDS ORDERED: LIDOCAINE 2% 2 ML VIAL/AMP(20MG/ML) INFIL ONE (07:03)
[2022-11-25] MEDS ORDERED: PROPOFOL IV EMULSION 10 MG/ML 20 ML VIAL IV ONE (07:03)
[2022-11-25] MEDS ORDERED: fentaNYL citrate PF 100 MCG/2 ML VIAL ONE ×2 (07:03)
[2022-11-25] MEDS ORDERED: GLYCOPYRROLATE 0.2 MG/ML VIAL ONE (07:03)
[2022-11-25] MEDS ORDERED: ONDANSETRON INJ 2 MG/ML 2 ML VIAL ONE ×2 (07:03→10:02)
[2022-11-25] MEDS ORDERED: DEXAMETHASONE SOD INJ 4 MG/ML VIAL ONE (07:03)
[2022-11-25] MEDS ORDERED: NEOSTIGMINE METHYLSULFATE 1 MG/ML 10ML VIAL ONE (07:03)
[2022-11-25] MEDS ORDERED: ROCURONIUM BROMIDE 10 MG/ML 5 ML VIAL IV ONE (07:04)
[2022-11-25] MEDS ORDERED: LARYING-O-JET KIT (LTA) ONE (07:04)
[2022-11-25] MEDS ORDERED: ATROPINE SULFATE 0.1 MG/ML 10ML SYR IV PRN (08:13)
[2022-11-25] MEDS ORDERED: ePHEDrine sulfate 50 MG/ML AMP IV PRN (08:13)
[2022-11-25] MEDS ORDERED: ONDANSETRON INJ 2 MG/ML 2 ML VIAL IV PRN (08:13)
--- NOTE | 2022-11-25 08:17 | History & Physical Bridge Note ---
Date of Service November 25, 2022 History & Physical Bridge Note I have examined the patient, reviewed the History & Physical and in the interval since the performance of the History & Physical I have noted the following changes of clinical significance: no changes noted
--- NOTE | 2022-11-25 09:10 | Nuclear Medicine Report ---
LYMPHOSCINTIGRAPHY CLINICAL HISTORY: Left breast cancer. PROCEDURE: Using standard sterile technique, 4 intradermal and one deep injection of 502.31 uCi of Ly mphoseek was placed in the left breast. The patient tolerated the procedure well. There were no immed iate complications. The patient was subsequently transported to the surgical suite. No imaging was ob tained at the referring physician's request. IMPRESSION: Injection of Lymphoseek in the left breast. ACT 112: Negative or not required by law. Electronically signed by: Beck Moran M.D. 11/25/2022 9:08 AM
[2022-11-25] MEDS ORDERED: BUPIVACAINE 0.5 % 5 MG/1 ML MPF 30ML VIAL ONE (09:24)
[2022-11-25] MEDS ORDERED: METHYLENE BLUE 0.5% 10 ML VIAL ONE (09:24)
[2022-11-25] MEDS ORDERED: METOCLOPRAMIDE HCL INJ 5 MG/ML 2 ML VIAL ONE (09:56)
[2022-11-25] MEDS ORDERED: FAMOTIDINE/PF 20 MG/2 ML VIAL IV ONE (09:59)
[2022-11-25] MEDS ORDERED: HYDROmorphone INJ 2 MG/ML SYR/VIAL ONE (10:53)
[2022-11-25] MEDS ORDERED: ALBUTEROL HFA 8 GM INHALER INH ONE (13:17)
--- NOTE | 2022-11-25 13:17 | Post Operative Brief Note ---
PG Immediate Post Op with CF Date of Surgery November 25, 2022 Pre & Post Diagnosis Operation Date: 11/25/22 09:15 Pre-Op Diagnosis: Right breast cancer Post-Op Diagnosis: Right breast cancer I identified the patient and participated in the time-out.: Yes Procedure Operation Date: 11/25/22 09:15 Actual Procedures p Bilateral Mastectomy, Left [place] Lymph Node Biopsy (Bilateral) - Tunde Hamilton MD, FACS Surgeon Tunde Hamilton MD, FACS Marketing Consultant arabella oreilly Estimated Blood Loss 30 Findings Consistent with Post-Op Diagnosis Left sentinel lymph nodes and bilateral mastectomy with long silk suture lateral and both specimens Specimens Specimen Description: A. Left Breast [place] Lymph Node #1 (Fresh)--sent to lab at 1030 B. Left Breast (Fresh)--*Long Silk=Lateral--sent to lab at 1123 C. Right breast (fresh)--Long silk lateral--sent to lab at Drains Rodriguez Catheter (16 [place] 10mL balloon LATEX-FREE Rodriguez catheter inserted by Ava Parry RN prior to start of procedure, clear yellow urine obtained, output to be monitored by Anesthesia) and Amol-Andino Drain (15 [place] round x2, (one per side))
[2022-11-25] MEDS ORDERED: ACETAMINOPHEN 1,000 MG/100 ML VIAL IV ONE (13:30)
[2022-11-25] MEDS: fentaNYL citrate PF 100 MCG/2 ML VIAL IV PRN ×4 (13:32→14:00)
[2022-11-25] MEDS ORDERED: PROMETHAZINE HCL INJ 25 MG/ML 1 ML VIAL ONE ×2 (13:55→14:33)
[2022-11-25] MEDS ORDERED: PROMETHAZINE HCL 12.5 MG in SODIUM CHLORIDE 0.9% 50 ML IV PRN (13:56)
--- NOTE | 2022-11-25 14:04 | Hospitalist Consultation ---
Date of Consultation November 25, 2022 Assessment & Plan (1) S/P bilateral mastectomy: s/p p Bilateral Mastectomy, Left Danielson Lymph Node Biopsy (Bilateral) - Tunde Hamilton MD, FACS. EBL 30cc. LYNNETTE drain x [address] PT/OT/DVT proph per primary service Issues w/ PO pain medications/nausea/vomiting and on IV dilaudid post op for now - PO dilaudid on home med list but even that causes extreme GI upset. - Was unable to get fentanyl patch most recently, unclear why - ?prior auth. CM navigator consulted and can f/u on kang checking/prior auth in AM Antiemetics prn - extra 12.5mg phenergan provided in ASU for ongoing nausea despite 12.5mg dose - also scheduled protonix IVP daily until taking better PO for GI upset (home meds omeprazole prn gerd) Bowel regimen w/ pain control - - schedule docusate/senna BID -- monitor DVT proph w/ SCDs -Xarelto on hold for hx paroxysysmal afib -Discussed w/ Dr Hamilton and if bleeding/hgb stable on repeat in AM will likely start Heparin SQ in AM Monitor blood counts/LYNNETTE output/kidney function on repeat (2) Breast cancer, right: found on routine imaging, biopsy with grade 2 DCIS ER/TN+, FISH negative had R lumpectomy 10/21/22 -- pathology showed grade 2 DCIS at biopsy site but patient also had second site more medially -- 2-3cm separate from initial site. lymph nodes were negative. patient decided to proceed w/ bilateral mastectomy s/p mastectomy as above, post-op management/drains per primary service heme/onc f/u at discharge (3) Chronic respiratory failure with hypoxia: COPD: Group D, follows Dr Lowe, grade 2 diastolic dysfunction, TYESHA On budesonide, formoterol, albuterol/atrovent nebs, Azithromycin MWF Supplemental O2 as needed -- currently back to her baseline 3L NC CPAP ordered HS (4) TYESHA (obstructive sleep apnea): CPAP HS scheduled for tonight (5) (HFpEF) heart failure with preserved ejection fraction: diastolic heart failure w/ preserved EF on most recent ECHO. Follows Dr Crowley from [facility], Mynor from pul as outlined above continues on amiodarone for paroxysmal afib, bumex 2mg daily -- takes 4mg if not making much urine/increased edema will hold on bumex for AM until able to assess kidney function/volume status does NOT appear significantly volume overloaded at present (6) Paroxysmal atrial fibrillation: remains on amiodarone xarelto when ok w/ surgery but planning to hold off for a day or two. NSR on exam. EKG pre-op Sinus/junctional. No CP at present (aside from incisional site) Rec keeping K~4, Mag ~2 to prevent complications/flipping into afib also w/ hx hypothyroidism and continues on Synthroid 137mcg daily. Last TSH in system back from January but given in for acute surgery will defer to repeating in f/u with PCP (7) CKD (chronic kidney disease), stage III: monitor renal function on repeat renal dose meds/avoid nephrotoxins as able (8) Hyperglycemia: DM II, had been at pre-DM levels previously --> most recent a1c 6.5 On Trulicity weekly BSG AC/HS, SSI while inpatient Did get dex w/ surgery monitor BSGs (9) Obesity: BMI 42 weight loss encouraged Plan Thank you for allowing hospitalist service to participate in the care of Ms Taylor. Hospitalist service will follow along. Please call with any questions/concerns. Supervising Physician Co-Signing Physician Notes I personally saw and examined the patient. I verified all morris points and agree with Kelly Vega PA-C with the following exceptions and/or additions: 72 year old female POD#0 s/p b/l mastectomy. EBL 30ml. Pain currently controlled with current regimen. No current concerns or questions from patient O/E HS RRR, trace b/l pitting edema, Chest CTAB, Abdo SNT, surgical dressing clean/dry not removed. A/P VTE/bowel management per primary surgical team On baseline O2 Pain control with Dilaudid overnight. Consider Fentanyl patch on discharge given intolerance to oral pain medication. History of Present Illness Reason for Consultation: med management Requesting Physician: Dr Hamilton Attending Physician: Tunde Hamilton MD, FACS History of Present Illness 72yo female with PMHx significant for severe COPD (on home O2, azithro MWF), paroxsymal afib (xarelto/amiodarone), HFpEF, DM II, Hypothyroidism, GERD, insomnia presented for bilateral mastectomy with left sentinal lymph node biopsy with Dr Hamilton today. Issues with oral pain control, currently getting Dilaudid IV. Patient evaluated in ASU, complaints of nausea. Did just get 12.5mg phenergan and I discussed ordering additional dose. Intolerance to much PO pain medication causing GI upset/nausea/vomiting. Even the PO dilaudid she has at home makes her nauseated. She was to attempt fentanyl patch but appears issues w/ obtaining outpatient - will consult w/ CM to see about getting prior auth prior to dc and continue IV control for now/attempt patch tomorrow if able. She states pain ok at present, getting dose fentanyl. Last BM yesterday morning. Takes Bumex 2mg daily unless having issues making urine/output and then she states she will take a total of 4mg that day. Titrated down to her usual 3L oxygen. No lightheadedness/dizziness/fever/chills. Pain to chest at site of incisions but denies chest pain/pain w/ inspiration. Confirmed respiratory meds and will continue. No palpitations/afib at present. Per discussion w/ Dr Hamilton -- Heparin SQ for tomorrow if stable, holding off on xarelto at present. Vitals stable and planning for med/surg post op. If any issues low threshold to move to telemetry. Questions/concerns addressed at this time. Allergies Allergy/AdvReac Type Severity Reaction Status Date / Time oxycodone [From Percocet] Allergy Severe Vomiting Verified 11/25/22 07:31 codeine Allergy Unknown nausea, Verified 11/25/22 07:31 vomiting metformin AdvReac Intermediate back pain Verified 11/25/22 07:31 adhesive AdvReac Unknown skin Verified 11/25/22 07:31 tearing hydrocodone AdvReac Unknown GI SYMPTOMS Verified 11/25/22 07:31 latex AdvReac Unknown rash, skin Verified 11/25/22 07:31 irritation nickel AdvReac Unknown Hives Verified 11/25/22 07:31 tramadol AdvReac Unknown GI SYMPTOMS Verified 11/25/22 07:31 Home Medications Medication Instructions Recorded Confirmed Type calcium carbonate 600 mg-vitamin 2 tab PO QAM 01/21/19 11/25/22 History D3 10 mcg (400 unit) tablet (Calcium 600 + D(3)) nitroglycerin 0.4 mg sublingual 0.4 mg sublingual DIRECTED 01/21/19 11/25/22 History tablet diclofenac sodium 1 % topical gel 1 % EXT QID PRN Pain 02/08/19 11/25/22 History (Voltaren) lancets (OneTouch UltraSoft #100 ea 12/16/19 11/08/22 Rx Lancets) Saccharomyces boulardii 250 mg 250 mg PO DAILY PRN Gi Upset 12/20/19 11/25/22 History capsule (Florastor) blood sugar diagnostic (OneTouch #100 ea 11/06/20 11/08/22 Rx Verio test strips) acetaminophen 500 mg tablet 1,000 mg PO Q6H PRN Pain 01/20/21 11/25/22 History (Tylenol Extra Strength) betamethasone valerate 0.1 % 1 applic topical BID PRN skin 07/16/21 11/25/22 Rx topical cream irritation #45 grams omeprazole 40 mg capsule,delayed 40 mg PO UD PRN gerd 07/25/21 11/25/22 History release ipratropium bromide 0.02 % 2.5 ml inhalation Q6H PRN 07/29/21 11/25/22 Rx solution for inhalation shortness of breath or wheezing #62.5 mL cholecalciferol (vitamin D3) 25 2,000 unit PO QAM 08/09/21 11/25/22 History mcg (1,000 unit) capsule levalbuterol HCl 1.25 mg/3 mL 1.25 mg (3 mL) inhalation Q6H PRN 10/23/21 11/25/22 Rx solution for nebulization shortness of breath or wheezing #72 mL CPAP Supplies #1 ea 05/08/22 11/08/22 Rx azithromycin 250 mg tablet 250 mg PO .MWF #36 tabs 06/18/22 11/25/22 Rx levothyroxine 137 mcg tablet 137 mcg PO QAM #90 tabs 06/25/22 11/25/22 Rx dulaglutide 0.75 mg/0.5 mL 0.75 mg (0.5 mL) subcut WEEKLY #2 08/06/22 11/25/22 Rx subcutaneous pen injector mL (Trulicity) amiodarone 100 mg tablet 100 mg PO QAM 10/01/22 11/25/22 History budesonide 0.5 mg/2 mL suspension 0.5 mg inhalation BID PRN sob 10/01/22 11/25/22 History for nebulization bumetanide 2 mg tablet 2 - 4 mg PO QAM edema 10/01/22 11/25/22 History fluticasone furoate 100 1 inh inhalation QAM 10/01/22 11/25/22 History mcg-vilanterol 25 mcg/dose inhalation powder (Breo Ellipta) potassium chloride 10 mEq 20 meq PO QAM 10/01/22 11/25/22 History tablet,extended release spironolactone 50 mg tablet 50 mg PO QAM 10/01/22 11/25/22 History (Aldactone) umeclidinium 62.5 mcg/actuation 1 inh inhalation QAM 10/01/22 11/25/22 History blister powder for inhalation (Incruse Ellipta) rivaroxaban 20 mg tablet (Xarelto) 20 mg PO QDD 10/18/22 11/25/22 History hydromorphone 2 mg tablet 2 mg PO Q4H PRN pain, for initial 10/21/22 11/25/22 Rx (Dilaudid) therapy, max 6tabs/day #15 tabs ondansetron 4 mg disintegrating 4 mg PO Q6H PRN nausea and 10/22/22 11/25/22 Rx tablet vomiting #20 tabs formoterol fumarate 20 mcg/2 mL 2 ml inhalation BID PRN Shortness 11/25/22 11/25/22 History solution for nebulization Of Breath levalbuterol tartrate 45 2 puff inhalation Q6H PRN SOB/ 11/25/22 11/25/22 History mcg/actuation aerosol inhaler Wheezing (Xopenex HFA) lorazepam 1 mg tablet (Ativan) 1 mg PO PM PRN anxiety 11/25/22 11/25/22 History fentanyl 12 mcg/hr transdermal 1 patch transdermal Q72H #5 ea 11/26/22 Rx patch Patient History Medical History A-fib follows with Dr. Crowley. on Xarelto. Alternating constipation and diarrhea Presumed IBS- no meds needed at this time Anticoagulant long-term use Breast cancer, right Recently dx'ed - August 2022- DCIS Cardiac murmur Cataracts, bilateral Cervicalgia CHF (congestive heart failure) Stable currently per patient Chronic back pain Chronic respiratory failure 3lpm continuous oxygen COPD (chronic obstructive pulmonary disease) Stable breathing - uses oxygen last flare jul or august 2022. Dyspnea on exertion Chronic and stable GERD without esophagitis Well controlled and stable Gout HX FLARE END OF SEPTEMBER 2022 - triggers unknown - no current issues Hiatal hernia History of anesthesia reaction hard to wake up/ vomiting with most recent procedure october 1 - severe constipation following surgery. History of DVT (deep vein thrombosis) approx 5 years ago. RUE. unk etiology. treated with AC. History of syncope presumed to be due to cholesterol med/has resolved since cholesterol med was d/c'd. HLD (hyperlipidemia) HTN (hypertension) Hypothyroidism Morbid obesity with BMI of 40.0-44.9, adult On home oxygen therapy 3 lpm continuous Orthopnea Sleeps propped up Osteoporosis Polyneuropathy To hands and feet Pulmonary nodules Under observation Sleep apnea CPAP + 3 lpm O2. Slow to wake up after anesthesia Type 2 diabetes mellitus Glucose stable Surgical History H/O bilateral mastectomy (11/25/22) Bilateral Mastectomy, Left Danielson Lymph Node Biopsy (Bilateral) - Tunde Hamilton MD, FACS H/O colonoscopy History of cardioversion x 3 History of cholecystectomy History of endoscopy remote hx Hx of laparoscopic gastric banding [id number]? S/P breast biopsy x 3 S/P breast lumpectomy (10/21/22) Right lumpectomy with sentinel lymph node biopsy 10/21/22 Dr. Hamilton Tubal ligation status 1982 Family History Mother Heart disease Myocardial infarction Breast cancer, Onset Age: 67 Hypertension Father Prostate cancer Sister Slow to wake up after anesthesia Denies family history of Ovarian cancer Colorectal cancer Uterine cancer Social History Smoking Status: Former smoker Tobacco Type: Cigarettes Age Started Using Tobacco: 15; Age Quit Using Tobacco: 58; packs per day: 0.5; Smoking End Date: 14-15 YR AGO; Second Hand Exposure: No; Do You Dip or Chew Tobacco: No; Hx Alcohol Use: No Hx Substance Use: No Preferred Language: Grenadian Communication Ability: Effective Visual Impairment: Limited Hearing Ability: Normal Property Appraiser Required: No Beliefs That Will Affect Care: None marital status: / Current Living Situation: Family Current Living Situation Comment: DAUGHTER AND GRANDSON current occupational status: retired How many Children do You have: 3 How many Children do You have Comment: 1 2 living daughters Feels Safe at Home: Yes Childhood Exposure to Second-Hand Smoke: Yes Diet: regular Diet Comment: regular caffeine: Yes during the past year weight has: decreased > 10 lbs Dental Care, Regularly: Yes Physical Activity Frequency: Does not Exercise Seatbelt Use: always Sunscreen Use: Yes Assistive Devices: Cane, CPAP, Oxygen - Continuous and Walker Assistive Devices Comment: 3L O2, UPPER PARTIAL Physical Exam Physical Exam: General: chronically ill appearing female, obese, sitting up in bed in ASU, NAD but reporting nausea and feeling like she has to vomit, emesis bag in hand HEENT: head normocephalic, atraumatic, thick neck, JVD, mm slightly dry Chest: dressing in place w/ compression, JPx2 bilaterally scant bloody drainage present Resp: diminished in the bases, faint expiratory wheezing, no crackles, on 3L NC CV: regular rate/rhythm, no significant m/r/g, trace-1 b/l LE edema, calves nontender, SCDs in place GI: +BS, soft/NT MSK/Neuro: following commands as able, no focal deficit, no facial droop Psych: alert, sleepy postop but oriented to person/place/time Results & Data Results & Data Vital Signs (Past 12 Hours) Vital Signs Temp Pulse Pulse Resp BP BP Pulse Ox 11/25/22 13:35 59 L 12 173/68 H 100 11/25/22 13:23 36 C L 60 14 161/70 H 100 11/25/22 07:41 11/25/22 07:41 36.5 C 68 22 158/59 H 97 O2 Del Method O2 Flow Rate 11/25/22 13:35 Oxymask 6 11/25/22 13:23 Oxymask 10 11/25/22 07:41 Nasal Cannula, CPAP 11/25/22 07:41 Nasal Cannula 3 Laboratory Results 11/25/22 11/25/22 11/25/22 Range/Units Unknown 13:27 07:33 POC Glucose 149 H 152 H (70-99) mg/dl SARS-CoV-2, RNA, NAAT NEGATIVE (NEGATIVE) Diagnostic Findings Danielson Node Without Imaging Nuclear Med 11/25/22 08:00 LYMPHOSCINTIGRAPHY CLINICAL HISTORY: Left breast cancer. PROCEDURE: Using standard sterile technique, 4 intradermal and one deep injection of 502.31 uCi of Lymphoseek was placed in the left breast. The patient tolerated the procedure well. There were no immediate complications. The patient was subsequently transported to the surgical suite. No imaging was obtained at the referring physician's request. IMPRESSION: Injection of Lymphoseek in the left breast. ACT 112: Negative or not required by law. Electronically signed by: Beck Moran M.D. 11/25/2022 9:08 AM PG Care Time/CCT Total # of Minutes Spent Total Time Spent with Patient: Total time spent is greater than 50% in coordination of care (as documented) at patient's floor/unit and/or counseling patient: Coding Level of Care Code 37342 IN/OBS CONSULT LVL 3,45M Diagnoses S/P bilateral mastectomy Z90.13 Breast cancer, right C50.911 Chronic respiratory failure with hypoxia J96.11 TYESHA (obstructive sleep apnea) G47.33 (HFpEF) heart failure with preserved ejection fraction I50.30 Paroxysmal atrial fibrillation I48.0 CKD (chronic kidney disease), stage III N18.30 Hyperglycemia R73.9 Obesity E66.9
--- NOTE | 2022-11-25 14:12 | Operative Report (OR) ---
DATE OF OPERATION: 11/25/2022. NAME OF OPERATION: Bilateral mastectomy with left sentinel node biopsy. PREOPERATIVE DIAGNOSIS: Right breast cancer. POSTOPERATIVE DIAGNOSIS: Right breast cancer. STAFF SURGEON: Tunde Hamilton MD. INFORMATION SYSTEMS OPERATOR: Sandra Lester PA-C. Dr. Walker ANESTHESIA: General. DESCRIPTION OF PROCEDURE: The patient was brought in the operating room, placed on the operating tab le in supine position. After appropriate anesthetic, a Rodriguez catheter, pneumatic stockings and oroga stric tube were placed. Her chest was prepped and draped bilaterally as well as her axilla. Her arm s were extended onto an arm board. The left side was approached first. This was prophylactic mastec alec. We did make an incision in the lateral breast area, carrying dissection down using the Neoprob e to identify sentinel lymph nodes, which were sent for routine pathology. At this point, a large el liptical incision was made around the nipple areolar complex from medial to lateral and then superior and inferior chest flaps produced by dissecting the breast tissue away from the subcutaneous tissue. The breast tissue was then dissected away from the pectoralis major muscle. Vessels were ligated u sing 2-0 chromic and 0 chromic suture. Also, some 2-0 silk sutures. At this point, the specimen was marked, left breast tissue with a long silk lateral, sent for routine pathology. Wound was irrigate d. A 15 round Amol-Andino drain was placed through a separate stab incision and secured using 3-0 nylon suture. It was placed into the wound. The subcutaneous tissue was then reapproximated using 3 -0 Vicryl suture and then this incision was covered. The right side was then approached, same incisi on and then we did encounter some scar tissue and edema laterally from her previous surgery. We did notice the biopsy cavity. This was relatively high up into the axilla. The tissue was marked again with a long silk suture lateral, right breast tissue. Site irrigated, 15 round Amol-Andino drain p laced again using 3-0 nylon to secure. Subcutaneous tissue reapproximated using 3-0 Vicryl suture. T hen, the skin reapproximated using subcuticular 4-0 Monocryl. This was also then done on the left si de and then Steri-Strips applied and dressing applied. My assistants helped with prepping and drapin g the mastectomy, sentinel node biopsy and closure of the wounds. Job ID: [id number]
[2022-11-25] MEDS ORDERED: PROMETHAZINE HCL 12.5 MG in SODIUM CHLORIDE 0.9% 50 ML IV STA (14:29)
[2022-11-25] MEDS ORDERED: SODIUM CHLORIDE 0.9% 50 ML BAG ONE (14:33)
--- NOTE | 2022-11-25 14:45 | Anesthesiology Progress Note ---
Date of Service November 25, 2022 Anesthesia Post Procedure Vital Signs Vital Signs: Temp Pulse Pulse Resp BP BP Pulse Ox 11/25/22 14:35 79 16 146/88 H 96 11/25/22 14:15 61 12 157/56 H 98 11/25/22 14:05 62 14 154/63 H 95 11/25/22 14:25 63 16 157/76 H 99 11/25/22 13:55 72 16 172/67 H 92 11/25/22 13:45 60 12 178/65 H 100 11/25/22 13:35 59 L 12 173/68 H 100 11/25/22 13:23 96.8 F L 60 14 161/70 H 100 11/25/22 07:41 11/25/22 07:41 97.7 F 68 22 158/59 H 97 O2 Del Method O2 Flow Rate 11/25/22 14:35 Nasal Cannula 3 11/25/22 14:15 Nasal Cannula 3 11/25/22 14:05 Nasal Cannula 3 11/25/22 14:25 Nasal Cannula 3 11/25/22 13:55 Nasal Cannula 3 11/25/22 13:45 Oxymask 6 11/25/22 13:35 Oxymask 6 11/25/22 13:23 Oxymask 10 11/25/22 07:41 Nasal Cannula, CPAP 11/25/22 07:41 Nasal Cannula 3 Pain Intensity Right Breast: Pain Intensity: 5 Transfer of Care Handoff Completed per policy Notes Mental Status: alert / awake / arousable and participated in evaluation Patient Amnestic to Procedure: Yes Nausea / Vomiting: improving with treatment Pain: adequately controlled Airway Patency, RR, SpO2: stable & adequate BP & HR: stable & adequate Hydration State: stable & adequate Anesthetic Complications: no major complications apparent and Pt Satisfied with anesthetic care
[2022-11-25] MEDS ORDERED: BUDESONIDE 0.5 MG/2 ML VIAL (PULMICORT) INH PRN (15:24)
[2022-11-25] MEDS ORDERED: SODIUM CHLORIDE 0.9% 1000ML 1,000 ML IV SCH (15:24)
[2022-11-25] MEDS ORDERED: IPRATROPIUM BROMIDE NEB SOLN 0.02% 2.5 ML VIAL INH PRN (15:24)
[2022-11-25] MEDS ORDERED: DICLOFENAC SOD 1% GEL 100 GM TUBE EXT PRN (15:24)
[2022-11-25] MEDS ORDERED: LEVALBUTEROL TARTRATE 15 GM HFA.AER.AD INH PRN (15:24)
[2022-11-25] MEDS ORDERED: GLUCAGON FOR INJ 1 MG VIAL SQ PRN (15:24)
[2022-11-25] MEDS ORDERED: ACETAMINOPHEN 325 MG TAB PO PRN (15:24)
[2022-11-25] MEDS ORDERED: FORMOTEROL 20 MCG/2 ML VIAL INH PRN (15:24)
[2022-11-25] MEDS ORDERED: BETAMETHASONE VAL 0.1% CR 15 GM TOP PRN (15:24)
[2022-11-25] MEDS ORDERED: LEVALBUTEROL 1.25 MG/3 ML NEB INH PRN (15:24)
[2022-11-25] MEDS ORDERED: CARBOHYDRATES FOR HYPOGLYCEMIA PO PRN (15:24)
[2022-11-25] MEDS ORDERED: HYDROmorphone INJ 0.5 MG/0.5 ML SYR IV PRN (15:24)
[2022-11-25] MEDS ORDERED: SACCHAROMYCES BOULARDII 250 MG CAP PO PRN (15:24)
[2022-11-25] MEDS ORDERED: DEXTROSE 50% 50 ML SYRINGE IV PRN (15:24)
[2022-11-25] MEDS ORDERED: GLUCOSE 10 TAB/TUBE PO PRN (15:24)
[2022-11-25] MEDS ORDERED: GLUCOSE 40% GEL 15 GM TUBE PO PRN (15:24)
[2022-11-25] MEDS ORDERED: NITROGLYCERIN SL 0.4 MG/TAB TAB SL PRN (15:24)
[2022-11-25] MEDS: ONDANSETRON INJ 2 MG/ML 2 ML VIAL IV PRN ×2 (15:51→22:17)
[2022-11-25] MEDS: AZITHROMYCIN 250 MG TAB PO SCH (17:36)
[2022-11-25] MEDS: INSULIN ASPART PER UNIT CHARGE SC SCH ×2 (17:53→20:35)
[2022-11-25] MEDS: ceFAZolin 1000MG 1,000 MG/7.5 ML SYR IV SCH (17:54)
[2022-11-25] MEDS: PANTOprazole 40 MG in SYRINGE 0 ML IV SCH (18:49)
[2022-11-25] MEDS: HYDROmorphone INJ 0.5 MG/0.5 ML SYR IV PRN ×2 (18:56→22:13)
[2022-11-25] MEDS ORDERED: FORMOTEROL 20 MCG/2 ML VIAL ONE (19:28)
[2022-11-25] MEDS: BUDESONIDE 0.5 MG/2 ML VIAL (PULMICORT) INH SCH (19:31)
[2022-11-25] MEDS: FORMOTEROL 20 MCG/2 ML VIAL INH SCH (19:31)
[2022-11-25] MEDS: ERYTHROMYCIN OP OINT 1 GM PKT OPB SCH (20:23)
[2022-11-25] MEDS: DOCUSATE SODIUM/SENNA 50/8.6MG TAB PO SCH (20:23)
[2022-11-25] MEDS: POLYETHYLENE (MIRALAX) 17 GM PACK PO SCH (20:23)
[2022-11-25] MEDS: MAGNESIUM HYDROXIDE SUSP 30 ML UDC PO SCH (20:23)
[2022-11-25] MEDS: LORazepam 1 MG TAB PO PRN (22:57)
[2022-11-26] MEDS: ceFAZolin 1000MG 1,000 MG/7.5 ML SYR IV SCH ×3 (01:06→18:01)
[2022-11-26] MEDS: HYDROmorphone INJ 0.5 MG/0.5 ML SYR IV PRN ×6 (02:16→21:58)
[2022-11-26] MEDS: LEVOTHYROXINE SODIUM 137 MCG TABLET PO SCH (05:28)
[2022-11-26] MEDS: FORMOTEROL 20 MCG/2 ML VIAL INH SCH ×2 (06:58→19:24)
[2022-11-26] MEDS: BUDESONIDE 0.5 MG/2 ML VIAL (PULMICORT) INH SCH ×2 (06:58→19:24)
--- NOTE | 2022-11-26 07:10 | Surgery Progress Note ---
Date of Service November 26, 2022 Assessment & Plan (1) S/P bilateral mastectomy: Plan: Also left sentinel lymph node biopsy Patient up out of bed sitting in the chair She is having some emesis-this seems to happen after she has narcotics and anesthesia Especially with p.o. pain medication Currently on IV Dilaudid which appears to be handling the pain well Her plan is to try a fentanyl patch and I would like medical team help with this-we could start today as it may take 1 to 2 days to titrate Continue diet and ordered p.o. meds Senokot-S, milk of mag, MiraLAX ordered as the patient does have a problem with constipation after surgery Leave drains-she will go home with these Dressing change DC Rodriguez catheter Try to have her ambulate Admission and Anticipated Discharge Date Admission Date: November 25, 2022 Results & Data Vital Signs (Past 12 Hours) Vital Signs Temp Pulse Resp BP Pulse Ox O2 Del Method O2 Flow Rate 11/26/22 07:05 36.9 C 68 18 150/73 H 98 Nasal Cannula 3 11/26/22 05:36 36.5 C 64 18 123/56 L 97 Nasal Cannula 3 11/26/22 02:35 36.6 C 64 18 132/70 97 Nasal Cannula 3 11/25/22 20:00 Nasal Cannula 3 11/25/22 21:33 36.6 C 67 18 138/72 97 Nasal Cannula 3 PG Care Time/CCT Total # of Minutes Spent Total Time Spent with Patient: Total time spent is greater than 50% in coordination of care (as documented) at patient's floor/unit and/or counseling patient: Coding Level of Care Code 69748 Post Operative Follow-Up Diagnoses S/P bilateral mastectomy Z90.13
[2022-11-26] MEDS: ONDANSETRON INJ 2 MG/ML 2 ML VIAL IV PRN ×2 (07:13→17:40)
[2022-11-26 08:25] LABS: Basophils # (auto) 0.05 K/uL (0-0.2); Basophils % (auto) 0.4 %; Eosinophils # (auto) 0.28 K/uL (0-0.50); Eosinophils % (auto) 2.4 %; Hematocrit (blood only) 37.7 % (37.0-47.0); Hemoglobin 12.6 g/dl (12.0-16.0); Immature Granulocytes # (auto) 0.04 K/uL (0.01-0.20); Immature Granulocytes % (auto) 0.3 %; Lymphocytes # (auto) 1.57 K/uL (1.2-3.4); Lymphocytes % (auto) 13.6 %; Mean Corpuscular Hemoglobin 30.5 pg (25.0-34.0); Mean Corpuscular Hgb Conc 33.4 g/dL (32.0-36.0); Mean Corpuscular Volume 91.3 fL (80.0-100.0); Mean Platelet Volume 10.1 fL (9.4-12.4); Monocytes % (auto) 11.2 %; Neutrophils # (auto) 8.33 K/uL (1.40-6.50); Neutrophils % (auto) 72.1 %; Platelet Count 180 K/uL (130-400); RDW Coefficient of Variation 12.5 % (11.5-14.5); RDW Standard Deviation 41.6 fL (36.4-46.3); Red Blood Count 4.13 M/uL (4.20-5.40); White Blood Count 11.57 K/ul (4.8-10.8)
[2022-11-26 08:51] LABS: Albumin Globulin Ratio 1.3 (0.9-2); Albumin Level 3.9 gm/dl (3.4-5.0); BUN Creatinine Ratio 16.3 (10-20); Bilirubin,Total 0.9 mg/dl (0.2-1.0); Creatinine Clr Calc Pharmacy 80.2 ml/min; Est GFR (African American) 77.1 ml/min; Est GFR (Non-African American) 66.6 ml/min; Globulin 2.9 gm/dl (2.5-4.0); Magnesium 2.5 mg/dl (1.7-2.4); Potassium 4.3 mmol/L (3.5-5.1); Total Protein 6.8 gm/dl (6.0-8.3)
[2022-11-26] MEDS ORDERED: UMECLIDINIUM BROMIDE 62.5MCG/BLISTER 7 PUFFS/INHALER INH SCH (09:00)
[2022-11-26] MEDS ORDERED: FLUTICASONE/VILANTEROL 100/25MCG 14 PUFFS/INHALER INH SCH (09:00)
[2022-11-26 09:13] LABS: Albumin Globulin Ratio 1.3 (0.9-2); Albumin Level 3.9 gm/dl (3.4-5.0); BUN Creatinine Ratio 15.7 (10-20); Bilirubin,Total 0.9 mg/dl (0.2-1.0); Creatinine Clr Calc Pharmacy 77.5 ml/min; Est GFR (Non-African American) 63.8 ml/min; Globulin 2.9 gm/dl (2.5-4.0); Phosphorus 3.4 mg/dl (2.5-4.9); Potassium 4.4 mmol/L (3.5-5.1); Total Protein 6.8 gm/dl (6.0-8.3)
[2022-11-26] MEDS: INSULIN ASPART PER UNIT CHARGE SC SCH ×4 (09:36→21:14)
[2022-11-26] MEDS: SPIRONOLACTONE 25 MG TAB PO SCH (09:42)
[2022-11-26] MEDS: DOCUSATE SODIUM/SENNA 50/8.6MG TAB PO SCH ×2 (09:42→21:29)
[2022-11-26] MEDS: AMIODARONE 200 MG TAB PO SCH (09:43)
[2022-11-26] MEDS: CALCIUM 600MG + VIT D 400 IU TAB PO SCH (09:43)
[2022-11-26] MEDS: CHOLECALCIFEROL 1,000 UNITS 25 MCG TAB PO SCH (09:43)
[2022-11-26] MEDS: POLYETHYLENE (MIRALAX) 17 GM PACK PO SCH ×2 (09:47→21:29)
[2022-11-26] MEDS: MAGNESIUM HYDROXIDE SUSP 30 ML UDC PO SCH ×2 (09:47→21:29)
[2022-11-26] MEDS: HEPARIN SOD 5,000 UNIT/0.5 ML VIAL SQ SCH ×2 (09:48→21:29)
[2022-11-26] MEDS: PANTOprazole 40 MG in SYRINGE 0 ML IV SCH (09:48)
[2022-11-26] MEDS: ERYTHROMYCIN OP OINT 1 GM PKT OPB SCH ×2 (09:48→21:17)
[2022-11-26] MEDS: POTASSIUM CHLORIDE CRTAB 20 MEQ TABCR PO SCH (10:45)
[2022-11-26] MEDS: BUMETANIDE 1 MG TAB PO SCH (10:46)
[2022-11-26] MEDS: UMECLIDINIUM BROMIDE 62.5MCG/BLISTER 7 PUFFS/INHALER INH SCH ×2 (13:08→13:56)
[2022-11-26] MEDS: FLUTICASONE/VILANTEROL 100/25MCG 14 PUFFS/INHALER INH SCH ×2 (13:08→13:56)
[2022-11-26] MEDS: PROMETHAZINE HCL 12.5 MG in SODIUM CHLORIDE 0.9% 50 ML IV PRN ×2 (13:09→21:36)
--- NOTE | 2022-11-26 22:37 | Hospitalist Progress Note ---
Date of Service November 26, 2022 Assessment & Plan (1) S/P bilateral mastectomy: Plan: s/p p Bilateral Mastectomy, Left [place] Lymph Node Biopsy (Bilateral) - Tunde Hamilton MD, FACS. EBL 30cc. LYNNETTE drain x [address] PT/OT/DVT proph per primary service Issues w/ PO pain medications/nausea/vomiting and on IV dilaudid post op for now - PO dilaudid on home med list but even that causes extreme GI upset. - Was unable to get fentanyl patch most recently, needs prior auth, sent script, nurse navigator is working on this process. will start fentanyl at a lower dose at 12mcg in AM. Antiemetics prn - extra 12.5mg phenergan provided in ASU for ongoing nausea despite 12.5mg dose - also scheduled protonix IVP daily until taking better PO for GI upset (home meds omeprazole prn gerd) Bowel regimen w/ pain control - - schedule docusate/senna BID -- monitor DVT proph w/ SCDs -Xarelto on hold for hx paroxysysmal afib -Discussed w/ Dr Hamilton and if bleeding/hgb stable on repeat in AM will likely start Heparin SQ in AM Monitor blood counts/LYNNETTE output/kidney function on repeat (2) Breast cancer, right: Plan: found on routine imaging, biopsy with grade 2 DCIS ER/MO+, FISH negative had R lumpectomy 10/21/22 -- pathology showed grade 2 DCIS at biopsy site but patient also had second site more medially -- 2-3cm separate from initial site. lymph nodes were negative. patient decided to proceed w/ bilateral mastectomy s/p mastectomy as above, post-op management/drains per primary service heme/onc f/u at discharge (3) Chronic respiratory failure with hypoxia: Plan: COPD: Group D, follows Dr Lowe, grade 2 diastolic dysfunction, TYESHA On budesonide, formoterol, albuterol/atrovent nebs, Azithromycin MWF Supplemental O2 as needed -- currently back to her baseline 3L NC CPAP ordered HS (4) TYESHA (obstructive sleep apnea): Plan: CPAP HS scheduled for tonight (5) (HFpEF) heart failure with preserved ejection fraction: Plan: diastolic heart failure w/ preserved EF on most recent ECHO. Follows Dr Crowley from [facility], Mynor from pulm as outlined above continues on amiodarone for paroxysmal afib, bumex 2mg daily -- takes 4mg if not making much urine/increased edema will hold on bumex for AM until able to assess kidney function/volume status does NOT appear significantly volume overloaded at present (6) Paroxysmal atrial fibrillation: Plan: remains on amiodarone xarelto when ok w/ surgery but planning to hold off for a day or two. NSR on exam. EKG pre-op Sinus/junctional. No CP at present (aside from incisional site) Rec keeping K~4, Mag ~2 to prevent complications/flipping into afib also w/ hx hypothyroidism and continues on Synthroid 137mcg daily. Last TSH in system back from January but given in for acute surgery will defer to repeating in f/u with PCP (7) CKD (chronic kidney disease), stage III: Plan: monitor renal function on repeat renal dose meds/avoid nephrotoxins as able (8) Hyperglycemia: Plan: DM II, had been at pre-DM levels previously --> most recent a1c 6.5 On Trulicity weekly BSG AC/HS, SSI while inpatient Did get dex w/ surgery monitor BSGs (9) Obesity: Plan: BMI 42 weight loss encouraged Plan Thank you for allowing hospitalist service to participate in the care of Ms Taylor. Hospitalist service will follow along. Please call with any questions/concerns. Admission and Anticipated Discharge Date Admission Date: November 25, 2022 Subjective Patient reports that her nausea is slightly better. Review of Systems Review of Systems: All systems reviewed & are unremarkable except as noted in HPI & below Physical Exam Physical Exam: General: chronically ill appearing female, obese, NAD HEENT: head normocephalic, atraumatic, thick neck, JVD, mm slightly dry Chest: dressing in place w/ compression, JPx2 bilaterally scant bloody drainage present Resp: diminished in the bases, faint expiratory wheezing, no crackles, on 3L NC CV: regular rate/rhythm, no significant m/r/g, trace-1 b/l LE edema, calves nontender, SCDs in place GI: +BS, soft/NT MSK/Neuro: following commands as able, no focal deficit, no facial droop Psych: alert, sleepy postop but oriented to person/place/time Results & Data Results & Data Vital Signs (Past 12 Hours) Vital Signs Temp Pulse Pulse Resp BP BP Pulse Ox 11/26/22 21:00 36.6 C 63 18 141/78 H 96 11/26/22 14:52 36.8 C 66 18 141/46 H 97 O2 Del Method O2 Flow Rate 11/26/22 21:00 Nasal Cannula 11/26/22 14:52 Nasal Cannula 3 PG Care Time/CCT Total # of Minutes Spent Total Time Spent with Patient: Total time spent is greater than 50% in coordination of care (as documented) at patient's floor/unit and/or counseling patient: Coding Level of Care Code 85178 SUB INP/OBS CARE 2/35MIN Diagnoses S/P bilateral mastectomy Z90.13 Breast cancer, right C50.911 Chronic respiratory failure with hypoxia J96.11 TYESHA (obstructive sleep apnea) G47.33 (HFpEF) heart failure with preserved ejection fraction I50.30 Paroxysmal atrial fibrillation I48.0 CKD (chronic kidney disease), stage III N18.30 Hyperglycemia R73.9 Obesity E66.9
[2022-11-27] MEDS: LORazepam 1 MG TAB PO PRN ×2 (00:04→23:12)
[2022-11-27] MEDS: ceFAZolin 1000MG 1,000 MG/7.5 ML SYR IV SCH ×3 (02:07→16:31)
[2022-11-27] MEDS: LEVOTHYROXINE SODIUM 137 MCG TABLET PO SCH (05:51)
--- NOTE | 2022-11-27 06:38 | Surgery Progress Note ---
Date of Service November 27, 2022 Assessment & Plan (1) S/P bilateral mastectomy: Plan: Also left sentinel lymph node biopsy Patient is awake and alert sitting in the chair Dressings in place and drains in place Expected serosanguineous drainage Receiving IV Dilaudid Hopefully we can start her transdermal patch for pain control today We will begin Xarelto-try to give dose this morning and then stop the subcu heparin Possible discharge on Friday Admission and Anticipated Discharge Date Admission Date: November 25, 2022 Results & Data Vital Signs (Past 12 Hours) Vital Signs Temp Pulse Resp BP Pulse Ox O2 Del Method O2 Flow Rate 11/26/22 21:00 36.6 C 63 18 141/78 H 96 Nasal Cannula 3 PG Care Time/CCT Total # of Minutes Spent Total Time Spent with Patient: Total time spent is greater than 50% in coordination of care (as documented) at patient's floor/unit and/or counseling patient: Coding Level of Care Code 16917 Post Operative Follow-Up Diagnoses S/P bilateral mastectomy Z90.13
[2022-11-27] MEDS: FORMOTEROL 20 MCG/2 ML VIAL INH SCH ×2 (07:13→19:44)
[2022-11-27] MEDS: BUDESONIDE 0.5 MG/2 ML VIAL (PULMICORT) INH SCH ×2 (07:13→19:44)
[2022-11-27] MEDS ORDERED: HEPARIN SOD 5,000 UNIT/0.5 ML VIAL SQ ONE (08:00)
[2022-11-27] MEDS ORDERED: fentaNYL 12 MCG/HR TDSY TD SCH (08:15)
[2022-11-27] MEDS: INSULIN ASPART PER UNIT CHARGE SC SCH ×4 (08:47→21:08)
[2022-11-27] MEDS: AMIODARONE 200 MG TAB PO SCH (08:48)
[2022-11-27] MEDS: CALCIUM 600MG + VIT D 400 IU TAB PO SCH (08:49)
[2022-11-27] MEDS: BUMETANIDE 1 MG TAB PO SCH (08:49)
[2022-11-27] MEDS: CHOLECALCIFEROL 1,000 UNITS 25 MCG TAB PO SCH (08:49)
[2022-11-27] MEDS: DOCUSATE SODIUM/SENNA 50/8.6MG TAB PO SCH ×2 (08:50→20:18)
[2022-11-27] MEDS: MAGNESIUM HYDROXIDE SUSP 30 ML UDC PO SCH ×2 (08:50→20:17)
[2022-11-27] MEDS: POLYETHYLENE (MIRALAX) 17 GM PACK PO SCH ×2 (08:50→20:17)
[2022-11-27] MEDS: ERYTHROMYCIN OP OINT 1 GM PKT OPB SCH ×2 (08:51→20:22)
[2022-11-27] MEDS: AZITHROMYCIN 250 MG TAB PO SCH (08:51)
[2022-11-27] MEDS: SPIRONOLACTONE 25 MG TAB PO SCH (08:51)
[2022-11-27] MEDS: POTASSIUM CHLORIDE CRTAB 20 MEQ TABCR PO SCH (08:51)
[2022-11-27] MEDS: FLUTICASONE/VILANTEROL 100/25MCG 14 PUFFS/INHALER INH SCH (08:52)
[2022-11-27] MEDS: UMECLIDINIUM BROMIDE 62.5MCG/BLISTER 7 PUFFS/INHALER INH SCH (08:53)
[2022-11-27] MEDS: ONDANSETRON INJ 2 MG/ML 2 ML VIAL IV PRN (09:19)
[2022-11-27] MEDS: HYDROmorphone INJ 0.5 MG/0.5 ML SYR IV PRN ×3 (09:20→20:26)
[2022-11-27] MEDS: PANTOprazole 40 MG in SYRINGE 0 ML IV SCH (12:56)
[2022-11-27] MEDS: CHECK fentaNYL PATCH PLACEMENT SCH (16:28)
[2022-11-27] MEDS ORDERED: RIVAROXABAN 20 MG TAB PO SCH (16:30)
--- NOTE | 2022-11-27 22:46 | Hospitalist Progress Note ---
Date of Service November 27, 2022 Assessment & Plan (1) S/P bilateral mastectomy: Plan: s/p p Bilateral Mastectomy, Left [place] Lymph Node Biopsy (Bilateral) - Tunde Hamilton MD, FACS. EBL 30cc. LYNNETTE drain x [address] PT/OT/DVT proph per primary service Issues w/ PO pain medications/nausea/vomiting and on IV dilaudid post op for now - PO dilaudid on home med list but even that causes extreme GI upset. - Was unable to get fentanyl patch most recently, needs prior auth, sent script, nurse navigator is working on this process. will start fentanyl at a lower dose at 12mcg on 11/27. Anticipate better pain control on 11/28 Prior auth likely will go through. No need for further prior auth to increase dose. Antiemetics prn - extra 12.5mg phenergan provided in ASU for ongoing nausea despite 12.5mg dose - also scheduled protonix IVP daily until taking better PO for GI upset (home meds omeprazole prn gerd) Bowel regimen w/ pain control - - schedule docusate/senna BID -- monitor DVT proph w/ SCDs -Xarelto on hold for hx paroxysysmal afib -Discussed w/ Dr Hamilton and if bleeding/hgb stable on repeat in AM will likely start Heparin SQ in AM Monitor blood counts/LYNNETTE output/kidney function on repeat (2) Breast cancer, right: Plan: found on routine imaging, biopsy with grade 2 DCIS ER/FL+, FISH negative had R lumpectomy 10/21/22 -- pathology showed grade 2 DCIS at biopsy site but patient also had second site more medially -- 2-3cm separate from initial site. lymph nodes were negative. patient decided to proceed w/ bilateral mastectomy s/p mastectomy as above, post-op management/drains per primary service heme/onc f/u at discharge (3) Chronic respiratory failure with hypoxia: Plan: COPD: Group D, follows Dr Lowe, grade 2 diastolic dysfunction, TYESHA On budesonide, formoterol, albuterol/atrovent nebs, Azithromycin MWF Supplemental O2 as needed -- currently back to her baseline 3L NC CPAP ordered HS (4) TYESHA (obstructive sleep apnea): Plan: CPAP HS scheduled for tonight (5) (HFpEF) heart failure with preserved ejection fraction: Plan: diastolic heart failure w/ preserved EF on most recent ECHO. Follows Dr Crowley from [facility], Mynor from pul as outlined above continues on amiodarone for paroxysmal afib, bumex 2mg daily -- takes 4mg if not making much urine/increased edema will hold on bumex for AM until able to assess kidney function/volume status does NOT appear significantly volume overloaded at present (6) Paroxysmal atrial fibrillation: Plan: remains on amiodarone xarelto when ok w/ surgery but planning to hold off for a day or two. NSR on exam. EKG pre-op Sinus/junctional. No CP at present (aside from incisional site) Rec keeping K~4, Mag ~2 to prevent complications/flipping into afib also w/ hx hypothyroidism and continues on Synthroid 137mcg daily. Last TSH in system back from January but given in for acute surgery will defer to repeating in f/u with PCP (7) CKD (chronic kidney disease), stage III: Plan: monitor renal function on repeat renal dose meds/avoid nephrotoxins as able (8) Hyperglycemia: Plan: DM II, had been at pre-DM levels previously --> most recent a1c 6.5 On Trulicity weekly BSG AC/HS, SSI while inpatient Did get dex w/ surgery monitor BSGs (9) Obesity: Plan: BMI 42 weight loss encouraged Plan Thank you for allowing hospitalist service to participate in the care of Ms Taylor. Hospitalist service will follow along. Please call with any questions/concerns. Admission and Anticipated Discharge Date Admission Date: November 25, 2022 Subjective Patient reports that she does not feel difference with the fentanyl patch in regards to pain. Patient reports still requiring PRN meds. Review of Systems Review of Systems: All systems reviewed & are unremarkable except as noted in HPI & below Physical Exam Physical Exam: General: chronically ill appearing female, obese, NAD HEENT: head normocephalic, atraumatic, thick neck, JVD, mm slightly dry Chest: dressing in place w/ compression, JPx2 bilaterally scant bloody drainage present Resp: diminished in the bases, faint expiratory wheezing, no crackles, on 3L NC CV: regular rate/rhythm, no significant m/r/g, trace-1 b/l LE edema, calves nontender, SCDs in place GI: +BS, soft/NT MSK/Neuro: following commands as able, no focal deficit, no facial droop Psych: alert Results & Data Results & Data Vital Signs (Past 12 Hours) Vital Signs Temp Pulse Resp BP Pulse Ox O2 Del Method O2 Flow Rate 11/27/22 20:22 36.5 C 62 18 119/72 97 Nasal Cannula 3 11/27/22 15:31 36.8 C 61 18 118/74 97 Nasal Cannula 3 PG Care Time/CCT Total # of Minutes Spent Total Time Spent with Patient: Total time spent is greater than 50% in coordination of care (as documented) at patient's floor/unit and/or counseling patient: Coding Level of Care Code 63454 SUB INP/OBS CARE 2/35MIN Diagnoses S/P bilateral mastectomy Z90.13 Breast cancer, right C50.911 Chronic respiratory failure with hypoxia J96.11 TYESHA (obstructive sleep apnea) G47.33 (HFpEF) heart failure with preserved ejection fraction I50.30 Paroxysmal atrial fibrillation I48.0 CKD (chronic kidney disease), stage III N18.30 Hyperglycemia R73.9 Obesity E66.9
[2022-11-28] MEDS: CHECK fentaNYL PATCH PLACEMENT SCH ×2 (00:22→09:24)
[2022-11-28] MEDS ORDERED: cephALEXin 500 MG CAP PO STA (01:22)
--- NOTE | 2022-11-28 01:30 | Communication Note ---
Date of Service: November 28, 2022 Notified that patient's sixth IV site had failed and patient has poor venous access. Patient refusing to get another IV which would preclude her from receiv ing her IV Ancef for which she is scheduled for. Risks explained to patient by nursing and myself of not receiving antibiotic via IV. Patient continued to refuse getting another IV site. For this reason, I called pharmacy and discussed antibiotic choice and current situation including options of what we can give her to get her covered until morning. Pharmacy suggested either oral Keflex at 500 mg or an IM injection of Rocephin. Given that both Keflex and Ancef are first generation cephalosporins, elected to utilize cephalexin 500 mg and then day team/surgery team can determine if they wish to continue this modality or keep IV Ancef on board.
[2022-11-28] MEDS: ceFAZolin 1000MG 1,000 MG/7.5 ML SYR IV SCH (01:50)
[2022-11-28] MEDS: LEVOTHYROXINE SODIUM 137 MCG TABLET PO SCH (05:58)
[2022-11-28] MEDS: ACETAMINOPHEN 500 MG TAB PO PRN ×2 (06:05→13:24)
--- NOTE | 2022-11-28 07:35 | Surgery Progress Note ---
Date of Service November 28, 2022 Assessment & Plan (1) S/P bilateral mastectomy: Plan: Patient sitting in chair with her legs up Has not received IV Dilaudid since last night Increased dose of acetaminophen with fentanyl patch in place Very poor IV access/none at this present time I would like to try to discharge her this afternoon with the current patch as I am concerned increasing the dosage May cause significant lethargy She takes Tylenol arthritis at home and I would continue this with the patch We will need to be sure everything in order before her discharge-otherwise may need to stay till tomorrow Admission and Anticipated Discharge Date Admission Date: November 25, 2022 Results & Data Vital Signs (Past 12 Hours) Vital Signs Temp Pulse Resp BP Pulse Ox O2 Del Method O2 Flow Rate 11/27/22 20:22 36.5 C 62 18 119/72 97 Nasal Cannula 3 PG Care Time/CCT Total # of Minutes Spent Total Time Spent with Patient: Total time spent is greater than 50% in coordination of care (as documented) at patient's floor/unit and/or counseling patient: Coding Level of Care Code None Diagnoses S/P bilateral mastectomy Z90.13
[2022-11-28] MEDS: FLUTICASONE/VILANTEROL 100/25MCG 14 PUFFS/INHALER INH SCH (09:21)
[2022-11-28] MEDS: UMECLIDINIUM BROMIDE 62.5MCG/BLISTER 7 PUFFS/INHALER INH SCH (09:21)
[2022-11-28] MEDS: BUMETANIDE 1 MG TAB PO SCH (09:22)
[2022-11-28] MEDS: CHOLECALCIFEROL 1,000 UNITS 25 MCG TAB PO SCH (09:22)
[2022-11-28] MEDS: ERYTHROMYCIN OP OINT 1 GM PKT OPB SCH (09:23)
[2022-11-28] MEDS: SPIRONOLACTONE 25 MG TAB PO SCH (09:23)
[2022-11-28] MEDS: AMIODARONE 200 MG TAB PO SCH (09:23)
[2022-11-28] MEDS: POTASSIUM CHLORIDE CRTAB 20 MEQ TABCR PO SCH (09:24)
[2022-11-28] MEDS: INSULIN ASPART PER UNIT CHARGE SC SCH ×2 (09:24→12:48)
[2022-11-28] MEDS: CALCIUM 600MG + VIT D 400 IU TAB PO SCH (09:24)
[2022-11-28] MEDS: POLYETHYLENE (MIRALAX) 17 GM PACK PO SCH (09:26)
[2022-11-28] MEDS: MAGNESIUM HYDROXIDE SUSP 30 ML UDC PO SCH (09:26)
[2022-11-28] MEDS: DOCUSATE SODIUM/SENNA 50/8.6MG TAB PO SCH (09:26)
[2022-11-28] MEDS: cephALEXin 500 MG CAP PO SCH ×2 (09:28→12:49)
--- NOTE | 2022-11-28 09:43 | Hospitalist Progress Note ---
Date of Service November 28, 2022 Assessment & Plan (1) S/P bilateral mastectomy: Plan: s/p p Bilateral Mastectomy, Left [place] Lymph Node Biopsy (Bilateral) - Tunde Hamilton MD, FACS. EBL 30cc. LYNNETTE drain x [address] Issues w/ PO pain medications/nausea/vomiting - PO dilaudid on home med list but even that causes extreme GI upset. - Was unable to get fentanyl patch most recently, needs prior auth, sent script, nurse navigator is working on this process. will start fentanyl at a lower dose at 12mcg on 11/27. Prior auth likely will go through. No need for further prior auth to increase dose. Bowel regimen w/ pain control - - schedule docusate/senna BID -- monitor DVT proph w/ SCDs -Xarelto resumes for hx paroxysmal afib dvt prevention (2) Breast cancer, right: Plan: found on routine imaging, biopsy with grade 2 DCIS ER/ME+, FISH negative had R lumpectomy 10/21/22 -- pathology showed grade 2 DCIS at biopsy site but patient also had second site more medially -- 2-3cm separate from initial site. lymph nodes were negative. patient decided to proceed w/ bilateral mastectomy heme/onc f/u at discharge (3) Chronic respiratory failure with hypoxia: Plan: COPD: Group D, follows Dr Lowe, grade 2 diastolic dysfunction, TYESHA On budesonide, formoterol, albuterol/atrovent nebs, Azithromycin MWF Supplemental O2 as needed -- currently back to her baseline 3L NC (4) (HFpEF) heart failure with preserved ejection fraction: Plan: diastolic heart failure w/ preserved EF on most recent ECHO[facility] outlined above continues on amiodarone for paroxysmal afib, bumex 2mg daily - (5) Paroxysmal atrial fibrillation: Plan: controlled on amiodarone xarelto also w/ hx hypothyroidism and continues on Synthroid 137mcg daily. Last TSH in system back from January but given in for acute surgery will defer to repeating in f/u with PCP (6) Hyperglycemia: Plan: DM II, had been at pre-DM levels previously --> most recent a1c 6.5 On Trulicity weekly BSG AC/HS, SSI while inpatient CKD 3 likely from htn and DM (7) Obesity: Plan: BMI 42 weight loss encouraged (8) TYESHA (obstructive sleep apnea): Plan: CPAP HS scheduled for tonight Admission and Anticipated Discharge Date Admission Date: November 25, 2022 Subjective Patient had no symptoms institution of the fentanyl patch she is in good pain control and relief she wishes to continue this also she is chronic pain issues with gout arthritis Physical Exam Physical Exam: Patient awake alert appropriate lungs are clear card exam is regular she is slightly uncomfortable with her bilateral ostectomy's but otherwise is having good functional status with pain control Results & Data Results & Data Vital Signs (Past 12 Hours) Vital Signs Temp Pulse Resp BP Pulse Ox O2 Del Method O2 Flow Rate 11/28/22 08:00 Nasal Cannula 11/28/22 07:42 97.5 F L 59 L 18 123/78 96 Nasal Cannula 3 PG Care Time/CCT Total # of Minutes Spent Total Time Spent with Patient: Total time spent is greater than 50% in coordination of care (as documented) at patient's floor/unit and/or counseling patient: Coding Level of Care Code 36020 SUB INP/OBS CARE 2/35MIN Diagnoses S/P bilateral mastectomy Z90.13 Breast cancer, right C50.911 Chronic respiratory failure with hypoxia J96.11 (HFpEF) heart failure with preserved ejection fraction I50.30 Paroxysmal atrial fibrillation I48.0 Hyperglycemia R73.9 Obesity E66.9 TYESHA (obstructive sleep apnea) G47.33
[2022-11-28] MEDS ORDERED: PANTOprazole 40 MG TAB PO SCH (10:45)
--- NOTE | 2022-12-02 07:44 | Discharge Summary (DS) ---
DATE OF ADMISSION: 11/25/2022. DATE OF DISCHARGE: 11/28/2022. PRINCIPAL DIAGNOSIS: Breast cancer. PROCEDURE: The patient underwent bilateral mastectomy with left sentinel lymph node biopsy. HISTORY OF PRESENT ILLNESS: The patient is a 72-year-old female. She underwent prior right breast willy mpectomy and was found to have multifocal DCIS. She decided to have bilateral mastectomy. She was b rought in the hospital on 11/25/2022, where she underwent bilateral mastectomy with left sentinel lym ph node biopsy. She tolerated the procedure well. She does have significant COPD and is on home O2 and also some difficulty with pain management. She was in the hospital for several days, but she did progress well and was sent home on a fentanyl patch for pain and also was doing well with her respir atory status. She was to be seen in the surgical clinic within 1 week. [facility]. Job ID: [id number]
== END 2022-11-28 14:33 | disposition home health service (06) | DRG 580 ==
LOC: ASU 06:53 → 3N 13:49